=== PATIENT | male | born 1970 | race Caucasian/White ===

== ENCOUNTER 2020-10-19 06:56 | Outpatient (REF) | payer OTHER, SELFPAY ==
[2020-10-19 07:38] LABS: MANUAL DIFF FLAG NO
[2020-10-19 07:44] LABS: Basophils Percent Auto 0.4 % (0-2); Eosinophils Absolute Auto 0.3 X10*3/uL (0.0-0.4); Eosinophils Percent Auto 2.7 % (0-4); Hematocrit 51.4 % (42-52); Imm Gran Abs Auto 0.03 X10*3/uL (0.00-0.03); Imm Gran Pct Auto 0.3 % (0.0-0.4); Lymphocytes Absolute Auto 2.1 X10*3/uL (1.2-4.9); Lymphocytes Percent Auto 19.3 % (20-40); Mean Corpuscular HGB Conc 33.1 g/dl (31.0-36.0); Mean Corpuscular Hemoglobin 30.8 pg (27.0-33.0); Mean Corpuscular Volume 93.1 fL (80-98); Mean Platelet Volume 9.4 fL (9.4-12.4); Monocytes Absolute Auto 0.5 X10*3/uL (0.1-1.2); Monocytes Percent Auto 4.9 % (2-11); Neutrophils Absolute Auto 7.9 X10*3/uL (2.0-8.3); Neutrophils Percent Auto 72.4 % (45-73); Platelet Count 233 X10*3/uL (160-400); Red Blood Count 5.52 X10*6/uL (4.60-5.80); Red Cell Distribution Width 12.5 % (11.0-16.0); White Blood Count 10.9 X10*3/uL (4.8-10.8)
[2020-10-19 08:04] LABS: Alanine Aminotransferase 18 U/L (0-40); Alkaline Phosphatase 67 U/L (39-117); Anion Gap 10 (12-20); Aspartate Amino Transferase 15 U/L (5-37); Bilirubin Total 0.3 mg/dL (0.0-1.0); Blood Urea Nitrogen 18 mg/dL (9-16); Calcium 9.4 mg/dL (8.4-10.2); Carbon Dioxide 28 mmol/L (22-29); Chloride 109 mmol/L (96-108); Cholesterol 243 mg/dL; Estimated Glomerular Filt Rate > 60; Glucose Random 101 mg/dL (60-115); HDL Cholesterol 40 mg/dL; LDL Cholesterol Calculated 189 mg/dl; Potassium 4.6 mmol/L (3.3-5.1); Sodium 142 mmol/L (135-145); Total Protein 6.5 g/dL (6.5-8.0); Triglycerides 70 mg/dL
[2020-10-19 09:10] LABS: Prostate Specific Antigen 0.83 ng/mL (<0.05-4.0)
== END 2020-10-19 06:57 | disposition home or self-care (01) ==
LOC: HO.LAB 06:56
PROVIDERS: PCP Internal Medicine Medical Oncology; Visit Provider Internal Medicine Medical Oncology
DX: L40.9 Psoriasis, unspecified (principal); E78.5 Hyperlipidemia, unspecified; J44.9 Chronic obstructive pulmonary disease, unspecified; N40.1 Benign prostatic hyperplasia with lower urinary tract symptoms; R35.1 Nocturia; F17.200 Nicotine dependence, unspecified, uncomplicated; Z12.5 Encounter for screening for malignant neoplasm of prostate
CPT/HCPCS: 36415; 80053; 80061; 84153; 85025

== ENCOUNTER 2022-01-08 08:16 | Outpatient (REF) | payer OTHER, SELFPAY ==
--- NOTE | ~2022-01-08 | XR_ITS ---
EXAMINATION: XR LUMBAR SPINE XR SACRUM AND COCCYX XR SACROILIAC JOINT CLINICAL INFORMATION: Pain COMPARISON: None TECHNIQUE: 5 views of the lumbar spine, 3 views of the sacrum and coccyx and 3 views of the sacroiliac joints FINDINGS: LUMBAR SPINE: Bone alignment is normal. No fracture or dislocation is seen. There is mild disc space narrowing at L5-S1. Disc spaces are otherwise normal. Facet joints are normal. No pars defect is seen. SACRUM AND COCCYX: No fracture or dislocation is seen. There is a small sclerotic lesion in the left iliac bone near the sacroiliac joint. This probably represents a bone island. SACROILIAC JOINTS: The sacroiliac joints are normal. No evidence of proliferative or erosive arthritis is seen. 1.0 cm sclerotic lesion in the left iliac bone probably representing a bone island. XR/XR lumbar spine 4V min IMPRESSION: Mild disc space narrowing at L5-S1. Otherwise unremarkable exam.
--- NOTE | ~2022-01-08 | XR_ITS ---
EXAMINATION: XR LUMBAR SPINE XR SACRUM AND COCCYX XR SACROILIAC JOINT CLINICAL INFORMATION: Pain COMPARISON: None TECHNIQUE: 5 views of the lumbar spine, 3 views of the sacrum and coccyx and 3 views of the sacroiliac joints FINDINGS: LUMBAR SPINE: Bone alignment is normal. No fracture or dislocation is seen. There is mild disc space narrowing at L5-S1. Disc spaces are otherwise normal. Facet joints are normal. No pars defect is seen. SACRUM AND COCCYX: No fracture or dislocation is seen. There is a small sclerotic lesion in the left iliac bone near the sacroiliac joint. This probably represents a bone island. SACROILIAC JOINTS: The sacroiliac joints are normal. No evidence of proliferative or erosive arthritis is seen. 1.0 cm sclerotic lesion in the left iliac bone probably representing a bone island. XR/XR sacrum coccyx min 2V IMPRESSION: Mild disc space narrowing at L5-S1. Otherwise unremarkable exam.
--- NOTE | ~2022-01-08 | XR_ITS ---
EXAMINATION: XR LUMBAR SPINE XR SACRUM AND COCCYX XR SACROILIAC JOINT CLINICAL INFORMATION: Pain COMPARISON: None TECHNIQUE: 5 views of the lumbar spine, 3 views of the sacrum and coccyx and 3 views of the sacroiliac joints FINDINGS: LUMBAR SPINE: Bone alignment is normal. No fracture or dislocation is seen. There is mild disc space narrowing at L5-S1. Disc spaces are otherwise normal. Facet joints are normal. No pars defect is seen. SACRUM AND COCCYX: No fracture or dislocation is seen. There is a small sclerotic lesion in the left iliac bone near the sacroiliac joint. This probably represents a bone island. SACROILIAC JOINTS: The sacroiliac joints are normal. No evidence of proliferative or erosive arthritis is seen. 1.0 cm sclerotic lesion in the left iliac bone probably representing a bone island. XR/XR sacroiliac joint min 3V IMPRESSION: Mild disc space narrowing at L5-S1. Otherwise unremarkable exam.
== END 2022-01-08 08:17 | disposition home or self-care (01) ==
LOC: HO.XRAY 08:16
PROVIDERS: PCP Internal Medicine Medical Oncology; Visit Provider Internal Medicine Medical Oncology
DX: M51.36 Other intervertebral disc degeneration, lumbar region (principal); M54.30 Sciatica, unspecified side
CPT/HCPCS: 72110; 72202; 72220

== ENCOUNTER 2022-01-11 10:02 | Emergency (ER) | payer OTHER, SELFPAY ==
[2022-01-11 10:04] VITALS: BP 128/86; PULSE 70; RESP 18; TEMP 36.8; O2SAT 98; BMI 28.3
--- NOTE | 2022-01-11 10:57 | ED_ITS ---
HPI - General Adult General Chief complaint: General Medical Stated complaint: sciatic nerve pain R side Source: patient Mode of arrival: ambulatory Limitations: no limitations History of Present Illness HPI narrative: 50-year-old male history of sciatica. Presents to ED for right-sided back pain. Patient stop taking his pain med since Friday. Patient denies any recent trauma. Patient denies any abdominal pain,, chills, flank pain, dysuria, hematuria, testicular pain, any urinary/incontinence. Patient denies any IV drug use or immunocompromise diseases. Related Data Allergies Allergy/AdvReac Type Severity Reaction Status Date / Time No Known Allergies Allergy Verified 01/11/22 11:17 Review of Systems Review of Systems: Right-sided sciatica back pain Yes all other systems are reviewed and are negative [facility] Social History Social History Advance Directives: No Advance Directives Information Provided: No Physical Exam ED Vital Signs: Vital Signs - 24 hr 01/11/22 10:04 Temperature 98.3 F Pulse Rate 70 Respiratory Rate 18 Blood Pressure 128/86 Pulse Oximetry 98 Oxygen Delivery Method Room Air BMI result Body Mass Index 28.3 Const General: cooperative, healthy appearing, comfortable, no acute distress, well developed, alert, awake and Physically active Orientation/consciousness: oriented to time and patient oriented x3 HENMT Head: Yes normal to inspection, Yes No palpable skull fracture present, Yes normocephalic, Yes atraumatic and No abrasion Eyes General: appearance normal, both eyes and all related structures Neck Neck: Yes normal visual inspection, Yes full ROM, Yes no lymphadenopathy, Yes no meningeal signs, Yes trachea midline, Yes supple, No anterior neck swelling and No tender Chest Chest palpation & inspection: normal inspection of the chest and normal palpation of entire chest wall Resp Effort & Inspection: normal respiratory effort and able to speak in complete sen tences Auscultation: clear to auscultation bilaterally Cardio Jugular venous distension: no JVD Heart sounds: S1 normal heart sound present and S2 normal heart sound present GI Inspection: Yes normal to inspection and No abdominal wall ecchymosis Palpation (GI): Soft to palpation, not firm, nontender, no guarding and not rigid General: No CVA tenderness and Yes no CVA tenderness Back/Spine/Pelvis Other: Right leg positive for straight leg. Back: no CVA tenderness, No CVA tenderness and back tenderness (right sciatica and lumbar tendenress.) Skin General skin exam: no rashes or lesions noted and elasticity normal Neuro Other: Negative facial droop. Negative slurred speech. Negative paralysis of extremities. Negative pronator drift. All extremities equal strength 5+. Finger to nose rapid hand movement intact. Negative Romberg. NIH score 0 General: oriented to time, patient oriented x3, gait normal, no meningeal signs and CN's II-XI intact bilaterally Cranial nerves: Yes CN's II-XII intact bilaterally Extrem General: Yes normal to inspection and Yes full ROM Psych Appearance: grossly normal, well kempt and not disheveled Course Reevaluation(s) Reevaluation #1: Patient does not want any pain medication or further evaluation. physical exam negative for neuro deficits. Patient denies any urinary/bowel incontinence. Patient walking around the ER. Patient does have Right sided lumbar spine tenderness. Not suspecting cauda equina or epidural abscess. Patient denies any urinary/bowel incontinence. Patient refused rectal exam. Straight leg test positive for right side. S patient alert oriented x3. Some labs and UA were offered but patient refused. Time: 11:35 Discharge Plan Discharge Clinical Impression: Sciatica of right side Patient Disposition: Home, Self-Care Instructions: Sciatica (ED) Additional Instructions: You do not want any workup. Please keep your physical therapy appointment with your provider this upcoming Friday. Return to the ED immediately for any urinary/bowel incontinence, abdominal pain, nausea, vomiting, flank pain, fever, chills, dysuria, hematuria, or any other concerning symptoms. Referrals: Omi Lopez MD [Primary Care Provider] - (Right-side sciatica.) Interventions: ED Discharge Assessment Last Done: 01/11/22 11:41 Discharge Date/Time: 01/11/22 11:42 Print Language: [place]
== END 2022-01-11 11:42 | disposition home or self-care (01) ==
PROVIDERS: Emergency Provider Emergency Medicine; PCP Internal Medicine Medical Oncology
DX: M54.41 Lumbago with sciatica, right side (principal)
CPT/HCPCS: 99282

== ENCOUNTER 2022-06-27 10:36 | Emergency (ER) | payer OTHER, SELFPAY ==
[2022-06-27] VITALS (7 sets, daily range): BP systolic 122–131; BP diastolic 82–95; PULSE 74–110; RESP 16–20; O2SAT 98; BMI 27.1
--- NOTE | ~2022-06-27 | CT_ITS ---
EXAMINATION: CT HEAD WITHOUT CONTRAST CLINICAL INFORMATION: Dizziness for 2 weeks. COMPARISON: None TECHNIQUE: Contiguous axial imaging was performed from the skull base to vertex without intravenous administration of contrast. Coronal and sagittal reformatted images were obtained. This CT examination was performed using dose optimization techniques as appropriate, variously including the following: *Automated exposure control *Adjustment of mA and/or kV according to patient size (this includes techniques or standardized protocols for targeted exams where dose is matched to indication/reason for exam; i.e. extremities or head) *Use of iterative reconstruction technique DLP: 716 mGy-cm FINDINGS: The cortical sulci are normal. The lateral ventricles are symmetrical. The third and fourth ventricles are in their normal midline position. The basilar and prepontine cisterns are unremarkable. Left pontine chronic appearing infarct. There is no acute intra or extracerebral abnormality. There is no mass effect or midline shift. Sections through the bony calvarium are unremarkable. The paranasal sinuses are clear. The bony orbits and orbital contents are unremarkable. Mild anterior nasal septal deviation, apex left. CT/CT head/brain wo IV con IMPRESSION: No acute intracranial pathology. Chronic appearing left pontine infarct without associated abnormality.
--- NOTE | ~2022-06-27 | XR_ITS ---
EXAMINATION: XR CHEST CLINICAL INFORMATION: Dizziness/weakness. COMPARISON: None TECHNIQUE: 2 views of the chest were obtained. FINDINGS: No significant abnormality is noted involving the heart, lungs, mediastinum, bony thorax or soft tissues. XR/XR chest 2V IMPRESSION: No acute cardiopulmonary process.
--- NOTE | 2022-06-27 10:48 | ED.ALLEREA ---
HPI - Allergic Reaction General Chief complaint: Dizziness <Tanisha Burns NP - Last Filed: 06/27/22 16:22> Stated complaint: DUPREE,DIZZY,EYE SWELLING,?ALLERGIVC RXN TO MED <Tanisha Burns NP - Last Filed: 06/27/22 16:22> Time Seen by Provider: 06/27/22 10:47 <Tanisha Burns NP - Last Filed: 06/27/22 16:22> Source: patient and EMS <Tanisha Burns NP - Last Filed: 06/27/22 16:22> Mode of arrival: EMS <Tanisha Burns NP - Last Filed: 06/27/22 16:22> Limitations: no limitations <Tanisha Burns NP - Last Filed: 06/27/22 16:22> History of Present Illness HPI narrative: this is a 52-year-old male with a history of high cholesterol, chronic back pain who presents to the emergency room with complaints of generalized weakness, dizziness, shakiness for the last 2-3 weeks. Patient reports that he has been dealing with chronic back pain for the last few months unrelieved with gabapentin and several steroid tapers. The patient reports that he was seen by his primary care doctor earlier this month and prescribed Cymbalta which he tells me he was given for mood swings. Patient reports since starting the medication he feels like his symptoms have developed. It is unclear exactly why but the patient was given Benadryl and Solu-Medrol prior to arrival by EMS with concern for allergic reaction. Patient denies any rash, vomiting, diarrhea, abdominal cramping, difficulty breathing. Patient does have some mild periorbital swelling and tells me that he was crying prior to arrival. Patient reports he is quite frustrated and depressed about how he is feeling. No suicidal thoughts. Patient reports dizziness/weakness is when he is moving around and not at rest <Tanisha Burns NP - Last Filed: 06/27/22 16:22> Related Data Home medications: Previous Rx's Medication Instructions Recorded meclizine 25 mg tablet 25 mg PO TID PRN dizziness #20 tabs 06/27/22 <Tanisha Burns NP - Last Filed: 06/27/22 16:22> Allergies/adverse reactions: Allergies Allergy/AdvReac Type Severity Reaction Status Date / Time No Known Allergies Allergy Verified 04/09/22 13:54 <Tanisha Burns SENIOR PROCUREMENT SPECIALIST - Last Filed: 06/27/22 16:22> Review of Systems Review of Systems: Yes all other systems are reviewed and are negative <Tanisha Burns NP - Last Filed: 06/27/22 16:22> Constitutional: Constitutional: Reports no additional constitutional complaints, Denies body ache(s), Denies chills, Denies fever(s), Denies headache(s) and Reports weakness <Tanisha Burns SENIOR PROCUREMENT SPECIALIST - Last Filed: 06/27/22 16:22> Eyes: Eyes: Reports no additional eye complaints and Denies change in vision <Tanisha Burns SENIOR PROCUREMENT SPECIALIST - Last Filed: 06/27/22 16:22> ENT: Reports system reviewed and no additional complaints, except as documented, Reports dizziness, Denies headache(s), Denies nasal congestion, Denies nasal discharge and Denies neck pain <Tanisha Burns SENIOR PROCUREMENT SPECIALIST - Last Filed: 06/27/22 16:22> Cardiovascular: Cardiovascular: Reports no additional cardiovascular complaints, Denies chest pain, Denies leg edema and Denies dyspnea <Tanisha Burns SENIOR PROCUREMENT SPECIALIST - Last Filed: 06/27/22 16:22> Respiratory: Respiratory: Reports no additional respiratory complaints, Denies cough and Denies dyspnea <Tanisha Burns SENIOR PROCUREMENT SPECIALIST - Last Filed: 06/27/22 16:22> Gastrointestinal: Gastrointestinal: Reports no additional gastrointestinal complaints, Denies abdominal pain, Denies diarrhea, Denies nausea and Denies vomiting <Tanisha Burns SENIOR PROCUREMENT SPECIALIST - Last Filed: 06/27/22 16:22> Genitourinary: Genitourinary: Denies urinary incontinence <Tanisha Burns SENIOR PROCUREMENT SPECIALIST - Last Filed: 06/27/22 16:22> Musculoskeletal: Musculoskeletal: Reports no additional musculoskeletal complaints, Denies back pain, Denies arthralgias, Denies joint swelling, Denies neck pain, Denies numbness and Denies tingling <Tanisha Burns SENIOR PROCUREMENT SPECIALIST - Last Filed: 06/27/22 16:22> Integumentary/Breasts: Skin/Breast: Reports system reviewed and no additional complaints, except as docu and Denies rash <Tanisha Burns NP - Last Filed: 06/27/22 16:22> Neurologic: Reports system reviewed and no additional complaints, except as documented, Denies Abnormal speech present, Reports dizziness, Denies headache(s), Denies numbness, Denies tingling and Reports weakness <Tanisha Burns NP - Last Filed: 06/27/22 16:22> [facility] Past Medical History Attestation statement: The following information was validated with the patient. <Tanisha Burns NP - Last Filed: 06/27/22 16:22> Source: old records reviewed and nursing notes reviewed <Tanisha Burns NP - Last Filed: 06/27/22 16:22> Social History Social History: Social History Patient Tobacco Use Status: Current everyday Tobacco user Tobacco use type: Cigarette Cigarette Packs Per Day: 1 Smoked in Last 30 Days: Yes Use of substances other than those prescribed or required for medical reasons: Yes Substance Use Type: Marijuana Advance Directives: No Advance Directives Information Provided: No <Tanisha Burns NP - Last Filed: 06/27/22 16:22> Physical Exam ED Vital Signs: Vital Signs - 24 hr 06/27/22 10:49 06/27/22 11:01 06/27/22 11:41 Pulse Rate 103 H 88 74 Respiratory Rate 20 16 Blood Pressure 122/95 H 131/86 Pulse Oximetry 98 98 Oxygen Delivery Method Room Air Room Air 06/27/22 11:42 06/27/22 11:44 06/27/22 12:18 Pulse Rate 88 105 H 77 Respiratory Rate 16 Blood Pressure 127/86 127/82 125/86 Pulse Oximetry Oxygen Delivery Method BMI result Body Mass Index 27.1 <Tanisha Burns NP - Last Filed: 06/27/22 16:22> Vital Signs - 24 hr 06/27/22 10:49 06/27/22 11:01 06/27/22 11:41 Pulse Rate 103 H 88 74 Respiratory Rate 20 16 Blood Pressure 122/95 H 131/86 Pulse Oximetry 98 98 Oxygen Delivery Method Room Air Room Air 06/27/22 11:42 06/27/22 11:44 06/27/22 12:18 Pulse Rate 88 105 H 77 Respiratory Rate 16 Blood Pressure 127/86 127/82 125/86 Pulse Oximetry Oxygen Delivery Method BMI result Body Mass Index 27.1 <Beck Gonzalez MD - Last Filed: 06/27/22 16:23> Const General: alert and anxious <Tanisha Burns NP - Last Filed: 06/27/22 16:22> Orientation/consciousness: patient oriented x3 <Tanisha Burns NP - Last Filed: 06/27/22 16:22> Limitations: no limitations <Tanisha Burns NP - Last Filed: 06/27/22 16:22> HENMT Head: Yes normal to inspection <Tanisha Burns SENIOR PROCUREMENT SPECIALIST - Last Filed: 06/27/22 16:22> Ears: hearing grossly normal bilaterally and TM's normal bilaterally <Tanisha Burns NP - Last Filed: 06/27/22 16:22> Throat: Yes posterior oropharynx normal, Yes tonsils normal and Yes uvula midline <Tanisha Bruns NP - Last Filed: 06/27/22 16:22> Eyes General: appearance normal, both eyes and all related structures <Tanisha Burns SENIOR PROCUREMENT SPECIALIST - Last Filed: 06/27/22 16:22> Pupils: Equal, round and reactive pupils present <Tanisha Burns NP - Last Filed: 06/27/22 16:22> Neck Neck: Yes normal visual inspection, Yes full ROM, Yes no lymphadenopathy and Yes no meningeal signs <Tanisha Burns NP - Last Filed: 06/27/22 16:22> Chest Chest palpation & inspection: normal inspection of the chest <Tanisha Bruns NP - Last Filed: 06/27/22 16:22> Resp Effort & Inspection: normal respiratory effort <aTnisha Burns NP - Last Filed: 06/27/22 16:22> Auscultation: clear to auscultation bilaterally <Tanisha Burns SENIOR PROCUREMENT SPECIALIST - Last Filed: 06/27/22 16:22> Cardio Rate: regular rate <Tanisha Burns SENIOR PROCUREMENT SPECIALIST - Last Filed: 06/27/22 16:22> Rhythm: regular rhythm <Tanisha Burns SENIOR PROCUREMENT SPECIALIST - Last Filed: 06/27/22 16:22> Peripheral pulses: Peripheral pulses 2+ throughout <Tanisha Burns SENIOR PROCUREMENT SPECIALIST - Last Filed: 06/27/22 16:22> GI Inspection: Yes normal to inspection <Tanisha Burns, SENIOR PROCUREMENT SPECIALIST - Last Filed: 06/27/22 16:22> Palpation (GI): Soft to palpation and nontender <Tanisha Burns SENIOR PROCUREMENT SPECIALIST - Last Filed: 06/27/22 16:22> General: Yes no CVA tenderness <Tanisha Burns, SENIOR PROCUREMENT SPECIALIST - Last Filed: 06/27/22 16:22> Back/Spine/Pelvis Back: no CVA tenderness <Tanisha Burns, SENIOR PROCUREMENT SPECIALIST - Last Filed: 06/27/22 16:22> Thoracic/Lumbar Spine: thoracic and lumbar spine normal to inspection <Tanisha Burns, SENIOR PROCUREMENT SPECIALIST - Last Filed: 06/27/22 16:22> Skin General skin exam: no rashes or lesions noted <Tanisha Burns, SENIOR PROCUREMENT SPECIALIST - Last Filed: 06/27/22 16:22> Neuro General: patient oriented x3, moves all extremities and no meningeal signs <Tanisha Burns SENIOR PROCUREMENT SPECIALIST - Last Filed: 06/27/22 16:22> Cranial nerves: Yes CN's II-XII intact bilaterally, Yes Equal, round and reactive pupils present, Yes Bilaterally intact EOM present, Yes Nystagmus not present, Yes Normal facial strength present and Yes Midline tongue present <Tanisha Burns SENIOR PROCUREMENT SPECIALIST - Last Filed: 06/27/22 16:22> Cognition (Neuro): normal cognition <Tanisha Burns, SENIOR PROCUREMENT SPECIALIST - Last Filed: 06/27/22 16:22> Speech: No Abnormal speech present <Tanisha Burns SENIOR PROCUREMENT SPECIALIST - Last Filed: 06/27/22 16:22> Gait exam (Neuro): Normal gait present <Tanisha Burns NP - Last Filed: 06/27/22 16:22> Motor exam (neuro): 5/5 motor strength present throughout <Tanisha Burns NP - Last Filed: 06/27/22 16:22> Sensory Exam: Normal double simultaneous stimulation for sensation <Tanisha Burns NP - Last Filed: 06/27/22 16:22> Coordination: [id number] test normal, [id number] test normal and tandem gait normal <Tanisha Burns NP - Last Filed: 06/27/22 16:22> Extrem General: Yes normal to inspection, Yes no pedal edema and Yes no calf tenderness <Tanisha Burns NP - Last Filed: 06/27/22 16:22> Course Course Course Narrative: 1200-+orthos. Will give IVF <Tanisha Burns NP - Last Filed: 06/27/22 16:22> Reevaluation(s) Reevaluation #1: Labs unremarkable. CT shows chronic left pontine infarct. Patient is aware of this. He reports he previously had a stroke requiring rehab after. Patient did receive 1 L fluid. So complaining of feeling dizzy. I did walk the patient he has a steady gait. Normal cerebellar function. Less likely CVA with symptoms greater than [address] of the head normal neurological exam. Likely vertigo. Patient will be given meclizine will reassess <Tanisha Burns NP - Last Filed: 06/27/22 16:22> Reevaluation #2: 1530-patient reports feeling improved after receiving meclizine. Patient is up and ambulating with a steady gait. Dizziness is likely multifactorial. May be secondary to recent medications started, orthostatic hypotension and vertical. Patient did meet with the care team. He was given outpatient resources to set up a therapist. Recommend follow-up outpatient with primary care. Reviewed worrisome signs symptoms of when to return to the emergency room. Comfortable discharge home. <Tanisha Burns NP - Last Filed: 06/27/22 16:22> Medications Administered Discontinued Medications Generic Name Dose Route Start Last Admin Trade Name Freq PRN Reason Stop Dose Admin Sodium Chloride 1,000 mls @ 999 mls/hr 06/27/22 12:01 06/27/22 13:36 Ns IV 06/27/22 13:01 Infused .Q1H1M STA Infusion Meclizine HCl 50 mg 06/27/22 13:32 06/27/22 13:36 Meclizine Hcl 25 Mg Tablet PO 06/27/22 13:33 50 mg ONCE ONE Administration <Tanisha Burns NP - Last Filed: 06/27/22 16:22> Medications Administered Discontinued Medications Generic Name Dose Route Start Last Admin Trade Name Cuco PRN Reason Stop Dose Admin Sodium Chloride 1,000 mls @ 999 mls/hr 06/27/22 12:01 06/27/22 13:36 Ns IV 06/27/22 13:01 Infused .Q1H1M STA Infusion Meclizine HCl 50 mg 06/27/22 13:32 06/27/22 13:36 Meclizine Hcl 25 Mg Tablet PO 06/27/22 13:33 50 mg ONCE ONE Administration <Beck Gonzalez MD - Last Filed: 06/27/22 16:23> Medical Decision Making Medical Decision Making [facility] Narrative: 52-year-old male here with complaints of generalized weakness, dizziness with movement for the last few weeks which patient contributes to recently starting Cymbalta. On arrival patient is alert oriented. Vital stable. Normal neuro exam with no focal findings. Patient quite anxious and tearful. Will obtain labs, orthostatic vital signs, CT head, EKG, chest x-ray, viral testing. <Tanisha Burns NP - Last Filed: 06/27/22 16:22> Differential Diagnosis Differential Diagnoses: The differential diagnosis associated with the presentation includes <Tanisha Burns NP - Last Filed: 06/27/22 16:22> medication side effect Less likely electrolyte abnormality, I suspect hypertension, cerebellar infarct, acs <Tanisha Burns NP - Last Filed: 06/27/22 16:22> Lab Data [facility] Lab Attestation statement: I reviewed the patient's lab results. <Tanisha Burns NP - Last Filed: 06/27/22 16:22> Result Diagrams: 06/27/22 11:54 06/27/22 11:54 <Tanisha Burns NP - Last Filed: 06/27/22 16:22> Labs: Lab Results 06/27/22 06/27/22 06/27/22 Range/Units 11:54 11:54 11:54 WBC 11.2 H (4.8-10.8) X10*3/uL RBC 5.71 (4.60-5.80) X10*6/uL Hgb 18.3 H (14.0-18.0) g/dl Hct 52.6 H (42.0-52.0) % MCV 92.1 (80.0-98.0) fL MCH 32.0 (27.0-33.0) pg MCHC 34.8 (31.0-36.0) g/dl RDW 13.2 (11.0-16.0) % Plt Count 197 (160-400) X10*3/uL MPV 8.7 L (9.4-12.4) fL Immature Gran % (Auto) 2.6 H (0.0-0.4) % Neut % (Auto) 79.6 H (45-73) % Lymph % (Auto) 13.3 L (20-40) % [place] % (Auto) 3.6 (2-11) % Eos % (Auto) 0.5 (0-4) % Baso % (Auto) 0.4 (0-2) % Lymph # (Auto) 1.5 (1.2-4.9) X10*3/uL [place] # (Auto) 0.4 (0.1-1.2) X10*3/uL Eos # (Auto) 0.1 (0.0-0.4) X10*3/uL Baso # (Auto) 0.1 (0.0-0.2) X10*3/uL Abs Immat Gran (auto) 0.29 H (0.00-0.03) X10*3/uL Absolute Neuts (auto) 9.0 H (2.0-8.3) x10*3/uL Absolute Nucleated RBC 0.000 (0.0-0.012) X10*3/uL Nucleated RBC % (auto) 0.0 (0.0-0.2) /100WBC PT (10.0-13.1) SEC INR (0.9-1.1) Sodium 142 (135-145) mmol/L Potassium 4.3 (3.3-5.1) mmol/L Chloride 107 (96-108) mmol/L Carbon Dioxide 25 (22-29) mmol/L Anion Gap 14 (12-20) BUN 13 (9-16) mg/dL Creatinine 0.89 (0.5-1.4) mg/dL Estim Creat Clear Calc 110.3 Estimated GFR > 60 Random Glucose 123 H (60-115) mg/dL Calcium 8.9 (8.4-10.2) mg/dL Magnesium 2.2 (1.6-2.6) mg/dL Total Bilirubin 1.1 H (0.0-1.0) mg/dL Direct Bilirubin 0.3 (0.0-0.5) mg/dL AST 21 (5-37) U/L ALT 78 H (0-40) U/L Alkaline Phosphatase 54 (39-117) U/L Troponin I High Sens 5.0 (<3.5-35.0) ng/L Total Protein 6.0 L (6.5-8.0) g/dL Albumin 3.7 (3.5-5.0) g/dL Ethyl Alcohol mg/dL COVID-19 (FELISHA) (Negative) COVID-19 Clin Com 06/27/22 06/27/22 06/27/22 Range/Units 11:54 11:54 11:54 WBC (4.8-10.8) X10*3/uL RBC (4.60-5.80) X10*6/uL Hgb (14.0-18.0) g/dl Hct (42.0-52.0) % MCV (80.0-98.0) fL MCH (27.0-33.0) pg MCHC (31.0-36.0) g/dl RDW (11.0-16.0) % Plt Count (160-400) X10*3/uL MPV (9.4-12.4) fL Immature Gran % (Auto) (0.0-0.4) % Neut % (Auto) (45-73) % Lymph % (Auto) (20-40) % [place] % (Auto) (2-11) % Eos % (Auto) (0-4) % Baso % (Auto) (0-2) % Lymph # (Auto) (1.2-4.9) X10*3/uL [place] # (Auto) (0.1-1.2) X10*3/uL Eos # (Auto) (0.0-0.4) X10*3/uL Baso # (Auto) (0.0-0.2) X10*3/uL Abs Immat Gran (auto) (0.00-0.03) X10*3/uL Absolute Neuts (auto) (2.0-8.3) x10*3/uL Absolute Nucleated RBC (0.0-0.012) X10*3/uL Nucleated RBC % (auto) (0.0-0.2) /100WBC PT 10.9 (10.0-13.1) SEC INR 1.0 (0.9-1.1) Sodium (135-145) mmol/L Potassium (3.3-5.1) mmol/L Chloride (96-108) mmol/L Carbon Dioxide (22-29) mmol/L Anion Gap (12-20) BUN (9-16) mg/dL Creatinine (0.5-1.4) mg/dL Estim Creat Clear Calc Estimated GFR Random Glucose (60-115) mg/dL Calcium (8.4-10.2) mg/dL Magnesium (1.6-2.6) mg/dL Total Bilirubin (0.0-1.0) mg/dL Direct Bilirubin (0.0-0.5) mg/dL AST (5-37) U/L ALT (0-40) U/L Alkaline Phosphatase (39-117) U/L Troponin I High Sens (<3.5-35.0) ng/L Total Protein (6.5-8.0) g/dL Albumin (3.5-5.0) g/dL Ethyl Alcohol < 10 mg/dL COVID-19 (FELISHA) Negative (Negative) COVID-19 Clin Com See Note <Tanisha Burns, SENIOR PROCUREMENT SPECIALIST - Last Filed: 06/27/22 16:22> Lab Results 06/27/22 06/27/22 06/27/22 Range/Units 11:54 11:54 11:54 WBC 11.2 H (4.8-10.8) X10*3/uL RBC 5.71 (4.60-5.80) X10*6/uL Hgb 18.3 H (14.0-18.0) g/dl Hct 52.6 H (42.0-52.0) % MCV 92.1 (80.0-98.0) fL MCH 32.0 (27.0-33.0) pg MCHC 34.8 (31.0-36.0) g/dl RDW 13.2 (11.0-16.0) % Plt Count 197 (160-400) X10*3/uL MPV 8.7 L (9.4-12.4) fL Immature Gran % (Auto) 2.6 H (0.0-0.4) % Neut % (Auto) 79.6 H (45-73) % Lymph % (Auto) 13.3 L (20-40) % [place] % (Auto) 3.6 (2-11) % Eos % (Auto) 0.5 (0-4) % Baso % (Auto) 0.4 (0-2) % Lymph # (Auto) 1.5 (1.2-4.9) X10*3/uL [place] # (Auto) 0.4 (0.1-1.2) X10*3/uL Eos # (Auto) 0.1 (0.0-0.4) X10*3/uL Baso # (Auto) 0.1 (0.0-0.2) X10*3/uL Abs Immat Gran (auto) 0.29 H (0.00-0.03) X10*3/uL Absolute Neuts (auto) 9.0 H (2.0-8.3) x10*3/uL Absolute Nucleated RBC 0.000 (0.0-0.012) X10*3/uL Nucleated RBC % (auto) 0.0 (0.0-0.2) /100WBC PT (10.0-13.1) SEC INR (0.9-1.1) Sodium 142 (135-145) mmol/L Potassium 4.3 (3.3-5.1) mmol/L Chloride 107 (96-108) mmol/L Carbon Dioxide 25 (22-29) mmol/L Anion Gap 14 (12-20) BUN 13 (9-16) mg/dL Creatinine 0.89 (0.5-1.4) mg/dL Estim Creat Clear Calc 110.3 Estimated GFR > 60 Random Glucose 123 H (60-115) mg/dL Calcium 8.9 (8.4-10.2) mg/dL Magnesium 2.2 (1.6-2.6) mg/dL Total Bilirubin 1.1 H (0.0-1.0) mg/dL Direct Bilirubin 0.3 (0.0-0.5) mg/dL AST 21 (5-37) U/L ALT 78 H (0-40) U/L Alkaline Phosphatase 54 (39-117) U/L Troponin I High Sens 5.0 (<3.5-35.0) ng/L Total Protein 6.0 L (6.5-8.0) g/dL Albumin 3.7 (3.5-5.0) g/dL Ethyl Alcohol mg/dL COVID-19 (FELISHA) (Negative) COVID-19 Clin Com 06/27/22 06/27/22 06/27/22 Range/Units 11:54 11:54 11:54 WBC (4.8-10.8) X10*3/uL RBC (4.60-5.80) X10*6/uL Hgb (14.0-18.0) g/dl Hct (42.0-52.0) % MCV (80.0-98.0) fL MCH (27.0-33.0) pg MCHC (31.0-36.0) g/dl RDW (11.0-16.0) % Plt Count (160-400) X10*3/uL MPV (9.4-12.4) fL Immature Gran % (Auto) (0.0-0.4) % Neut % (Auto) (45-73) % Lymph % (Auto) (20-40) % [place] % (Auto) (2-11) % Eos % (Auto) (0-4) % Baso % (Auto) (0-2) % Lymph # (Auto) (1.2-4.9) X10*3/uL [place] # (Auto) (0.1-1.2) X10*3/uL Eos # (Auto) (0.0-0.4) X10*3/uL Baso # (Auto) (0.0-0.2) X10*3/uL Abs Immat Gran (auto) (0.00-0.03) X10*3/uL Absolute Neuts (auto) (2.0-8.3) x10*3/uL Absolute Nucleated RBC (0.0-0.012) X10*3/uL Nucleated RBC % (auto) (0.0-0.2) /100WBC PT 10.9 (10.0-13.1) SEC INR 1.0 (0.9-1.1) Sodium (135-145) mmol/L Potassium (3.3-5.1) mmol/L Chloride (96-108) mmol/L Carbon Dioxide (22-29) mmol/L Anion Gap (12-20) BUN (9-16) mg/dL Creatinine (0.5-1.4) mg/dL Estim Creat Clear Calc Estimated GFR Random Glucose (60-115) mg/dL Calcium (8.4-10.2) mg/dL Magnesium (1.6-2.6) mg/dL Total Bilirubin (0.0-1.0) mg/dL Direct Bilirubin (0.0-0.5) mg/dL AST (5-37) U/L ALT (0-40) U/L Alkaline Phosphatase (39-117) U/L Troponin I High Sens (<3.5-35.0) ng/L Total Protein (6.5-8.0) g/dL Albumin (3.5-5.0) g/dL Ethyl Alcohol < 10 mg/dL COVID-19 (FELISHA) Negative (Negative) COVID-19 Clin Com See Note <Beck Gonzalez MD - Last Filed: 06/27/22 16:23> Independent Interpretation I performed an independent interpretation of an: EKG, Plain X-Ray and CT Scan <Tanisha Burns NP - Last Filed: 06/27/22 16:22> Interpretation: I indepedentely reviewed the chest x-ray and agree with radiologist's report I independently reviewed the CT of the head and agree with the radiologist's report I independently reviewed the EKG which shows normal sinus rhythm with a rate of 78, normal TN, normal QRS, normal QT <Tanisha Burns NP - Last Filed: 06/27/22 16:22> Radiology Impression Discussion of test interpretation with radiology: I have reviewed the radiologist's reading. <Tanisha Burns NP - Last Filed: 06/27/22 16:22> Radiologist Impression: [address] [id number] XRay Report Signed Patient: Fredrick Gudino MR#: [id number] : 1970 Acct:[id number] Age/Sex: 52 / M ADM Date: 06/27/22 Loc: .ED Attending Dr: Ordering Physician: Tanisha Licea NP Date of Service: 06/27/22 Procedure(s): XR chest 2V Accession Number(s): [id number] cc: Tanisha Lieca NP~ EXAMINATION: XR CHEST CLINICAL INFORMATION: Dizziness/weakness. COMPARISON: None TECHNIQUE: 2 views of the chest were obtained. FINDINGS: No significant abnormality is noted involving the heart, lungs, mediastinum, bony thorax or soft tissues. XR/XR chest 2V IMPRESSION: No acute cardiopulmonary process. FINDINGS: The cortical sulci are normal. The lateral ventricles are symmetrical. The third and fourth ventricles are in their normal midline position. The basilar and prepontine cisterns are unremarkable. Left pontine chronic appearing infarct. There is no acute intra or extracerebral abnormality. There is no mass effect or midline shift. Sections through the bony calvarium are unremarkable. The paranasal sinuses are clear. The bony orbits and orbital contents are unremarkable. Mild anterior nasal septal deviation, apex left. CT/CT head/brain wo IV con IMPRESSION: No acute intracranial pathology. ? Chronic appearing left pontine infarct without associated abnormality. <Tanisha Burns NP - Last Filed: 06/27/22 16:22> Independent Historian Clinical information obtained from an independent historian. History obtained from or confirmed by: EMS <Tanisha Burns NP - Last Filed: 06/27/22 16:22> Attestation Attending Attestation: I reviewed HYDROTREATER OPERATOR/PA/Resident note, assessment and plan. I agree with the documentation, assessment and plan unless otherwise stated. <Beck Gonzalez MD - Last Filed: 06/27/22 16:23> Discharge Plan Discharge Clinical Impression: Vertigo <Tanisha Burns NP - Last Filed: 06/27/22 16:22> Patient Disposition: Home, Self-Care <Tanisha Burns NP - Last Filed: 06/27/22 16:22> Instructions: Vertigo (ED) <Tanisha Burns NP - Last Filed: 06/27/22 16:22> Additional Instructions: Your symptoms may be from multiple things. It may be from starting her new medication. You are also mildly dehydrated. You also have an inner ear imbalance. We are giving you medication to help with this. Work on establishing a new therapist. Follow up with her primary care doctor. Return for worsening symptoms <Tanisha Burns NP - Last Filed: 06/27/22 16:22> Prescriptions: New meclizine 25 mg tablet 25 mg PO TID PRN (Reason: dizziness) Qty: 20 0RF <Tanisha Burns NP - Last Filed: 06/27/22 16:22> Referrals: Omi Lopez MD [Primary Care Provider] - 1 week <Tanisha Burns NP - Last Filed: 06/27/22 16:22> Interventions: ED Discharge Assessment Last Done: 06/27/22 15:45 <Tanisha Burns NP - Last Filed: 06/27/22 16:22> Discharge Date/Time: 06/27/22 15:46 <Tanisha Burns NP - Last Filed: 06/27/22 16:22>
--- NOTE | 2022-06-27 11:00 | ECG_ITS ---
Test Reason : DIZZINESS Blood Pressure : / mmHG Vent. Rate : 078 BPM Atrial Rate : 078 BPM P-R Int : 146 ms QRS Dur : 074 ms QT Int : 380 ms P-R-T Axes : 048 054 049 degrees QTc Int : 433 ms Normal sinus rhythm Normal ECG No previous ECGs available Referred By: Tanisha Burns Electronically Signed By:Elia Enriquez
--- NOTE | 2022-06-27 11:04 | PC.NURSE ---
Neuros are intact. Pt aware of plan for workup. No diff breathing or angioedema. Pt reports dizziness and weakness however no allergic rx sx at this time. Facial swelling however pt reports crying, no SI or HI.
[2022-06-27 11:58] LABS: MANUAL DIFF FLAG NO
[2022-06-27 12:05] LABS: Basophils Absolute Auto 0.1 X10*3/uL (0.0-0.2); Basophils Percent Auto 0.4 % (0-2); Eosinophils Absolute Auto 0.1 X10*3/uL (0.0-0.4); Eosinophils Percent Auto 0.5 % (0-4); Hematocrit 52.6 % (42.0-52.0); Hemoglobin 18.3 g/dl (14.0-18.0); Imm Gran Abs Auto 0.29 X10*3/uL (0.00-0.03); Imm Gran Pct Auto 2.6 % (0.0-0.4); Lymphocytes Absolute Auto 1.5 X10*3/uL (1.2-4.9); Lymphocytes Percent Auto 13.3 % (20-40); Mean Corpuscular HGB Conc 34.8 g/dl (31.0-36.0); Mean Corpuscular Volume 92.1 fL (80.0-98.0); Mean Platelet Volume 8.7 fL (9.4-12.4); Monocytes Absolute Auto 0.4 X10*3/uL (0.1-1.2); Monocytes Percent Auto 3.6 % (2-11); Neutrophils Percent Auto 79.6 % (45-73); Platelet Count 197 X10*3/uL (160-400); Red Blood Count 5.71 X10*6/uL (4.60-5.80); Red Cell Distribution Width 13.2 % (11.0-16.0); White Blood Count 11.2 X10*3/uL (4.8-10.8)
[2022-06-27 12:09] LABS: Prothrombin Time 10.9 SEC (10.0-13.1)
[2022-06-27] MEDS: 0.9 % Sodium Chloride 1,000 ML 999 ML IV (12:17)
[2022-06-27 12:20] LABS: Alanine Aminotransferase 78 U/L (0-40); Albumin Level 3.7 g/dL (3.5-5.0); Alkaline Phosphatase 54 U/L (39-117); Anion Gap 14 (12-20); Aspartate Amino Transferase 21 U/L (5-37); Bilirubin Direct 0.3 mg/dL (0.0-0.5); Bilirubin Total 1.1 mg/dL (0.0-1.0); Blood Urea Nitrogen 13 mg/dL (9-16); Calcium 8.9 mg/dL (8.4-10.2); Carbon Dioxide 25 mmol/L (22-29); Chloride 107 mmol/L (96-108); Creatinine Clr Calc Pharmacy 110.3; Estimated Glomerular Filt Rate > 60; Glucose Random 123 mg/dL (60-115); Magnesium 2.2 mg/dL (1.6-2.6); Potassium 4.3 mmol/L (3.3-5.1); Sodium 142 mmol/L (135-145)
[2022-06-27 12:22] LABS: Ethanol < 10 mg/dL
[2022-06-27 12:24] LABS: COVID-19 Test Negative (Negative); IDNOW Serial# BCCEAD1C
[2022-06-27] MEDS: Meclizine HCl 25 MG TABLET 50 MG PO (13:36)
--- NOTE | 2022-06-27 15:28 | MHC.CARE ---
CARE Team recieved called from ED provider Katy requesting care team met with Pt to provider psychiatry resources. CARE Team provided resources. ED provider notified
== END 2022-06-27 15:46 | disposition home or self-care (01) ==
PROVIDERS: Nurse Practitioner Family; Emergency Provider Emergency Medicine; PCP Internal Medicine Medical Oncology
DX: R42 Dizziness and giddiness (principal); R53.1 Weakness; R51.9 Headache, unspecified; Z20.822 Contact with and (suspected) exposure to COVID-19; Z20.828 Contact with and (suspected) exposure to other viral communicable diseases; Z79.899 Other long term (current) drug therapy
CPT/HCPCS: 36415; 70450; 71046; 80048; 80076; 82077; 83735; 84484; 85025; 85610; 87635; 93005; 96360; 99284; 99285

== ENCOUNTER 2022-09-23 10:31 | Outpatient (REF) | payer OTHER, SELFPAY ==
[2022-09-23 10:43] LABS: MANUAL DIFF FLAG NO
[2022-09-23 11:04] LABS: Basophils Absolute Auto 0.1 X10*3/uL (0.0-0.2); Basophils Percent Auto 0.8 % (0-2); Eosinophils Absolute Auto 0.1 X10*3/uL (0.0-0.4); Eosinophils Percent Auto 1.1 % (0-4); Hematocrit 51.6 % (42.0-52.0); Hemoglobin 17.7 g/dl (14.0-18.0); Imm Gran Abs Auto 0.05 X10*3/uL (0.00-0.03); Imm Gran Pct Auto 0.4 % (0.0-0.4); Lymphocytes Absolute Auto 2.3 X10*3/uL (1.2-4.9); Lymphocytes Percent Auto 19.9 % (20-40); Mean Corpuscular HGB Conc 34.3 g/dl (31.0-36.0); Mean Corpuscular Hemoglobin 32.5 pg (27.0-33.0); Mean Corpuscular Volume 94.9 fL (80.0-98.0); Mean Platelet Volume 9.2 fL (9.4-12.4); Monocytes Absolute Auto 0.9 X10*3/uL (0.1-1.2); Monocytes Percent Auto 7.4 % (2-11); Neutrophils Absolute Auto 8.3 x10*3/uL (2.0-8.3); Neutrophils Percent Auto 70.4 % (45-73); Platelet Count 288 X10*3/uL (160-400); Red Blood Count 5.44 X10*6/uL (4.60-5.80); White Blood Count 11.7 X10*3/uL (4.8-10.8)
[2022-09-23 11:45] LABS: Alanine Aminotransferase 28 U/L (0-40); Albumin Level 4.4 g/dL (3.5-5.0); Alkaline Phosphatase 63 U/L (39-117); Anion Gap 11 (12-20); Aspartate Amino Transferase 15 U/L (5-37); Bilirubin Total 0.6 mg/dL (0.0-1.0); Blood Urea Nitrogen 12 mg/dL (9-16); Carbon Dioxide 28 mmol/L (22-29); Chloride 108 mmol/L (96-108); Cholesterol 319 mg/dL; Estimated Glomerular Filt Rate > 60; Glucose Random 101 mg/dL (60-115); HDL Cholesterol 40 mg/dL; LDL Cholesterol Calculated 251 mg/dl; Potassium 4.4 mmol/L (3.3-5.1); Sodium 143 mmol/L (135-145); Total Protein 6.7 g/dL (6.5-8.0); Triglycerides 142 mg/dL
[2022-09-23 11:59] LABS: Prostate Specific Antigen 1.84 ng/mL (<0.05-4.0)
== END 2022-09-23 10:32 | disposition home or self-care (01) ==
LOC: HO.LAB 10:31
PROVIDERS: PCP Internal Medicine Medical Oncology; Visit Provider Internal Medicine Medical Oncology
DX: Z12.5 Encounter for screening for malignant neoplasm of prostate (principal); I63.59 Cerebral infarction due to unspecified occlusion or stenosis of other cerebral artery; E78.2 Mixed hyperlipidemia; E66.3 Overweight; N40.0 Benign prostatic hyperplasia without lower urinary tract symptoms
CPT/HCPCS: 36415; 80053; 80061; 84153; 85025

== ENCOUNTER 2023-10-07 12:17 | Outpatient (REF) | payer OTHER, SELFPAY ==
[2023-10-08 08:23] LABS: Lyme Abs Screen <0.90 index
== END 2023-10-07 12:18 | disposition home or self-care (01) ==
LOC: HO.LAB 12:17
PROVIDERS: PCP Internal Medicine Medical Oncology; Visit Provider Internal Medicine Medical Oncology
DX: T14.8XXA Other injury of unspecified body region, initial encounter (principal); W57.XXXA Bitten or stung by nonvenomous insect and other nonvenomous arthropods, initial encounter
CPT/HCPCS: 36415; 86617; 86618

== ENCOUNTER 2023-11-17 09:05 | Outpatient (REF) | payer OTHER, SELFPAY ==
[2023-11-17 09:33] LABS: MANUAL DIFF FLAG NO
[2023-11-17 10:28] LABS: Basophils Absolute Auto 0.1 X10*3/uL (0.0-0.2); Basophils Percent Auto 0.7 % (0-2); Eosinophils Absolute Auto 0.1 X10*3/uL (0.0-0.4); Eosinophils Percent Auto 0.9 % (0-4); Hematocrit 51.8 % (42.0-52.0); Hemoglobin 17.8 g/dl (14.0-18.0); Imm Gran Abs Auto 0.05 X10*3/uL (0.00-0.03); Imm Gran Pct Auto 0.5 % (0.0-0.4); Lymphocytes Absolute Auto 1.7 X10*3/uL (1.2-4.9); Lymphocytes Percent Auto 15.9 % (20-40); Mean Corpuscular HGB Conc 34.4 g/dl (31.0-36.0); Mean Corpuscular Hemoglobin 31.2 pg (27.0-33.0); Mean Corpuscular Volume 90.7 fL (80.0-98.0); Mean Platelet Volume 9.7 fL (9.4-12.4); Monocytes Absolute Auto 0.6 X10*3/uL (0.1-1.2); Monocytes Percent Auto 5.4 % (2-11); Neutrophils Absolute Auto 8.2 x10*3/uL (2.0-8.3); Neutrophils Percent Auto 76.6 % (45-73); Platelet Count 274 X10*3/uL (160-400); Red Blood Count 5.71 X10*6/uL (4.60-5.80); Red Cell Distribution Width 12.9 % (11.0-16.0); White Blood Count 10.8 X10*3/uL (4.8-10.8)
[2023-11-17 10:51] LABS: Alanine Aminotransferase 25 U/L (0-40); Albumin Level 4.2 g/dL (3.5-5.0); Alkaline Phosphatase 74 U/L (39-117); Anion Gap 13 (12-20); Aspartate Amino Transferase 16 U/L (5-37); Bilirubin Total 0.6 mg/dL (0.0-1.0); Blood Urea Nitrogen 13 mg/dL (9-16); Calcium 9.7 mg/dL (8.4-10.2); Carbon Dioxide 25 mmol/L (22-29); Chloride 106 mmol/L (96-108); Cholesterol 287 mg/dL (<200); Estimated Glomerular Filt Rate > 60; Glucose Fasting 98 mg/dL (60-99); HDL Cholesterol 35 mg/dL (>40); LDL Cholesterol Calculated 215 mg/dL (<100); Potassium 4.4 mmol/L (3.3-5.1); Sodium 140 mmol/L (135-145); Triglycerides 188 mg/dL (<150)
== END 2023-11-17 09:06 | disposition home or self-care (01) ==
LOC: HO.LAB 09:05
PROVIDERS: PCP Internal Medicine Medical Oncology; Visit Provider Internal Medicine Medical Oncology
DX: E66.3 Overweight (principal)
CPT/HCPCS: 36415; 80053; 80061; 85025

== ENCOUNTER 2023-12-08 10:11 | Outpatient (REF) | payer OTHER, SELFPAY ==
--- NOTE | ~2023-12-08 | XR_ITS ---
EXAMINATION: XR HAND/WRIST, LEFT CLINICAL INFORMATION: Psoriasis COMPARISON: None TECHNIQUE: PA, lateral, and oblique views of the left hand and wrist. FINDINGS: The bones and soft tissues are normal. No fracture. Alignment is anatomic. Joint spaces are maintained. No erosions or soft tissue calcifications. XR/XR hand wrist LT IMPRESSION: Normal radiographs of the hand and wrist.
--- NOTE | ~2023-12-08 | XR_ITS ---
EXAMINATION: XR HAND/WRIST, RIGHT CLINICAL INFORMATION: Psoriasis COMPARISON: None TECHNIQUE: PA, lateral, and oblique views of the right hand and wrist. FINDINGS: The bones and soft tissues are normal. No fracture. Alignment is anatomic. Joint spaces are maintained. No erosions or soft tissue calcifications. XR/XR hand wrist RT IMPRESSION: Normal radiographs of the hand and wrist.
== END 2023-12-08 10:12 | disposition home or self-care (01) ==
LOC: HO.XRAY 10:11
PROVIDERS: PCP Internal Medicine Medical Oncology; Visit Provider Internal Medicine Medical Oncology
DX: L40.9 Psoriasis, unspecified (principal); M19.032 Primary osteoarthritis, left wrist; M19.031 Primary osteoarthritis, right wrist; M79.641 Pain in right hand; M79.642 Pain in left hand
CPT/HCPCS: 73110; 73130

== ENCOUNTER 2024-01-09 09:13 | Outpatient (AMB) | payer OTHER, SELFPAY ==
--- NOTE | 2024-01-09 09:22 | A.OFFVIS_ITS ---
Vital Signs 01/09/24 09:38 Height 6 ft 1 in Weight 212 lb 6 oz BMI 28.0 BP 139/99 H Blood Pressure Location Rt brachial Position Sitting Pulse 69 Pulse Source Pulse Oximeter Pulse Oximetry (%) 98 Oxygen Delivery Method Room Air Intake Visit Reasons: Chronic Back Pain Intake Note: Pain today 06/21 Nail Kegger Required: No Accompanied by: Self / Same As Patient Allergies No Known Allergies Allergy (Verified 01/09/24 09:41) HPI HPI Chronic Back Pain: Details: Patient is a 53-year-old male with history of lumbar spine discectomy by Dr. Franco in 2010, right fourth finger crush injury repaired, psoriatic arthritis, depression, tobacco dependence (10-20 cigarettes daily), sleep apnea, left CVA 2021, presents today for initial evaluation of chronic low back pain with right sided radiculopathy and multiple joint pain. Reports remote history of stroke 2 years ago and has fully recovered except occasionally has difficulty finding words. Patient is currently seeing [facility] providers for the past 2-3 years and has undergone epidural steroidal injections for right-sided sciatica. He reports he has another injection coming up in February. He has completed physical therapy, acupuncture and chiropractic adjustments in the past and continues home exercise program regularly. Patient reports progressively worsening widespread body pain with multiple joint pain and developed psoriatic arthritis since he received 2 COVID shots 2 years ago. 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 Pain increases with daily activities and functioning, bending, lifting, twisting, pulling, prolonged standing and walking. Reports difficulty sleeping and enjoying recreational activities due to pain. Location: Lower back radiates down right leg, multiple joint pain Duration: Chronic pain, worsening for the past 2 years Characteristics of symptom or complaint: Aching, sharp, shooting, numbness, tingling, tightness, radiating Aggravating or associated factors: Movements, prolonged walking and standing, bending, lifting, pulling, twist Relieving factors: Prednisone taper, NSAIDs, rest, heat/cold therapies Treatment: PT, acupuncture, chiropractor, lumbar spine [facility] Medical History (Updated 01/09/24 @ 10:11 by YANET Box) Sleep apnea History of stroke Hyperlipidemia Tobacco dependence Depression Lumbar radiculopathy Social History Patient Tobacco Use Status: Current everyday Tobacco user Tobacco use type: Cigarette Cigarette Packs Per Day: 1 Substance Use Type: Marijuana Review of Systems Const All systems reviewed & are unremarkable except as noted in HPI and below Physical Exam Vital Signs: Last Vital Signs Pulse 69 01/09/24 09:38 BP 139/99 H 01/09/24 09:38 Pulse Ox 98 01/09/24 09:38 Oxygen Delivery Method Room Air 01/09/24 09:38 BMI result Body Mass Index 28.0 General: Appears afebrile. No acute distress. Alert and oriented. Mood and affect appropriate. Follows and participates in conversation appropriately. Respiratory effort is unlabored. No cough. Able to transition from sit to stand unassisted. Ambulates with bilaterally normal heel strike and toe off, except on RLE due to pain. General: Yes no CVA tenderness Back/Spine/Pelvis Other: Patient is able to walk and stand on heels and tip toes with mild difficulty on the right otherwise demonstrating good motor tone. No limping. Can flex forward to 75-80 degrees and extend to 5-10 degrees before experiencing lumbar pain. Demonstrates 5/5 left and 4/5 right strength of quadriceps bilaterally as well as flexion/dorsiflexion of bilateral feet against resistance. 2+ pedal pulses bilaterally. Seated straight leg rise with dorsiflexion positive on the right. +1 patellar and achilles reflexes bilaterally. Facet loading test positive bilaterally. Gary sign positive bilaterally, You?s, pelvic compression and Stinchfield tests are negative bilaterally. No groin pain with I/E hip rotations. Valsalva maneuver negative. Back: no CVA tenderness Cervical Spine: cervical ROM normal and No Cervical spine tenderness Thoracic/Lumbar Spine: thoracic and lumbar spine normal to inspection, Thoracic/lumbar spine scar(s), Lasegue's sign positive on the right and localized, pain with thoraco-lumbar ROM, paraspinal muscle tenderness, thoraco- lumbar ROM limited, No thoracic spinal tenderness and lumbar spinal tenderness at L4 and at L5 Pelvis: no buttock tenderness Sacroiliac joints: bilaterally tender to palpation Extrem General: Yes capillary refill normal, Yes no clubbing, cyanosis or edema and Yes no calf tenderness Results Reviewed Results Reviewed: XR LUMBAR SPINE XR SACRUM AND COCCYX XR SACROILIAC JOINT 12/31/21 FINDINGS: LUMBAR SPINE: Bone alignment is normal. No fracture or dislocation is seen. There is mild disc space narrowing at L5-S1. Disc spaces are otherwise normal. Facet joints are normal. No pars defect is seen. SACRUM AND COCCYX: No fracture or dislocation is seen. There is a small sclerotic lesion in the left iliac bone near the sacroiliac joint. This probably represents a bone island. SACROILIAC JOINTS: The sacroiliac joints are normal. No evidence of proliferative or erosive arthritis is seen. 1.0 cm sclerotic lesion in the left iliac bone probably representing a bone island. IMPRESSION: Mild disc space narrowing at L5-S1. Otherwise unremarkable exam. Assessment & Plan Assessment & Plan (1) Polyarthralgia: Code(s): M25.50 - Pain in unspecified joint Category: Medical (2) Psoriasis: Code(s): L40.9 - Psoriasis, unspecified Category: Medical (3) Lumbar radiculopathy: Code(s): M54.16 - Radiculopathy, lumbar region Category: Medical (4) Lumbar degenerative disc disease: Code(s): M51.36 - Other intervertebral disc degeneration, lumbar region Category: Medical (5) Low back pain: Code(s): M54.50 - Low back pain, unspecified Category: Medical (6) Muscle spasm of back: Code(s): M62.830 - Muscle spasm of back Category: Medical (7) Bilateral knee pain: Code(s): M25.561 - Pain in right knee; M25.562 - Pain in left knee Category: Medical Plan Discussed interventional treatments for his axial and radicular low back pain. Patient reports he will continue to follow with [facility] providers and has upcoming ELOY injection in February. We have reviewed peripheral nerve stimulation, RFA procedures, neuromodulation and BVN ablation treatments for a longer term pain management. Patient reports he is more interested today to evaluate widespread body pain and multiple joint pain. He has psoriatic arthritis and takes Otezla twice daily. Patient is interested in Rheumatology referral which I will submit today. Patient is interested to restart formal physical therapy for low back pain with right-sided radiculopathy to improve strength and flexibility and neuromuscular re-education for posture and balance. Script provided today, patient prefers [place] location. Scripts provided for tizanidine lidocaine and diclofenac topical gel. Side effects and precautions were discussed this patient. Patient called our office after medications were sent to his [facility] pharmacy and requested medications to be sent to [facility] pharmacy. All questions and concerns have been answered and patient agreed with the plan. Follow-up for medication review and sooner as needed. Orders: Orders PT Evaluation and Treatment Today M51.36 - Other intervertebral disc degeneration, lumbar region, M54.16 - Radiculopathy, lumbar region, M54.50 - Low back pain, unspecified Referrals Rheumatology Referral L40.9 - Psoriasis, unspecified, M25.50 - Pain in unspecified joint Medications: New lidocaine 5% 1 patch topical DAILY 30 days 30 ea 0RF pain M51.36 - Other intervertebral disc degeneration, lumbar region, M54.16 - Radiculopathy, lumbar region, M54.50 - Low back pain, unspecified tizanidine 2 mg PO TID 30 days PRN 90 tabs 0RF muscle spasticity M51.36 - Other intervertebral disc degeneration, lumbar region, M54.16 - Radiculopathy, lumbar region, M62.830 - Muscle spasm of back diclofenac sodium 1% (Arthritis Pain (diclofenac)) apply to single knee, ankle, foot; for foot includes sole/toes/top of foot 4 grams topical QID 30 days 100 grams 0RF pain M25.561 - Pain in right knee, M25.562 - Pain in left knee tizanidine 2 mg PO TID PRN 90 tabs 0RF muscle spasticity 30 days M51.36 - Other intervertebral disc degeneration, lumbar region, M54.16 - Radiculopathy, lumbar region, M62.830 - Muscle spasm of back diclofenac sodium 1% (Arthritis Pain (diclofenac)) apply to single knee, ankle, foot; for foot includes sole/toes/top of foot 4 grams topical QID 100 grams 0RF pain 30 days M25.561 - Pain in right knee, M25.562 - Pain in left knee lidocaine 5% 1 patch topical DAILY 30 ea 0RF pain 30 days M51.36 - Other intervertebral disc degeneration, lumbar region, M54.16 - Radiculopathy, lumbar region, M54.50 - Low back pain, unspecified Coding Level of Care Code New Pt Level 4 (78067) Diagnoses Polyarthralgia M25.50 Psoriasis L40.9 Lumbar radiculopathy M54.16 Lumbar degenerative disc disease M51.36 Low back pain M54.50 Muscle spasm of back M62.830 Bilateral knee pain M25.561; M25.562
[2024-01-09 09:38] VITALS: BP 139/99; PULSE 69; O2SAT 98; BMI 28.0
== END 2024-01-09 10:17 | disposition home or self-care (01) ==
PROVIDERS: PCP Internal Medicine Medical Oncology; Visit Provider Nurse Practitioner Family
DX: M25.50 Pain in unspecified joint (principal); L40.9 Psoriasis, unspecified; M54.16 Radiculopathy, lumbar region; M51.36 Other intervertebral disc degeneration, lumbar region; M54.50 Low back pain, unspecified; M62.830 Muscle spasm of back; M25.561 Pain in right knee; M25.562 Pain in left knee
CPT/HCPCS: 99204

== ENCOUNTER → 2024-01-09 09:13 | Outpatient (BNVA) | payer OTHER, SELFPAY | PROVIDERS: PCP Internal Medicine Medical Oncology; Visit Provider Nurse Practitioner Family ==

== ENCOUNTER 2024-02-16 13:47 | Outpatient (AMB) | payer OTHER, SELFPAY ==
[2024-02-16 14:03] VITALS: BP 112/74; PULSE 100; O2SAT 97; BMI 28.2
--- NOTE | 2024-02-16 14:03 | MHC.OFFVIS ---
Vital Signs 02/16/24 14:03 Height 6 ft 1 in Weight 213 lb 13.574 oz BMI 28.2 BP 112/74 Blood Pressure Location Lt brachial Position Sitting Pulse 100 Pulse Source Pulse Oximeter Pulse Oximetry (%) 97 Oxygen Delivery Method Room Air Intake Visit Reasons: Obstructive sleep apnea Intake Note: pt is here as a new patient for work up of SHIVA, feels tired throughout the day, easily falls asleep at work, brain fog, snoring Baler Operator Required: No Allergies No Known Allergies Allergy (Verified 02/16/24 14:47) Medication List - Last Reconciled 02/16/24 by Diane Silverio MD apremilast (Otezla) 30 mg PO BID atorvastatin 10 mg PO DAILY diclofenac sodium 1% (Arthritis Pain (diclofenac)) 4 grams topical QID 30 days lidocaine 5% 1 patch topical DAILY 30 days tizanidine 2 mg PO TID PRN Do you need a note to return to daycare/school/sports/work: No HPI HPI Obstructive sleep apnea: Details: 53 YEARS OLD GENTLEMAN IS BEING SEEN FOR THE 1ST TIME, REFERRED BY HIS PRIMARY CARE PHYSICIAN WITH HIGH SUSPICION OF SLEEP APNEA. THIS GENTLEMAN IS ONLY SLIGHTLY OVERWEIGHT WITH BMI OF 28 . HE IS TELLS ME THAT RECENTLY HE HAS LOST ABOUT 20 LB OF WEIGHT. HE HAS BEEN TOLD BY A LADY FRIEND THAT HE SNORES HEAVY AT NIGHT. HE IS NOT AWARE OF SYMPTOMS OF SLEEP APNEA. HE CLAIMS THAT HE SLEEPS ABOUT 6 HOURS DURING THE NIGHT WITHOUT WAKING UP FREQUENTLY. HOWEVER IN THE MORNING HE STILL HAS SOME BRAIN FOG, FEELING TIRED AND SLEEPY. HISTORY GOES BACK TO BOUT 2 YEARS AGO WHEN HE HAD NONSPECIFIC NEUROLOGIC SYMPTOMS, OF WEAKNESS OF THE LOWER EXTREMITIES AND LOSS OF BALANCE WITH THE FEELING OF BRAIN FOG. HE WAS INITIALLY TREATED AT [facility] EMERGENCY ROOM AND THEN REFERRED TO [facility] WHERE HE WAS TREATED INPATIENT FOR 1 WEEK AND THEN SENT TO REHAB CENTER. HE THINKS THAT HIS ONSET OF SYMPTOMS WAS RELATED TO COVID VACCINE. ANYWAY WITH REHAB PROGRAM HE GOT SOMEWHAT BETTER BUT HIS THE FEELING OF LIGHTHEADEDNESS,, SOME DEGREE OF BRAIN FOG,. AND BALANCE NEVER CAME BACK TO NORMAL. 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 DURING THE COVID EPIDEMIC ( 2019 ) AT [email or web address] HE DID WORK OVER THERE AT THAT FACILITY. LUCKILY HE DID NOT HAVE ACTIVE COVID DISEASE. HE DID RECEIVE HIS INITIAL VACCINATION, AND 6 MONTHS LATER HAD COVID BOOSTER SHOT. THEN IN 2021 HE DEVELOPED THE NEW NEUROLOGIC SYMPTOMS WHICH LED TO THE DIAGNOSIS OF STROKE , DESCRIBED ABOVE. AFTER HE RECOVERED FROM QUESTIONABLE STROKE, HE DID NOT GO BACK TO WORK AT [employer]. 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 HE HAS HAD NO ACCIDENT, HOWEVER IT IS HARD FOR HIM TO CLIMB UP AND DOWN THE STAIRS, DUE TO THIS ONGOING BRAIN FOG AND SINCE OF LOSING BALANCE. HE DOES SNORE AT NIGHT. HE DOES FEEL TIRED AND SLEEPY ON WAKING UP IN THE MORNING. IF HE WAS NOT WORKING ACTIVELY HE DOES HAVE TENDENCY TO DOZE OFF DURING THE DAYTIME. I CHECKED EPWORTH SLEEPINESS SCALE AND IT DOES COME TO 04/04 . * HE SMOKES 1 PACK OF CIGARETTES A DAY, . DENIES DRINKING ALCOHOL HE HAS SMOKED FOR ABOUT 40 YEARS, DENIES COUGH OR WHEEZING. HE TELLS ME THAT HE ENJOYS SMOKING AND IS NOT READY ARE MOTIVATED TO QUIT. [facility] Medical History (Updated 02/16/24 @ 15:33 by Diane Silverio MD) Smoker SHIVA (obstructive sleep apnea) Retrognathia Somnolence, daytime Sleep apnea History of stroke Hyperlipidemia Tobacco dependence Depression Lumbar radiculopathy Surgical History H/O lumbar discectomy Family History Father CAD (coronary artery disease) Myocardial infarction Alcoholism Hypertension CVD (cardiovascular disease) Social History Patient Tobacco Use Status: Current everyday Tobacco user Tobacco use type: Cigarette Cigarette Packs Per Day: 1 Substance Use Type: Marijuana Review of Systems Const All systems reviewed & are unremarkable except as noted in HPI and below Reports snoring Eyes Reports no additional complaints ENT Reports no additional complaints and Reports vertigo (MILD TO MODERATE ON CHANGING POSITIONS) Card Denies chest pain, Denies syncope, Denies irregular heart rhythm, Denies leg edema and Denies dyspnea on exertion Resp Denies cough, Denies dyspnea on exertion, Reports snoring and Denies wheezing GI Reports no additional complaints Reports no additional complaints Musc Reports myalgias (NONSPECIFIC) and Reports arthralgias Skin/Breast Reports system reviewed and no additional complaints, except as documented Neuro Reports vertigo (MILD TO MODERATE ON CHANGING POSITIONS) and Denies syncope Psych Reports no additional complaints Endo Reports no additional complaints Chon/Lymph Reports no additional complaints Aller/Immun Reports no additional complaints and Denies wheezing Physical Exam Vital Signs: Last Vital Signs Pulse 100 02/16/24 14:03 BP 112/74 02/16/24 14:03 Pulse Ox 97 02/16/24 14:03 Oxygen Delivery Method Room Air 02/16/24 14:03 BMI result Body Mass Index 28.2 Const General: healthy appearing, comfortable, no acute distress, alert and awake Orientation/consciousness: patient oriented x3 HEENT Head: Yes normal to inspection General nose exam: Normal nares present Teeth and gingiva: other (RETROGANTHIA OF THE LOWER JAW ) Eyes General: appearance normal, both eyes and all related structures Neck Neck: Yes normal visual inspection, Yes no lymphadenopathy, Yes trachea midline and Yes no JVD Thyroid: Thyroid normal Chest Chest palpation & inspection: normal inspection of the chest, normal palpation of entire chest wall and no tenderness Resp Effort & Inspection: normal respiratory effort Auscultation: clear to auscultation bilaterally, no crackles and no wheezes Cardio Palpation: normal PMI Rate: regular rate Rhythm: regular rhythm Heart sounds: no gallops and no murmurs Peripheral pulses: Peripheral pulses 2+ throughout GI Palpation (GI): Soft to palpation, nontender, No hepatosplenomegaly present and no masses Auscultation: normal bowel sounds Back/Spine/Pelvis Thoracic/Lumbar Spine: thoracic and lumbar spine normal to inspection Skin General skin exam: no rashes or lesions noted Neuro General: patient oriented x3 and no focal motor deficits Cranial nerves: Yes CN's II-XII intact bilaterally Extrem General: Yes normal to inspection, Yes no clubbing, cyanosis or edema and Yes no calf tenderness Psych Appearance: grossly normal and well kempt Speech and movement: Normal speech and movement present Assessment & Plan Assessment & Plan (1) Somnolence, daytime: Comment: HE CLAIMS THAT HE SLEEPS AT LEAST FOR 6 HOURS EVERY NIGHT. HOWEVER HE DOES TENDENCY ARE AN URGE TO FALL ASLEEP DURING THE DAYTIME IF HE WAS JUST SITTING IN ACTIVE. THE SYMPTOMS ARE WORSE IN THE AFTERNOON. HE IS NOT SURE IF THESE SYMPTOMS ARE DUE TO HIS REGIONAL BRAIN FOG RELATED TO STROKE OR IF IT IS DUE TO INSUFFICIENT SLEEP AT NIGHT. EPSWORTH SLEEPINESS SCALE = 11 Code(s): R40.0 - Somnolence Category: Medical Plan: I THINK HE NEEDS TO BE CHECKED WITH SLEEP STUDY (2) Retrognathia: Comment: HE HAS PROMINENT RETROGANTHIA OF THE LOWER JAW, AND IT IS DEFINITELY A STRONG CAUSE OF SLEEP APNEA. Code(s): M26.19 - Other specified anomalies of jaw-cranial base relationship Category: Medical Plan: EXPLAINED TO THE PATIENT ABOUT THE RETROGANTHIA AND MECHANISM BY WHICH IT PER MODES THE SLEEP APNEA. (3) SHIVA (obstructive sleep apnea): Comment: THERE IS A HIGH CHANCE OF OBSTRUCTIVE SLEEP APNEA, CAUSING INSUFFICIENT SLEEP, AND CONTRIBUTING TO HIS DAYTIME SLEEPINESS OR BRAIN FOG LIKE FEELING. Code(s): G47.33 - Obstructive sleep apnea (adult) (pediatric) Category: Medical Plan: AFTER FULL DISCUSSION WITH HIM A HOME-BASED SLEEP STUDY IS ORDERED. (4) Smoker: Comment: SMOKER FOR MORE THAN 40 YEARS, 1 PACK OF CIGARETTES A DAY. DOES NOT HAVE ANY SIGNIFICANT COUGH WHEEZING OR SHORTNESS OF BREATH, DOES NOT SEEM TO BE MOTIVATED TO QUIT. Code(s): F17.200 - Nicotine dependence, unspecified, uncomplicated Category: Social Hx Plan: HAD A GOOD DISCUSSION AND I TOLD HIM THE RISK OF CONTINUED SMOKING. I DISCUSSED ABOUT ANNUAL LUNG SCREENING PROGRAM AND HE IS WILLING TO JOIN THE PROGRAM. Orders: Orders RT home sleep study Today G47.33 - Obstructive sleep apnea (adult) (pediatric), M26.19 - Other specified anomalies of jaw-cranial base relationship, R40.0 - Somnolence Referrals Lung Cancer Screening Referral F17.200 - Nicotine dependence, unspecified, uncomplicated Coding Level of Care Code New Pt Level 4 (93534) Diagnoses Somnolence, daytime R40.0 Retrognathia M26.19 SHIVA (obstructive sleep apnea) G47.33 Smoker F17.200
== END 2024-02-16 14:54 | disposition home or self-care (01) ==
PROVIDERS: PCP Internal Medicine Medical Oncology; Visit Provider Internal Medicine
DX: R40.0 Somnolence (principal); M26.19 Other specified anomalies of jaw-cranial base relationship; G47.33 Obstructive sleep apnea (adult) (pediatric); F17.200 Nicotine dependence, unspecified, uncomplicated
CPT/HCPCS: 99204

== ENCOUNTER → 2024-02-16 13:47 | Outpatient (BNVA) | payer OTHER, SELFPAY | PROVIDERS: PCP Internal Medicine Medical Oncology; Visit Provider Internal Medicine ==

== ENCOUNTER 2024-02-19 15:32 | Outpatient (AMB) | payer OTHER, SELFPAY ==
--- NOTE | 2024-02-19 15:33 | MHC.OFFVIS ---
Vital Signs 02/19/24 15:41 Height 6 ft 1 in Weight 216 lb 4.375 oz BMI 28.5 BP 120/70 Blood Pressure Location Lt brachial Position Sitting Pulse 86 Pulse Source Pulse Oximeter Pulse Oximetry (%) 97 Oxygen Delivery Method Room Air Intake Visit Reasons: Psoriasis, joint pain/HNE PENDING Intake Note: Patient presents for Psoriasis and joint pain. I feel pain on both elbows, hands, knees and both heels. I been feeling this pain for a year now. No medication works. Allergies No Known Allergies Allergy (Verified 02/19/24 15:39) Medication List - Last Reconciled 02/19/24 by Violeta Zurita MD apremilast (Otezla) 30 mg PO BID atorvastatin 10 mg PO DAILY tizanidine 2 mg PO TID PRN HPI Comments Details: Patient is a 53-year-old male with history of stroke and hyperlipidemia who presents for evaluation of psoriatic arthritis. Patient states that about 2 years ago after he got a COVID shot he started to notice a rash on his bilateral lower extremities. This rash continued to worsen. He finally went to a surveillance manager and was told he had psoriasis. Used topicals on and off. On recently started Otezla. With improvement of his psoriasis. However about 1 year ago he started to notice pain in his PIP joints DIPs joints his heel and his lateral elbows. This was associated with swelling of the hands and prolonged morning stiffness up to an hour. Denies any history of eye inflammation. Denies any history of inflammatory bowel disease type symptoms. No family history of psoriasis. 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 Psoriatic arthritis Smoker SHIVA (obstructive sleep apnea) Retrognathia Somnolence, daytime Sleep apnea History of stroke Hyperlipidemia Tobacco dependence Depression Lumbar radiculopathy Surgical History H/O lumbar discectomy Family History Father CAD (coronary artery disease) Myocardial infarction Alcoholism Hypertension CVD (cardiovascular disease) Social History (Updated 02/19/24 @ 15:41 by CYNDY Thurman) Household Members: None Housing: House Alcohol intake: former Patient Tobacco Use Status: Current everyday Tobacco user Tobacco use type: Cigarette Cigarette Packs Per Day: 1 Substance Use Type: Marijuana Review of Systems Const Details: Review of Systems Constitutional: Denies fever, chills, weight loss ENT: Denies vision changes, eye pain or eye redness, dental caries, dry mouth GI: Denies nausea, vomiting, diarrhea, abdominal pain, change in BM Pulm: Denies SOB, RAMIREZ, hemoptysis, wheezing Cards: Denies chest pain, palpitations Skin: Denies Raynaud's, rash, nail changes, photosensitivity, CLERK OF WORKS: Denies headaches, weakness, paresthesias, recurrent falls MSK: as per HPI All other systems reviewed and are unremarkable except noted above Physical Exam Vital Signs: Last Vital Signs Pulse 86 02/19/24 15:41 BP 120/70 02/19/24 15:41 Pulse Ox 97 02/19/24 15:41 Oxygen Delivery Method Room Air 02/19/24 15:41 BMI result Body Mass Index 28.5 Const Other: Physical Examination Patient well appearing and in no apparent painful distress Able to rise from chair without support. ?Gait normal. Constitutional Mucous membranes pink and moist patient alert and cooperative HEENT Conjunctiva and sclera clear. ?Pupils equal round and reactive to light. ?No lymphadenopathy. ?Normal dentition. Respiratory System Normal respiratory effort and able to speak in complete sentences. ?Clear to auscultation bilaterally. ?No crackles, rales, rhonchi, wheezes heard. Cardiac System Regular rate and rhythm. ?S1 and S2 heard no murmurs. ?Radial pulses intact bilaterally MSK A fusiform swelling noted to the right and left 2nd 3rd and 4th digits. Tenderness to palpation of the PIPs and DIPs throughout. No nail changes noted. Tenderness to palpation of the Achilles tendon bilaterally. Lateral elbow entheses site tenderness to palpation bilaterally. Results Reviewed Results Reviewed: Laboratory Tests 11/17/23 09:32 WBC 10.8 RBC 5.71 Hgb 17.8 Hct 51.8 Plt Count 274 Sodium 140 Potassium 4.4 Chloride 106 Carbon Dioxide 25 BUN 13 Creatinine 1.03 Hand and wrist x-ray 12/08/2023. Fourth PIP joint of the right hand with destruction secondary to likely to an old injury. Otherwise there is no evidence of erosions or periarticular osteopenia of the PIP or PIP joints. No carpal crowding. (my read) Assessment & Plan Assessment & Plan (1) Psoriatic arthritis: Code(s): L40.50 - Arthropathic psoriasis, unspecified Category: Medical Plan: #Psoriatic Arthritis Patient with history of psoriasis who now presents with prolonged morning stiffness, PIP and DIPs involvement, enthesitis. Findings consistent with psoriatic arthritis. We will start methotrexate therapy. We will also give course of naproxen to cover him while he waits for the methotrexate to kick in. Labs today. (2) Psoriasis: Code(s): L40.9 - Psoriasis, unspecified Category: Medical Plan: #Psoriasis Patient can continue with the Otezla at this time. Follow up with Dermatology. 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 Limit alcohol and avoid Bactrim ? Monitoring: ?CBC, BMP, LFTs, hepatitis serologies as needed Plan I spent 45 minutes reviewing the record and labs, seeing the patient, discussing the treatment plan and documenting in the medical record Orders: Orders Hepatitis A,B,C Profile Today L40.50 - Arthropathic psoriasis, unspecified Complete Blood Count Auto Diff 3 Months L40.50 - Arthropathic psoriasis, unspecified Erythrocyte Sedimentation Rate Today L40.50 - Arthropathic psoriasis, unspecified Complete Blood Count Auto Diff Today L40.50 - Arthropathic psoriasis, unspecified Comprehensive Met. Panel Today L40.50 - Arthropathic psoriasis, unspecified C Reactive Protein Today L40.50 - Arthropathic psoriasis, unspecified HLA B27 Today L40.50 - Arthropathic psoriasis, unspecified Erythrocyte Sedimentation Rate 3 Months L40.50 - Arthropathic psoriasis, unspecified Comprehensive Met. Panel 3 Months L40.50 - Arthropathic psoriasis, unspecified C Reactive Protein 3 Months L40.50 - Arthropathic psoriasis, unspecified Medications: New methotrexate sodium Take 3 pills every week for 2 weeks then 6 pills every week for 90 days. 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
[2024-02-19 15:41] VITALS: BP 120/70; PULSE 86; O2SAT 97; BMI 28.5
== END 2024-02-19 16:18 | disposition home or self-care (01) ==
PROVIDERS: PCP Internal Medicine Medical Oncology; Visit Provider Student in an Organized Health Care Education/Training Program
DX: L40.50 Arthropathic psoriasis, unspecified (principal); L40.9 Psoriasis, unspecified; Z79.631 Long term (current) use of antimetabolite agent
CPT/HCPCS: 99204

== ENCOUNTER → 2024-02-19 15:32 | Outpatient (BNVA) | payer OTHER, SELFPAY | PROVIDERS: PCP Internal Medicine Medical Oncology; Visit Provider Student in an Organized Health Care Education/Training Program ==

== ENCOUNTER 2024-03-29 16:09 | Outpatient (REF) | payer OTHER, SELFPAY ==
[2024-03-29 16:32] LABS: MANUAL DIFF FLAG NO
[2024-03-29 17:00] LABS: Basophils Absolute Auto 0.1 X10*3/uL (0.0-0.2); Basophils Percent Auto 0.6 % (0-2); Eosinophils Absolute Auto 0.2 X10*3/uL (0.0-0.4); Hematocrit 50.7 % (42.0-52.0); Hemoglobin 17.1 g/dl (14.0-18.0); Imm Gran Abs Auto 0.04 X10*3/uL (0.00-0.03); Imm Gran Pct Auto 0.4 % (0.0-0.4); Lymphocytes Absolute Auto 2.4 X10*3/uL (1.2-4.9); Lymphocytes Percent Auto 24.9 % (20-40); Mean Corpuscular HGB Conc 33.7 g/dl (31.0-36.0); Mean Corpuscular Hemoglobin 31.5 pg (27.0-33.0); Mean Corpuscular Volume 93.5 fL (80.0-98.0); Mean Platelet Volume 9.3 fL (9.4-12.4); Monocytes Absolute Auto 0.6 X10*3/uL (0.1-1.2); Monocytes Percent Auto 6.3 % (2-11); Neutrophils Absolute Auto 6.4 x10*3/uL (2.0-8.3); Neutrophils Percent Auto 65.8 % (45-73); Platelet Count 263 X10*3/uL (160-400); Red Blood Count 5.42 X10*6/uL (4.60-5.80); Red Cell Distribution Width 13.6 % (11.0-16.0); White Blood Count 9.8 X10*3/uL (4.8-10.8)
[2024-03-29 17:01] LABS: Basophils Absolute Auto 0.1 X10*3/uL (0.0-0.2); Basophils Percent Auto 0.5 % (0-2); Eosinophils Absolute Auto 0.2 X10*3/uL (0.0-0.4); Eosinophils Percent Auto 1.9 % (0-4); Imm Gran Abs Auto 0.03 X10*3/uL (0.00-0.03); Imm Gran Pct Auto 0.3 % (0.0-0.4); Lymphocytes Absolute Auto 2.5 X10*3/uL (1.2-4.9); Lymphocytes Percent Auto 25.3 % (20-40); Mean Corpuscular HGB Conc 33.3 g/dl (31.0-36.0); Mean Corpuscular Hemoglobin 31.1 pg (27.0-33.0); Mean Corpuscular Volume 93.4 fL (80.0-98.0); Mean Platelet Volume 9.3 fL (9.4-12.4); Monocytes Absolute Auto 0.7 X10*3/uL (0.1-1.2); Monocytes Percent Auto 7.3 % (2-11); Neutrophils Absolute Auto 6.3 x10*3/uL (2.0-8.3); Neutrophils Percent Auto 64.7 % (45-73); Platelet Count 269 X10*3/uL (160-400); Red Blood Count 5.46 X10*6/uL (4.60-5.80); Red Cell Distribution Width 13.7 % (11.0-16.0); White Blood Count 9.8 X10*3/uL (4.8-10.8)
[2024-03-29 17:25] LABS: Alanine Aminotransferase 64 U/L (0-40); Albumin Level 4.2 g/dL (3.5-5.0); Alkaline Phosphatase 77 U/L (39-117); Anion Gap 10 (12-20); Aspartate Amino Transferase 27 U/L (5-37); Bilirubin Total 0.5 mg/dL (0.0-1.0); Blood Urea Nitrogen 18 mg/dL (9-16); Calcium 9.5 mg/dL (8.4-10.2); Carbon Dioxide 29 mmol/L (22-29); Chloride 108 mmol/L (96-108); Cholesterol 227 mg/dL (<200); Estimated Glomerular Filt Rate > 60; Glucose Random 80 mg/dL (60-115); HDL Cholesterol 38 mg/dL (>40); LDL Cholesterol Calculated 139 mg/dL (<100); Potassium 4.2 mmol/L (3.3-5.1); Sodium 143 mmol/L (135-145); Total Protein 6.9 g/dL (6.5-8.0); Triglycerides 252 mg/dL (<150)
[2024-03-29 17:26] LABS: Alanine Aminotransferase 67 U/L (0-40); Albumin Level 4.2 g/dL (3.5-5.0); Alkaline Phosphatase 77 U/L (39-117); Anion Gap 10 (12-20); Aspartate Amino Transferase 29 U/L (5-37); Bilirubin Total 0.5 mg/dL (0.0-1.0); Blood Urea Nitrogen 18 mg/dL (9-16); C Reactive Protein 0.34 mg/dL (< or = 0.50); Calcium 9.1 mg/dL (8.4-10.2); Carbon Dioxide 29 mmol/L (22-29); Chloride 108 mmol/L (96-108); Estimated Glomerular Filt Rate > 60; Glucose Random 80 mg/dL (60-115); Potassium 4.2 mmol/L (3.3-5.1); Sodium 143 mmol/L (135-145); Total Protein 6.9 g/dL (6.5-8.0)
[2024-03-29 17:49] LABS: Erythrocyte Sedimentation Rate 4 MM/HR (0-15)
[2024-03-30 04:08] LABS: HBS Num1 7.95 mIU/mL (0-7.99); HBc Num1 0.07 S/CO (0.00-0.79); Hepatitis A Antibody IgM 0.14 Index (0-0.79); Hepatitis B Core Antibody Nonreactive (Nonreactive); Hepatitis B Surface Antigen Negative (Negative); ~HepC Num1 0.05 S/CO (0.00-0.79); ~Hepatitis A Antibody IgM Nonreactive (Nonreactive); ~Hepatitis B Surface Antibody NONREACTIVE (Nonreactive); ~Hepatitis C Antibody Nonreactive (Nonreactive)
[2024-04-01 21:58] LABS: HLA B27 Negative (Negative)
== END 2024-03-29 16:10 | disposition home or self-care (01) ==
LOC: HO.LAB 16:09
PROVIDERS: Absent Provider Student in an Organized Health Care Education/Training Program; PCP Internal Medicine Medical Oncology; Visit Provider Internal Medicine Medical Oncology
DX: L40.50 Arthropathic psoriasis, unspecified (principal); E78.2 Mixed hyperlipidemia; E66.3 Overweight
CPT/HCPCS: 36415; 80053; 80061; 85025; 85652; 86140; 86704; 86706; 86709; 86803; 86812; 87340

== ENCOUNTER 2024-04-06 11:29 | Day surgery (SDC) | payer OTHER, SELFPAY ==
[2024-04-06 11:42] VITALS: BMI 27.7
[2024-04-06] MEDS: Sodium Phosphate,Mono-Dibasic 133 ML ENEMA PR (12:11)
[2024-04-06 12:18] VITALS: BP 122/86; PULSE 82; RESP 16; TEMP 36.3; O2SAT 97
[2024-04-06] MEDS: Lactated Ringers 1,000 ML 100 ML IVCONT (12:30)
--- NOTE | 2024-04-06 13:04 | MHC.SHP ---
Pre-Procedural Eval Section A - 24 Hr Update-Section A only Date of Service: 04/06/24 The patient is an INPATIENT: No Changes since office visit: No Cold of Flu in the past 2 weeks, No New Medical Problems, No Changes in Medication and No Patient answered all questions The patient has been examined within 24 hours of the surgical procedure. The History & Physical has been completed within 30 days and I have reviewed it.: No Section B - Complete if H&P > 30 days Chief Complaint: Encounter for screening for malignant neoplasm of Allergies: Allergies Allergy/AdvReac Type Severity Reaction Status Date / Time No Known Allergies Allergy Verified 02/19/24 15:39 Plan I have reviewed the history and physical and performed a pertinent physical examination on my patient. No changes have occurred unless specified. Time Spent With Patient Time: Total time managing care of this patient today ____ minutes.
--- NOTE | 2024-04-06 13:11 | P.CONAN_ITS ---
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 (Acute) Psoriatic arthritis (Acute) SHIVA (obstructive sleep apnea) (Acute) Retrognathia (Acute) Somnolence, daytime (Acute) Bilateral knee pain (Acute) Muscle spasm of back (Acute) Lumbar radiculopathy (Acute) Low back pain (Acute) Lumbar degenerative disc disease (Acute) Psoriasis (Acute) Polyarthralgia (Acute) Past Medical History Medical History Nicotine dependence, cigarettes, uncomplicated 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, nursing home, current use Psoriatic arthritis SHIVA (obstructive sleep apnea) Retrognathia Somnolence, daytime Sleep apnea History of stroke Hyperlipidemia Depression Lumbar radiculopathy Family History Family History Father CAD (coronary artery disease) Myocardial infarction Alcoholism Hypertension CVD (cardiovascular disease) Family history of problems with anesthesia: No Surgical History Surgical History H/O lumbar discectomy History of Problems with Anesthesia: No Social History Social History Household Members: None Household Members Other:: lives alone Housing: House Are you a primary pet care attendant to a significant other at home: No Do you presently have visiting nurse or other home services: No Alcohol intake: former Patient Tobacco Use Status: Current everyday Tobacco user Tobacco use type: Cigarette Cigarette Packs Per Day: 20 Cigarettes Per Day: 400.0 Use of substances other than those prescribed or required for medical reasons: Yes Substance Use Type: Marijuana Substance Use Frequency: Daily Are you DNR?: No Advance Directives: No Advance Directives Information Provided: Yes Recently lost weight without trying: No Nutrition Risks: No Nutritional Risk Meds Allergies Allergy/AdvReac Type Severity Reaction Status Date / Time No Known Allergies Allergy Verified 02/19/24 15:39 Active Medications: Current Medications Lactated Ringer's (Lr) 1,000 mls @ 100 mls/hr IVCONT .Q10H KANG Last Admin: 04/06/24 12:30 Dose: 100 mls/hr Sodium Biphosphate/Sodium Phosphate (Sodium Phosphate,[place]-Dibasic 133 Ml Enema) 133 ml [place] ONCE PRN PRN Reason: Constipation Last Admin: 04/06/24 12:11 Dose: 133 ml Home Medications ?Medication ?Instructions ?Recorded ?Confirmed ?Last Taken ?Type apremilast 30 mg tablet (Otezla) 30 mg PO BID 01/09/24 02/19/24 Unknown History atorvastatin 10 mg tablet 10 mg PO DAILY 01/09/24 02/19/24 Unknown History Exam Height,Weight and Vital Signs: Height 6 ft 1 in Weight 95.311 kg Last Vital Signs Temp 97.4 F 04/06/24 12:18 Pulse 82 04/06/24 12:18 Resp 16 04/06/24 12:18 BP 122/86 04/06/24 12:18 Pulse Ox 97 04/06/24 12:18 O2 Del Method Room Air 04/06/24 12:18 Airway Mallampati Class: II TM Dist: >3cm Neck ROM: Full Heart: rrr Lungs: cta Assessment and Plan Assessment Anesthesia Assessment: Anesthesia Plan Discussed and Smoking Cess. Discussed (one pack cigarettes and marihuana) Final Anesthetic Review Family History of Problems with Anesthesia: No History of Problems with Anesthesia: No NPO: Yes ASA Class: III Final Preanesthetic Review: No Changes in Pt Med Stat, Meds/Allgs Chart Re viewed, Consent Obtained/Reviewed and Anes Risks/Benef Reviewed Patient Risk: Intermediate Procedure Risk: Low Anesthetic Plan Anesthetic Plan: MAC: Disposition: Standard PACU
--- NOTE | 2024-04-06 13:13 | P.CONAN_ITS ---
[facility] Active Problems Active Problems: All Active Problems (Updated 03/09/24 @ 14:25 by Diane Archer PA-C) Nicotine dependence, cigarettes, uncomplicated (Acute) 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, shelter, current use (Acute) Psoriatic arthritis (Acute) SHIVA (obstructive sleep apnea) (Acute) Retrognathia (Acute) Somnolence, daytime (Acute) Bilateral knee pain (Acute) Muscle spasm of back (Acute) Lumbar radiculopathy (Acute) Low back pain (Acute) Lumbar degenerative disc disease (Acute) Psoriasis (Acute) Polyarthralgia (Acute) Past Medical History Medical History Nicotine dependence, cigarettes, uncomplicated 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, 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, 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 Psoriatic arthritis SHIVA (obstructive sleep apnea) Retrognathia Somnolence, daytime Sleep apnea History of stroke Hyperlipidemia Depression Lumbar radiculopathy Family History Family History Father CAD (coronary artery disease) Myocardial infarction Alcoholism Hypertension CVD (cardiovascular disease) Family history of problems with anesthesia: No Surgical History Surgical History H/O lumbar discectomy History of Problems with Anesthesia: No Social History Social History Household Members: None Household Members Other:: lives alone Housing: House Are you a primary patient centered care specialist to a significant other at home: No Do you presently have visiting nurse or other home services: No Alcohol intake: former Patient Tobacco Use Status: Current everyday Tobacco user Tobacco use type: Cigarette Cigarette Packs Per Day: 20 Cigarettes Per Day: 400.0 Use of substances other than those prescribed or required for medical reasons: Yes Substance Use Type: Marijuana Substance Use Frequency: Daily Are you DNR?: No Advance Directives: No Advance Directives Information Provided: Yes Recently lost weight without trying: No Nutrition Risks: No Nutritional Risk Meds Allergies Allergy/AdvReac Type Severity Reaction Status Date / Time No Known Allergies Allergy Verified 02/19/24 15:39 Active Medications: Current Medications Lactated Ringer's (Lr) 1,000 mls @ 100 mls/hr IVCONT .Q10H KANG Last Admin: 04/06/24 12:30 Dose: 100 mls/hr Sodium Biphosphate/Sodium Phosphate (Sodium Phosphate,[place]-Dibasic 133 Ml Enema) 133 ml [place] ONCE PRN PRN Reason: Constipation Last Admin: 04/06/24 12:11 Dose: 133 ml Home Medications ?Medication ?Instructions ?Recorded ?Confirmed ?Last Taken ?Type apremilast 30 mg tablet (Otezla) 30 mg PO BID 01/09/24 02/19/24 Unknown History atorvastatin 10 mg tablet 10 mg PO DAILY 01/09/24 02/19/24 Unknown History Exam Height,Weight and Vital Signs: Height 6 ft 1 in Weight 95.311 kg Last Vital Signs Temp 97.4 F 04/06/24 12:18 Pulse 82 04/06/24 12:18 Resp 16 04/06/24 12:18 BP 122/86 04/06/24 12:18 Pulse Ox 97 04/06/24 12:18 O2 Del Method Room Air 04/06/24 12:18 Airway Mallampati Class: II TM Dist: >3cm Neck ROM: Full Heart: rrr Lungs: cta Assessment and Plan Assessment Anesthesia Assessment: Anesthesia Plan Discussed and Smoking Cess. Discussed (one pack /day smoker and marihuana) Final Anesthetic Review Family History of Problems with Anesthesia: No History of Problems with Anesthesia: No NPO: Yes ASA Class: III Final Preanesthetic Review: No Changes in Pt Med Stat, Meds/Allgs Chart Reviewed, Consent Obtained/Reviewed and Anes Risks/Benef Reviewed Patient Risk: Intermediate Procedure Risk: Low Anesthetic Plan Anesthetic Plan: MAC: Disposition: Standard PACU
[2024-04-06 13:32] VITALS: BP 86/54; PULSE 75; RESP 16; TEMP 36.9; O2SAT 97
[2024-04-06 13:47] VITALS: BP 103/68; PULSE 69; RESP 16; O2SAT 98
--- NOTE | 2024-04-06 14:00 | OP_ITS ---
DATE OF SERVICE: 04/06/2024 SURGEON: Richard Hughes MD INDICATIONS: Colon cancer screening. PREOPERATIVE DIAGNOSIS: POSTOPERATIVE DIAGNOSIS: PROCEDURE PERFORMED: Colonoscopy to the terminal ileum. ESTIMATED BLOOD LOSS: COMPLICATIONS: ANESTHESIA: Monitored anesthesia care. ASSISTANTS: SPECIMENS: DESCRIPTION OF PROCEDURE: A history and physical was performed. The risks and benefits of the procedure were explained to the patient and informed consent was obtained. The patient was placed in the left lateral decubitus position. A digital rectal exam was performed and was found to be normal. The Olympus pediatric video colonoscope was introduced into the rectum and advanced to the cecum. The cecum was identified by transillumination, palpation, and identification of ileocecal valve. Examination was performed and the scope was removed. He tolerated the procedure well and was returned to recovery area in stable condition. FINDINGS: The terminal ileum was examined and appeared normal. The visualized colonic mucosa was within normal limits without evidence of masses or ulcers. No polyps were identified. There was [id number] sigmoid diverticulosis. Retroflexed examination showed moderate-sized internal hemorrhoids. IMPRESSION: Normal colonoscopy. RECOMMENDATIONS: 1. Follow up as needed. 2. Repeat colonoscopy is recommended in 10 years for average-risk individuals. MD JORGE Ruiz/PABLO / [id number]
[2024-04-06 14:02] VITALS: BP 110/73; PULSE 71; RESP 16; O2SAT 99
== END 2024-04-06 14:58 | disposition home or self-care (01) ==
PROVIDERS: PCP Internal Medicine Medical Oncology; Visit Provider Internal Medicine Gastroenterology
PROC: 0DJD8ZZ Inspection of Lower Intestinal Tract, Via Natural or Artificial Opening Endoscopic (ICD-10-PCS; CPT 45378; principal; 2024-04-06 13:00)
DX: Z12.11 Encounter for screening for malignant neoplasm of colon (principal); K57.30 Diverticulosis of large intestine without perforation or abscess without bleeding; K64.8 Other hemorrhoids; E78.5 Hyperlipidemia, unspecified; G47.33 Obstructive sleep apnea (adult) (pediatric); F17.210 Nicotine dependence, cigarettes, uncomplicated
CPT/HCPCS: G0121; J2003; J2704

== ENCOUNTER → 2024-04-12 09:36 | Outpatient (BNVA) | payer OTHER, SELFPAY | PROVIDERS: PCP Internal Medicine Medical Oncology; Visit Provider Internal Medicine ==

== ENCOUNTER 2024-04-16 10:57 | Outpatient (AMB) | payer OTHER, SELFPAY ==
--- NOTE | 2024-04-16 07:55 | MHC.OFFVIS ---
Intake Visit Reasons: Current Smoker Allergies No Known Allergies Allergy (Verified 02/19/24 15:39) HPI HPI Current Smoker: Details: Initial visit for this 54yo smoker with a 35PYH. Patient started smoking at age 15 for 39 years at 1ppd. . Reports daily marijuana use. Denies second hand smoke exposure. Denies exposure to chemicals or substances like asbestos. . Denies known family history of lung cancer. Denies personal history of cancers. Denies chest CT in last year. . Denies recent travel outside the [place]. Denies recent respiratory illness or recent hospitalization for respiratory issues. Denies testing positive for COVID. Admits receiving COVID Vaccine. . Complains of chronic bone pain since receiving covid vaccine 3 years ago. Denies fever, chills, new/worsening cough, hemoptysis, hoarseness or dysphagia. Denies significant chest pain, significant dyspnea or unintentional weight loss. Patient Lung Cancer Screening Questionnaire reviewed with patient by provider. . Shared Decision Making Completed. Patient meets criteria. Discussed in detail with patient, the risk vs benefit of LDCT screening. Patient consents to proceed with scan. Discussed smoking cessation. 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 Psoriatic arthritis SHIVA (obstructive sleep apnea) Retrognathia Somnolence, daytime Sleep apnea History of stroke Hyperlipidemia Depression Lumbar radiculopathy Surgical History H/O lumbar discectomy Family History Father CAD (coronary artery disease) Myocardial infarction Alcoholism Hypertension CVD (cardiovascular disease) Social History (Updated 04/16/24 @ 11:19 by Diane Archer PA-C) Household Members: None Household Members Other:: lives alone Housing: House Are you a primary care management coordinator to a significant other at home: No Do you presently have visiting nurse or other home services: No Alcohol intake: former Patient Tobacco Use Status: Current everyday Tobacco user Tobacco use type: Cigarette Years Smoked: (onset 15yo, 1ppd x 39yrs, 35pyh) Substance Use Type: Marijuana Assessment & Plan Assessment & Plan (1) Nicotine dependence, cigarettes, uncomplicated: Comment: (onset 15yo, 1ppd x 39yrs, 35pyh) Code(s): F17.210 - Nicotine dependence, cigarettes, uncomplicated Category: Medical Plan: - SDM visit completed today in office. - Patient meets criteria for LDCT for lung cancer screening purposes and is asymptomatic. - Smoking cessation counseling offered. Patients can always call [phone]. - Will arrange for a LDCT scan of the chest for screening purposes at [facility]. - Risks, benefits, and alternatives were discussed in detail and the patient agrees to proceed. - Risks discussed include but are not limited to: radiation exposure, anxiety during testing and while awaiting results, false negatives, false positives and possibility of additional intervention such as further imaging or surgical procedures for benign disease. - Benefits are obviously detection of lung cancer at an early stage which can lead to improved outcomes. - Discussed the importance of screening program compliance with adherence to yearly LDCT scan as scheduled - or sooner interval scans for personalized screening regimen. - Discussed follow up plan. Our office will send a letter discussing results and if needed set up phone call and office visit based on CT findings. - Patient educated on results categorization and the management decisions for suspicious findings potentially found on the screening LDCT scan. Any patient with a Lung RADS score of 3 or 4 will be reviewed by a multidisciplinary team at [facility] to form a plan of action in regards to scan findings. - If further work up is warranted for a suspicious lung finding this will be followed by the Lung Cancer Screening program in conjunction with the Thoracic Surgery Department at [facility]. - A copy of the office note and LDCT will be sent to the patient's PCP - as well as documentation on any associated further plans of care. - Incidental findings on LDCT are the PCP's responsibility. These findings are indicated with an S finding on the LDCT Assessment. A note discussing the findings will be sent to the PCP who is then responsible for further management. - All questions answered.? Coding Level of Care Code Lung Cancer Screening G0296 Diagnoses Nicotine dependence, cigarettes, uncomplicated F17.210
== END 2024-04-16 13:29 | disposition home or self-care (01) ==
PROVIDERS: PCP Internal Medicine Medical Oncology; Visit Provider Physician Assistant Medical
DX: F17.210 Nicotine dependence, cigarettes, uncomplicated (principal)
CPT/HCPCS: G0296

== ENCOUNTER 2024-04-16 11:31 | Outpatient (REF) | payer OTHER, SELFPAY ==
--- NOTE | ~2024-04-16 | CT_ITS ---
EXAMINATION: CT LOW-DOSE SCREENING CHEST WITHOUT CONTRAST CLINICAL INFORMATION: Nicotine dependence, cigarettes, uncomplicated. The patient is a current smoker with a 39 pack-year history of smoking. COMPARISON: X-ray chest 06/27/2022. TECHNIQUE: Multidetector volumetric CT imaging of the chest is performed on a Siemens SOMATOM Definition scanner without contrast using low dose technique. Additional 2D coronal and sagittal reformatted images and axial 3D maximum intensity projection (MIP) images are generated on the CT workstation. This CT examination was performed using dose optimization techniques as appropriate, variously including the following: *Automated exposure control *Adjustment of mA and/or kV according to patient size (this includes techniques or standardized protocols for targeted exams where dose is matched to indication/reason for exam; i.e. extremities or head) *Use of iterative reconstruction technique TOTAL EXAM DLP: 60 mGy-cm. CTDIvol: 1.62 mGy. FINDINGS: PULMONARY NODULES: Within the anterior segment of the left upper lobe, there is a grouping of several tiny tree-in-bud nodules, the largest measuring 2 to 3 mm. These are best seen on the MIP projection (9:61-9). LUNGS: Lungs bilaterally symmetrically expanded. No effusion or pneumothorax. Central airways patent. MEDIASTINUM: No mediastinal, hilar or axillary adenopathy or free fluid collection. CORONARY ARTERY CALCIFICATION: None visualized on this study. THYROID GLAND: Unremarkable to the extent seen. CARDIOVASCULAR STRUCTURES: Aortic and heart size normal. There is mild atherosclerotic calcification of the thoracic aortic arch and great vessel origins. No pericardial effusion. CHEST WALL/AXILLA: Unremarkable. UPPER ABDOMEN: Included portions of the solid organs in the upper abdomen unremarkable on noncontrast imaging. OSSEOUS STRUCTURES: No suspicious focal findings. CT/CT lung screening IMPRESSION: A grouping of several tiny tree-in-bud nodules seen focally within the anterior segment of the left upper lobe, the largest of these measuring 2 to 3 mm. These are likely infectious or inflammatory in etiology. Recommend clinical correlation. ASSESSMENT: 1. Lung-RADS Category 2: Benign appearance or behavior of nodules. N/A 2. Lung-RADS Category S: Negative. There are no clinically significant or potentially clinically significant findings not related to the lungs requiring urgent additional evaluation. RECOMMENDATION: Continued routine annual low-dose CT lung screening in 1 year is recommended. An order for CT CHEST LOW DOSE CANCER SCREENING ([id number]) can be placed. Electronically signed by: Abner Chong MD 06/09/2024 05:32 PM [email or web address]
== END 2024-04-16 11:32 | disposition home or self-care (01) ==
LOC: HO.CT 11:31
PROVIDERS: PCP Internal Medicine Medical Oncology; Visit Provider Physician Assistant Medical
DX: Z12.2 Encounter for screening for malignant neoplasm of respiratory organs (principal); F17.210 Nicotine dependence, cigarettes, uncomplicated
CPT/HCPCS: 71271; G0296

== ENCOUNTER → 2024-05-11 10:34 | Outpatient (REF) | payer OTHER, SELFPAY | LOC: HO.SL 10:34 | PROVIDERS: PCP Internal Medicine Medical Oncology; Visit Provider Internal Medicine | DX: M26.19 Other specified anomalies of jaw-cranial base relationship (principal); R40.0 Somnolence; G47.33 Obstructive sleep apnea (adult) (pediatric) | CPT/HCPCS: 95806 ==

== ENCOUNTER → 2024-05-12 10:53 | Outpatient (BNV) | payer OTHER, SELFPAY | PROVIDERS: PCP Internal Medicine Medical Oncology; Visit Provider Internal Medicine | DX: R06.83 Snoring (principal) | CPT/HCPCS: 95806 ==

== ENCOUNTER 2024-05-18 15:53 | Outpatient (AMB) | payer OTHER, SELFPAY ==
--- NOTE | 2024-05-18 15:55 | MHC.OFFVIS ---
Vital Signs 05/18/24 15:59 Height 6 ft 1 in Weight 221 lb 5.506 oz BMI 29.2 BP 120/80 Blood Pressure Location Lt brachial Position Sitting Pulse 78 Pulse Source Pulse Oximeter Pulse Oximetry (%) 98 Oxygen Delivery Method Room Air Intake Visit Reasons: Psoriasis, joint pain/HNE PENDING Intake Note: Patient presents for Psoriasis and joint pain. Allergies No Known Allergies Allergy (Verified 05/18/24 15:58) Medication List - Last Reconciled 05/18/24 by Violeta Zurita MD apremilast (Otezla) 30 mg PO BID atorvastatin 10 mg PO DAILY folic acid 1 mg PO DAILY 90 days methotrexate sodium 15 mg (6 x 2.5 mg) PO QWEEK 90 days naproxen 500 mg PO BID tizanidine 2 mg PO TID PRN HPI Comments Details: Patient is a 53-year-old male with history of stroke and hyperlipidemia who presents for follow up of psoriatic arthritis. Interval History: Patient last seen 02/19/2024. At that time he was establishing care for polyarthralgias in the setting of psoriasis. Exam was consistent with psoriatic arthritis and he was started on methotrexate. Today, Patient states that I think you got the diagnosis wrong doc Reports having pain to his bilateral knees, his left medial elbow and the bottom of his foot. The bottom of his foot was exacerbated by doing a 3-5 hour hike with a friend but the pain got so unbearable that he could not proceed His knees are not new, have been affecting him a long time. Pain is on and off. At last visit he thought it was improving that is why he did not mention it With respect to his hands he feels they are overall better. Decreased AM stiffness and no further swelling. Rheumatologic History: Patient states that about 2 years ago after he got a COVID shot he started to notice a rash on his bilateral lower extremities. This rash continued to worsen. He finally went to a director on air and was told he had psoriasis. Used topicals on and off. On recently started Otezla. With improvement of his psoriasis. However about 1 year ago he started to notice pain in his PIP joints DIPs joints his heel and his lateral elbows. This was associated with swelling of the hands and prolonged morning stiffness up to an hour. Denies any history of eye inflammation. Denies any history of inflammatory bowel disease type symptoms. No family history of psoriasis. 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 Psoriatic arthritis SHIVA (obstructive sleep apnea) Retrognathia Somnolence, daytime Sleep apnea History of stroke Hyperlipidemia Depression Lumbar radiculopathy Surgical History H/O lumbar discectomy Family History Father CAD (coronary artery disease) Myocardial infarction Alcoholism Hypertension CVD (cardiovascular disease) Social History Household Members: None Household Members Other:: lives alone Housing: House Are you a primary property caretaker to a significant other at home: No Do you presently have visiting nurse or other home services: No Alcohol intake: former Patient Tobacco Use Status: Current everyday Tobacco user Tobacco use type: Cigarette Cigarettes Per Day: 400.0 Years Smoked: (onset 15yo, 1ppd x 39yrs, 35pyh) Substance Use Type: Marijuana Review of Systems Const Details: Review of Systems Constitutional: Denies fever, chills, weight loss ENT: Denies vision changes, eye pain or eye redness, dental caries, dry mouth GI: Denies nausea, vomiting, diarrhea, abdominal pain, change in BM Pulm: Denies SOB, RAMIREZ, hemoptysis, wheezing Cards: Denies chest pain, palpitations Skin: Denies Raynaud's, rash, nail changes, photosensitivity, BLUEPRINTING AND PHOTOCOPY SUPERVISOR: Denies headaches, weakness, paresthesias, recurrent falls MSK: as per HPI All other systems reviewed and are unremarkable except noted above Physical Exam Vital Signs: Last Vital Signs Pulse 78 05/18/24 15:59 BP 120/80 05/18/24 15:59 Pulse Ox 98 05/18/24 15:59 Oxygen Delivery Method Room Air 05/18/24 15:59 BMI result Body Mass Index 29.2 Physical Examination CONSTITUITIONAL Patient alert and cooperative. Well appearing and in no apparent painful distress HEENT Conjunctiva and sclera clear. ?Pupils equal round and reactive to light. ?No lymphadenopathy. ? CHEST/RESPIRATORY SYSTEM Normal respiratory effort and able to speak in complete sentences. ?Clear to auscultation bilaterally. ?No crackles, rales, rhonchi, wheezes heard. CARDIAC SYSTEM Regular rate and rhythm. ?S1 and S2 heard no murmurs. ?Radial pulses intact bilaterally MSK Hands: ?Good medical certification specialist strength bilaterally. No deformities noted. ?No synovitis noted to the MCPs, PIPs or DIPs. ?No tenderness to palpation of these joints. Wrists: ?Full range of motion at the wrists without pain. ?No tenderness to palpation or synovitis noted to the wrists. Elbows: Full range of motion without pain. No tenderness, weakness, swelling, increased warmth or erythema. TTP of the left medial elbow Shoulders: Full range of motion without pain. No tenderness, weakness, swelling, increased warmth or erythema. Hips: Full range of motion without pain. Hip bursa: No tenderness to palpation Knees: ?Full range of motion. ?No swelling, increased warmth or erythema.?No effusion or crepitations. Some TTP of the bilateral knees Ankles: Full range of motion. ?No tenderness, swelling, increased warmth or erythema.? Feet: ?Negative squeeze test. ?No tenderness to palpation or swelling of the MTPs. Tender points:?No tenderness to palpation of the bilateral trapezius, supraspinatus, greater trochanters, anterior costochondral junctions, bilateral gluteal areas, bilateral suboccipital muscle insertions SKIN Skin intact without rashes. MSK (Previous exam 02/2024) A fusiform swelling noted to the right and left 2nd 3rd and 4th digits. Tenderness to palpation of the PIPs and DIPs throughout. No nail changes noted. Tenderness to palpation of the Achilles tendon bilaterally. Lateral elbow entheses site tenderness to palpation bilaterally. Results Reviewed Results Reviewed: Laboratory Tests 03/29/24 16:30 WBC 9.8 RBC 5.46 Hgb 17.0 Hct 51.0 Plt Count 269 ESR 4 Sodium 143 Potassium 4.2 Chloride 108 Carbon Dioxide 29 BUN 18 H Creatinine 1.05 AST 27 ALT 64 H Alkaline Phosphatase 77 C-Reactive Protein 0.34 HLA-B27 Negative XR Hand/Wrist 12/08/23 FINDINGS: (right) The bones and soft tissues are normal. No fracture. Alignment is anatomic. Joint spaces are maintained. No erosions or soft tissue calcifications. FINDINGS: (left) The bones and soft tissues are normal. No fracture. Alignment is anatomic. Joint spaces are maintained. No erosions or soft tissue calcifications. Assessment & Plan Assessment & Plan (1) Psoriatic arthritis: Code(s): L40.50 - Arthropathic psoriasis, unspecified Category: Medical Plan: #Psoriatic Arthritis Patient does not feel that his symptoms have improved but he no longer has dactylitis on exam and over his joint and enthesis is doing well Since there has been some improvement but not sufficient based on the patient I think it is reasonable to increase the methotrexate to 20mg weekly Plan - 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 20mg weekly (8 pills) - Folic Acid 1 mg - CBC, CMP, ESR, CRP - RTC 3 months (2) Bilateral primary osteoarthritis of knee: Code(s): M17.0 - Bilateral primary osteoarthritis of knee Category: Medical Plan: #Bilateral Knee Pain Patient presenting with chronic bilateral knee pain today It sounds to be related to early OA Will check XRs Gave celebrex 200mg bid to see if this will aid pain management Plan - XR bilateral knees - Celebrex 200mg bid (3) Psoriasis: Code(s): L40.9 - Psoriasis, unspecified Category: Medical Plan: #Psoriasis Patient can continue with the Otezla at this time. Follow up with Dermatology. 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 Limit alcohol and avoid Bactrim ? Monitoring: ?CBC, BMP, LFTs, hepatitis serologies as needed Plan I spent 30 minutes reviewing the record and labs, seeing the patient, discussing the treatment plan and documenting in the medical record Orders: Orders XR knee RT 3V 05/18/24 M17.0 - Bilateral primary osteoarthritis of knee XR knee LT 3V 05/18/24 M17.0 - Bilateral primary osteoarthritis of knee XR knee standing BI 05/18/24 M17.0 - Bilateral primary osteoarthritis of knee XR foot LT min 3V 05/18/24 L40.50 - Arthropathic psoriasis, unspecified XR foot RT min 3V 05/18/24 L40.50 - Arthropathic psoriasis, unspecified XR ankle RT min 3V 05/18/24 L40.50 - Arthropathic psoriasis, unspecified XR ankle LT min 3V 05/18/24 L40.50 - Arthropathic psoriasis, unspecified Medications: New celecoxib (Celebrex) 200 mg PO BID 90 days 180 caps 1RF M17.0 - Bilateral primary osteoarthritis of knee Changed From methotrexate sodium Take 3 pills every week for 2 weeks then 6 pills every week for 90 days. 15 mg (6 x 2.5 mg) PO QWEEK 90 days 78 tabs 1RF L40.50 - Arthropathic psoriasis, unspecified To methotrexate sodium 15 mg (6 x 2.5 mg) PO QWEEK 90 days 78 tabs 1RF L40.50 - Arthropathic psoriasis, unspecified Refilled folic acid 1 mg PO DAILY 90 days 90 tabs 1RF L40.50 - Arthropathic psoriasis, unspecified Discontinued naproxen Discontinued Reason: Doctor's Order 500 mg PO BID 60 tabs 0RF L40.50 - Arthropathic psoriasis, unspecified Coding Level of Care Code Est Pt Level 4 (73302) Complex EM visit Add On G2211 Diagnoses Psoriatic arthritis L40.50 Bilateral primary osteoarthritis of knee M17.0 Psoriasis L40.9 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
[2024-05-18 15:59] VITALS: BP 120/80; PULSE 78; O2SAT 98; BMI 29.2
== END 2024-05-18 16:31 | disposition home or self-care (01) ==
PROVIDERS: PCP Internal Medicine Medical Oncology; Visit Provider Student in an Organized Health Care Education/Training Program
DX: L40.50 Arthropathic psoriasis, unspecified (principal); M17.0 Bilateral primary osteoarthritis of knee; L40.9 Psoriasis, unspecified; Z79.631 Long term (current) use of antimetabolite agent
CPT/HCPCS: 99214

== ENCOUNTER 2024-06-07 13:32 | Outpatient (AMB) | payer OTHER, SELFPAY ==
[2024-06-07 13:46] VITALS: BP 124/80; PULSE 85; O2SAT 98; BMI 29.0
--- NOTE | 2024-06-07 13:46 | A.OFFVIS_ITS ---
Vital Signs 06/07/24 13:46 Height 6 ft 1 in Weight 220 lb BMI 29.0 BP 124/80 Blood Pressure Location Lt brachial Position Sitting Pulse 85 Pulse Source Pulse Oximeter Pulse Oximetry (%) 98 Oxygen Delivery Method Room Air Intake Visit Reasons: SHIVA/Sleep Study follow up Intake Note: pt is here for follow up of sleep study, and feels okay. Hazardous Waste Material Technician Required: No Allergies No Known Allergies Allergy (Verified 06/07/24 14:18) Medication List - Last Reconciled 06/07/24 by Diane Silverio MD apremilast (Otezla) 30 mg PO BID atorvastatin 10 mg PO DAILY celecoxib (Celebrex) 200 mg PO BID 90 days folic acid 1 mg PO DAILY 90 days methotrexate sodium 20 mg (8 x 2.5 mg) PO QWEEK 90 days tizanidine 2 mg PO TID PRN Do you need a note to return to daycare/school/sports/work: No HPI HPI SHIVA/Sleep Study follow up: Details: THIS 54 YEARS OLD GENTLEMAN IS OTHERWISE HEALTHY BUT MODERATELY OVERWEIGHT, HE HAS SYMPTOMS OF SNORING FREQUENT AWAKENING AND SOME DAYTIME FATIGUE WITH MENTAL FOG. SLEEP STUDY IS POSITIVE FOR SLEEP APNEA ACTUALLY MODERATELY SEVERE AND VERY SEVERE DURING SUPINE POSITION SLEEP. IN ADDITION HE ALSO HAS NOCTURNAL HYPOXEMIA. PATIENT HAD LOT OF QUESTIONS ABOUT. SLEEP APNEA AND USE OF CPAP WHICH WERE ALL ANSWERED . [facility] Medical History (Updated 06/07/24 @ 14:25 by Diane Silverio MD) Nocturnal hypoxemia Bilateral primary osteoarthritis of knee Nicotine dependence, cigarettes, uncomplicated 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, ferry terminal agent, current use Psoriatic arthritis SHIVA (obstructive sleep apnea) Retrognathia Somnolence, daytime Sleep apnea History of stroke Hyperlipidemia Depression Lumbar radiculopathy Surgical History H/O lumbar discectomy Family History Father CAD (coronary artery disease) Myocardial infarction Alcoholism Hypertension CVD (cardiovascular disease) Social History Household Members: None Household Members Other:: lives alone Housing: House Are you a primary cardiac care nurse to a significant other at home: No Do you presently have visiting nurse or other home services: No Alcohol intake: former Patient Tobacco Use Status: Current everyday Tobacco user Tobacco use type: Cigarette Cigarette Packs Per Day: 0.75 Cigarettes Per Day: 15 Years Smoked: (onset 15yo, 1ppd x 39yrs, 35pyh) Substance Use Type: Marijuana Review of Systems Const All systems reviewed & are unremarkable except as noted in HPI and below Reports snoring Eyes Reports no additional complaints ENT Reports no additional complaints and Reports vertigo (MILD TO MODERATE ON CHANGING POSITIONS) Card Denies chest pain, Denies syncope, Denies irregular heart rhythm, Denies leg edema and Denies dyspnea on exertion Resp Denies cough, Denies dyspnea on exertion, Reports snoring and Denies wheezing GI Reports no additional complaints Reports no additional complaints Musc Reports myalgias (NONSPECIFIC) and Reports arthralgias Skin/Breast Reports system reviewed and no additional complaints, except as documented Neuro Reports vertigo (MILD TO MODERATE ON CHANGING POSITIONS) and Denies syncope Psych Reports no additional complaints Endo Reports no additional complaints Chon/Lymph Reports no additional complaints Aller/Immun Reports no additional complaints and Denies wheezing Physical Exam Vital Signs: Last Vital Signs Pulse 85 06/07/24 13:46 BP 124/80 06/07/24 13:46 Pulse Ox 98 06/07/24 13:46 Oxygen Delivery Method Room Air 06/07/24 13:46 BMI result Body Mass Index 29.0 Const General: healthy appearing, comfortable, no acute distress, alert and awake Orientation/consciousness: patient oriented x3 HEENT Head: Yes normal to inspection General nose exam: Normal nares present Teeth and gingiva: other (RETROGANTHIA OF THE LOWER JAW ) Eyes General: appearance normal, both eyes and all related structures Neck Neck: Yes normal visual inspection, Yes no lymphadenopathy, Yes trachea midline and Yes no JVD Thyroid: Thyroid normal Chest Chest palpation & inspection: normal inspection of the chest, normal palpation of entire chest wall and no tenderness Resp Effort & Inspection: normal respiratory effort Auscultation: clear to auscultation bilaterally, no crackles and no wheezes Cardio Palpation: normal PMI Rate: regular rate Rhythm: regular rhythm Heart sounds: no gallops and no murmurs Peripheral pulses: Peripheral pulses 2+ throughout GI Palpation (GI): Soft to palpation, nontender, No hepatosplenomegaly present and no masses Auscultation: normal bowel sounds Back/Spine/Pelvis Thoracic/Lumbar Spine: thoracic and lumbar spine normal to inspection Skin General skin exam: no rashes or lesions noted Neuro General: patient oriented x3 and no focal motor deficits Cranial nerves: Yes CN's II-XII intact bilaterally Extrem General: Yes normal to inspection, Yes no clubbing, cyanosis or edema and Yes no calf tenderness Psych Appearance: grossly normal and well kempt Speech and movement: Normal speech and movement present Results Reviewed Results Reviewed: HOME-BASED SLEEP STUDY SHOWS MODERATELY SEVERE OBSTRUCTIVE SLEEP APNEA WITH TOTAL SLEEP TIME AHI 26.7 THE MAXIMUM SLEEP APNEA WAS IN SUPINE POSITION WITH SUPINE AHI 73 AND LATERAL POSITION AHI 12. THERE WAS ALSO NOCTURNAL HYPOXEMIA WITH AVERAGE O2 SAT OF 91% AND O2 SAT BELOW 88% FOR 16 MINUTES Assessment & Plan Assessment & Plan (1) SHIVA (obstructive sleep apnea): Comment: SHIVA , MODERATELY SEVERE, CAUSING INSUFFICIENT SLEEP, AND CONTRIBUTING TO HIS DAYTIME SLEEPINESS OR BRAIN FOG LIKE FEELING. Code(s): G47.33 - Obstructive sleep apnea (adult) (pediatric) Category: Medical Plan: EXPLAINED TO THE PATIENT. DISCUSSED ABOUT THE REPORT FINDINGS. DISCUSSED TREATMENT OPTIONS. AT THIS TIME THE BEST OPTION WOULD BE TO TREAT WITH CPAP. PATIENT IS AGREEABLE. SO CPAP THERAPY WITH AUTO PAP MODE PRESSURE SETTING 6-20 CM USING A FULLFACE MASK, IS STARTED. EXPLAINED ABOUT THE COMPLIANCE , . AND NEED TO MONITOR CLOSELY (2) Nocturnal hypoxemia: Comment: NOCTURNAL HYPOXEMIA IS RELATED TO OBSTRUCTIVE SLEEP APNEA AND CAUSING SLEEP- RELATED HYPOVENTILATION. IT IS EXPECTED TO IMPROVE WITH THE USE OF CPAP. Code(s): G47.34 - Idiopathic sleep related nonobstructive alveolar hypoventilation Category: Medical Plan: PATIENT WOULD BE MONITOR CLOSELY AND ONCE THE HE STARTS USING THE CPAP AT NIGHT AN OVERNIGHT OXIMETRY RECORDING WILL BE DONE TO ENSURE THAT THE NOCTURNAL HYPOXEMIA HAS RESOLVED Coding Level of Care Code Est Pt Level 3 (99469) Diagnoses SHIVA (obstructive sleep apnea) G47.33 Nocturnal hypoxemia G47.34
--- OUTSIDE RECORDS SUMMARY | 2024-06-07 18:16 | XMS_ITS ---
Author Organization [facility] Address [address] [place] [address] Care Team Providers Care On Site Soil Evaluator Name Role Phone Jessica JAMES, Omi Primary Care Provider Richard Pina Jr Unavailable ALLERGIES No Known Allergies REASON FOR VISIT Patient presents today for a screening colonoscopy MEDICATIONS Medication SIG (Take, Route, Frequency, Duration) Notes Start Date End Date Status Atorvastatin Calcium 10 MG TAKE 1 TABLET BY MOUTH EVERY DAY FOR 30 DAYS Oral for 90 Active Otezla 30 MG Oral for 30 Activ e Folic Acid 1 MG Oral for 90 Ac tive MiraLax (colon prep) 17 GM/SCOOP mixed with Gatorade or Crystal Light Orally begin at 5:00 p.m. the day before the procedure for 1 day 03/24/2024 Active Naproxen 500 MG Oral for 30 Ac tive tiZANidine HCl 2 MG Oral for 30 Active 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 Sodium 2.5 MG TAKE 3 TABLET S BY MOUTH ONCE EVERY WEEK FOR 2 WEEKS, THEN 6 TABLETS ONCE EVERY WEEK Oral for 90 Active Diclofenac Sodium 1 % External for 30 Active IMMUNIZATIONS Vaccine Route Administration Date Status Comme nts Influenza Unknown 03/24/2024 Refused SOCIAL HISTORY Tobacco Use: Social History Observation Description Date Details (start date - stop date) Current Smoker NA - NA Sex Assigned At : Social History Observation Description Sex Assigned At Unknown Tobacco Use/Smoking Question Answer Notes Patient is a current smoker Alcohol Screen Question Answer Notes Did you have a drink containing alcohol in the p ast year? No Points 0 Interpretation Negative PROBLEMS Problem Type ICD Code Onset Dates Problem Status W/U Status Risk SNOMED Code Notes Problem Colon cancer screening (Z12.11) Active confirmed 829535931 Problem Encounter for long-term (current) use of NSAIDs (Z79.1) Active confirmed 244762341183200 Problem Encounter for other preprocedural examination (Z01.818) Active confirmed 637424918 VITAL SIGNS BMI 27.52 kg/m2 03/24/2024 Blood pressure systolic 000 mm Hg 03/24/20 24 Blood pressure diastolic 00 mm Hg 024 Height 6 ft 2 in in 03/24/2024 Temperature 98.4 degrees Fahrenheit 03/24/20 24 Weight 214 lb 6 oz lbs 03/24/2024 Encounters Encounter Location Date Provider Diagnosis [facility] [address] [place] [address] 03/24/2024 Richard Hughes Jr Colon cancer screening Z12.11 ; Encounter for other preprocedural examination Z01.818 and Encounter for long-term (current) use of NSAIDs Z79.1 ASSESSMENTS Encounter Date Diagnosis Assessment Notes Treatment Notes Treatment Clinical Notes 03/24/2024 Colon cancer screening (ICD-10 - Z12.11) Colonoscopy material was printed 03/24/2024 Encounter for other preprocedural examination (ICD-10 - Z01.818) 03/24/2024 Encounter for long-term (current) use of NSAIDs (ICD-10 - Z79.1) PLAN OF TREATMENT Medication Medication Name Sig Start Date Stop Date Notes MiraLax (colon prep) 17 GM/SCOOP mixed with Gatorade or Crystal Light Orally begin at 5:00 p.m. the day before the procedure for 1 day 03/24/2024 Treatment Notes Assessment Notes Colon cancer screening Colonoscopy mater ial was printed Future Test Test Name Order Date COLONOSCOPY 03/24/2024 Next Appt Details Follow Up: 6 Months, Reason: Progress Notes * Examination Category Sub-Category Detail Notes General Examination GENERAL APPEARANCE: in no ac solomon distress HEAD: normocephalic EYES: sclera non-icteric NECK/THYROID: no lymphadenopathy HEART: S1, S2 normal, no mu rmurs CHEST: normal shape and exp ansion LUNGS: clear to auscultatio n bilaterally ABDOMEN: soft, nontender, non distended, bowel sounds present, no organomegaly SKIN: anicteric EXTREMITIES: no clubbing, cyanosi s, or edema PSYCH: cognitive function i ntact ORAL CAVITY: mucosa moist
--- OUTSIDE RECORDS SUMMARY | 2024-06-07 18:17 | XMS_ITS ---
Author Organization Omi Lopez III, MD Address [address] [place] [address] [place] [address] Care Team Providers Care Visual Effects Artist Name Role Phone Omi Lopez Primary Care Provider REASON FOR VISIT follow up Social History Sex Assigned At : Social History Observation Description Sex Assigned At Male Encounters Encounter Location Date Provider Diagnosis Omi Lopez III, MD [address] [place] [address] [place] [address] 03/08/2024 Omi Lopez Plan Of Treatment Next Appt Details Provider Name:Omi Lopez, 07/19/2024 11:00:00 AM, [address] [place] [address] [place], [address], Provider Name:Omi Lopez, 12/08/2024 10:00:00 AM, [address] [place] [address] [place], [address], Progress Notes * Fredrick GUDINO EDOB:[birth year] (54 yo M)Acc No.[id number]:03/08/2024 Progress Notes Patient:?Fredrick GUDINO Provider:?Omi Lopez MD :1970???Age:54 Y???Sex:Male Dick e:03/08/2024 Address:[facility] [address] [id number] Subjective: * Chief Complaints: * ???1. Follow up. * Medical History:? Objective: * Vitals:? Assessment: Plan: * Treatment: * Images: * The named appointment provid er may or may not be the originator of this progress note, and it is not deemed complete until electronically signed by the appointment provider. Sign off status: Pending * Provider:?Omi Lopez MD Date:?02/10 Generated for Molina sanchez/Heather/Sybil on:?06/07/2024 06:17 PM EST
--- OUTSIDE RECORDS SUMMARY | 2024-06-07 18:17 | XMS_ITS ---
Author Organization [facility] Address [address] [place] [address] Care Team Providers Care Extractor Operator Name Role Phone Omi Lopez MD Primary Care Provider Unavailab Richard Whitney Jr Unavailable [phone] REASON FOR VISIT screening Encounters Encounter Location Date Provider Diagnosis [facility] Outpatient [address] [place], [place] [id number] 04/06/2024 Richard Hughes Jr Colon cancer screening Z12.11 ASSESSMENTS Encounter Date Diagnosis Assessment Notes Treatment Notes Treatment Clinical Notes 04/06/2024 Colon cancer screening (ICD-10 - Z12.11) PLAN OF TREATMENT No Information
--- OUTSIDE RECORDS SUMMARY | 2024-06-07 18:17 | XMS_ITS ---
Author Organization Omi Lopez III, MD Address [address] [place] [address] [address] [place] [address] Care Team Providers Care Military Aircraft Designer Name Role Phone Omi Lopez Primary Care Provider Allergies Allergen (clinical drug ingredient) Drug/Non Drug Allergy documented on EMR Reaction Allergy Type Onset Date Status No Known Drug Allergy Unknown Drug Allergy Active Results Component Value Reference Range Notes Lipid Panel Reviewed date:05/06/2024 10:24:23 AM Interpretation: Performing Lab:[facility], [address] [place] [id number] Notes/Report: Triglycerides 252 <150 mg/dL Desirable Triglyceride: [...] Date Provider Diagnosis Omi Lopez III, MD [address] [place] [address] [address], [place] [address] 03/29/2024 Omi Lopez Lumbar radiculopathy M54.16 ; [...] and wrist and referred him to a pound attendant.He was given methotrexate. He continues on methotrexate [...] Follow-up on chronic pain management Provider Name:Omi Lopez, 07/19/2024 11:00:00 AM, [address] [facility] [address], [place], [address], Provider Name:Omi Lopez, 12/08/2024 10:00:00 AM, [address] [place] [address] [address], [place], [address], Progress Notes * Fredrick AGUAYO EDOB:[birth year] (54 yo M)Acc No.[id number]:03/29/2024 Progress Notes Patient:?Fredrick AGUAYO Provider:?Omi oLpez MD :1970???Age:54 Y???Sex:Male Dick e:03/29/2024 Address:[address] [place], [place] [address] Subjective: * Chief Complaints: * ???Bilateral hand pain resol vedDisseminated skeletal and soft tissue painDepressionLumbar radiculopathy * HPI: ???COVID-19 Screening:?Questions?Have you experienced fever, chills, cough, sore throat, shortness of breath, difficulty breathing, muscle aches, loss of taste or smell??No ?Have you been exposed to the virus within the last 10 days??No ?Have you travelled internationally in the last 10 days??No ?Have you been exposed to COVID-19 in the past??Yes ???:? The patient, a 54-year-old male, has been [...] has been on medication prescribed by a pound attendant for about 6-7 weeks, but he reports [...] colonoscopy scheduled for the following week. * ROS:?General/Constitutional:?Admits?pain,?Trunk and extremities, primarily muscle and bone, stairs joints.?Chills?denies.?Fatigue?admits.?Fever?denies.?ENT:?Decreased hearing?denies.?Respiratory:?Cough?denies.?Cardiovascular:?Chest pain with exertion?denies.?Dyspnea on exertion?denies.?Shortness of breath?denies.?Gastrointestinal:?Constipation?occasional.?Decreased appetite?denies.?Diarrhea?denies.?Heartburn?denies.?Nausea?denies.?Rectal bleeding?denies.?Vomiting?denies.?Hematology:?bruising?denies.?petechiae?denies.?Swollen glands?none have been noted.?Genitourinary:?Frequent urination?once a night.?Musculoskeletal:?Muscle aches?denies.?Painful joints?denies.?Sciatica?denies.?Weakness?denies.?Skin:?Itching?denies.?Rash?denies.?Skin lesion(s)?denies.?Neurologic:?Difficulty speaking?denies.?Dizziness?denies.?Headache?denies.?Low back pain?denies.?Psychiatric:?Depressed mood?which is moderate.? * Medical History:? * Surgical History:?right four th finger crush injury repaired lumbar spine discectomy, Dr. Franco 2011Cologard test age 49 negative No history * Hospitalization/Major Diagno stic Procedure:?Stroke [facility] 2021No history * Family History:?Father: rina wray 85 yrs, Coronary artery disease, myocardial infarction, alcoholism, hypertension, quadruple bypass surgery, diagnosed with CVD, HTN, Hyperlipidemia.?Mother: alive 79 yrs, Good health.?1 brother(s) , 1 sister(s) . .? His parents are both alive. His father suffers from alcoholism, coronary artery disease. His mother is in good health. His brother has hypertension and hyperlipidemia. His sister is in good health. He is not aware of any family history of mental illness or substance use disorder or addiction. * Social History:?Tobacco Use:?Tobacco Use/Smoking?Patient is a?current smoker ?How often do you smoke cigarettes??every day ?How many cigarettes a day do you smoke??11-20 ?How soon after you wake up do you smoke your first cigarette??within 5 minutes ?Are you interested in quitting??Not ready to quit ?Additional Findings: Tobacco User?Moderate cigarette smoker (10-19 cigs/day) * Medications:?TakingMethotrex ate Sodium 2.5 MG Tablet as directed Orally [...] reviewed and reconciled with the patient * Allergies:?No Known Drug All ergyno[Allergies Verified] Objective: * Vitals:?Ht: 73, Wt: 217, BMI :28.63, BP: 118/50, HR: 97, Temp: 98.8, Wt-k.43. * Examination: ???General Examination: ?GENERAL APPEARANCE:?pleasant, well nourished, well developed, in no acute distress, calm and relaxed, overweight, man.?HEAD:?atraumatic, normocephalic.?EYES:?eomi, perrla, anicteric, conjugate.?EARS:?normal.?NOSE:?septum intact.?ORAL CAVITY:?normal, unremarkable.?NECK/THYROID:?no jugular venous distention, no carotid bruit, thyroid normal.?LYMPH NODES:?no enlarged lymph nodes,spleen normal.?SKIN:?no suspicious lesions, anicteric.?HEART:?no clicks, gallops, murmurs, or rubs, regular rhythm, S1, S2 normal, no s3, or vascular bruits.?LUNGS:?, diminished breath sounds throughout, good air movement, no wheezes, rales, rhonchi.?BREASTS:??no masses palpable bilaterally.?ABDOMEN:?bowel sounds normal, no ascites, no organomegaly, no mass, overweight.?RECTAL EXAM:?not examined.?MUSCULOSKELETAL:?extremities unremarkable, no clubbing, cyanosis or edema, No muscle spasm.?PERIPHERAL PULSES:?normal.?NEUROLOGIC:?alert and oriented, cranial nerves 2-12 grossly intact, deep tendon reflexes 2+ symmetrical, motor strength normal upper and lower extremities, sensory exam intact.?PSYCH:?alert, oriented, anxious appearing, mood depressed, speech diminished output, volume.? Assessment: * Assessment: 1.?Lumbar radiculopathy - M5 4.16 (Primary)???Notes :His back pain is significantly improved and he is working without difficulty at this time. He was encouraged to avoid heavy lifting.???2.?Tobacco dependence - F17.200???Notes :He continues to smoke 10-20 cigarettes daily. We have discussed the health consequences of smoking. We have developed several strategies for smoking cessation.???3.?History of depression - Z86.59???Notes :He continues to decline a prescription for an antidepressant R for psychotherapy. I will continue to discuss this issue with him.???4.?Cerebrovascular accident (CVA) due to occlusion of other cerebral artery - I63.59???Notes :His reflexes and muscle strength are now symmetrical, and his gait is unimpaired. His speech has returned to normal and he has no word finding. The deficits from the small stroke have resolved. He has returned to work. He will continue on antiplatelet drugs.???5.?Mixed hyperlipidemia - E78.2???Notes :The current lipid profile shows a total cholesterol of 287 He says he was fasting. He has resumed taking his atorvastatin, and a repeat value will be ordered in a few weeks.???6.?Overweight (BMI 25.0-29.9) - E66.3???Notes :He has lost 2 pounds and his body mass index is 29. We discussed his diet and nutrition today. We reviewed his weight loss strategy. We made a plan to lose weight at a rate of one half of a pound per week through a diet restricted in fact calories and sodium combined with regular physical activity.???7.?BPH (benign prostatic hyperplasia) - N40.0???Notes :He arises from sleep once a night to urinate. I told him. This was about average. We discussed lifestyle modification as a way to reduce nocturia.???8.?Sleep apnea, unspecified type - G47.30???Notes :He reports excessive snoring and daytime somnolence. He says he never feels like he got a good night sleep. I've ordered a sleep study to assess for sleep apnea.???9.?Psoriatic arthritis - L40.50???Notes :I have ordered x- rays of both hands and wrist and referred him to a pound attendant.He was given methotrexate.? He continues on methotrexate at the current dose.A CBC has been ordered.??? Plan: * Treatment: 2.?Mixed hyperlipidemia?LAB: PROFILE, RANDOM (COMPREHENSIVE METABOLIC) ?LAB: CBC WITH AUTO DIFF ?LAB: Lipid Panel (Collection Date & Time - 03/29/2024 04:30 PM) ? Value Reference Range ?Triglycerides 252 H <150 - mg /dL * ?Cholesterol 227 H <200 - mg/d L * ?LDL Cholesterol Calculated 139 H <100 - mg/dL * ?HDL Cholesterol 38 L >40 - m g/dL 3.?Overweight (BMI 25.0-29.9)?LAB: PROFILE, RANDOM (COMPREHENSIVE METABOLIC) ?LAB: CBC WITH AUTO DIFF ?LAB: Lipid Panel (Collection Date & Time - 03/29/2024 04:30 PM)* ? Value Reference Range ?Triglycerides 252 H <150 - mg /dL * ?Cholesterol 227 H <200 - mg/d L * ?LDL Cholesterol Calculated 139 H <100 - mg/dL * ?HDL Cholesterol 38 L >40 - m g/dL 4.?Others? Continue dexAMETHasone Tablet, 2 MG, 1 tablet, Orally, every 12 hrs with food.?? * Procedure Codes:? * Preventive Medicine:? ??Counseling:?Care goal follow-up plan:?Counseling for abnormal BMI given?Yes ?Above Normal BMI Follow-up?Dietary management education, guidance, and counseling, Dietary needs education, Exercise promotion: strength training, Exercise promotion: stretching, Feeding regime, Giving encouragement to exercise, Lifestyle education regarding diet, Nutrition / feeding management, Nutrition therapy, Prescribed activity/exercise education, Prescribed diet education, Prescribed dietary intake, Special diet education, Weight monitoring , Intervention, Order not done: Medical or Other reason not done ?Smoking/Tobacco Use?Patient counseled on the dangers of tobacco use and urged to quit.?03/29/2024 ?Patient Lifestyle Goals?Patient wants to quit ?Treatment Goals?Cut down by 1 cigarette a week, Set a quit date ?Barriers?Stress, Social smoker ?Self-Management Plan?Make a plan to cut down number of cigarettes over time and set a date to work towards quitting * Follow Up:?2 Months, After s (Reason: OV, Follow-up on chronic pain management) * Images: * Sign off status: Completed true * Provider:?Omi Lopez MD Date:?03/12 Generated for Molina sanchez/Heather/Myeshasmitting on:?06/07/2024 06:16 PM EST History and Physical Notes * HPI (History of Present Illness) Category Sub-Category Detail Notes COVID-19 Screening Questions Have you had any new onset fever, chills, cough, congestion, sore throat, shortness of breath, muscle aches?: No Have you been exposed to the virus withi n the last 10 days?: No Have you travelled internationally in [facility] last 10 days?: No Have you been [...]
--- OUTSIDE RECORDS SUMMARY | 2024-06-07 18:17 | XMS_ITS ---
Author Organization Omi Lopez III, MD Address [address] [place] [address] [place] [address] Care Team Providers Care Spa Consultant Name Role Phone Omi Lopez Primary Care [...] Referring Provider Speciality Internal edicine Referred Provider [facility] Grisel [place] Referred Provider Specialty Podiatry General Notes Maria Isabel Vo [facility] 05/31 01:41:59 PM > patient given contact [...] PRAMOD TAMAYO Referred Provider Specialty Pulmonary Di enid General Notes Tavo Maria Isabel [facility] 05/31 01:33:45 PM > Called Dr. Tamayo [...] Date Provider Diagnosis Omi Lopez III, MD [address] [place] [address] [place] [address] 05/31/2024 Omi Lopez Lumbar radiculopathy M54.16 ; [...] being treated at this time by the manual control auger press operator. He has been compliant with treatment. Plan [...] 05/31/2024 05/31/2024, achilles tendon and heal pain, [facility] 05/31/2024 05/31/2024, sleep ap PRAMOD ag Next Appt Details Follow Up: 6 Weeks, In six w eeks, Reason: ov no tests, To monitor the patient's joint pain and discuss the effectiveness of new treatments. Provider Name:Omi Lopez, 07/19/2024 11:00:00 AM, [address] [place] [address] [address], [place], [address], Provider Name:Omi Lopez, 12/08/2024 10:00:00 AM, [address] [place] [address] [address], [place], [address], Progress Notes * Fredrick AGUAYO EDOB:[birth year] (54 yo M)Acc No.[id number]:05/31/2024 Progress Notes Patient:?Fredrick AGUAYO Provider:?Omi Lopez MD :1970???Age:54 Y???Sex:Male Dick e:05/31/2024 Address:[address] [place], [place] [id number] Subjective: * Chief Complaints: * ???DepressionLumbar radiculo pathyTobacco dependenceChronic low back painObesityBenign prostatic hypertrophySleep apnea * HPI: ???COVID-19 Screening:?Questions?Have you had any new onset fever, chills, cough, congestion, sore throat, shortness of breath, muscle aches??No ???:? The patient, a 54-year-old male, has [...] his speech is a little off. * ROS:?General/Constitutional:?Admits?pain,?Chronic low back pain.?Chills?denies.?Fatigue?admits.?Fever?denies.?ENT:?Decreased hearing?denies.?Respiratory:?Cough?non-productive.?Cardiovascular:?Chest pain with exertion?denies.?Dyspnea on exertion?denies.?Shortness of breath?with exertion.?Gastrointestinal:?Constipation?occasional.?Decreased appetite?denies.?Diarrhea?denies.?Heartburn?denies.?Nausea?denies.?Rectal bleeding?denies.?Vomiting?denies.?Hematology:?bruising?denies.?petechiae?denies.?Swollen glands?none have been noted.?Genitourinary:?Frequent urination?once a night.?Musculoskeletal:?Muscle aches?denies.?Painful joints?denies.?Sciatica?denies.?Weakness?denies.?Skin:?Itching?denies.?Rash?denies.?Skin lesion(s)?denies.?Neurologic:?Difficulty speaking?denies.?Dizziness?denies.?Headache?denies.?Low back pain?that is chronic.?Psychiatric:?Depressed mood?which is moderate.? * Medical History:? * Surgical History:?right four th finger crush injury repaired lumbar spine discectomy, Dr. Franco 2011Cologard test age 49 negative No history * Hospitalization/Major Diagno stic Procedure:?Stroke [facility] 2021No history * Family History:?Father: rina wray 85 yrs, diagnosed with CVD, HTN, Hyperlipidemia.?Mother: alive 79 yrs.?Siblings: alive.?1 brother(s) , 1 sister(s) . .? His [...] Tobacco User?Moderate cigarette smoker (10-19 cigs/day) * Medications:?TakingMeloxicam 15 MG Tablet TAKE 1 TABLET BY [...] ergyno[Allergies Verified] Objective: * Vitals:?Ht: 73, Wt: 225, BMI :29.68, BP: 140/60, HR: 72, Temp: 98.1, Wt-k.06. * ???Past Orders: Lab:Comprehensive Met. Panel * Collection Date [...] 15 (Ref Range: 5-37 U/L) Alanine Aminotransferase 64?H (Ref Range: 0-40 U/L) 67?H (Ref Range: 0-40 U/L) 28 (Ref Range: [...] 28 (Ref Range: 22-29 mmol/L) Anion Gap 10?L (Ref Range: 12-20) 10?L (Ref Range: 12-20) 11?L (Ref Range: 12-20) Blood Urea Nitrogen 18?H (Ref Range: 9-16 mg/dL) 18?H (Ref Range: 9-16 mg/dL) 12 (Ref Range: [...] & Time - 03/29/2024 04:30 PM)?ValueReference Range?HLA [id number] - * Lab:Lipid Panel * Collection Date 03/29/2024 11/17/2023 09/23/2022 Collection Time 04:30 PM 09:32 AM 10:42 AM Order Date 03/29/2024 11/17/2023 09/23/2022 Triglycerides 252?H (Ref Range: <150 mg/dL) 188?H (Ref Range: <150 mg/dL) 142 (Ref Range: mg/dL) Cholesterol 227?H (Ref Range: <200 mg/dL) 287?H (Ref Range: <200 mg/dL) 319 (Ref Range: mg/dL) LDL Cholesterol Calculated 139?H (Ref Range: <100 mg/dL) 215?H (Ref Range: <100 mg/dL) 251 (Ref Range: mg/dl) HDL Cholesterol 38?L (Ref Range: >40 mg/dL) 35?L (Ref Range: >40 mg/dL) 40 (Ref Range: mg/dL) Clinical Info: CC: Dr Violeta Zurita , PLEASE FAX COMPLETED RESULTS TO [phone] ???Lab:Hepatitis A,B,C Profile (Order Date - 03/29/2024) [...] (Ref Range: 160-400 X10*3/uL) Mean Platelet Volume 9.3?L (Ref Range: 9.4-12.4 fL) 9.3?L (Ref Range: 9.4-12.4 fL) 9.7 (Ref Range: 9.4-12.4 fL) Neutrophils Percent Auto 65.8 (Ref Range: 45-73 %) 64.7 (Ref Range: 45-73 %) 76.6?H (Ref Range: 45-73 %) Imm Gran Pct Auto 0.4 (Ref Range: 0.0-0.4 %) 0.3 (Ref Range: 0.0-0.4 %) 0.5?H (Ref Range: 0.0-0.4 %) Lymphocytes Percent Auto 24.9 (Ref Range: 20-40 %) 25.3 (Ref Range: 20-40 %) 15.9?L (Ref Range: 20-40 %) Monocytes Percent Auto [...] Range: 2.0-8.3 x10*3/uL) Imm Gran Abs Auto 0.04?H (Ref Range: 0.00-0.03 X10*3/uL) 0.03 (Ref Range: 0.00-0.03 X10*3/uL) 0.05?H (Ref Range: 0.00-0.03 X10*3/uL) Lymphocytes Absolute Auto [...] Time - 03/29/2024 04:30 PM)?ValueReference Range?Erythrocyte Sedimentation [id number] - MM/HR * Examination: ???General Examination: ?GENERAL APPEARANCE:?pleasant, well nourished, well developed, in no acute distress, Anxious overweight man.?HEAD:?atraumatic, normocephalic.?EYES:?eomi, perrla, anicteric, conjugate.?EARS:?normal.?NOSE:?septum intact.?ORAL CAVITY:?normal, unremarkable.?NECK/THYROID:?no jugular venous distention, no carotid bruit, thyroid normal.?LYMPH NODES:?no enlarged lymph nodes,spleen normal.?SKIN:?no suspicious lesions, anicteric.?HEART:?no clicks, gallops, murmurs, or rubs, regular rhythm, S1, S2 normal, no s3, or vascular bruits.?LUNGS:?, diminished breath sounds throughout.?BREASTS:??no masses palpable bilaterally.?ABDOMEN:?bowel sounds normal, no ascites, no organomegaly, no mass, overweight.?RECTAL EXAM:?not examined.?MUSCULOSKELETAL:?extremities unremarkable, no clubbing, cyanosis or edema, Mild decreased range of motion lumbar spine.?PERIPHERAL PULSES:?normal.?NEUROLOGIC:?alert and oriented, cranial nerves 2-12 grossly intact, deep tendon reflexes 2+ symmetrical, motor strength normal upper and lower extremities, sensory exam intact.?PSYCH:?alert, oriented, anxious appearing, mood depressed.? Assessment: * Assessment: 1.?Lumbar radiculopathy - M5 [...] value will be ordered in a few weeks.???6.?Degenerative disc disease at L5-S1 level - M51.36???Notes :His pain is not improved with an adequate trial of medication. He has been referred to rehabilitation medicine and pain control for injections and physical therapy.???7.?BPH (benign prostatic hyperplasia) - N40.0???Notes :He arises from sleep once a night to urinate. I told him. This was about average. We discussed lifestyle modification as a way to reduce nocturia.???8.?Psoriasis - L40.9???Notes :He is being treated at this time by the manual control auger press operator. He has been compliant with treatment.??? Plan: * Treatment: 2.?Others? Continue dexAMETHasone Tablet, 2 MG, 1 tablet, Orally, every 12 hrs with food.? Referral To:[facility]??Podiatry ?Reason:achilles tendon and heal pain ? Referral To:PRAMOD TAMAYO??Pulmonary Diseases ?Reason:sleep apnea * Procedure Codes:? * Preventive Medicine:? ??Counseling:?Care goal follow-up plan:?Counseling for abnormal BMI given?Yes ?Above Normal BMI Follow-up?Dietary management education, guidance, and counseling, Dietary needs education, Exercise promotion: strength training ?Smoking/Tobacco Use?Patient counseled on the dangers of tobacco use and urged to quit.?05/31/2024 ?Patient Lifestyle Goals?Patient wants to quit ?Treatment Goals?Cut down by 1 cigarette a week, Set a quit date ?Barriers?Social smoker ?Self-Management Plan?Make a plan to cut down number of cigarettes over time and set a date to work towards quitting * Follow Up:?6 Weeks, In six w eeks (Reason: ov no tests, To monitor the patient's joint pain and discuss the effectiveness of new treatments.) * Images: * Sign off status: Completed true * Provider:?Omi Lopez MD Date:?05/13 Generated for Molina sanchez/Heather/eTransmitting on:?06/07/2024 06:16 PM EST History and Physical [...] Referred Provider Not es 05/31[facility]20[facility] 05/31/2024 Omi Lopez MOHAMMAD sleep apnea
--- OUTSIDE RECORDS SUMMARY | 2024-06-07 18:18 | XMS_ITS | Patient Health Record ---
Author Organization [facility] Address [address] [place] [address] Care Team Providers Care Olive Packer Name Role Phone Jessica JAMES, Omi Primary Care Provider Richard Pina Jr Unavailable [phone] ALLERGIES No Known Allergies REASON FOR REFERRAL No Information MEDICATIONS Medication SIG (Take, Route, Frequency, Duration) Notes Start Date End Date Status Atorvastatin Calcium 10 MG TAKE 1 TABLET BY MOUTH EVERY DAY FOR 30 DAYS Oral for 90 Active Otezla 30 MG Oral for 30 Activ e Folic Acid 1 MG Oral for 90 Ac tive tiZANidine HCl 2 MG Oral for 30 Active 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 Sodium 2.5 MG TAKE 3 TABLET S BY MOUTH ONCE EVERY WEEK FOR 2 WEEKS, THEN 6 TABLETS ONCE EVERY WEEK Oral for 90 Active Diclofenac Sodium 1 % External for 30 Active MiraLax (colon prep) 17 GM/SCOOP mixed with Gatorade or Crystal Light Orally begin at 5:00 p.m. the day before the procedure for 1 day 03/24/2024 Active Naproxen 500 MG Oral for 30 Ac tive IMMUNIZATIONS Vaccine Route Administration Date Status Comme [...] Problem Colon cancer screening (Z12.11) Active confirmed 946712253 Problem Encounter for long-term (current) use of NSAIDs (Z79.1) Active confirmed 230282286129932 Problem Encounter for other preprocedural examination (Z01.818) Active confirmed 361842261 VITAL SIGNS Temperature 98.4 degrees Fahrenheit 03/24/2024 Blood pressure diastolic 00 mm Hg 03/24/2024 Height 6 ft 2 in in 03/24/2024 Blood pressure systolic 000 mm Hg 03/24/2024 Weight 214 lb 6 oz lbs 03/24/2024 BMI 27.52 kg/m2 03/24/2024 Encounters Encounter Location Date Provider Diagnosis [facility] [address], [place] [id number] 04/06/2024 Richard Hughes Jr Colon cancer screening Z12.11 [facility] [address] [place] [address] 03/24/2024 Richard Hughes Jr Colon cancer screening Z12.11 ; Encounter for other preprocedural examination Z01.818 and Encounter for long-term (current) use of NSAIDs Z79.1 ASSESSMENTS Encounter Date Diagnosis Assessment Notes Treatment Notes Treatment Clinical Notes 04/06/2024 Colon cancer screening (ICD-10 - Z12.11) 03/24/2024 Colon cancer screening (ICD-10 - Z12.11) Colonoscopy material was printed 03/24/2024 Encounter for other preprocedural examination (ICD-10 - Z01.818) 03/24/2024 Encounter for long-term (current) use of NSAIDs (ICD-10 - Z79.1) PLAN OF TREATMENT Future Test Test Name Order Date COLONOSCOPY 03/24/2024 Insurance Providers Payer Name Payer Address Payer Phone Subscriber Number Group Number Insured Name Patient Relationship to Insured Coverage Start Date Coverage End Date [facility] [address] [place] [phone] [id number] SHARITA AGUAYO Self - patient is the insured MEDICAL (GENERAL) HISTORY Medical History History ICD Code 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
--- OUTSIDE RECORDS SUMMARY | 2024-06-07 18:18 | XMS_ITS | Clinical Summary ---
Author Organization [facility] it Address [address] [place] [address] Care Team Providers Care Dental Claims Processor Name Role Phone Guillermina Bazan ROZ Primary Care Provider [phone] Surgical History Surgery Date Site/Laterality Comments HAND SURGERY PROCEDURE: WI UNLISTED PROCEDURE HANDS/FINGERS; COMMENT: artificial joint Family History Medical History Relation Name Comments Heart attack Father Hypertension Father Thyroid disease Mother Relation Name Status Comments Brother Alive htn Father Alive htn Mother Alive Sister Alive Social History Tobacco Use Types Packs/Day Years Used Date Smoking Tobacco: Every Day Cigarettes Smokeless Tobacco: Never Alcohol Use Standard Drinks/Week Comments No 0 (1 standard drink = 0.6 oz pur e alcohol) Sex and Gender Information Value Date Recorded Sex Assigned at Not on file Gender Identity Not on file Sexual Orientation Not on file Obstetrics History Plan of Treatment Health Maintenance Due Date Last Done Comments Pneumococcal Vaccine: Pediat rics (0 to 5 Years) and At-Risk Patients (6 to 64 Years) (1 of 2 - PCV) 1974 DTaP,Tdap,and Td Vaccines (1 - Tdap) 1987 Hepatitis B Vaccines (1 of 3 - 19+ 3-dose series) 1987 Zoster Vaccines (1 of 2) 2018 Cholesterol Screening (Lipid Panel) 04/14/2022 Colorectal Cancer Screening: Stool Based Tests (FOBT/FIT) 04/14/2022 Depression Screening 04/14/2022 HIV Screening 04/14/2022 Hepatitis C Screening 04/14/2022 Social Influencers of Health Screening 04/14/2022 COVID-19 Vaccine ( - 2023-2 5 season) 2024 Influenza Vaccine (#1) 2024 HIB Vaccines Aged Out No longer eligi ble based on patient's age to complete this topic HPV Vaccines Aged Out No longer eligi ble based on patient's age to complete this topic Hepatitis A Vaccines Aged Out No long er eligible based on patient's age to complete this topic IPV Vaccines Aged Out No longer eligi ble based on patient's age to complete this topic MMR Vaccines Aged Out No longer eligi ble based on patient's age to complete this topic Meningococcal ACWY Vaccine Aged Out N o longer eligible based on patient's age to complete this topic RSV Immunization Patients Un hilario 20 months Aged Out No longer eligible b ased on patient's age to complete this topic Varicella Vaccines Aged Out No longer eligible based on patient's age to complete this topic Care Teams Dental Claims Processor Relationship Specialty Start Date End Date Guillermina Bazan NP [address] [place] [phone] PCP - General Internal Medicine 02/26/22
== END 2024-06-07 14:24 | disposition home or self-care (01) ==
PROVIDERS: PCP Internal Medicine Medical Oncology; Visit Provider Internal Medicine
DX: G47.33 Obstructive sleep apnea (adult) (pediatric) (principal); G47.34 Idiopathic sleep related nonobstructive alveolar hypoventilation
CPT/HCPCS: 99213

== ENCOUNTER 2024-06-10 16:00 | Outpatient (RCR) | payer OTHER, SELFPAY ==
--- NOTE | 2024-03-29 11:03 | MHC.PT.EP ---
[facility] [place] Office [place] Office [place] Office [address] Massimo Birch [address] [phone] F: [phone] F: [phone] F: [phone] F: [phone] Physical Therapy Plan of Care Date of Evaluation: 03/29/24 Date of Surgery: Diagnosis: other intervertebral disc degeneration, lumbar region LBP, unspecified radiculopathy, lumbar region Assessment: 54 y/o male referred to PT with lumbar radiculopathy and other intervertebral disc disorder. He has had back pain for > 2 years following CVA and being weak afterwards. Currently he reports pain with stretching over his foam roller, sometimes walking, and exercising. Examination shows decreased hip ER ROM, decreased lumbar flexion ROM, decreased HS/quad/ hip flexor length, decreased core/ LE strength and nerve tension. REcommend PT 2x/week for 5 weeks to address impairments, implement HEP, and optimize functional mobility. Frequency and Duration: The patient will be seen 2x/week for 5 weeks Short Term Goals: 3 weeks I with HEP Pt will demonstrate pelvic stability with LE exercises without cues Paper Tube Grader Goals: 5 weeks I with HEP and self management of sx Pt will be able walk with pain < 3/10 Pt will be able to don/doff lower body clothing with pain < 3/10 Treatment Plan: Modalities to reduce pain, spasms and effusion. Manual therapy to restore motion and function. Therapeutic exercise to improve strength and flexibility. Neuromuscular re-education for posture and balance. Therapeutic activities to return to functional activities of daily living. Electronically signed by: Darlene Ma PT Please sign and return to therapist. Thank you for your referral.
--- NOTE | 2024-07-09 07:30 | MHC.PT.DC ---
[facility] [place] Office [place] [facility] [address] Massimo Birch 140 [facility] [phone] F: [phone] F: [phone] F: [phone] F: [phone] Physical Therapy Discharge Report Diagnosis: other intervertebral disc degeneration, lumbar region LBP, unspecified radiculopathy, lumbar region Date of Surgery: Date of Evaluation: 03/29/24 Date of Discharge: 07/09/24 Treatments to Date: 13 Cancellations to Date: 0 No Shows to Date: 0 Discharge Status: Improved Function Independent with HEP Discharge Summary: Pt insurance end date has occurred and therefore did not have final two visits. However he was recently re-assessed and he demonstrated improved strength, ROM, and function. He was strongly encouraged to be more compliant with HEP as he felt that he needed to attend PT as he will not do it on his own. Electronically signed by: Darlnee Ma PT Please sign and return to therapist. Thank you for your referral.
== END 2024-07-09 07:31 | disposition home or self-care (01) ==
LOC: HO.PTCHIC 16:00
PROVIDERS: PCP Internal Medicine Medical Oncology; Visit Provider Nurse Practitioner Family
DX: M51.369 Other intervertebral disc degeneration, lumbar region without mention of lumbar back pain or lower extremity pain (principal); M54.50 Low back pain, unspecified; M54.16 Radiculopathy, lumbar region
CPT/HCPCS: 97110; 97162

== ENCOUNTER 2024-07-26 10:46 | Outpatient (AMB) | payer OTHER, SELFPAY ==
--- NOTE | 2024-07-26 10:56 | A.OFFVIS_ITS ---
Vital Signs 07/26/24 10:57 Height 6 ft 1 in Weight 231 lb 7.766 oz BMI 30.5 BP 102/64 Blood Pressure Location Lt brachial Position Sitting Pulse 98 Pulse Source Pulse Oximeter Pulse Oximetry (%) 96 Oxygen Delivery Method Room Air Intake Visit Reasons: Obstructive sleep apnea Intake Note: pt is here for follow up and states he is not liking the cpap machine but he is trying, Small Package And Bundle Sorter Clerk Required: No Allergies No Known Allergies Allergy (Verified 07/26/24 12:05) Medication List - Last Reconciled 07/26/24 by Diane Silverio MD apremilast (Otezla) 30 mg PO BID atorvastatin 10 mg PO DAILY celecoxib (Celebrex) 200 mg PO BID 90 days folic acid 1 mg PO DAILY 90 days methotrexate sodium 20 mg (8 x 2.5 mg) PO QWEEK 90 days tizanidine 2 mg PO TID PRN Do you need a note to return to daycare/school/sports/work: No HPI HPI Obstructive sleep apnea: Details: 54 YEARS OLD GENTLEMAN IS HERE FOR FOLLOW-UP AFTER STARTING ON THE CPAP DEVICE. HE GOT HIS CPAP ABOUT 3 WEEKS AGO AND SINCE THEN HE IS USING IT EVERY NIGHT. HE IS ON AUTO MODE WITH PRESSURE SETTING OF 6-20 CM, USING FULLFACE MASK. HE IS STILL NOT VERY HAPPY AND FRUSTRATED BECAUSE, WITH THE CPAP ON HE TENDS TO WAKE UP MORE FREQUENTLY FROM THE SLEEP. HE STILL HAS SOME NUMB FEELING IN THE FEET AND THINKS HE IS NOT GETTING ENOUGH BLOOD SUPPLY( THAT IS HIS OWN INTERPRETATION ) HE WAS HOPING THAT WITH THE USE OF CPAP ALL HIS SYMPTOMS ARE GOING TO GET MUCH BETTER, BUT IT HAS NOT HAPPENED. HOWEVER HE DOES ADMIT THAT HIS BREATHING PATTERN IS MUCH BETTER WHEN HE HAS THE CPAP ON. HE WANTS TO TRY A DIFFERENT STYLE OF LARGE FULLFACE MASK WHICH COVERS HIS NOSE AND MOUTH COMPLETELY, AND THINKS IT MAY BE MORE COMFORTABLE. HE HAS GAINED SOME WEIGHT. MAIN COMPLAINTS TODAY WERE AGAIN NUMB FEELING IN THE FEET AT NIGHT WHICH HE THINKS IS DUE TO POOR OXYGEN IN THE BLOOD. HE EXPRESSED HIS DESIRE TO GIVE UP ON THE CPAP. 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 HE HAS CHRONIC LOW BACK PAIN WITH LUMBAR RADICULOPATHY . IT IS ALSO TO BE NOTED THAT HE THINKS THAT ALL THESE PROBLEMS HAVE RESULTED FROM COVID VACCINE. [facility] Medical History (Updated 07/26/24 @ 12:49 by Diane Silverio MD) Nocturnal hypoxemia Bilateral primary osteoarthritis of knee Nicotine dependence, cigarettes, uncomplicated 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, press tender long goods, current use Psoriatic arthritis SHIVA (obstructive sleep apnea) Retrognathia Somnolence, daytime Sleep apnea History of stroke Hyperlipidemia Depression Lumbar radiculopathy Surgical History H/O lumbar discectomy Family History Father CAD (coronary artery disease) Myocardial infarction Alcoholism Hypertension CVD (cardiovascular disease) Social History Household Members: None Household Members Other:: lives alone Housing: House Are you a primary residential caregiver to a significant other at home: No Do you presently have visiting nurse or other home services: No Alcohol intake: former Patient Tobacco Use Status: Current everyday Tobacco user Tobacco use type: Cigarette Cigarette Packs Per Day: 0.75 Cigarettes Per Day: 15 Years Smoked: (onset 15yo, 1ppd x 39yrs, 35pyh) Substance Use Type: Marijuana Review of Systems Const All systems reviewed & are unremarkable except as noted in HPI and below Reports snoring Eyes Reports no additional complaints ENT Reports no additional complaints and Reports vertigo (MILD TO MODERATE ON CHANGING POSITIONS) Card Denies chest pain, Denies syncope, Denies irregular heart rhythm, Denies leg edema and Denies dyspnea on exertion Resp Denies cough, Denies dyspnea on exertion, Reports snoring and Denies wheezing GI Reports no additional complaints Reports no additional complaints Musc Reports myalgias (NONSPECIFIC) and Reports arthralgias Skin/Breast Reports system reviewed and no additional complaints, except as documented Neuro Reports vertigo (MILD TO MODERATE ON CHANGING POSITIONS) and Denies syncope Psych Reports no additional complaints Endo Reports no additional complaints Chon/Lymph Reports no additional complaints Aller/Immun Reports no additional complaints and Denies wheezing Physical Exam Vital Signs: Last Vital Signs Pulse 98 07/26/24 10:57 BP 102/64 07/26/24 10:57 Pulse Ox 96 07/26/24 10:57 Oxygen Delivery Method Room Air 07/26/24 10:57 BMI result Body Mass Index 30.5 Const General: healthy appearing, comfortable, no acute distress, alert and awake Orientation/consciousness: patient oriented x3 HEENT Head: Yes normal to inspection General nose exam: Normal nares present Teeth and gingiva: other (RETROGANTHIA OF THE LOWER JAW ) Eyes General: appearance normal, both eyes and all related structures Neck Neck: Yes normal visual inspection, Yes no lymphadenopathy, Yes trachea midline and Yes no JVD Thyroid: Thyroid normal Chest Chest palpation & inspection: normal inspection of the chest, normal palpation of entire chest wall and no tenderness Resp Effort & Inspection: normal respiratory effort Auscultation: clear to auscultation bilaterally, no crackles and no wheezes Cardio Palpation: normal PMI Rate: regular rate Rhythm: regular rhythm Heart sounds: no gallops and no murmurs Peripheral pulses: Peripheral pulses 2+ throughout GI Palpation (GI): Soft to palpation, nontender, No hepatosplenomegaly present and no masses Auscultation: normal bowel sounds Back/Spine/Pelvis Thoracic/Lumbar Spine: thoracic and lumbar spine normal to inspection Skin General skin exam: no rashes or lesions noted Neuro General: patient oriented x3 and no focal motor deficits Cranial nerves: Yes CN's II-XII intact bilaterally Extrem General: Yes normal to inspection, Yes no clubbing, cyanosis or edema and Yes no calf tenderness Psych Appearance: grossly normal and well kempt Speech and movement: Normal speech and movement present Results Reviewed Results Reviewed: COMPLIANCE REPORT FOR THE LAST 3 WEEKS IS REVIEWED. HE STARTED USING THE CPAP MACHINE ON JULY 03 AND SINCE THEN HAS USED EVERY NIGHT. AVERAGE USAGE PER NIGHT 6 HOURS 52 MINUTES. PRESSURE USED MOSTLY 13-15 CM THERE IS SOME AIR LEAK MAXIMUM BEING 87 THE RESIDUAL AHI IS ONLY 1.4 Assessment & Plan Assessment & Plan (1) SHIVA (obstructive sleep apnea): Comment: SHIVA , MODERATELY SEVERE, CAUSING INSUFFICIENT SLEEP, AND CONTRIBUTING TO HIS DAYTIME SLEEPINESS OR BRAIN FOG LIKE FEELING. After the CPAP titration study, he has been started on the CPAP with fullface mask and pressure setting 6-20 cm. He has started using but so far he is having issues with keeping the mask on during the night. He is frustrated as the use of CPAP is not taking care of all his symptoms. However his compliance is good. Which I have explained to him Code(s): G47.33 - Obstructive sleep apnea (adult) (pediatric) Category: Medical Plan: Had a good discussion. He is educated about the use of CPAP with regularity. He is told that with the use of CPAP there should be no residual hypoxemia. He is told that some of his symptoms are not going to be resolved with the use of CPAP. But overall the use of CPAP is going to be helpful for his sleep quality , I did tell him that he needs to continue using the CPAP. regularly every night We will order a different large size full face mask for him , which he might find more comfortable. (2) Nocturnal hypoxemia: Comment: NOCTURNAL HYPOXEMIA IS RELATED TO OBSTRUCTIVE SLEEP APNEA AND CAUSING SLEEP- RELATED HYPOVENTILATION. Explained to him that the hypoxemia is expected to resolve with the use of CPAP. At a later date we can do overnight oximetry recording to make sure. Code(s): G47.34 - Idiopathic sleep related nonobstructive alveolar hypoventilation Category: Medical Plan: as above (3) Nicotine dependence, cigarettes, uncomplicated: Comment: (onset 15yo, 1ppd x 39yrs, 35pyh) Code(s): F17.210 - Nicotine dependence, cigarettes, uncomplicated Category: Medical Plan: Again talked to him that he needs to quit smoking. (4) Retrognathia: Comment: HE HAS PROMINENT RETROGANTHIA OF THE LOWER JAW, AND IT IS DEFINITELY A STRONG CAUSE OF SLEEP APNEA. Code(s): M26.19 - Other specified anomalies of jaw-cranial base relationship Category: Medical Plan: The patient is once again educated about, Retrognathia and obesity, contributing to obstructive sleep apnea. Retrognathia can not change but he can try to lose weight, Coding Level of Care Code Est Pt Level 3 (24209) Diagnoses SHIVA (obstructive sleep apnea) G47.33 Nocturnal hypoxemia G47.34 Nicotine dependence, cigarettes, uncomplicated F17.210 Retrognathia M26.19
[2024-07-26 10:57] VITALS: BP 102/64; PULSE 98; O2SAT 96; BMI 30.5
--- OUTSIDE RECORDS SUMMARY | 2024-07-26 12:20 | XMS_ITS ---
Author Organization Omi Lopez III, MD Address [address] [place] [address] [address] [place] [address] Care Team Providers Care Reservoir Caretaker Name Role Phone Omi Lopez Primary Care Provider Allergies Allergen (clinical drug ingredient) Drug/Non Drug Allergy documented on EMR Reaction Allergy Type Onset Date Status No Known Drug Allergy Unknown Drug Allergy Active Results Component Value Reference Range Notes Lipid Panel Reviewed date:05/06/2024 10:24:23 AM Interpretation: Performing Lab:[facility], [address] [place] [id number] Notes/Report: Triglycerides 252 <150 mg/dL Desirable Triglyceride: [...] Date Provider Diagnosis Omi Lopez III, MD [address] [place] [address] [address], [place] [address] 03/29/2024 Omi Lopez Lumbar radiculopathy M54.16 ; [...] and wrist and referred him to a dishwasher preparer.He was given methotrexate. He continues on methotrexate [...] on chronic pain management Provider Name:Omi Lopez, 12/08/2024 10:00:00 AM, [address] [place] [address] DR, [address] [facility], [place], [address], Progress Notes * Fredrick AGUAYO EDOB:[birth year] (54 yo M)Acc No.[id number]:03/29/2024 Progress Notes Patient:?Fredrick AGUAYO Provider:?Omi Lopez MD :1970???Age:54 Y???Sex:Male Dick e:03/29/2024 Address:[address] [place] [address] [id number] Subjective: * Chief Complaints: * ???Bilateral hand [...] has been on medication prescribed by a dishwasher preparer for about 6-7 weeks, but he reports [...] No history * Hospitalization/Major Diagno stic Procedure:?Stroke [facility] 2021No history * Family History:?Father: rina [...] and wrist and referred him to a dishwasher preparer.He was given methotrexate.? He continues on methotrexate [...] towards quitting * Follow Up:?2 Months, After holidays (Reason: OV, Follow-up on chronic pain management) * Images: * Sign off status: Completed true * Provider:?Omi Lopez MD Date:?03/12 Generated for Printi ng/Faaleag/eTransmitting on:?07/26/2024 12:19 PM EDT History and Physical Notes * HPI (History [...]
--- OUTSIDE RECORDS SUMMARY | 2024-07-26 12:20 | XMS_ITS ---
Author Organization Omi Lopez III, MD Address [address] [place] [address] [place] [address] Care Team Providers Care Lunchroom Monitor Name Role Phone Omi Lopez Primary Care [...] Referring Provider Speciality Internal edicine Referred Provider [facility] Grisel [place] Referred Provider Specialty Podiatry General Notes Maria Isabel Vo [facility] 05/31 01:41:59 PM > patient given [...] Di enid General Notes Tavo Maria Isabel [facility] 05/31 01:33:45 PM > Called Dr. [...] Date Provider Diagnosis Omi Lopez III, MD [address] [place] [address] [place] [address] 05/31/2024 Omi Lopez Lumbar radiculopathy M54.16 ; [...] being treated at this time by the window trimmer. He has been compliant with treatment. Plan [...] 05/31/2024 05/31/2024, achilles tendon and heal pain, [facility] 05/31/2024 05/31/2024, sleep ap PRAMOD ag Next Appt Details Follow Up: 6 Weeks, In six w eeks, Reason: ov no tests, To monitor the patient's joint pain and discuss the effectiveness of new treatments. Provider Name:Omi Lopez, 12/08/2024 10:00:00 AM, [address] [place] [address] [address], [place], [address], Progress Notes * NAGIJAMALLOCOFredrick EDOB:[birth year] (54 yo M)Acc No.[id number]:05/31/2024 Progress Notes Patient:?Fredrick AGUAYO Provider:?Omi Lopez MD :1970???Age:54 Y???Sex:Male Dick e:05/31/2024 Address:[address] [place], [place] [id number] Subjective: * Chief Complaints: * ???DepressionLumbar radiculo [...] No history * Hospitalization/Major Diagno stic Procedure:?Stroke [facility] 2021No history * Family History:?Father: [...] & Time - 03/29/2024 04:30 PM)?ValueReference Range?HLA [id number] - * Lab:Lipid Panel * Collection Date [...] Zurita , PLEASE FAX COMPLETED RESULTS TO [phone] ???Lab:Hepatitis A,B,C Profile (Order Date - 03/29/2024) [...] Time - 03/29/2024 04:30 PM)?ValueReference Range?Erythrocyte Sedimentation [id number] - MM/HR * Examination: ???General Examination: ?GENERAL [...] being treated at this time by the window trimmer. He has been compliant with treatment.??? Plan: * Treatment: 2.?Others? Continue dexAMETHasone Tablet, 2 MG, 1 tablet, Orally, every 12 hrs with food.? Referral To:[facility]??Podiatry ?Reason:achilles tendon and heal pain [...] Lopez MD Date:?05/13 Generated for Molina sanchez/Heather/eTransmitting on:?07/26/2024 12:20 PM EDT History and Physical Notes * [...] Referred Provider Not es 05/31/2024 [facility], [place] achilles tendon and heal pain 05/31/2024 Omi Lopez MOHAMMAD sleep apnea
--- OUTSIDE RECORDS SUMMARY | 2024-07-26 12:20 | XMS_ITS | Clinical Summary ---
Author Organization [facility] it Address [address] [place] [address] Care Team Providers Care Farm Equipment Technician Name Role Phone BazanGuillermina perry ROZ Primary Care Provider [phone] Surgical History Surgery Date Site/Laterality Comments HAND SURGERY PROCEDURE: IN UNLISTED PROCEDURE HANDS/FINGERS; COMMENT: artificial joint Family [...] Recorded Sex Assigned at Not on file Legal Sex Male 7:50 AM EST Gender Identity Not on file Sexual Orientation Not on file Obstetrics History Plan of Treatment Health Maintenance Due Date Last Done Comments DTaP,Tdap,and Td Vaccines (1 - Tdap) 1987 Hepatitis B Vaccines (1 of 3 - 19+ 3-dose series) 1987 Pneumococcal Vaccine: 50+ Ye ars (1 of 2 - PCV) 1987 Pneumococcal Vaccine: Pediat rics (0 to 5 Years) and At-Risk Patients (6 to 64 Years) (1 of 2 - PCV) 1987 Zoster Vaccines (1 of 2) 2018 [...] patient's age to complete this topic Meningococcal B Vacine Aged Out No lo nger eligible based on patient's age to complete this topic RSV Immunization Patients Un hilario 20 months Aged Out No longer eligible b ased on patient's age to complete this topic Varicella Vaccines Aged Out No longer eligible based on patient's age to complete this topic Care Teams Farm Equipment Technician Relationship Specialty Start Date End Date Guillermina Bazan NP [address] [place] [phone] PCP - General Internal Medicine 02/26/22
--- OUTSIDE RECORDS SUMMARY | 2024-07-26 12:20 | XMS_ITS ---
Author Organization [facility] Address [address] [place] [address] Care Team Providers Care Scraper Loader Operator Name Role Phone Jessica JAMES, Omi Primary Care Provider Unavailab Richard Whitney Jr Unavailable REASON FOR VISIT screening Encounters Encounter Location Date Provider Diagnosis [facility] [address] [place], [place] [phone] 04/06/2024 Richard Hughes Jr Colon cancer screening Z12.11 Assessments Encounter Date Diagnosis (ICD Code) Assessment Notes Treatment Notes Treatment Clinical Notes Section Notes 04/06/2024 Colon cancer screening (ICD-10 - Z12.11) Plan Of Treatment No Information Progress Notes * DEDE SHARITADOB:1970 (54 yo M)Acc No.[id number]:04/06/2024 COLON WITH MAC Patient:?NAGIJAMALSHARITA ADAN Provider:?Richard Hughes MD :1970???Age:54 Y???Sex:Male Dick e:04/06/2024 Address:[address] [place], [place] [id number] Pcp:Omi Lopez MD Subjective: * Chief Complaints: * ???1. Screening. * Medical History:? Objective: * Vitals:? Assessment: * Assessment: 1.?Colon cancer screening - Z12.11 (Primary)??? Plan: * Treatment: * Procedure Codes:?59651 DIAGN OSTIC COLONOSCOPY, 0529F INTRVL 3+YRS PTS CLNSCP DOCD, 0528F RCMND FLW-UP 10 YRS DOCD * * The named appointment provid er may or may not be the originator of this progress note, and it is not deemed complete until electronically signed by the appointment provider. Sign off status: Pending * Provider:?Richard Hughes MD Date:?1 06/06/2023 Generated for Molina sanchez/Heather/Sybil on:?07/26/2024 12:20 PM EDT
--- OUTSIDE RECORDS SUMMARY | 2024-07-26 12:20 | XMS_ITS ---
Author Organization [facility] Address [address] [place] [address] Care Team Providers Care Associate Product Integrity Engineer Name Role Phone Jessica JAMES, Omi Primary Care Provider UnavailRichard Cutler Jr Unavailable Allergies No Known Allergies REASON FOR VISIT Patient presents today for a screening colonoscopy Medications Medication SIG (Take, Route, Frequency, Duration) [...] Sodium 1 % External for 30 Active Immunizations Vaccine Route Administration Date Status Comme nts Influenza Unknown 03/24/2024 Refused Social History Tobacco Use: Social History Observation Description Date Details (start date - stop date) Current Smoker NA - NA Tobacco Use/Smoking Question Answer Notes Patient is a current smoker Alcohol Screen Question Answer Notes Did you have a drink containing alcohol in the p ast year? No Points 0 Interpretation Negative Problems Problem Type SNOMED Code ICD Code Onset Dates Problem Status W/U Status Risk Notes Problem 917176612 Colon cancer screening (Z12.11) Active confirmed Problem 821323241839139 Encounter for long-term (current) use of NSAIDs (Z79.1) Active confirmed Problem 332834669 Encounter for other preprocedural examination (Z01.818) Active confirmed Vital Signs Temperature 98.4 degrees Fahrenheit 03/24/20 24 Blood pressure systolic 000 mm Hg 03/24/20 24 Blood pressure diastolic 00 mm Hg 024 Height 6 ft 2 in in 03/24/2024 Weight 214 lb 6 oz lbs 03/24/2024 BMI 27.52 kg/m2 03/24/2024 Encounters Encounter Location Date Provider Diagnosis [facility] [address] [place] [address] 03/24/2024 Richard Hughes Jr Colon cancer screening Z12.11 ; Encounter for other preprocedural examination Z01.818 and Encounter for long-term (current) use of NSAIDs Z79.1 Assessments Encounter Date Diagnosis (ICD Code) Assessment Notes Treatment Notes Treatment Clinical Notes Section Notes 03/24/2024 Colon cancer screening (ICD-10 - Z12.11) Colonoscopy material was printed We discussed colonoscopy today. We discussed risks and benefits of the procedure today. He understands these and agrees to proceed. This will be scheduled at his convenience. He is advised to stop NSAIDs one week before the procedure. 03/24/2024 Encounter for other preprocedural examination (ICD-10 - Z01.818) We discussed colonoscopy today. We discussed risks and benefits of the procedure today. He understands these and agrees to proceed. This will be scheduled at his convenience. He is advised to stop NSAIDs one week before the procedure. 03/24/2024 Encounter for long-term (current) use of NSAIDs (ICD-10 - Z79.1) We discussed colonoscopy today. We discussed risks and benefits of the procedure today. He understands these and agrees to proceed. This will be scheduled at his convenience. He is advised to stop NSAIDs one week before the procedure. Plan Of Treatment Medication Medication Name Sig [...] Up: 6 Months, Reason: Progress Notes * RADHA AGUAYO:1970 (54 yo M)Acc No.[id number]:03/24/2024 Progress Notes Patient:?SHARITA AGUAYO Provider:?Richard Hughes MD :1970???Age:54 Y???Sex:Male Dick e:03/24/2024 Address:[address] [place], [place] [phone] Pcp:Omi Lopez MD Subjective: * Chief Complaints: * ???1. Patient presents today for a screening colonoscopy. * HPI: ???New symptom(s):? The patient is a pleasant 54-year-old man seen today in consultation for his preoperative colonoscopy visit. He has no complaints of rectal bleeding or change in his bowel habits. He has not undergone previous colonoscopy. * ROS:?General/Constitutional:?Change in appetite?denies.?Fatigue?denies.?ENT:?Patient denies?difficulty swallowing.?Respiratory:?Patient denies?shortness of breath.?Cardiovascular:?Patient denies?chest pain.?Gastrointestinal:?Comments?See HPI for details.?Genitourinary:?Difficulty urinating?denies.?Incontinence?denies.?Musculoskeletal:?Patient denies?muscle aches.?Skin:?Patient denies?pruritis.?Neurologic:?Patient denies?low back pain.?Psychiatric:?Patient denies?mental or physical abuse.? 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 * Surgical History:?Disc surge ry , Hand surgery . * Hospitalization/Major Diagno stic Procedure:?CVA 2021. * Family History:?Father: rina wray, diagnosed with Heart disease.?Mother: alive.? No family history of colon cancer or liver cancer. * Social History:?Tobacco Use:?Tobacco Use/Smoking?Patient is a?current smoker.?Drugs/Alcohol:?Alcohol Screen?Did you have a drink containing alcohol in the past year??No,?Points?0,?Interpretation?Negative.?Miscellaneous:?Marital status: single. Occupation: works full-time. * Medications:?Taking Naproxen 500 MG Tablet Oral , Taking Atorvastatin Calcium 10 MG Tablet TAKE 1 TABLET BY MOUTH EVERY DAY FOR 30 DAYS Oral , Taking Otezla 30 MG Tablet Oral , Taking Folic Acid 1 MG Tablet Oral , Taking 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 Sodium 2.5 MG Tablet TAKE 3 TABLETS BY MOUTH ONCE EVERY WEEK FOR 2 WEEKS, THEN 6 TABLETS ONCE EVERY WEEK Oral , Taking Diclofenac Sodium 1 % Gel External , Taking tiZANidine HCl 2 MG Tablet Oral , Medication List reviewed and reconciled with the patient * Allergies:?N.K.D.A. Objective: * Vitals:?Wt: 214 lb 6 oz, Ht: 6 ft 2 in, BMI:27.52 Index, BP: 000/00 mm Hg, Temp: 98.4. * Examination: ???General Examination: ?GENERAL APPEARANCE:?in no acute distress.?HEAD:?normocephalic.?EYES:?sclera non-icteric.?ORAL CAVITY:?mucosa moist.?NECK/THYROID:?no lymphadenopathy.?SKIN:?anicteric.?HEART:?S1, S2 normal, no murmurs.?LUNGS:?clear to auscultation bilaterally.?CHEST:?normal shape and expansion.?ABDOMEN:?soft, nontender, nondistended, bowel sounds present, no organomegaly .?EXTREMITIES:?no clubbing, cyanosis, or edema.?PSYCH:?cognitive function intact.? Assessment: * Assessment: 1.?Encounter for other prepr ocedural examination - Z01.818 (Primary)?2.?Colon cancer screening - Z12.11?3.?Encounter for long-term (current) use of NSAIDs - Z79.1? We discussed colonoscopy tod ay. We discussed risks and benefits of the procedure today. He understands these and agrees to proceed. This will be scheduled at his convenience. He is advised to stop NSAIDs one week before the procedure. Plan: * Treatment: Notes: Colonoscopy material was printed?? * Immunizations:? Influenza (Not administered - Refused: Patient decision) * Procedure Codes:?3017F COLOR ECTAL CA SCREEN DOC REV, G9902 Pt scrn tbco and id as user, G9745 DOC RSN FOR NOT SCREEN/REC F/U HBP * Preventive Medicine:? ??Counseling:?Care goal follow-up plan:?Above Normal BMI Follow-up?Giving encouragement to exercise,?BMI management provided?Yes.? * Follow Up:?6 Months * * Sign off status: Completed true * Provider:?Richard Hughes MD Date:?1 05/24/2023 Generated for Molina sanchez/Heather/Chelsiitting on:?07/26/2024 12:19 PM EDT History and Physical Notes * HPI (History of Present Illness) Category Sub-Category Detail Notes Category Not es New symptom(s) The patient i s a pleasant 54-year-old man seen today in consultation for his preoperative colonoscopy visit. He has no complaints of rectal bleeding or change in his bowel habits. He has not undergone previous colonoscopy. Examination Category Sub-Category Detail Notes Category Not es General Examination GENERAL APPEARANCE: in no acute di stress HEAD: normocephalic EYES: sclera non-icteric NECK/THYROID: no lymphadenopathy HEART: S1, S2 normal, no mu rmurs CHEST: normal shape and exp ansion LUNGS: clear to auscultatio n bilaterally ABDOMEN: soft, nontender, non distended, bowel sounds present, no organomegaly SKIN: anicteric EXTREMITIES: no clubbing, cyanosi s, or edema PSYCH: cognitive function i ntact ORAL CAVITY: mucosa moist
--- OUTSIDE RECORDS SUMMARY | 2024-07-26 12:20 | XMS_ITS | Patient Health Record ---
Author Organization [facility] Address [address] [place] [address] Care Team Providers Care Speech And Drama Teacher Name Role Phone Jessica JAMES, Omi Primary Care Provider Richard Pina Jr Unavailable Allergies No Known Allergies Reason For Referral No Information Medications Medication SIG (Take, Route, Frequency, Duration) [...] 500 MG Oral for 30 Ac tive Immunizations Vaccine Route Administration Date Status Comme [...] Problem Status W/U Status Risk Notes Problem 978530501 Colon cancer screening (Z12.11) Active confirmed Problem 404705326 Encounter for other preprocedural examination (Z01.818) Active confirmed Problem 519351002169359 Encounter for long-term (current) use of NSAIDs (Z79.1) Active confirmed Vital Signs Temperature 98.4 degrees Fahrenheit 03/24/2024 Blood pressure diastolic 00 mm Hg 03/24/2024 Height 6 ft 2 in in 03/24/2024 Blood pressure systolic 000 mm Hg 03/24/2024 Weight 214 lb 6 oz lbs 03/24/2024 BMI 27.52 kg/m2 03/24/2024 Encounters Encounter Location Date Provider Diagnosis [facility] [address] [place], [place] [phone] 04/06/2024 Richard Hughes Jr Colon cancer screening Z12.11 [facility] [address] [place] [address] 03/24/2024 Rihcard Hughes Jr Colon cancer screening Z12.11 ; [...] week before the procedure. Plan Of Treatment Future Test Test Name Order Date COLONOSCOPY 03/24/2024 Insurance Providers Payer Name Payer Address Payer Phone Subscriber Number Group Number Insured Name Patient Relationship to Insured Coverage Start Date Coverage End Date [facility] [address] [place] [address] [phone] [id number] SHARITA AGUAYO Self - patient is the insured Medical (General) History Medical History History ICD Code 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
--- OUTSIDE RECORDS SUMMARY | 2024-07-26 12:20 | XMS_ITS ---
Author Organization Omi Lopez III, MD Address [address] [place] [address] Care Team Providers Care Qc Analyst Name Role Phone Omi Lopez Primary Care [...] 11:37:09 AM > Referral faxed with progress note Referral Priority Routine REASON FOR VISIT BPH, Lumbar radiculopathy, obesity, [...] Date Provider Diagnosis Omi Lopez III, MD [address] [place] [address] [place] [address] 07/19/2024 Omi Lopez Lumbar radiculopathy M54.16 ; [...] being treated at this time by the seat nailer. He has been compliant with treatment. 07/19/2024 [...] and wrist and referred him to a water truck driver.He was given methotrexate. He continues on methotrexate [...] 1 tablet Orally Once a day 11/10 Pending Test Test Name Order Date PROFILE, FASTING (COMPREHENSIVE METABOLI C) 07/19/2024 PSA, TOTAL 07/19/2024 CBC WITH AUTO DIFF 07/19/2024 Lipid Panel 07/19/2024 Referrals Referral Date Details 07/19/2024 07/19/2024, Evaluate and Treat left eyelid droop due to stroke, [facility] Next Appt Details Follow Up: As Scheduled, Jayne son: Annual Exam Provider Name:Omi Lopez, 12/08/2024 10:00:00 AM, [address] [place] [address] [address], [place], [address], Progress Notes * Fredrick AGUAYO EDOB:[birth year] (54 yo M)Acc No.[id number]:07/19/2024 Progress Notes Patient:?Fredrick AGUAYO Provider:?Omi Lopez MD :1970???Age:54 Y???Sex:Male Dick e:07/19/2024 Address:[phone] Subjective: * Chief Complaints: * ???BPHLumbar radiculopathyOb esityPsoriatic arthiritisSleep apneaCVATobacco dependence one pack * HPI: ???COVID-19 Screening:?He returns for followup of several medical issues.? His back pain has become much better and he is working and ambulating without difficulty.? ?The psoriatic arthritis is present but mild.? He continues to smoke a package of cigarettes daily.? We have discussed all of the smoking cessation programs available in the area.? He is going to try to cut down on his smoking, but he says he does not think he can stop.? He continues to be depressed.? He is not suicidal.? He has had no further symptoms of stroke.? He arises from sleep once a night to urinate. ?Questions?Have you had any new onset fever, chills, cough, congestion, sore throat, shortness of breath, muscle aches??No * ROS:?General/Constitutional:?pain?Intermittent mild low back pain, otherwise only normal aches and pains.?Chills?denies.?Fatigue?admits.?Fever?denies.?ENT:?Decreased hearing?denies.?Respiratory:?Cough?non-productive.?Cardiovascular:?Chest pain with exertion?denies.?Dyspnea on exertion?denies.?Shortness of breath?denies.?Gastrointestinal:?Constipation?occasional.?Decreased appetite?denies.?Diarrhea?denies.?Heartburn?denies.?Nausea?denies.?Rectal bleeding?denies.?Vomiting?denies.?Hematology:?bruising?denies.?petechiae?denies.?Swollen glands?none have been noted.?Genitourinary:?Frequent urination?once a night.?Musculoskeletal:?Muscle aches?denies.?Painful joints?denies.?Sciatica?denies.?Weakness?denies.?Skin:?Itching?denies.?Rash?denies.?Skin lesion(s)?denies.?Neurologic:?Difficulty speaking?denies.?Dizziness?denies.?Headache?denies.?Low back pain?that is chronic.?Psychiatric:?Depressed mood?which is mild.? * Medical History:? * Surgical History:?right four th finger crush injury repaired lumbar spine discectomy, Dr. Franco 2011Cologard test age 49 negative No history * Hospitalization/Major Diagno stic Procedure:?Stroke [facility] 2021No history * Family History:?Father: rina wray 85 yrs, diagnosed with HTN, Hyperlipidemia, CVD.?Mother: alive 79 yrs.?Siblings: alive.?1 brother(s) , 1 [...] Tobacco User?Moderate cigarette smoker (10-19 cigs/day) * Medications:?TakingAtorvasta tin Calcium 10 MG Tablet 1 tablet Orally [...] ergyno[Allergies Verified] Objective: * Vitals:?Ht: 73, Wt: 224, BMI :29.55, BP: 138/74, HR: 68, Temp: 97.0, Wt-k.6. * Examination: ???General Examination: ?GENERAL APPEARANCE:?pleasant, well nourished, well developed, in no acute distress, calm and relaxed, overweight, man.?HEAD:?atraumatic, normocephalic.?EYES:?eomi, perrla, anicteric, conjugate.?EARS:?normal.?NOSE:?septum intact.?ORAL CAVITY:?normal, unremarkable.?NECK/THYROID:?no jugular venous distention, no carotid bruit, thyroid normal.?LYMPH NODES:?no enlarged lymph nodes,spleen normal.?SKIN:?no suspicious lesions, anicteric.?HEART:?no clicks, gallops, murmurs, or rubs, regular rhythm, S1, S2 normal, no s3, or vascular bruits.?LUNGS:?clear to auscultation .?BREASTS:??no masses palpable bilaterally.?ABDOMEN:?bowel sounds normal, no ascites, no organomegaly, no mass, overweight.?RECTAL EXAM:?not examined.?MUSCULOSKELETAL:?extremities unremarkable, no clubbing, cyanosis or edema, Range of motion of knees normal, mild decreased range of motion lumbar spine.?PERIPHERAL PULSES:?normal.?NEUROLOGIC:?alert and oriented, cranial nerves 2-12 grossly intact, deep tendon reflexes 2+ symmetrical, motor strength normal upper and lower extremities, sensory exam intact.?PSYCH:?alert, oriented.? Assessment: * Assessment: 1.?Lumbar radiculopathy - M5 4.16 (Primary)???Notes :His back pain is significantly improved and he is working without difficulty at this time. He was encouraged to avoid heavy lifting.???2.?Mixed hyperlipidemia - E78.2???Notes :Fasting lipid profile has been ordered prior to his next visit.? He was instructed to do this fasting.???3.?Overweight (BMI 25.0-29.9) - E66.3???Notes :His weight is stable.? We discussed weight reduction strategies today.? We reviewed his diet and nutrition.? We made a plan to lose weight at a rate of one half of a pound per week.???4.?BPH (benign prostatic hyperplasia) - N40.0???Notes :He arises from sleep once a night to urinate.? We have discussed lifestyle modifications he could take to reduce nocturia.???5.?Psoriasis - L40.9???Notes :He is being treated at this time by the seat nailer. He has been compliant with treatment.???6.?Tobacco dependence - F17.200???Notes :He continues to smoke 10-20 cigarettes daily. We have discussed the health consequences of smoking. We have developed several strategies for smoking cessation.???7.?History of depression - Z86.59???Notes :He continues to decline a prescription for an antidepressant R for psychotherapy. I will continue to discuss this issue with him.???8.?Psoriatic arthritis - L40.50???Notes :I have ordered x-rays of both hands and wrist and referred him to a water truck driver.He was given methotrexate. He continues on methotrexate at the current dose.A CBC has been ordered.??? Plan: * Treatment: 2.?Mixed hyperlipidemia?LAB: PROFILE, FASTING (COMPREHENSIVE METABOLIC) ?LAB: PSA, TOTAL ?LAB: CBC WITH AUTO DIFF ?LAB: Lipid Panel 3.?Overweight (BMI 25.0-29.9 )?LAB: PROFILE, FASTING (COMPREHENSIVE METABOLIC) ?LAB: PSA, TOTAL ?LAB: CBC WITH AUTO DIFF ?LAB: Lipid Panel 4.?BPH (benign prostatic hyp erplasia)?LAB: PROFILE, FASTING (COMPREHENSIVE METABOLIC) ?LAB: PSA, TOTAL ?LAB: CBC WITH AUTO DIFF ?LAB: Lipid Panel 5.?Others? Continue dexAMETHasone Tablet, 2 MG, 1 tablet, Orally, every 12 hrs with food.? Referral To:[facility]??Ophthalmology ?Reason:Evaluate and Treat left eyelid droop due to stroke * Procedure Codes:? * Preventive Medicine:? ??Counseling:?Care goal follow-up plan:?Counseling for abnormal BMI given?Yes ?Above Normal BMI Follow-up?Dietary management education, guidance, and counseling, Dietary needs education ?Smoking/Tobacco Use?Patient counseled on the dangers of tobacco use and urged to quit.?07/19/2024 ?Patient Lifestyle Goals?Patient wants to quit ?Treatment Goals?Set a quit date, Cut down by 1 cigarette a week ?Barriers?Social smoker, Stress ?Self-Management Plan?Make a plan to cut down number of cigarettes over time and set a date to work towards quitting * Follow Up:?As Scheduled ([place] son: Annual Exam) * Images: * Sign off status: Completed true * Provider:?Omi Lopez MD Date:?07/10 Generated for Printi ng/Faxing/eTransmitting on:?07/26/2024 12:20 PM EDT History and Physical [...] Not alexander 07/19/2024 [facility] Evalu ate and Treat left eyelid droop due to stroke
--- OUTSIDE RECORDS SUMMARY | 2024-07-26 12:20 | XMS_ITS | Patient Health Record ---
Author Organization Omi Lopez III, MD Address [address] [place] [address] [place] [address] Care Team Providers Care Waiter/Waitress Captain Name Role Phone Omi Lopez Primary Care Provider Allergies Allergen (clinical drug ingredient) Drug/Non Drug Allergy documented on EMR Reaction Allergy Type Onset Date Status No Known Drug Allergy Unknown Drug Allergy Active Results Component Value Reference Range Notes URINE DIP STICK Reviewed date:12/08/2023 11:40:09 AM Interpretation: Performing Lab: Notes/Report: SG 1.030 1.005 - 1.025 pH 5.0 5.0 - 9.0 LORI Negative Negative - NIT Negative Negative - PRO 30 Negative - Trace GLU Negative Negative - KET 5 Negative - UBG 0.2 0.1 - 1.8 ZACKERY 1 0.2 - 1.3 BLD Negative Negative - Lipid Panel Reviewed date:05/06/2024 10:24:23 AM Interpretation: Performing Lab:[facility], [address] [place] [phone] Notes/Report: Triglycerides 252 <150 mg/dL Desirable Triglyceride: [...] low results in patients with liver disease. Lyme IgG/IgM w/reflex to WB Reviewed date:10/11/2023 08:31:25 AM Interpretation: Performing Lab:[address] [address] Notes/Report: Lyme Abs Screen <0.90 Index Interpretation ----- < 0.90 Negative 0.90-1.09 Equivocal > 1.09 Positive As recommended by the Food and Drug Administration (FDA), all samples with positive or equivocal results in a Borrelia burgdorferi antibody screen will be tested using a blot method. Positive or equivocal screening test results should not be interpreted as truly positive until verified as such using a supplemental assay (e.g., B. burgdorferi blot). The screening test and/or blot for B. burgdorferi antibodies may be falsely negative in early stages of Lyme disease, including the period when erythema migrans is apparent. THIS TEST WAS PERFORMED AT: [facility] [address] [place] [phone] CLARA HORTA MD Lyme Blot TNP Complete Blood Count Auto Di ff Reviewed date:11/19/2023 06:59:03 AM Interpretation: Performing Lab:[address] [address] Notes/Report: White Blood Count 10.8 4.8-10.8 X10*3/uL Red Blood Count 5.71 4.60-5.80 X10*6/uL Hemoglobin 17.8 14.0-18.0 g/dl Hematocrit 51.8 42.0-52.0 % Mean Corpuscular Volume 90.7 80.0-98.0 fL Mean Corpuscular Hemoglobin 31.2 27.0-33.0 pg Mean Corpuscular HGB Conc 34.4 31.0-36.0 g/dl Red Cell Distribution Width 12.9 11.0-16.0 % Platelet Count 274 160-400 X10*3/uL Mean Platelet Volume 9.7 9.4-12.4 fL Neutrophils Percent Auto 76.6 45-73 % Imm Gran Pct Auto 0.5 0.0-0.4 % Lymphocytes Percent Auto 15.9 20-40 % Monocytes Percent Auto 5.4 2-11 % Eosinophils Percent Auto 0.9 0-4 % Basophils Percent Auto 0.7 0-2 % NRBC Pct Auto 0.0 0.0-0.2 /100WBC Neutrophils Absolute Auto 8.2 2.0-8.3 x10*3/uL Imm Gran Abs Auto 0.05 0.00-0.03 X10*3/uL Lymphocytes Absolute Auto 1.7 1.2-4.9 X10*3/uL Monocytes Absolute Auto 0.6 0.1-1.2 X10*3/uL Eosinophils Absolute Auto 0.1 0.0-0.4 X10*3/uL Basophils Absolute Auto 0.1 0.0-0.2 X10*3/uL NRBC Abs Auto 0.000 0.0-0.012 X10*3/uL Comprehensive [place]. Panel Fa st Reviewed date:11/19/2023 06:59:03 AM Interpretation: Performing Lab:[facility], [address] [place] [phone] Notes/Report: Sodium 140 135-145 mmol/L Potassium 4.4 3.3-5.1 mmol/L Chloride 106 96-108 mmol/L Carbon Dioxide 25 22-29 mmol/L Anion Gap 13 12-20 Blood Urea Nitrogen 13 9-16 mg/dL Creatinine 1.03 0.5-1.4 mg/dL Estimated Glomerular Filt Rate > 60 NOTE: For -Citizen Of [place] individuals, multiply the result by 1.210. Chronic Kidney Disease: Estimated GFR < 60 mL/min/1.73m2 Severe Kidney Disease: Estimated GFR < 15 mL/min/1.73m2 Glucose Fasting 98 60-99 mg/dL Calcium 9.7 8.4-10.2 mg/dL Bilirubin Total 0.6 0.0-1.0 mg/dL Aspartate Amino Transferase 16 5-37 U/L Alanine Aminotransferase 25 0-40 U/L Total Protein 7.0 6.5-8.0 g/dL Albumin Level 4.2 3.5-5.0 g/dL Alkaline Phosphatase 74 39-117 U/L Lipid Panel Reviewed date:11/19/2023 06:59:03 AM Interpretation: Performing Lab:[facility], [address] [place] [phone] Notes/Report: Triglycerides 188 <150 mg/dL Desirable Triglyceride: less than 150 mg/dL Borderline High Triglyceride 150-199 mg/dL High Triglyceride: 200-499 mg/dL Very High Triglyceride: greater than or equal to 5OO mg/dL Cholesterol 287 <200 mg/dL Desirable Cholesterol: less than 200 mg/dL Borderline High Cholesterol: 200-239 mg/dL High Cholesterol: greater than 239 mg/dL LDL Cholesterol Calculated 215 <100 mg/dL Desirable LDL: less than 100 mg/dL Near Optimal/Above Optimal LDL: 110-129 mg/dL Borderline High LDL: 130-159 mg/dL High LDL: 160-189 mg/dL Very High LDL: greater than or equal to 190 mg/dL HDL Cholesterol 35 >40 mg/dL Desirable HDL: greater than 40 mg/dL Note: This HDL assay may give artificially low results in patients with liver disease. XR hand wrist LT Reviewed date:12/28/2023 08:43:29 AM Interpretation: Performing Lab: Notes/Report: [address] [address] XRay Report Signed Patient: Fredrick Gudino MR#: [id number] 164 : 1970 Acct:[id number] Age/Sex: 53 / M ADM Date: 12/08/23 Loc: HO.YONI Attending Dr: Omi Lopez MD Ordering Physician: Omi Lopez MD Date of Service: 12/08/23 Procedure(s): XR hand wrist LT Accession Number(s): [id number] cc: Omi Lopez MD EXAMINATION: XR HAND/WRIST, LEFT CLINICAL INFORMATION: Psoriasis COMPARISON: None TECHNIQUE: PA, lateral, and oblique views of the left hand and wrist. FINDINGS: The bones and soft tissues are normal. No fracture. Alignment is anatomic. Joint spaces are maintained. No erosions or soft tissue calcifications. XR/XR hand wrist LT IMPRESSION: Normal radiographs of the hand and wrist. Dictated By: Armida Hartman MD Signed By: <Electronically signed by Armida Hartman MD in OV> 12/23/232054 DD/ 1030 TD/TT: General Operations Agent: [address] [address] XRay Report Signed Patient: Gian Gudino dd MR#: [id number] 164 : 1970 Acct:[id number] Age/Sex: 53 / M ADM Date: 12/08/23 Loc: HO.XRAY Attending Dr: Omi Lopez MD Ordering Physician: Omi Lopez MD Date of Service: 12/08/23 Procedure(s): XR apgan d wrist LT Accession Number(s): [id number] cc: Omi Lopez MD EXAMINATION: XR HAND/WRIST, LEFT CLINICAL INFORMATION: Psoriasis COMPARISON: None TECHNIQUE: PA, lateral, and oblique views of the left hand and wrist. FINDINGS: The bones and soft tissues are normal. No fracture. Alignment is anatomic. Joint spac es are maintained. No erosions or soft tissue calcifications. XR/XR hand wrist LT IMPRESSION: Normal radiographs o f the hand and wrist. Dictated By: Armida Hartman MD Signed By: <Electronically signed by Armida Hartman MD in OV> 12/23/232054 DD/ 1030 TD/TT: General Operations Agent: XR hand wrist RT Reviewed date:12/28/2023 08:43:29 AM Interpretation: Performing Lab: Notes/Report: [address] [address] XRay Report Signed Patient: Fredrick Gudino MR#: [id number] 164 : 1970 Acct:[id number] Age/Sex: 53 / M ADM Date: 12/08/23 Loc: HO.XRESTRELLITA Attending Dr: Omi Lopez MD Ordering Physician: Omi Lopez MD Date of Service: 12/08/23 Procedure(s): XR hand wrist RT Accession Number(s): [id number] cc: Omi Lopez MD EXAMINATION: XR HAND/WRIST, RIGHT CLINICAL INFORMATION: Psoriasis COMPARISON: None TECHNIQUE: PA, lateral, and oblique views of the right hand and wrist. FINDINGS: The bones and soft tissues are normal. No fracture. Alignment is anatomic. Joint spaces are maintained. No erosions or soft tissue calcifications. XR/XR hand wrist RT IMPRESSION: Normal radiographs of the hand and wrist. Dictated By: Armida Hartman MD Signed By: <Electronically signed by Armida Hartman MD in OV> 12/23/232055 DD/ 1030 TD/TT: General Operations Agent: [address] [address] XRay Report Signed Patient: Gian Gudino dd E MR#: [id number] 164 : 1970 Acct:[id number] Age/Sex: 53 / M ADM Date: 12/08/23 Loc: KENDRICK Attending Dr: Omi Lopez MD Ordering Physician: Omi Lopez MD Date of Service: 12/08/23 Procedure(s): XR pagan d wrist RT Accession Number(s): [id number] cc: Omi Lopez MD EXAMINATION: XR HAND/WRIST, RIGHT CLINICAL INFORMATION: Psoriasis COMPARISON: None TECHNIQUE: PA, lateral, and oblique views of the right hand and wrist. FINDINGS: The bones and soft tissues are normal. No fracture. Alignment is anatomic. Joint spac es are maintained. No erosions or soft tissue calcifications. XR/XR hand wrist RT IMPRESSION: Normal radiographs o f the hand and wrist. Dictated By: Armida Hartman MD Signed By: <Electronically signed by Armida Hartman MD in OV> 12/23/232055 DD/ 1030 TD/TT: General Operations Agent: Complete Blood Count Auto Di ff Reviewed date:05/06/2024 10:24:23 AM Interpretation: Performing Lab:[facility], [address] [place] [phone] Notes/Report: White Blood Count 9.8 4.8-10.8 X10*3/uL Red Blood Count 5.42 4.60-5.80 X10*6/uL Hemoglobin 17.1 14.0-18.0 g/dl Hematocrit 50.7 42.0-52.0 % Mean Corpuscular Volume 93.5 80.0-98.0 fL Mean Corpuscular Hemoglobin 31.5 27.0-33.0 pg Mean Corpuscular HGB Conc 33.7 31.0-36.0 g/dl Red Cell Distribution Width 13.6 11.0-16.0 % Platelet Count 263 160-400 X10*3/uL Mean Platelet Volume 9.3 9.4-12.4 fL Neutrophils Percent Auto 65.8 45-73 % Imm Gran Pct Auto 0.4 0.0-0.4 % Lymphocytes Percent Auto 24.9 20-40 % Monocytes Percent Auto 6.3 2-11 % Eosinophils Percent Auto 2.0 0-4 % Basophils Percent Auto 0.6 0-2 % NRBC Pct Auto 0.0 0.0-0.2 /100WBC Neutrophils Absolute Auto 6.4 2.0-8.3 x10*3/uL Imm Gran Abs Auto 0.04 0.00-0.03 X10*3/uL Lymphocytes Absolute Auto 2.4 1.2-4.9 X10*3/uL Monocytes Absolute Auto 0.6 0.1-1.2 X10*3/uL Eosinophils Absolute Auto 0.2 0.0-0.4 X10*3/uL Basophils Absolute Auto 0.1 0.0-0.2 X10*3/uL NRBC Abs Auto 0.000 0.0-0.012 X10*3/uL Erythrocyte Sedimentation Ra te Reviewed date:05/06/2024 10:24:23 AM Interpretation: Performing Lab:[facility], [address] [place] [phone] Notes/Report: Erythrocyte Sedimentation Rate 4 0-15 MM/HR Patients with polycythemia and many hemoglobin abnormalities may have depressed sed rates whereas patients with anemia may have elevated sed rates. Comprehensive Met. Panel Reviewed date:05/06/2024 10:24:23 AM Interpretation: Performing Lab:[address] [address] Notes/Report: Sodium 143 135-145 mmol/L Potassium 4.2 3.3-5.1 mmol/L Chloride 108 96-108 mmol/L Carbon Dioxide 29 22-29 mmol/L Anion Gap 10 12-20 Blood Urea Nitrogen 18 9-16 mg/dL Creatinine 1.05 0.5-1.4 mg/dL Estimated Glomerular Filt Rate > 60 Chronic Kidney Disease: Estimated GFR < 60 mL/min/1.73m2 Severe Kidney Disease: Estimated GFR < 15 mL/min/1.73m2 Glucose Random 80 60-115 mg/dL Calcium 9.5 8.4-10.2 mg/dL Bilirubin Total 0.5 0.0-1.0 mg/dL Aspartate Amino Transferase 27 5-37 U/L Alanine Aminotransferase 64 0-40 U/L Total Protein 6.9 6.5-8.0 g/dL Albumin Level 4.2 3.5-5.0 g/dL Alkaline Phosphatase 77 39-117 U/L C Reactive Protein Reviewed date:05/06/2024 10:24:23 AM Interpretation: Performing Lab:[facility], [address] [place] [address] Notes/Report: C Reactive Protein 0.34 < or = 0.50 mg/dL HLA B27 Reviewed date:05/06/2024 10:24:23 AM Interpretation: Performing Lab:[facility], [address] [place] [phone] Notes/Report: HLA B27 Negative Negative THIS TEST WAS PERFORMED AT: [facility]/[address] [address] NORMAN BENTLEY MD,PHD Hepatitis A,B,C Profile Reviewed date:05/06/2024 10:24:23 AM Interpretation: Performing Lab:[facility], [address] [place] [phone] Notes/Report: Hepatitis A Antibody IgM Nonreactive Nonreactive IgM antibodies to HAV not detected; does not exclude early acute or recovered HAV infection. Hepatitis B Surface Antibody NONREACTIVE Nonreactive Nonreactive: < 8.00 mIU/mL Hepatitis B Core Antibody Nonreactive Nonreactive Hepatitis C Antibody Nonreactive Nonreactive Antibodies to HCV not detected; does not exclude early acute HCV infection. Hepatitis B Surface Antigen Negative Negative Complete Blood Count Auto Di ff Reviewed date:05/06/2024 10:24:23 AM Interpretation: Performing Lab:[facility], [address] [place] [address] Notes/Report: White Blood Count 9.8 4.8-10.8 X10*3/uL Red Blood Count 5.46 4.60-5.80 X10*6/uL Hemoglobin 17.0 14.0-18.0 g/dl Hematocrit 51.0 42.0-52.0 % Mean Corpuscular Volume 93.4 80.0-98.0 fL Mean Corpuscular Hemoglobin 31.1 27.0-33.0 pg Mean Corpuscular HGB Conc 33.3 31.0-36.0 g/dl Red Cell Distribution Width 13.7 11.0-16.0 % Platelet Count 269 160-400 X10*3/uL Mean Platelet Volume 9.3 9.4-12.4 fL Neutrophils Percent Auto 64.7 45-73 % Imm Gran Pct Auto 0.3 0.0-0.4 % Lymphocytes Percent Auto 25.3 20-40 % Monocytes Percent Auto 7.3 2-11 % Eosinophils Percent Auto 1.9 0-4 % Basophils Percent Auto 0.5 0-2 % NRBC Pct Auto 0.0 0.0-0.2 /100WBC Neutrophils Absolute Auto 6.3 2.0-8.3 x10*3/uL Imm Gran Abs Auto 0.03 0.00-0.03 X10*3/uL Lymphocytes Absolute Auto 2.5 1.2-4.9 X10*3/uL Monocytes Absolute Auto 0.7 0.1-1.2 X10*3/uL Eosinophils Absolute Auto 0.2 0.0-0.4 X10*3/uL Basophils Absolute Auto 0.1 0.0-0.2 X10*3/uL NRBC Abs Auto 0.000 0.0-0.012 X10*3/uL Comprehensive Met. Panel Reviewed date:05/06/2024 10:24:23 AM Interpretation: Performing Lab:[facility], [address] [place] [address] Notes/Report: Sodium 143 135-145 mmol/L Potassium 4.2 3.3-5.1 mmol/L Chloride 108 96-108 mmol/L Carbon Dioxide 29 22-29 mmol/L Anion Gap 10 12-20 Blood Urea Nitrogen 18 9-16 mg/dL Creatinine 1.07 0.5-1.4 mg/dL Estimated Glomerular Filt Rate > 60 Chronic Kidney Disease: Estimated GFR < 60 mL/min/1.73m2 Severe Kidney Disease: Estimated GFR < 15 mL/min/1.73m2 Glucose Random 80 60-115 mg/dL Calcium 9.1 8.4-10.2 mg/dL Bilirubin Total 0.5 0.0-1.0 mg/dL Aspartate Amino Transferase 29 5-37 U/L Alanine Aminotransferase 67 0-40 U/L Total Protein 6.9 6.5-8.0 g/dL Albumin Level 4.2 3.5-5.0 g/dL Alkaline Phosphatase 77 39-117 U/L CT lung screening Reviewed date:06/18/2024 09:31:20 AM Interpretation: Performing Lab: Notes/Report: [address] [address] [address] Scan Report Signed Patient: Fredrick Gudino MR#: [id number] 164 : 1970 Acct:[id number] Age/Sex: 54 / M ADM Date: 04/16/24 Loc: .CT Attending Dr: Diane Archer PA-C Ordering Physician: Diane Archer PA-C Date of Service: 04/16/24 Procedure(s): CT lung screening Accession Number(s): [id number] cc: Omi Lopez MD; Diane Archer PA-C Report Number: [id number]: Total DLP = 60.00 mGy-cm EXAMINATION: CT LOW-DOSE SCREENING CHEST WITHOUT CONTRAST CLINICAL INFORMATION: Nicotine dependence, cigarettes, uncomplicated. The patient is a current smoker with a 39 pack-year history of smoking. COMPARISON: X-ray chest 06/27/2022. TECHNIQUE: Multidetector volumetric CT imaging of the chest is performed on a Siemens SOMATOM Definition scanner without contrast using low dose technique. Additional 2D coronal and sagittal reformatted images and axial 3D maximum intensity projection (MIP) images are generated on the CT workstation. This CT examination was performed using dose optimization techniques as appropriate, variously including the following: *Automated exposure control *Adjustment of mA and/or kV according to patient size (this includes techniques or standardized protocols for targeted exams where dose is matched to indication/reason for exam; i.e. extremities or head) *Use of iterative reconstruction technique TOTAL EXAM DLP: 60 mGy-cm. CTDIvol: 1.62 mGy. FINDINGS: PULMONARY NODULES: Within the anterior segment of the left upper lobe, there is a grouping of several tiny tree-in-bud nodules, the largest measuring 2 to 3 mm. These are best seen on the MIP projection (9:61-9). LUNGS: Lungs bilaterally symmetrically expanded. No effusion or pneumothorax. Central airways patent. MEDIASTINUM: No mediastinal, hilar or axillary adenopathy or free fluid collection. CORONARY ARTERY CALCIFICATION: None visualized on this study. THYROID GLAND: Unremarkable to the extent seen. CARDIOVASCULAR STRUCTURES: Aortic and heart size normal. There is mild atherosclerotic calcification of the thoracic aortic arch and great vessel origins. No pericardial effusion. CHEST WALL/AXILLA: Unremarkable. UPPER ABDOMEN: Included portions of the solid organs in the upper abdomen unremarkable on noncontrast imaging. OSSEOUS STRUCTURES: No suspicious focal findings. CT/CT lung screening IMPRESSION: A grouping of several tiny tree-in-bud nodules seen focally within the anterior segment of the left upper lobe, the largest of these measuring 2 to 3 mm. These are likely infectious or inflammatory in etiology. Recommend clinical correlation. ASSESSMENT: 1. Lung-RADS Category 2: Benign appearance or behavior of nodules. N/A 2. Lung-RADS Category S: Negative. There are no clinically significant or potentially clinically significant findings not related to the lungs requiring urgent additional evaluation. RECOMMENDATION: Continued routine annual low-dose CT lung screening in 1 year is recommended. An order for CT CHEST LOW DOSE CANCER SCREENING ([id number]) can be placed. Electronically signed by: Abner Chong MD 06/09/2024 05:32 PM [facility] Dictated By: Abner Chong MD Signed By: <Electronically signed by Abner Chong MD in OV> 06/09/24 1732 DD/ 1140 TD/TT: 04/16/24 1303 General Operations Agent: [address] [address] [address] Scan Report Signed Patient: Gian Gudino dd E MR#: [id number] 164 : 1970 Acct:[id number] Age/Sex: 54 / M ADM Date: 04/16/24 Loc: HO.CT Attending Dr: Diane Archer PA-C Ordering Physician: Diane Archer PA-C Date of Service: 04/16/24 Procedure(s): CT norris g screening Accession Number(s): [id number] cc: Omi Lopez MD; Diane Archer PA-C Report Number: [id number]: Total DLP = 60.00 mGy-cm EXAMINATION: CT LOW-DOSE SCREENIN G CHEST WITHOUT CONTRAST CLINICAL INFORMATION: Nicotine dependence, cigarettes, uncomplicated. The patient is a current smoker with a 39 pack-year history of smoking. COMPARISON: X-ray chest 06/27/2022. TECHNIQUE: Multidetector volumetric CT imaging of the chest is performed on a Siemens SOMATOM Definition scanner without contrast using low dose technique. Additiona l 2D coronal and sagittal reformatted images and axial 3D maximum intensity projection (MIP) images are generated on the CT workstation. This CT examination was performed using dose optimization techniques as appropriate, various ly including the following: *Automated exposure control *Adjustment of mA and/or kV according to patient size (this includes techniques or standardized protocols for targeted exams where dose is matched to indication/reason for exam; i.e. extremities or head) *Use of iterative reconstruction technique TOTAL EXAM DLP: 60 mGy-cm. CTDIvol: 1.62 mGy. FINDINGS: PULMONARY NODULES: Within the anterior segment of the left upper lobe, there is a grouping of several tiny tree-in-bud nodules, the largest measuring 2 to 3 mm. These are best seen on the MIP projection (9:61-9). LUNGS: Lungs bilaterally symmetrically expanded. No effusion or pneumothorax. Centra l airways patent. MEDIASTINUM: No mediastinal, hilar or axillary adenopathy or free fluid collection. CORONARY ARTERY CALCIFICATION: None visualized on this study. THYROID GLAND: Unremarkable to the extent seen. CARDIOVASCULAR STRUCTURES: Aortic and heart size normal. There is mild atherosclerotic calcification of the thoracic aortic arch and great vessel origins. No pericardial effusion. CHEST WALL/AXILLA: Unremarkable. UPPER ABDOMEN: Inclu ded portions of the solid organs in the upper abdomen unremarkable on noncontrast imaging. OSSEOUS STRUCTURES: No suspicious focal findings. CT/CT lung screening IMPRESSION: A grouping of severa l tiny tree-in-bud nodules seen focally within the anterior segment of the left upper lobe, the largest of these measuring 2 to 3 mm. These are likely infectious or inflammatory in etiology. Recommend clinical correlation. ASSESSMENT: 1. Lung-RADS Categor y 2: Benign appearance or behavior of nodules. N/A 2. Lung-RADS Categor y S: Negative. There are no clinically significant or potentially clinically significant findings not related to the lungs requiring urgent additional evaluation. RECOMMENDATION: Continued routine annual low-dose CT lung screening in 1 year is recommended. An orde r for CT CHEST LOW DOSE CANCER SCREENING ([id number]) can be placed. Electronically tony d by: Abner Chong MD 06/09/2024 05:32 PM [facility] Dictated By: Sarahi Chong MD Signed By: <Electronically signed by Abner Chong MD in OV> 06/09/24 1732 DD/ 1140 TD/TT: 04/16/24 1303 General Operations Agent: GLORIA Reason For Referral Reason Consult and Treat Diagnosis 1 Allergy, initial enc ounter (T78.40XA) Referral Organization Omi Lopez III, MD Referring Provider First Name Omi Referring Provider Last Name Jessica Referring Provider Speciality Internal edicine Referred Provider [facility] Referred Provider Specialty Allergy/Immu nology General Notes Brandon Rogers ASMA 11/17/2023 09:28:47 AM >Referral faxed Referral Priority Routine Referral Appointment Date 01/19/2024 Reason sleep apnea evaluati on and treatment Diagnosis 1 Overweight (BMI 25.0 -29.9) (E66.3) Diagnosis 2 Sleep apnea, unspeci fied type (G47.30) Referral Organization Omi Lopez III, MD Referring Provider First Name Omi Referring Provider Last Name Jessica Referring Provider Speciality Internal edicine Referred Provider MIKI ARANDA Referred Provider Specialty Pulmonary Di seases General Notes Maria Isabel Castañeda CM 12/17/2023 02:03:36 PM EDT > ref/demo/progress note faxed to Dr Aranda office, Maria Isabel Castañeda CMA 12/30/2023 11:24:44 AM EDT > called [facility] they stated they did not get referral this was resent to them today Referral Priority Routine Referral Appointment Date 02/16/2024 Reason consult for screenin g colonoscopy Diagnosis 1 Encounter for screen ing for malignant neoplasm of colon (Z12.11) Referral Organization Omi Lopez III, MD Referring Provider First Name Omi Referring Provider Last Name Lopez Referring Provider Speciality Internal edicine Referred Provider Richard Hughes Referred Provider Specialty Gastroentero logy General Notes Maria Isabel Castañeda CM 12/17/2023 02:09:47 PM EDT > Called Dr Darnell office made pt appt for 03/24/2024 at 10:20am .ref/demo/progress note faxed and appt information mailed to patient Referral Priority Routine Referral Appointment Date 03/24/2024 Reason psoritatic arthritis evaluate and treatment evaluate and treatment Diagnosis 1 Psoriasis (L40.9) Referral Organization Omi Lopez III, MD Referring Provider First Name Omi Referring Provider Last Name Lopez Referring Provider Speciality Internal edicine Referred Provider [facility], Rheumatology Referred Provider Specialty Rheumatology General Notes Maria Isabel Castañeda CM 12/18/2023 02:13:56 PM EDT > [facility] they stated a new provider is coming in January so pt will be referred to them at that time , Maria Isabel Castañeda CMA 01/20/2024 02:56:15 PM EDT > ref/demo/progress note/labs/x rays faxed to [facility] they will call pt with appt Referral Priority Routine Referral Appointment Date 02/19/2024 Reason chronic back pain Diagnosis 1 Lumbar radiculopathy (M54.16) Referral Organization Omi Lopez III, MD Referring Provider First Name Omi Referring Provider Last Name Lopez Referring Provider Speciality Internal edicine Referred Provider [facility], Pain Management Referred Provider Specialty Pain Medicin e General Notes Maria Isabel Castañeda CM A 12/26/2023 02:28:23 PM EDT > Called [facility] [phone] they stated pt has been seen there before in 2021 so I was able to make patient appt for 01/09/2024 at 9:30am with Sherley DAVIS at [address] [place] [address] [address] information called and mailed to patient Referral Priority Routine Referral Appointment Date 01/09/2024 Reason achilles tendon and heal pain Diagnosis 1 Heel pain, unspecifi ed laterality (M79.673) Referral Organization Omi Lopez III, MD Referring Provider First Name Omi Referring Provider Last Name Lopez Referring Provider Speciality Internal edicine Referred Provider [facility] [place] Referred Provider Specialty Podiatry General Notes Tavo Maria Isabel [facility] 05/31 01:41:59 PM > patient given contact [...] Provider Specialty Pulmonary Di seases General Notes Tavo Maria Isabel [facility] 05/31 01:33:45 PM > Called Dr. Tamayo office spoke to [facility] aneta pt appt with Dr Tamayo for Friday06/07/2024 ta 1:45pm information called and mailed to patient Referral Priority Routine Referral Appointment Date 06/07/2024 Reason Evaluate and Treat left eyelid droop due to stroke Diagnosis 1 Ptosis of left eyeli d (H02.402) Referral Organization Omi Lopez III, MD Referring Provider First Name Omi Referring Provider Last Name Lopez Referring Provider Speciality Internal edicine Referred Provider Eye and LasikPaty Referred Provider Specialty Ophthalmolog y General Notes Collette Daly 07/26/2024 11:37:09 AM > Referral faxed with progress note Referral Priority Routine Medications Medication SIG (Take, Route, Frequency, Duration) Notes Start Date End Date Status Otezla 30 MG Oral Active Celecoxib 200 MG Oral Act armin 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 Sodium 2.5 MG as directed Orally weekly 03/29/2024 Active Folic Acid 1 MG Oral Acti ve Meloxicam 15 MG TAKE 1 TABLET BY EVERY DAY FOR 30 DAYS Active dexAMETHasone 2 MG 1 tablet Orally ever y 12 hrs with food 12/26/2023 Active Atorvastatin Calcium 10 MG 1 tablet Oral ly Once a day 12/08/2023 Active Immunizations Vaccine Route Administration Date Status Comme nts COVID PFIZER Unknown 05/30/2020 Administered COVID PFIZER Unknown 02/05/2021 Administered COVID PFIZER Unknown 05/09/2020 Administered Hepatitis B (11-19) Unknown 09/10/2017 Administered Hepatitis B (11-19) Unknown 03/18/2017 Administered Hepatitis B (11-19) Unknown 04/22/2017 Administered Influenza, quad Unknown 03/10/2020 Administered Social History Tobacco Use: Social History Observation [...] Problem Status W/U Status Risk Notes Problem 229996041 Overweight (BMI 25.0-29.9) (E66.3) Active confirmed His weight is stable. We discussed weight reduction strategies today. We reviewed his diet and nutrition. We made a plan to lose weight at a rate of one half of a pound per week. Problem [id number] Lumbar radiculopathy (M54.16) Active confirmed His back pain is significantly improved and he is working without difficulty at this time. He was encouraged to avoid heavy lifting. Problem 569263319 Mixed hyperlipidemia (E78.2) Active confirmed Fasting lipid profile has been ordered prior to his next visit. He was instructed to do this fasting. Problem Benign prostatic hyperplasia (393388987) BPH (benign prostatic hyperplasia) (N40.0) Active confirmed He arises from sleep once a night to urinate. We have discussed lifestyle modifications he could take to reduce nocturia. Problem 941237740 Obesity (BMI 30-39.9) (E66.9) Active confirmed His body ma ss index is now 30 and he has gained 5 pounds. We discussed his diet and nutrition. We made a plan to lose weight at a rate of one half of a pound per week through a diet restricted in calories. Problem Tobacco dependence (13282853) Tobacco dependence (F17.200) Active confirmed He continues to smoke 10-20 cigarettes daily. We have discussed the health consequences of smoking. We have developed several strategies for smoking cessation. Problem Psoriasis (1094528) Psoriasis (L40.9) Active confirmed He is b eing treated at this time by the darklight inspector. He has been compliant with treatment. Problem 13359714 Sleep apnea, unspecified type (G47.30) Active confirmed He reports excessive snoring and daytime somnolence. He says he never feels like he got a good night sleep. I've ordered a sleep study to assess for sleep apnea. Problem 998392895 History of depression (Z86.59) Active confirmed He continues to decline a prescription for an antidepressant R for psychotherapy. I will continue to discuss this issue with him. Problem 767685080 Psoriatic arthritis (L40.50) Active confirmed I have ordered x-rays of both hands and wrist and referred him to a home day care provider. He was given methotrexate. He continues on methotrexate at the current dose.A CBC has been ordered. Problem 170872112 Cerebrovascular accident (CVA) due to occlusion of other cerebral artery (I63.59) Active confirmed His reflexes and muscle strength are now symmetrical, and his gait is unimpaired. His speech has returned to normal and he has no word finding. The deficits from the small stroke have resolved. He has returned to work. He will continue on antiplatelet drugs. Vital Signs Heart Rate 68 /min 07/19/2024 Temperature 97.0 degrees Fahrenheit 07/19/2024 Blood pressure diastolic 74 mm Hg 07/19/2024 Height 73 in 07/19/2024 Blood pressure systolic 138 mm Hg 07/19/2024 Weight 224 lbs 07/19/2024 BMI 29.55 kg/m2 07/19/2024 Encounters Encounter Location Date Provider Diagnosis Omi Lopez III, MD [address] [place] [address] [address] [place], [place] [id number] 09/08/2023 Omi Lopez Cerebrovascular acci dent (CVA) due to occlusion of other cerebral artery I63.59 ; Psoriasis L40.9 ; Tobacco dependence F17.200 ; History of depression Z86.59 ; Mixed hyperlipidemia E78.2 ; Overweight (BMI 25.0-29.9) E66.3 ; BPH (benign prostatic hyperplasia) N40.0 and Degenerative disc disease at L5-S1 level M51.36 Omi Lopez III, MD [address] [place] [address] [place] [id number] 10/07/2023 Omi Lopez Cerebrovascular acci dent (CVA) due to occlusion of other cerebral artery I63.59 ; Tobacco dependence F17.200 ; Psoriasis L40.9 ; History of depression Z86.59 ; Mixed hyperlipidemia E78.2 ; Overweight (BMI 25.0-29.9) E66.3 ; BPH (benign prostatic hyperplasia) N40.0 and Lumbar radiculopathy M54.16 Omi Lopez III, MD [address] [place] [address] [place] [phone] 12/08/2023 Omi Lopez Cerebrovascular acci dent (CVA) due to occlusion of other cerebral artery I63.59 ; Psoriasis L40.9 ; Psoriatic arthritis L40.50 ; Tobacco dependence F17.200 ; History of depression Z86.59 ; Mixed hyperlipidemia E78.2 ; Overweight (BMI 25.0-29.9) E66.3 ; Sleep apnea, unspecified type G47.30 ; BPH (benign prostatic hyperplasia) N40.0 and Lumbar radiculopathy M54.16 Omi Lopez III, MD [address] [place] [address] [place] [phone] 12/26/2023 Omi Lopez Lumbar radiculopathy M54.16 ; Psoriatic arthritis L40.50 ; Obesity (BMI 30-39.9) E66.9 ; Tobacco dependence F17.200 ; History of depression Z86.59 ; Cerebrovascular accident (CVA) due to occlusion of other cerebral artery I63.59 and Mixed hyperlipidemia E78.2 Omi Lopez III, MD [address] [place] [address] [place] [id number] 01/19/2024 Omi Lopez Lumbar radiculopathy M54.16 ; Tobacco dependence F17.200 ; History of depression Z86.59 ; Mixed hyperlipidemia E78.2 ; Overweight (BMI 25.0-29.9) E66.3 ; Cerebrovascular accident (CVA) due to occlusion of other cerebral artery I63.59 ; BPH (benign prostatic hyperplasia) N40.0 and Psoriasis L40.9 Omi Lopez III, MD [address] [place] [address] [place] [id number] 03/29/2024 Omi Lopez Lumbar radiculopathy M54.16 ; Tobacco dependence F17.200 ; History of depression Z86.59 ; Cerebrovascular accident (CVA) due to occlusion of other cerebral artery I63.59 ; Mixed hyperlipidemia E78.2 ; Overweight (BMI 25.0-29.9) E66.3 ; BPH (benign prostatic hyperplasia) N40.0 ; Sleep apnea, unspecified type G47.30 and Psoriatic arthritis L40.50 Omi Lopez III, MD [address] [place] [address] [place] [id number] 05/31/2024 Omi Lopez Lumbar radiculopathy M54.16 ; Tobacco dependence F17.200 ; History of depression Z86.59 ; Cerebrovascular accident (CVA) due to occlusion of other cerebral artery I63.59 ; Mixed hyperlipidemia E78.2 ; Degenerative disc disease at L5-S1 level M51.36 ; BPH (benign prostatic hyperplasia) N40.0 and Psoriasis L40.9 Omi Lopez III, MD [address] [place] [address] [place] [id number] 07/19/2024 Omi Lopez Lumbar radiculopathy M54.16 ; Mixed hyperlipidemia E78.2 ; Overweight (BMI 25.0-29.9) E66.3 ; BPH (benign prostatic hyperplasia) N40.0 ; Psoriasis L40.9 ; Tobacco dependence F17.200 ; History of depression Z86.59 and Psoriatic arthritis L40.50 Omi Lopez III, MD [address] [place] [address] [place] [id number] 10/10/2023 Omi Lopez Assessments Encounter Date Diagnosis (ICD Code) Assessment Notes Treat ment Notes Treatment Clinical Notes 09/08/2023 Psoriasis (ICD-10 - L40.9) He continues on the hydrocortisone. He has an upcoming dermatology appointment. His psoriasis is very mild at this time. 09/08/2023 Cerebrovascular accident (CVA) due to occlusion of other cerebral artery (ICD-10 - I63.59) His reflexes and muscle strength are now symmetrical, and his gait is unimpaired. His speech has returned to normal and he has no word finding. The deficits from the small stroke have resolved. He has returned to work. He will continue on antiplatelet drugs. 10/07/2023 Tobacco dependence (ICD-10 - F17.200) He continues to smoke 10-20 cigarettes daily. We have discussed the health consequences of smoking. We have developed several strategies for smoking cessation. 10/07/2023 Cerebrovascular accident (CVA) due to occlusion of other cerebral artery (ICD-10 - I63.59) His reflexes and muscle strength are now symmetrical, and his gait is unimpaired. His speech has returned to normal and he has no word finding. The deficits from the small stroke have resolved. He has returned to work. He will continue on antiplatelet drugs. 12/08/2023 Psoriasis (ICD-10 - L40.9) He is being treated at this time by the darklight inspector. He has been compliant with treatment. 12/08/2023 Cerebrovascular accident (CVA) due to occlusion of other cerebral artery (ICD-10 - I63.59) His reflexes and muscle strength are now symmetrical, and his gait is unimpaired. His speech has returned to normal and he has no word finding. The deficits from the small stroke have resolved. He has returned to work. He will continue on antiplatelet drugs. 12/26/2023 Lumbar radiculopathy (ICD-10 - M54.16) He reports an exacerbation of the sciatica on the right. I have given him a prescription for dexamethasone. He has declined other suggested pharmaceutical agents. A follow-up appointment was arranged. 12/26/2023 Psoriatic arthritis (ICD-10 - L40.50) I have ordered x-rays of both hands and wrist and referred him to a home day care provider. 01/19/2024 Lumbar radiculopathy (ICD-10 - M54.16) His back pain is significantly improved and he is working without difficulty at this time. He was encouraged to avoid heavy lifting. 01/19/2024 Tobacco dependence (ICD-10 - F17.200) He continues to smoke 10-20 cigarettes daily. We have discussed the health consequences of smoking. We have developed several strategies for smoking cessation. 03/29/2024 Lumbar radiculopathy (ICD-10 - M54.16) His back pain is significantly improved and he is working without difficulty at this time. He was encouraged to avoid heavy lifting. 03/29/2024 Tobacco dependence (ICD-10 - F17.200) He continues to smoke 10-20 cigarettes daily. We have discussed the health consequences of smoking. We have developed several strategies for smoking cessation. 05/31/2024 Lumbar radiculopathy (ICD-10 - M54.16) His back pain is significantly improved and he is working without difficulty at this time. He was encouraged to avoid heavy lifting. 05/31/2024 Tobacco dependence (ICD-10 - F17.200) He continues to smoke 10-20 cigarettes daily. We have discussed the health consequences of smoking. We have developed several strategies for smoking cessation. 07/19/2024 Lumbar radiculopathy (ICD-10 - M54.16) His back pain is significantly improved and he is working without difficulty at this time. He was encouraged to avoid heavy lifting. 07/19/2024 Mixed hyperlipidemia (ICD-10 - E78.2) Fasting lipid profile has been ordered prior to his next visit. He was instructed to do this fasting. 09/08/2023 Tobacco dependence (ICD-10 - F17.200) He continues to smoke 10-20 cigarettes daily. We have discussed the health consequences of smoking. We have developed several strategies for smoking cessation. 10/07/2023 Psoriasis (ICD-10 - L40.9) He continues on the hydrocortisone. He has an upcoming dermatology appointment. His psoriasis is very mild at this time. 12/08/2023 Psoriatic arthritis (ICD-10 - L40.50) I have ordered x-rays of both hands and wrist and referred him to a home day care provider. 12/26/2023 Obesity (BMI 30-39.9 ) (ICD-10 - E66.9) His body mass index is now 30 and he has gained 5 pounds. We discussed his diet and nutrition. We made a plan to lose weight at a rate of one half of a pound per week through a diet restricted in calories. 01/19/2024 History of depressio n (ICD-10 - Z86.59) He continues to decline a prescription for an antidepressant R for psychotherapy. I will continue to discuss this issue with him. 03/29/2024 History of depressio n (ICD-10 - Z86.59) He continues to decline a prescription for an antidepressant R for psychotherapy. I will continue to discuss this issue with him. 05/31/2024 History of depressio n (ICD-10 - Z86.59) He continues to decline a prescription for an antidepressant R for psychotherapy. I will continue to discuss this issue with him. 07/19/2024 Overweight (BMI 25.0-29.9) (ICD-10 - E66.3) His weight is stable. We discussed weight reduction strategies today. We reviewed his diet and nutrition. We made a plan to lose weight at a rate of one half of a pound per week. 09/08/2023 History of depressio n (ICD-10 - Z86.59) He continues to decline a prescription for an antidepressant R for psychotherapy. I will continue to discuss this issue with him. 10/07/2023 History of depressio n (ICD-10 - Z86.59) He continues to decline a prescription for an antidepressant R for psychotherapy. I will continue to discuss this issue with him. 12/08/2023 Tobacco dependence (ICD-10 - F17.200) He continues to smoke 10-20 cigarettes daily. We have discussed the health consequences of smoking. We have developed several strategies for smoking cessation. 12/26/2023 Tobacco dependence (ICD-10 - F17.200) He continues to smoke 10-20 cigarettes daily. We have discussed the health consequences of smoking. We have developed several strategies for smoking cessation. 01/19/2024 Mixed hyperlipidemia (ICD-10 - E78.2) The current lipid profile shows a total cholesterol of 287 He says he was fasting. He has resumed taking his atorvastatin, and a repeat value will be ordered in a few weeks. 03/29/2024 Cerebrovascular accident (CVA) due to occlusion of other cerebral artery (ICD-10 - I63.59) His reflexes and muscle strength are now symmetrical, and his gait is unimpaired. His speech has returned to normal and he has no word finding. The deficits from the small stroke have resolved. He has returned to work. He will continue on antiplatelet drugs. 05/31/2024 Cerebrovascular accident (CVA) due to occlusion of other cerebral artery (ICD-10 - I63.59) His reflexes and muscle strength are now symmetrical, and his gait is unimpaired. His speech has returned to normal and he has no word finding. The deficits from the small stroke have resolved. He has returned to work. He will continue on antiplatelet drugs. 07/19/2024 BPH (benign prostati c hyperplasia) (ICD-10 - N40.0) He arises from sleep once a night to urinate. We have discussed lifestyle modifications he could take to reduce nocturia. 09/08/2023 Mixed hyperlipidemia (ICD-10 - E78.2) The current lipid profile shows a total cholesterol of 319. He says he was fasting. He has resumed taking his atorvastatin, and a repeat value will be ordered in a few weeks. 10/07/2023 Mixed hyperlipidemia (ICD-10 - E78.2) The current lipid profile shows a total cholesterol of 319. He says he was fasting. He has resumed taking his atorvastatin, and a repeat value will be ordered in a few weeks. 12/08/2023 History of depressio n (ICD-10 - Z86.59) He continues to decline a prescription for an antidepressant R for psychotherapy. I will continue to discuss this issue with him. 12/26/2023 History of depressio n (ICD-10 - Z86.59) He continues to decline a prescription for an antidepressant R for psychotherapy. I will continue to discuss this issue with him. 01/19/2024 Overweight (BMI 25.0-29.9) (ICD-10 - E66.3) [...] sodium combined with regular physical activity. 03/29/2024 Mixed hyperlipidemia (ICD-10 - E78.2) The current lipid profile shows a total cholesterol of 287 He says he was fasting. He has resumed taking his atorvastatin, and a repeat value will be ordered in a few weeks. 05/31/2024 Mixed hyperlipidemia (ICD-10 - E78.2) The current lipid profile shows a total cholesterol of 227 He was fasting. He has resumed taking his atorvastatin, and a repeat value will be ordered in a few weeks. 07/19/2024 Psoriasis (ICD-10 - L40.9) He is being treated at this time by the darklight inspector. He has been compliant with treatment. 09/08/2023 Overweight (BMI 25.0-29.9) (ICD-10 - E66.3) He has lost 3 pounds and his body mass index is 29. We discussed his diet and nutrition today. We reviewed his weight loss strategy. We made a plan to lose weight at a rate of one half of a pound per week through a diet restricted in fact calories and sodium combined with regular physical activity. 10/07/2023 Overweight (BMI 25.0-29.9) (ICD-10 - E66.3) He has lost 3 pounds and his body mass index is 29. We discussed his diet and nutrition today. We reviewed his weight loss strategy. We made a plan to lose weight at a rate of one half of a pound per week through a diet restricted in fact calories and sodium combined with regular physical activity. 12/08/2023 Mixed hyperlipidemia (ICD-10 - E78.2) The current lipid profile shows a total cholesterol of 287 He says he was fasting. He has resumed taking his atorvastatin, and a repeat value will be ordered in a few weeks. 12/26/2023 Cerebrovascular accident (CVA) due to occlusion of other cerebral artery (ICD-10 - I63.59) His reflexes and muscle strength are now symmetrical, and his gait is unimpaired. His speech has returned to normal and he has no word finding. The deficits from the small stroke have resolved. He has returned to work. He will continue on antiplatelet drugs. 01/19/2024 Cerebrovascular accident (CVA) due to occlusion of other cerebral artery (ICD-10 - I63.59) His reflexes and muscle strength are now symmetrical, and his gait is unimpaired. His speech has returned to normal and he has no word finding. The deficits from the small stroke have resolved. He has returned to work. He will continue on antiplatelet drugs. 03/29/2024 Overweight (BMI 25.0-29.9) (ICD-10 - E66.3) [...] and sodium combined with regular physical activity. 05/31/2024 Degenerative disc disease at L5-S1 level (ICD-10 - M51.36) His pain is not improved with an adequate trial of medication. He has been referred to rehabilitation medicine and pain control for injections and physical therapy. 07/19/2024 Tobacco dependence (ICD-10 - F17.200) He continues to smoke 10-20 cigarettes daily. We have discussed the health consequences of smoking. We have developed several strategies for smoking cessation. 09/08/2023 BPH (benign prostati c hyperplasia) (ICD-10 - N40.0) He arises from sleep once a night to urinate. I told him. This was about average. We discussed lifestyle modification as a way to reduce nocturia. 10/07/2023 BPH (benign prostati c hyperplasia) (ICD-10 - N40.0) He arises from sleep once a night to urinate. I told him. This was about average. We discussed lifestyle modification as a way to reduce nocturia. 12/08/2023 Overweight (BMI 25.0-29.9) (ICD-10 - E66.3) He has lost 7 pounds and his body mass index is 29. We discussed his diet and nutrition today. We reviewed his weight loss strategy. We made a plan to lose weight at a rate of one half of a pound per week through a diet restricted in fact calories and sodium combined with regular physical activity. 12/26/2023 Mixed hyperlipidemia (ICD-10 - E78.2) The current lipid profile shows a total cholesterol of 287 He says he was fasting. He has resumed taking his atorvastatin, and a repeat value will be ordered in a few weeks. 01/19/2024 BPH (benign prostati c hyperplasia) (ICD-10 - N40.0) He arises from sleep once a night to urinate. I told him. This was about average. We discussed lifestyle modification as a way to reduce nocturia. 03/29/2024 BPH (benign prostati c hyperplasia) (ICD-10 - N40.0) He arises from sleep once a night to urinate. I told him. This was about average. We discussed lifestyle modification as a way to reduce nocturia. 05/31/2024 BPH (benign prostati c hyperplasia) (ICD-10 - N40.0) He arises from sleep once a night to urinate. I told him. This was about average. We discussed lifestyle modification as a way to reduce nocturia. 07/19/2024 History of depressio n (ICD-10 - Z86.59) He continues to decline a prescription for an antidepressant R for psychotherapy. I will continue to discuss this issue with him. 09/08/2023 Degenerative disc disease at L5-S1 level (ICD-10 - M51.36) His pain is not improved with an adequate trial of medication. He has been referred to rehabilitation medicine and pain control for injections and physical therapy. 10/07/2023 Lumbar radiculopathy (ICD-10 - M54.16) His pain is gradually improving with some good days. He is able to walk short distances. He will return to work as soon as possible. The physical therapy and injections. Will continue. 12/08/2023 Sleep apnea, unspecified type (ICD-10 - G47.30) He reports excessive snoring and daytime somnolence. He says he never feels like he got a good night sleep. I've ordered a sleep study to assess for sleep apnea. 01/19/2024 Psoriasis (ICD-10 - L40.9) He is being treated at this time by the darklight inspector. He has been compliant with treatment. 03/29/2024 Sleep apnea, unspecified type (ICD-10 - G47.30) He reports excessive snoring and daytime somnolence. He says he never feels like he got a good night sleep. I've ordered a sleep study to assess for sleep apnea. 05/31/2024 Psoriasis (ICD-10 - L40.9) He is being treated at this time by the darklight inspector. He has been compliant with treatment. 07/19/2024 Psoriatic arthritis (ICD-10 - L40.50) I have ordered x-rays of both hands and wrist and referred him to a home day care provider.He was given methotrexate. He continues on methotrexate at the current dose.A CBC has been ordered. 12/08/2023 BPH (benign prostati c hyperplasia) (ICD-10 - N40.0) He arises from sleep once a night to urinate. I told him. This was about average. We discussed lifestyle modification as a way to reduce nocturia. 03/29/2024 Psoriatic arthritis (ICD-10 - L40.50) I have ordered x-rays of both hands and wrist and referred him to a home day care provider.He was given methotrexate. He continues on methotrexate at the current dose.A CBC has been ordered. 12/08/2023 Lumbar radiculopathy (ICD-10 - M54.16) His pain is gradually improving with some good days. He is able to walk short distances. He will return to work as soon as possible. The physical therapy and injections. Will continue. Plan Of Treatment Pending Test Test Name Order Date PROFILE, FASTING (COMPREHENSIVE METABOLI C) 09/17/2022 PROFILE, FASTING (COMPREHENSIVE METABOLI C) 03/09/2021 PROFILE, FASTING (COMPREHENSIVE METABOLI C) 10/16/2020 PROFILE, FASTING (COMPREHENSIVE METABOLI C) 12/03/2021 PROFILE, FASTING (COMPREHENSIVE METABOLI C) 01/08/2023 PROFILE, FASTING (COMPREHENSIVE METABOLI C) 07/19/2024 PROFILE, RANDOM (COMPREHENSIVE METABOLIC ) 03/29/2024 PROFILE, RANDOM (COMPREHENSIVE METABOLIC ) 06/04/2021 LIPID PANEL 09/17/2022 LIPID PANEL 10/16/2020 LIPID PANEL 12/03/2021 LIPID PANEL 11/03/2020 LIPID PANEL 01/08/2023 PSA, TOTAL 07/19/2024 PSA, TOTAL 09/17/2022 PSA, TOTAL 10/16/2020 PSA, TOTAL 06/04/2021 CBC w DIFF 06/04/2021 CBC w DIFF 01/08/2023 CBC w DIFF 03/09/2021 CBC w DIFF 09/17/2022 CBC w DIFF 12/03/2021 CBC w DIFF 10/16/2020 LYME DISEASE IgG/IgM WB 10/07/2023 MRI PELVIS NO CONTRAST 02/22/2022 CBC WITH AUTO DIFF 07/19/2024 CBC WITH AUTO DIFF 03/29/2024 Lipid Panel 07/19/2024 Lipid Panel 03/09/2021 Next Appt Details Provider Name:Omi Lopez, 12/08/2024 10:00:00 AM, [address] [place] [address] DEEDEE HAYDEN, DORI JOSEPH, [id number], Insurance Providers Payer Name Payer Address Payer Phone Subscriber Number Group Number Insured Name Patient Relationship to Insured Coverage Start Date Coverage End Date [facility] [address] [facility] [place] [phone] [id number] Fredrick Gudino Self - patient is the insured Medical (General) History Medical History History ICD Code skin rash low back pain radiating down right leg Lumbar discectomy crush injury right fourth finger tobacco dependence 34 pack years history of depression 2016 history of obesity Left pontine CVA 2021 Surgical History Surgery Date(Month/Year) No history Cologard test age 49 negative lumbar spine discectomy, Dr. Franco 2010 right fourth finger crush injury repaire d Hospitalization History Reason Date(Month/Year) No history Stroke [facility] 2021
== END 2024-07-26 11:42 | disposition home or self-care (01) ==
LOC: HO.HPS 10:46
PROVIDERS: PCP Internal Medicine Medical Oncology; Visit Provider Internal Medicine
DX: G47.33 Obstructive sleep apnea (adult) (pediatric) (principal); G47.34 Idiopathic sleep related nonobstructive alveolar hypoventilation; F17.210 Nicotine dependence, cigarettes, uncomplicated; M26.19 Other specified anomalies of jaw-cranial base relationship
CPT/HCPCS: 99213

== ENCOUNTER 2024-08-26 15:59 | Outpatient (AMB) | payer OTHER, SELFPAY ==
[2024-08-26 16:06] VITALS: BP 112/70; BMI 30.8
--- NOTE | 2024-08-26 16:06 | A.OFFVIS_ITS ---
Vital Signs 08/26/24 16:06 Height 6 ft 1 in Weight 233 lb 11.04 oz BMI 30.8 BP 112/70 Blood Pressure Location Lt brachial Position Sitting Intake Visit Reasons: Psoriasis, joint pain Intake Note: ?Patient presents for follow up on psoriasis and joint pain. He was last seen in the office on 05/18/[address] Zurita. Patient would like to discuss his medication, and thinks he may have nerve damage. His head always feels fuzzy, balance is off. Allergies No Known Allergies Allergy (Verified 08/26/24 16:08) Medication List - Last Reconciled 08/26/24 by Violeta Zurita MD apremilast (Otezla) 30 mg PO BID atorvastatin 10 mg PO DAILY celecoxib (Celebrex) 200 mg PO BID 90 days folic acid 1 mg PO DAILY 90 days methotrexate sodium 20 mg (8 x 2.5 mg) PO QWEEK 90 days tizanidine 2 mg PO TID PRN HPI Comments Details: Patient is a 53-year-old male with history of stroke and hyperlipidemia who presents for follow up of psoriatic arthritis. Interval History: Patient last seen 05/18/2024. That time he was following up for his diagnosis of psoriatic arthritis. He continued to have pain despite methotrexate and Otezla. Please methotrexate was increased from 6 pills every week to 8 pills Did not increase the methotrexate. Pain in my feet, sometimes they go numb Pain at the sides of the neck Pain in the inner thighs Pain in knees comes and goes Rheumatologic History: Patient states that about 2 years ago after he got a COVID shot he started to notice a rash on his bilateral lower extremities. This rash continued to worsen. He finally went to a [employer] administrator and was told he had psoriasis. Used topicals on and off. On recently started Otezla. With improvement of his psoriasis. However about 1 year ago he started to notice pain in his PIP joints DIPs joints his heel and his lateral elbows. This was associated with swelling of the hands and prolonged morning stiffness up to an hour. Denies any history of eye inflammation. Denies any history of inflammatory bowel disease type symptoms. No family history of psoriasis. Current Rheumatology Medication(s): 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 20mg weekly (currently on 15mg) Folic acid 1mg daily Otezla 30mg BID (Derm) Celebrex 200mg bid [facility] Medical History (Updated 08/28/24 @ 22:12 by Violeta Zurita MD) Nocturnal hypoxemia Bilateral primary osteoarthritis of knee Nicotine dependence, cigarettes, uncomplicated 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, assisted, current use Psoriatic arthritis SHIVA (obstructive sleep apnea) Retrognathia Somnolence, daytime Sleep apnea History of stroke Hyperlipidemia Depression Lumbar radiculopathy Surgical History H/O lumbar discectomy Family History Father CAD (coronary artery disease) Myocardial infarction Alcoholism Hypertension CVD (cardiovascular disease) Social History Household Members: None Household Members Other:: lives alone Housing: House Are you a primary home health care coordinator to a significant other at home: No Do you presently have visiting nurse or other home services: No Alcohol intake: former Patient Tobacco Use Status: Current everyday Tobacco user Tobacco use type: Cigarette Cigarette Packs Per Day: 0.75 Cigarettes Per Day: 15 Years Smoked: (onset 15yo, 1ppd x 39yrs, 35pyh) Substance Use Type: Marijuana Review of Systems Const Details: Review of Systems Constitutional: Denies fever, chills, weight loss ENT: Denies vision changes, eye pain or eye redness, dental caries, dry mouth GI: Denies nausea, vomiting, diarrhea, abdominal pain, change in BM Pulm: Denies SOB, RAMIREZ, hemoptysis, wheezing Cards: Denies chest pain, palpitations Skin: Denies Raynaud's, rash, nail changes, photosensitivity, 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 Well appearing and in no apparent painful distress HEENT Conjunctiva and sclera clear. ?Pupils equal round and reactive to light. ?No lymphadenopathy. ? CHEST/RESPIRATORY SYSTEM Normal respiratory effort and able to speak in complete sentences. ?Clear to auscultation bilaterally. ?No crackles, rales, rhonchi, wheezes heard. CARDIAC SYSTEM Regular rate and rhythm. ?S1 and S2 heard no murmurs. 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 No deformities noted. ?No synovitis noted to the MCPs, PIPs or DIPs. ?No tenderness to palpation of these joints. Wrists: ?Full range of motion at the wrists without pain. ?No tenderness to pa lpation or synovitis noted to the wrists. Elbows: Full range of motion without pain. No tenderness, weakness, swelling, increased warmth or erythema. TTP of the left medial elbow Shoulders: Full range of motion without pain. No tenderness, weakness, swelling, increased warmth or erythema. Knees: ?Full range of motion. ?No swelling, increased warmth or erythema.?No effusion. Ankles: Full range of motion. ?No tenderness, swelling, increased warmth or erythema.? Feet: ?Negative squeeze test. ?No tenderness to palpation or swelling of the MTPs. Tender points:?No tenderness to palpation of the bilateral trapezius, supraspinatus, greater trochanters, anterior costochondral junctions, bilateral gluteal areas, bilateral suboccipital muscle insertions SKIN Skin intact without rashes. MSK (Previous exam 02/2024) A fusiform swelling noted to the right and left 2nd 3rd and 4th digits. Tenderness to palpation of the PIPs and DIPs throughout. No nail changes noted. Tenderness to palpation of the Achilles tendon bilaterally. Lateral elbow entheses site tenderness to palpation bilaterally. Results Reviewed Results Reviewed: Laboratory Tests 03/29/24 16:30 WBC 9.8 RBC 5.46 Hgb 17.0 Hct 51.0 Plt Count 269 ESR 4 Sodium 143 Potassium 4.2 Chloride 108 Carbon Dioxide 29 BUN 18 H Creatinine 1.05 AST 27 ALT 64 H Alkaline Phosphatase 77 C-Reactive Protein 0.34 HLA-B27 Negative XR Hand/Wrist 12/08/23 FINDINGS: (right) The bones and soft tissues are normal. No fracture. Alignment is anatomic. Joint spaces are maintained. No erosions or soft tissue calcifications. FINDINGS: (left) The bones and soft tissues are normal. No fracture. Alignment is anatomic. Joint spaces are maintained. No erosions or soft tissue calcifications. Assessment & Plan Assessment & Plan (1) Psoriatic arthritis: Code(s): L40.50 - Arthropathic psoriasis, unspecified Category: Medical Plan: #Psoriatic Arthritis Patient is a 54-year-old male with psoriasis complicated by psoriatic arthritis here today for follow-up. Still does not feel that his symptoms have improved but he no longer has dactylitis on exam and over his joint and enthesis is doing well. Did not increase methotrexate after last visit. We will increase the Mtx to 8 pills weekly. Perhaps his elbow tendonitis might be related to enthesitis. Plan - 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 20mg weekly (8 pills) - Folic Acid 1 mg - RTC 4 months - Labs before visit: CBC, CMP, ESR, CRP (2) Lumbar degenerative disc disease: Code(s): M51.36 - Other intervertebral disc degeneration, lumbar region Category: Medical Qualifiers: Disc-related pain type: discogenic back pain only Qualified Code(s): M51.360 - Other intervertebral disc degeneration, lumbar region with discogenic back pain only Plan: #Lumbar and Cervical spine degenerative disease Patient is complaining of neck pain that is likely muscle spasm from his degenerative disc disease. Not interested in PT. Will try flexeril Plan - Cyclobenzaprine 5mg nightly (3) Bilateral primary osteoarthritis of knee: Code(s): M17.0 - Bilateral primary osteoarthritis of knee Category: Medical Plan: #Bilateral Knee Pain Bilateral knee pain improved. Plan - Celebrex 200mg bid (4) Psoriasis: Code(s): L40.9 - Psoriasis, unspecified Category: Medical Plan: #Psoriasis Patient can continue with the Otezla at this time. Follow up with Dermatology. (5) 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, long chain beamer, current use: Code(s): Z79.631 - watermelon inspector (current) use of antimetabolite agent Category: Medical Plan: #Long-term Current Use of 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 Discussed with patient the benefits and risks of methotrexate for managing their rheumatic condition Benefits include reduced pain, reduced mortality, maintenance of remission and reduction of flares Risks include oral ulcers, photosensitivity, hepatotoxicity, hematologic toxicity, pneumonitis, flu-like symptoms (especially day after administration), nodulosis, lymphomas ? Limit alcohol and avoid Bactrim ? Monitoring: CBC, BMP, LFTs every 3-4 months and hepatitis serologies as needed Plan I spent 30 minutes reviewing the record and labs, taking a history, examining the patient, discussing the treatment plan, ordering diagnostic work up and documenting in the medical record Medications: New cyclobenzaprine 5 mg PO BEDTIME 90 tabs 1RF M62.838 - Other muscle spasm Refilled methotrexate sodium 20 mg (8 x 2.5 mg) PO QWEEK 90 days 104 tabs 1RF L40.50 - Arthropathic psoriasis, unspecified folic acid 1 mg PO DAILY 90 days 90 tabs 1RF L40.50 - Arthropathic psoriasis, unspecified celecoxib (Celebrex) 200 mg PO BID 90 days 180 caps 1RF M17.0 - Bilateral primary osteoarthritis of knee Discontinued tizanidine Discontinued Reason: Doctor's Order 2 mg PO TID PRN 90 tabs 0RF for muscle spasm M51.36 - Other intervertebral disc degeneration, lumbar region, M54.16 - Radiculopathy, lumbar region, M62.830 - Muscle spasm of back Coding Level of Care Code Est Pt Level 4 (22619) Complex EM visit Add On G2211 Diagnoses Psoriatic arthritis L40.50 Degeneration of intervertebral disc of lumbar region with discogenic back pain M51.360 Disc-related pain type: discogenic back pain only Bilateral primary osteoarthritis of knee M17.0 Psoriasis L40.9 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, assisted, 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
--- OUTSIDE RECORDS SUMMARY | 2024-08-26 18:16 | XMS_ITS ---
Author Organization [facility] Address [address] [place] [address] Care Team Providers Care Senior Counsel Commercial Name Role Phone Jessica JAMES, Omi Primary [...] Problem Status W/U Status Risk Notes Problem [id number] Colon cancer screening (Z12.11) Active confirmed Problem [id number] Encounter for long-term (current) use of NSAIDs (Z79.1) Active confirmed Problem [id number] Encounter for other preprocedural examination (Z01.818) Active confirmed Vital Signs Temperature 98.4 degrees Fahrenheit 03/24/20 24 Blood pressure systolic 000 mm Hg 03/24/20 24 Blood pressure diastolic 00 mm Hg 024 Height 6 ft 2 in in 03/24/2024 Weight 214 lb 6 oz lbs 03/24/2024 BMI 27.52 kg/m2 03/24/2024 Encounters Encounter Location Date Provider Diagnosis [facility] [address] [place] [address] 03/24/2024 Richard Hughes Jr Colon cancer screening [...] Notes * RADHA AGUAYO:1970 (54 yo M)Acc No.[id number]:03/24/2024 Progress Notes Patient:?SHARITA AGUAYO Provider:?Richard Hughes MD :1970???Age:54 Y???Sex:Male Dick e:03/24/2024 Address:[address] [place], [place] [id number] Pcp:Omi Lopez MD Subjective: * Chief Complaints: [...] MD Date:?1 05/24/2023 Generated for Molina sanchez/Heather/Chelsiitting on:?08/26/2024 06:16 PM EDT History and Physical Notes * [...]
--- OUTSIDE RECORDS SUMMARY | 2024-08-26 18:16 | XMS_ITS | Patient Health Record ---
Author Organization Omi Lopez III, MD Address [address] [place] [address] [place] [address] Care Team Providers Care Quantitative Research Analyst Name Role Phone Omi Lopez Primary Care Provider [phone] Allergies Allergen (clinical drug ingredient) Drug/Non Drug [...] Panel Reviewed date:05/06/2024 10:24:23 AM Interpretation: Performing Lab:[facility], [address] [place] [phone] Notes/Report: Triglycerides 252 <150 mg/dL Desirable Triglyceride: [...] WB Reviewed date:10/11/2023 08:31:25 AM Interpretation: Performing Lab:[address] [address] Notes/Report: Lyme Abs Screen <0.90 Index Interpretation [...] is apparent. THIS TEST WAS PERFORMED AT: [facility] [address] [place] [address] CLARA HORTA MD Lyme Blot TNP Complete Blood Count Auto Di ff Reviewed date:11/19/2023 06:59:03 AM Interpretation: Performing Lab:[address] [address] Notes/Report: White Blood Count 10.8 4.8-10.8 X10*3/uL [...] NRBC Abs Auto 0.000 0.0-0.012 X10*3/uL Comprehensive [place]. Panel Fa st Reviewed date:11/19/2023 06:59:03 AM Interpretation: Performing Lab:[facility], [address] [place] [address] Notes/Report: Sodium 140 135-145 mmol/L Potassium 4.4 3.3-5.1 mmol/L Chloride 106 96-108 mmol/L Carbon Dioxide 25 22-29 mmol/L Anion Gap 13 12-20 Blood Urea Nitrogen 13 9-16 mg/dL Creatinine 1.03 0.5-1.4 mg/dL Estimated Glomerular Filt Rate > 60 NOTE: For -Burkinan individuals, multiply the result by 1.210. Chronic [...] Panel Reviewed date:11/19/2023 06:59:03 AM Interpretation: Performing Lab:[facility], [address] [place] [phone] Notes/Report: Triglycerides 188 <150 mg/dL Desirable Triglyceride: [...] date:12/28/2023 08:43:29 AM Interpretation: Performing Lab: Notes/Report: [address] [address] XRay Report Signed Patient: Fredrick Gudino MR#: [id number] 164 : 1970 Acct:[id number] Age/Sex: 53 / M ADM Date: 12/08/23 Loc: HO.YONI Attending Dr: Omi Lopez MD Ordering Physician: Omi Lopez MD Date of Service: 12/08/23 Procedure(s): XR hand wrist LT Accession Number(s): [id number] cc: Omi Lopez MD EXAMINATION: XR HAND/WRIST, [...] MD in OV> 12/23/232054 DD/ 1030 TD/TT: Railroad Repairer: [address] [address] XRay Report Signed Patient: Gian Gudino dd MR#: [id number] 164 : 1970 Acct:[id number] Age/Sex: 53 / M ADM Date: 12/08/23 Loc: HO.XRAY Attending Dr: Omi Lopez MD Ordering Physician: Omi Lopez MD Date of Service: 12/08/23 Procedure(s): XR pagan d wrist LT Accession Number(s): [id number] cc: Omi Lopez MD EXAMINATION: XR HAND/WRIST, [...] MD in OV> 12/23/232054 DD/ 1030 TD/TT: Railroad Repairer: XR hand wrist RT Reviewed date:12/28/2023 08:43:29 AM Interpretation: Performing Lab: Notes/Report: [address] [address] XRay Report Signed Patient: Fredrick Gudino MR#: [id number] 164 : 1970 Acct:[id number] Age/Sex: 53 / M ADM Date: 12/08/23 Loc: HO.XRESTRELLITA Attending Dr: Omi Lopez MD Ordering Physician: Omi Lopez MD Date of Service: 12/08/23 Procedure(s): XR hand wrist RT Accession Number(s): [id number] cc: Omi Lopez MD EXAMINATION: XR HAND/WRIST, [...] MD in OV> 12/23/232055 DD/ 1030 TD/TT: Railroad Repairer: [address] [address] XRay Report Signed Patient: Gian Gudino dd E MR#: [id number] 164 : 1970 Acct:[id number] Age/Sex: 53 / M ADM Date: 12/08/23 Loc: KENDRICK Attending Dr: Omi Lopez MD Ordering Physician: Omi Lopez MD Date of Service: 12/08/23 Procedure(s): XR pagan d wrist RT Accession Number(s): [id number] cc: Omi Lopez MD EXAMINATION: XR HAND/WRIST, [...] MD in OV> 12/23/232055 DD/ 1030 TD/TT: Railroad Repairer: Complete Blood Count Auto Di ff Reviewed date:05/06/2024 10:24:23 AM Interpretation: Performing Lab:[facility], [address] [place] [address] Notes/Report: White Blood Count 9.8 4.8-10.8 X10*3/uL [...] te Reviewed date:05/06/2024 10:24:23 AM Interpretation: Performing Lab:[facility], [address] [place] [address] Notes/Report: Erythrocyte Sedimentation Rate 4 0-15 MM/HR Patients with polycythemia and many hemoglobin abnormalities may have depressed sed rates whereas patients with anemia may have elevated sed rates. Comprehensive Met. Panel Reviewed date:05/06/2024 10:24:23 AM Interpretation: Performing Lab:[address] [address] Notes/Report: Sodium 143 135-145 mmol/L Potassium 4.2 [...] Protein Reviewed date:05/06/2024 10:24:23 AM Interpretation: Performing Lab:[facility], [address] [place] [address] Notes/Report: C Reactive Protein 0.34 < or = 0.50 mg/dL HLA B27 Reviewed date:05/06/2024 10:24:23 AM Interpretation: Performing Lab:[facility], [address] [place] [address] Notes/Report: HLA B27 Negative Negative THIS TEST WAS PERFORMED AT: Rad/[address] [address] NORMAN BENTLEY MD,PHD Hepatitis A,B,C Profile Reviewed date:05/06/2024 10:24:23 AM Interpretation: Performing Lab:[facility], [address] [place] [address] Notes/Report: Hepatitis A Antibody IgM Nonreactive Nonreactive [...] ff Reviewed date:05/06/2024 10:24:23 AM Interpretation: Performing Lab:[facility], [address] [place] [address] Notes/Report: White Blood Count 9.8 4.8-10.8 X10*3/uL [...] Panel Reviewed date:05/06/2024 10:24:23 AM Interpretation: Performing Lab:[facility], [address] [place] [address] Notes/Report: Sodium 143 135-145 mmol/L Potassium 4.2 [...] date:06/18/2024 09:31:20 AM Interpretation: Performing Lab: Notes/Report: [address] [address] [address] Scan Report Signed Patient: Fredrick Gudino MR#: [id number] 164 : 1970 Acct:[id number] Age/Sex: 54 / M ADM Date: 04/16/24 Loc: .CT Attending Dr: Diane Archer PA-C Ordering Physician: Diane Archer PA-C Date of Service: 04/16/24 Procedure(s): CT lung screening Accession Number(s): [id number] cc: Omi Lopez MD; Diane Archer PA-C Report Number: [id number]: Total DLP = 60.00 mGy-cm EXAMINATION: CT [...] for CT CHEST LOW DOSE CANCER SCREENING ([id number]) can be placed. Electronically signed by: Abner Chong MD 06/09/2024 05:32 PM [facility] Dictated By: Abner Chong MD Signed By: <Electronically signed by Abner Chong MD in OV> 06/09/24 1732 DD/ 1140 TD/TT: 04/16/24 1303 Railroad Repairer: [address] [address] [address] Scan Report Signed Patient: Gian Gudino dd E MR#: [id number] 164 : 1970 Acct:[id number] Age/Sex: 54 / M ADM Date: 04/16/24 Loc: HO.CT Attending Dr: Diane Archer PA-C Ordering Physician: Diane Archer PA-C Date of Service: 04/16/24 Procedure(s): CT norris g screening Accession Number(s): [id number] cc: Omi Lopez MD; Diane Archer PA-C Report Number: [id number]: Total DLP = 60.00 mGy-cm EXAMINATION: CT [...] for CT CHEST LOW DOSE CANCER SCREENING ([id number]) can be placed. Electronically tony d by: Abner Chong MD 06/09/2024 05:32 PM [facility] Dictated By: Sarahi Chong MD Signed By: <Electronically signed by Abner Chong MD in OV> 06/09/24 1732 DD/ 1140 TD/TT: 04/16/24 1303 Railroad Repairer: GLORIA Reason For Referral Reason Consult and [...] CMA 12/30/2023 11:24:44 AM EDT > called [facility] they stated they did not [...] Referring Provider Speciality Internal edicine Referred Provider [facility] er, Rheumatology Referred Provider Specialty Rheumatology General Notes Maria Isabel Castañeda CM 12/18/2023 02:13:56 PM EDT > [facility] a new provider is coming in January so pt will be referred to them at that time , Maria Isabel Castañeda CMA 01/20/2024 02:56:15 PM EDT > ref/demo/progress note/labs/x rays faxed to [facility] they will call pt with appt Referral Priority Routine Referral Appointment Date 02/19/2024 Reason chronic back pain Diagnosis 1 Lumbar radiculopathy (M54.16) Referral Organization Omi Lopez III, MD Referring Provider First Name Omi Referring Provider Last Name Lopez Referring Provider Speciality Internal edicine Referred Provider [facility] er, Pain Management Referred Provider Specialty Pain Medicin e General Notes Maria Isabel Castañeda CM A 12/26/2023 02:28:23 PM EDT > Called [facility] [phone] they stated pt has been seen there before in 2021 so I was able to make patient appt for 01/09/2024 at 9:30am with Sherley DAVIS at [address] [place] [address] [address] information called and mailed to patient Referral Priority Routine Referral Appointment Date 01/09/2024 Reason achilles tendon and heal pain Diagnosis 1 Heel pain, unspecifi ed laterality (M79.673) Referral Organization Omi Lopez III, MD Referring Provider First Name Omi Referring Provider Last Name Lopez Referring Provider Speciality Internal edicine Referred Provider [facility] [place] Referred Provider Specialty Podiatry General Notes Maria Isabel Vo [facility] 05/31 01:41:59 PM > patient given contact information to call the podiatry office and set up his own appointment and then call the office with the appt information Referral Priority Routine Reason sleep apnea Diagnosis 1 Sleep apnea, unspeci fied type (G47.30) Referral Organization Omi Lopez III, MD Referring Provider First Name Omi Referring Provider Last Name Jessica Referring Provider Speciality [facility] Referred Provider PRAMOD TAMAYO Referred Provider Specialty Pulmonary Di seases General Notes Tavo Maria Isabel [facility] 05/31 01:33:45 PM > Called Dr. Tamayo office spoke to [facility] pt appt with Dr Tamayo for Friday06/07/2024 ta 1:45pm information called and mailed to patient Referral Priority Routine Referral Appointment Date 06/07/2024 Reason Evaluate and Treat left eyelid droop due to stroke Diagnosis 1 Ptosis of left eyeli d (H02.402) Referral Organization Omi Lopez III, MD Referring Provider First Name Omi Referring Provider Last Name Lopez Referring Provider Speciality [facility]erred Provider [facility] Referred Provider Specialty Ophthalmolog y General Notes Collette Daly 07/26/2024 11:37:09 AM > Referral faxed with progress note, Collette Daly 07/27/2024 11:31:16 AM > Patient is scheduled for 08/23/24 @ 3pm with Dr. Avelar. Patient is made aware Referral Priority Routine Referral Appointment Date 08/23/2024 Medications Medication SIG (Take, Route, Frequency, Duration) Notes Start Date End Date Status Otezla 30 MG Oral Active Celecoxib 200 MG Oral Act armin 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 Sodium 2.5 MG as directed Orally weekly 03/29/2024 Active Folic Acid 1 MG Oral Acti ve Meloxicam 15 MG TAKE 1 TABLET BY STEPHANE TH EVERY DAY FOR 30 DAYS Active dexAMETHasone [...] Problem Status W/U Status Risk Notes Problem 014881272 Overweight (BMI 25.0-29.9) (E66.3) Active confirmed His weight is stable. We discussed weight reduction strategies today. We reviewed his diet and nutrition. We made a plan to lose weight at a rate of one half of a pound per week. Problem 997541099 Lumbar radiculopathy (M54.16) Active confirmed His back pain is significantly improved and he is working without difficulty at this time. He was encouraged to avoid heavy lifting. Problem 599617119 Mixed hyperlipidemia (E78.2) Active confirmed Fasting lipid profile has been ordered prior to his next visit. He was instructed to do this fasting. Problem Benign prostatic hyperplasia (637593412) BPH (benign prostatic hyperplasia) (N40.0) Active confirmed He arises from sleep once a night to urinate. We have discussed lifestyle modifications he could take to reduce nocturia. Problem 438632350 Obesity (BMI 30-39.9) (E66.9) Active confirmed His body ma ss index is now 30 and he has gained 5 pounds. We discussed his diet and nutrition. We made a plan to lose weight at a rate of one half of a pound per week through a diet restricted in calories. Problem Tobacco dependence (77560111) Tobacco dependence (F17.200) Active confirmed He continues to smoke 10-20 cigarettes daily. We have discussed the health consequences of smoking. We have developed several strategies for smoking cessation. Problem Psoriasis (4549043) Psoriasis (L40.9) Active confirmed He is b eing treated at this time by the manual machinist. He has been compliant with treatment. Problem 58340074 Sleep apnea, unspecified type (G47.30) Active confirmed He reports excessive snoring and daytime somnolence. He says he never feels like he got a good night sleep. I've ordered a sleep study to assess for sleep apnea. Problem 405548408 History of depression (Z86.59) Active confirmed He continues to decline a prescription for an antidepressant R for psychotherapy. I will continue to discuss this issue with him. Problem 836986486 Psoriatic arthritis (L40.50) Active confirmed I have ordered x-rays of both hands and wrist and referred him to a hot air furnace installer and repairer. He was given methotrexate. He continues on methotrexate at the current dose.A CBC has been ordered. Problem 931922279 Cerebrovascular accident (CVA) due to occlusion of [...] Date Provider Diagnosis Omi Lopez III, MD [address] [place] [address] [address] [place], [place] [address] 09/08/2023 Omi Lopez Cerebrovascular acci dent (CVA) due to occlusion of other cerebral artery I63.59 ; Psoriasis L40.9 ; Tobacco dependence F17.200 ; History of depression Z86.59 ; Mixed hyperlipidemia E78.2 ; Overweight (BMI 25.0-29.9) E66.3 ; BPH (benign prostatic hyperplasia) N40.0 and Degenerative disc disease at L5-S1 level M51.36 Omi Lopez III, MD [address] [place] [address] [place] [address] 10/07/2023 Omi Lopez Cerebrovascular acci dent (CVA) due to occlusion of other cerebral artery I63.59 ; Tobacco dependence F17.200 ; Psoriasis L40.9 ; History of depression Z86.59 ; Mixed hyperlipidemia E78.2 ; Overweight (BMI 25.0-29.9) E66.3 ; BPH (benign prostatic hyperplasia) N40.0 and Lumbar radiculopathy M54.16 Omi Lopez III, MD [address] [place] [address] [place] [address] 12/08/2023 Omi Lopez Cerebrovascular acci dent (CVA) due to occlusion of other cerebral artery I63.59 ; Psoriasis L40.9 ; Psoriatic arthritis L40.50 ; Tobacco dependence F17.200 ; History of depression Z86.59 ; Mixed hyperlipidemia E78.2 ; Overweight (BMI 25.0-29.9) E66.3 ; Sleep apnea, unspecified type G47.30 ; BPH (benign prostatic hyperplasia) N40.0 and Lumbar radiculopathy M54.16 Omi Lopez III, MD [address] [place] [address] [place] [address] 12/26/2023 Omi Lopez Lumbar radiculopathy M54.16 ; Psoriatic arthritis L40.50 ; Obesity (BMI 30-39.9) E66.9 ; Tobacco dependence F17.200 ; History of depression Z86.59 ; Cerebrovascular accident (CVA) due to occlusion of other cerebral artery I63.59 and Mixed hyperlipidemia E78.2 Omi Lopez III, MD [address] [place] [address] [place] [address] 01/19/2024 Omi Lopez Lumbar radiculopathy M54.16 ; Tobacco dependence F17.200 ; History of depression Z86.59 ; Mixed hyperlipidemia E78.2 ; Overweight (BMI 25.0-29.9) E66.3 ; Cerebrovascular accident (CVA) due to occlusion of other cerebral artery I63.59 ; BPH (benign prostatic hyperplasia) N40.0 and Psoriasis L40.9 Omi Lopez III, MD [address] [place] [address] [place] [address] 03/29/2024 Omi Lopez Lumbar radiculopathy M54.16 ; Tobacco dependence F17.200 ; History of depression Z86.59 ; Cerebrovascular accident (CVA) due to occlusion of other cerebral artery I63.59 ; Mixed hyperlipidemia E78.2 ; Overweight (BMI 25.0-29.9) E66.3 ; BPH (benign prostatic hyperplasia) N40.0 ; Sleep apnea, unspecified type G47.30 and Psoriatic arthritis L40.50 Omi Lopez III, MD [address] [place] [address] [place] [address] 05/31/2024 mOi Lopez Lumbar radiculopathy M54.16 ; Tobacco dependence F17.200 ; History of depression Z86.59 ; Cerebrovascular accident (CVA) due to occlusion of other cerebral artery I63.59 ; Mixed hyperlipidemia E78.2 ; Degenerative disc disease at L5-S1 level M51.36 ; BPH (benign prostatic hyperplasia) N40.0 and Psoriasis L40.9 Omi Lopez III, MD [address] [place] [address] [place] [address] 07/19/2024 Omi Lopez Lumbar radiculopathy M54.16 ; Mixed hyperlipidemia E78.2 ; Overweight (BMI 25.0-29.9) E66.3 ; BPH (benign prostatic hyperplasia) N40.0 ; Psoriasis L40.9 ; Tobacco dependence F17.200 ; History of depression Z86.59 and Psoriatic arthritis L40.50 Omi Lopez III, MD [address] [place] [address] [place] [address] 10/10/2023 Omi Lopez Assessments Encounter Date Diagnosis [...] treated at this time by the manual machinist. He has been compliant with treatment. 12/08/2023 [...] and wrist and referred him to a hot air furnace installer and repairer. 01/19/2024 Lumbar radiculopathy (ICD-10 - M54.16) His [...] and wrist and referred him to a hot air furnace installer and repairer. 12/26/2023 Obesity (BMI 30-39.9 ) (ICD-10 - [...] treated at this time by the manual machinist. He has been compliant with treatment. 09/08/2023 [...] treated at this time by the manual machinist. He has been compliant with treatment. 03/29/2024 Sleep apnea, unspecified type (ICD-10 - G47.30) He reports excessive snoring and daytime somnolence. He says he never feels like he got a good night sleep. I've ordered a sleep study to assess for sleep apnea. 05/31/2024 Psoriasis (ICD-10 - L40.9) He is being treated at this time by the manual machinist. He has been compliant with treatment. 07/19/2024 Psoriatic arthritis (ICD-10 - L40.50) I have ordered x-rays of both hands and wrist and referred him to a hot air furnace installer and repairer.He was given methotrexate. He continues on methotrexate [...] and wrist and referred him to a hot air furnace installer and repairer.He was given methotrexate. He continues on methotrexate [...] Panel 03/09/2021 Next Appt Details Provider Name:Omi Marroquinrne, 12/08/2024 10:00:00 AM, [address] [place] [address] [address] [place], [place], [address], Insurance Providers Payer Name Payer Address Payer Phone Subscriber Number Group Number Insured Name Patient Relationship to Insured Coverage Start Date Coverage End Date [facility] [address] [place] [address] [id number] Fredrick Gudino Self - patient is the [...] Hospitalization History Reason Date(Month/Year) No history Stroke [facility] 2021
--- OUTSIDE RECORDS SUMMARY | 2024-08-26 18:16 | XMS_ITS ---
Author Organization Omi Lopez III, MD Address [address] [place] [address] [address] [place] [address] Care Team Providers Care Fpga Design Engineer Name Role Phone Omi Lopez Primary Care Provider Allergies Allergen (clinical drug ingredient) Drug/Non Drug Allergy documented on EMR Reaction Allergy Type Onset Date Status No Known Drug Allergy Unknown Drug Allergy Active Results Component Value Reference Range Notes Lipid Panel Reviewed date:05/06/2024 10:24:23 AM Interpretation: Performing Lab:[facility], [address] [place] [phone] Notes/Report: Triglycerides 252 <150 mg/dL Desirable Triglyceride: [...] Date Provider Diagnosis Omi Lopez III, MD [address] [place] [address] [address] [place], [place] [address] 03/29/2024 Omi Lopez Lumbar radiculopathy M54.16 ; [...] and wrist and referred him to a knockout worker.He was given methotrexate. He continues on methotrexate [...] management Provider Name:Omi Lopez, 12/08/2024 10:00:00 AM, [address] [place] [address] DR, DEED[facility], [place], [address], Progress Notes * Fredrick AGUAYO EDOB:[birth year] (54 yo M)Acc No.[id number]:03/29/2024 Progress Notes Patient:?Fredrick AGUAYO Provider:?Omi Lopez MD :1970???Age:54 Y???Sex:Male Dick e:03/29/2024 Address:[address] [place] [address] [id number] Subjective: * Chief Complaints: * ???Bilateral hand [...] has been on medication prescribed by a knockout worker for about 6-7 weeks, but he reports [...] No history * Hospitalization/Major Diagno stic Procedure:?Stroke [facility] 2021No history * [...] and wrist and referred him to a knockout worker.He was given methotrexate.? He continues on methotrexate [...] Lopez MD Date:?03/12 Generated for Printi ng/Faaleag/eTransmitting on:?08/26/2024 06:16 PM EDT History and Physical [...]
--- OUTSIDE RECORDS SUMMARY | 2024-08-26 18:17 | XMS_ITS ---
Author Organization Omi Lopez III, MD Address [address] [place] [address] Care Team Providers Care Signals Collection Technician Name Role Phone Omi Lopez Primary Care Provider [phone] Allergies Allergen (clinical drug ingredient) Drug/Non Drug [...] Date Provider Diagnosis Omi Lopez III, MD [address] [place] [address] [place] [address] 07/19/2024 Omi Lopez Lumbar radiculopathy M54.16 ; [...] being treated at this time by the automatic line set up mechanic. He has been compliant with treatment. 07/19/2024 [...] and wrist and referred him to a bead forming machine operator.He was given methotrexate. He continues on methotrexate [...] Exam Provider Name:Omi Lopez, 12/08/2024 10:00:00 AM, [address] [place] [address] , [address] [place], [place], [address], Progress Notes * Fredrick AGUAYO EDOB:[birth year] (54 yo M)Acc No.[id number]:07/19/2024 Progress Notes Patient:?Fredrick AGUAYO Provider:?Omi Lopez MD :1970???Age:54 Y???Sex:Male Dick e:07/19/2024 Address:[address] [place], [place] [phone] Subjective: * Chief Complaints: * ???BPHLumbar radiculopathyOb [...] No history * Hospitalization/Major Diagno stic Procedure:?Stroke [facility] 2021No history * Family History:?Father: [...] being treated at this time by the automatic line set up mechanic. He has been compliant with treatment.???6.?Tobacco dependence [...] and wrist and referred him to a bead forming machine operator.He was given methotrexate. He continues on methotrexate [...] Orally, every 12 hrs with food.? [facility] ?Reason:Evaluate and Treat left [...] work towards quitting * Follow Up:?As Scheduled ([place] son: Annual Exam) * Images: * Sign off status: Completed true * Provider:?Omi Lopez MD Date:?07/10 Generated for [employer] laura/Heather/eTransmitting on:?08/26/2024 06:17 PM EDT History and Physical Notes * [...] Date Referring Provider Referred Provider Not es 07/19/2024 Omi [facility] Evalu ate and Treat left eyelid droop due to stroke
--- OUTSIDE RECORDS SUMMARY | 2024-08-26 18:17 | XMS_ITS ---
Author Organization [facility] Address [address] [place] [address] Care Team Providers Care Ash Worker Name Role Phone Jessica JAMES, Omi Primary Care Provider Unavailab Richard Whitney Jr Unavailable REASON FOR VISIT screening Encounters Encounter Location Date Provider Diagnosis [facility] [place] [address], [place] [phone] 04/06/2024 Richard Hughes Jr Colon cancer screening Z12.11 Assessments Encounter Date Diagnosis (ICD Code) Assessment Notes Treatment Notes Treatment Clinical Notes Section Notes 04/06/2024 Colon cancer screening (ICD-10 - Z12.11) Plan Of Treatment No Information Progress Notes * DEDE SHARITADOB:1970 (54 yo M)Acc No.[id number]:04/06/2024 COLON WITH MAC Patient:?ERICSHARITA ADAN Provider:?Richard Hughes MD :1970???Age:54 Y???Sex:Male Dick e:04/06/2024 Address:[address] [place], [place] [id number] Pcp:Omi Lopez MD Subjective: * Chief Complaints: * ???1. Screening. * Medical History:? Objective: * Vitals:? Assessment: * Assessment: 1.?Colon cancer screening - Z12.11 (Primary)??? Plan: * Treatment: * Procedure Codes:?58009 DIAGN OSTIC COLONOSCOPY, 0529F INTRVL 3+YRS PTS CLNSCP DOCD, 0528F RCMND FLW-UP 10 YRS DOCD * * The named appointment provid er may or may not be the originator of this progress note, and it is not deemed complete until electronically signed by the appointment provider. Sign off status: Pending * Provider:?Richard Hughes MD Date:?1 06/06/2023 Generated for Molina sanchez/Heather/Sybil on:?08/26/2024 06:16 PM EDT
--- OUTSIDE RECORDS SUMMARY | 2024-08-26 18:17 | XMS_ITS | Clinical Summary ---
Author Organization [facility] it Address [address] [place] [address] Care Team Providers Care Sociology Research Assistant Name Role Phone BazanGuillermina perry ROZ Primary Care Provider [phone] Surgical History Surgery Date Site/Laterality Comments HAND SURGERY PROCEDURE: SC UNLISTED PROCEDURE HANDS/FINGERS; COMMENT: artificial joint Family [...] - 2023-2 5 season) 2024 Influenza Vaccine (Season Ended) 2025 HIB Vaccines Aged Out No longer eligi [...] age to complete this topic Meningococcal B Vaccine Aged Out No l onger eligible based on patient's age to complete this topic RSV Immunization Patients Un hilario 20 months Aged Out No longer eligible b ased on patient's age to complete this topic Varicella Vaccines Aged Out No longer eligible based on patient's age to complete this topic Care Teams Sociology Research Assistant Relationship Specialty Start Date End Date Guillermina Bazan NP [address] [place] [phone] PCP - General Internal Medicine 02/26/22
--- OUTSIDE RECORDS SUMMARY | 2024-08-26 18:17 | XMS_ITS ---
Author Organization Omi Lopez III, MD Address [address] [place] [address] [place] [address] Care Team Providers Care Catheterization Laboratory Technician Name Role Phone Omi Lopez Primary [...] Referring Provider Speciality Internal edicine Referred Provider [facility] Grisel [facility] Referred Provider Specialty Podiatry General Notes Maria Isabel Vo [facility] 05/31 01:41:59 PM > patient given contact [...] Di enid General Notes Tavo Maria Isabel [facility] 05/31 01:33:45 PM > Called Dr. Tamayo [...] Date Provider Diagnosis Omi Lopez III, MD [address] [place] [address] [place] [address] 05/31/2024 Omi Lopez Lumbar radiculopathy M54.16 ; [...] being treated at this time by the complaint investigator. He has been compliant with treatment. Plan [...] 05/31/2024 05/31/2024, achilles tendon and heal pain, [facility] 05/31/2024 05/31/2024, sleep ap PRAMOD ag Next Appt Details Follow Up: 6 Weeks, In six w eeks, Reason: ov no tests, To monitor the patient's joint pain and discuss the effectiveness of new treatments. Provider Name:Omi Lopez, 12/08/2024 10:00:00 AM, [address] [place] [address] [address], [place], [address], Progress Notes * NAGIJAMALLOCOFredrick EDOB:[birth year] (54 yo M)Acc No.[id number]:05/31/2024 Progress Notes Patient:?Fredrick AGUAYO Provider:?Omi Lopez MD :1970???Age:54 Y???Sex:Male Dick e:05/31/2024 Address:[address] [place], [place] [id number] Subjective: * Chief Complaints: * ???DepressionLumbar radiculo [...] No history * Hospitalization/Major Diagno stic Procedure:?Stroke [facility] 2021No history * Family [...] & Time - 03/29/2024 04:30 PM)?ValueReference Range?HLA [id number] - * Lab:Lipid Panel * Collection Date [...] Zurita , PLEASE FAX COMPLETED RESULTS TO [phone] ???Lab:Hepatitis A,B,C Profile (Order Date - 03/29/2024) [...] Time - 03/29/2024 04:30 PM)?ValueReference Range?Erythrocyte Sedimentation [id number] - MM/HR * Examination: ???General Examination: ?GENERAL [...] being treated at this time by the complaint investigator. He has been compliant with treatment.??? Plan: * Treatment: 2.?Others? Continue dexAMETHasone Tablet, 2 MG, 1 tablet, Orally, every 12 hrs with food.? Referral To:[facility]??Podiatry ?Reason:achilles tendon and heal [...] Lopez MD Date:?05/13 Generated for Molina sanchez/Heather/eTransmitting on:?08/26/2024 06:16 PM EDT History and Physical [...] Not es 05/31/2024 [facility], [place] achilles tendon and heal pain 05/31/2024 Omi Lopez MOHAMMAD sleep apnea
--- OUTSIDE RECORDS SUMMARY | 2024-08-26 18:17 | XMS_ITS | Patient Health Record ---
Author Organization [facility] Address [address] [place] [address] Care Team Providers Care Dean Of Education Name Role Phone Jessica JAMES, Omi Primary [...] Problem Status W/U Status Risk Notes Problem [id number] Colon cancer screening (Z12.11) Active confirmed Problem [id number] Encounter for other preprocedural examination (Z01.818) Active confirmed Problem [id number] Encounter for long-term (current) use of NSAIDs (Z79.1) Active confirmed Vital Signs Temperature 98.4 degrees Fahrenheit 03/24/2024 Blood pressure diastolic 00 mm Hg 03/24/2024 Height 6 ft 2 in in 03/24/2024 Blood pressure systolic 000 mm Hg 03/24/2024 Weight 214 lb 6 oz lbs 03/24/2024 BMI 27.52 kg/m2 03/24/2024 Encounters Encounter Location Date Provider Diagnosis [facility] Out[facility] [address], [place] [phone] 04/06/2024 Richard Hughes Jr Colon cancer screening Z12.11 [facility] [address] [place] [address] 03/24/2024 Richard Hughes Jr Colon cancer screening [...] Insured Coverage Start Date Coverage End Date [facility] [address] [place] [address] [phone] [id number] SHARITA AGUAYO Self - patient is the insured Medical (General) History Medical History History ICD Code 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
== END 2024-08-26 16:42 | disposition home or self-care (01) ==
LOC: HO.RHE 15:59
PROVIDERS: PCP Internal Medicine Medical Oncology; Visit Provider Student in an Organized Health Care Education/Training Program
DX: L40.50 Arthropathic psoriasis, unspecified (principal); M51.360 Other intervertebral disc degeneration, lumbar region with discogenic back pain only; M17.0 Bilateral primary osteoarthritis of knee; L40.9 Psoriasis, unspecified; Z79.631 Long term (current) use of antimetabolite agent
CPT/HCPCS: 99214

== ENCOUNTER 2024-11-01 07:18 | Outpatient (REF) | payer OTHER, SELFPAY ==
--- NOTE | ~2024-11-01 | XR_ITS ---
CLINICAL HISTORY: L40.50 - Arthropathic psoriasis, unspecified Three-view right foot, three-view left foot. The lateral views are denoted as weight-bearing. Comparison: None provided Findings: No fractures or dislocations. No significant loss of joint space, osteophytes, or erosions. Small bilateral calcaneal spurs. No ankle effusion. No radiopaque foreign body. IMPRESSION: 1. Unremarkable bilateral foot series aside from small plantar calcaneal spurs. Joint spaces are maintained. No erosions. This document has been electronically signed by: Deepthi Caraballo MD on 11/01/2024 08:48:45
--- NOTE | ~2024-11-01 | XR_ITS ---
CLINICAL HISTORY: M17.0 - Bilateral primary osteoarthritis of knee AP and PA Bilateral standing knees, 2 views bilateral knees Comparison: None provided Findings: Small patellofemoral osteophytes bilaterally. Joint spaces are relatively well-maintained bilaterally. No joint effusion. No fracture or erosions. No aggressive lesions. IMPRESSION: 1. Mild bilateral patellofemoral joint arthropathy. No erosions or significant joint space loss. This document has been electronically signed by: Deepthi Caraballo MD on 11/01/2024 08:54:23
--- NOTE | ~2024-11-01 | XR_ITS ---
CLINICAL HISTORY: L40.50 - Arthropathic psoriasis, unspecified Three-view right ankle, three-view left ankle Comparison: None provided Findings: Bones intact. No dislocations. No significant loss of joint space, osteophytes, or erosions. No ankle effusion. No radiopaque foreign body. IMPRESSION: 1. No acute findings. This document has been electronically signed by: Deepthi Caraballo MD on 11/01/2024 08:48:56
--- OUTSIDE RECORDS SUMMARY | 2024-11-01 07:21 | XMS_ITS | Patient Health Record ---
Author Organization Omi Lopez III, MD Address [address] [place] [address] [place] [address] Care Team Providers Care Bolt Machine Operator Name Role Phone Omi Lopez Primary Care [...] Panel Reviewed date:05/06/2024 10:24:23 AM Interpretation: Performing Lab:[facility], [address] [place] [phone] Notes/Report: Triglycerides 252 <150 mg/dL Desirable Triglyceride: [...] low results in patients with liver disease. Complete Blood Count Auto Di ff Reviewed date:11/19/2023 06:59:03 AM Interpretation: Performing Lab:[facility], [address] [place] [phone] Notes/Report: White Blood Count 10.8 4.8-10.8 X10*3/uL [...] NRBC Abs Auto 0.000 0.0-0.012 X10*3/uL Comprehensive [place]. Panel [facility] Reviewed date:11/19/2023 06:59:03 AM Interpretation: Performing Lab:[facility], [address] [place] [phone] Notes/Report: Sodium 140 135-145 mmol/L Potassium 4.4 3.3-5.1 mmol/L Chloride 106 96-108 mmol/L Carbon Dioxide 25 22-29 mmol/L Anion Gap 13 12-20 Blood Urea Nitrogen 13 9-16 mg/dL Creatinine 1.03 0.5-1.4 mg/dL Estimated Glomerular Filt Rate > 60 NOTE: For -Namib[place] individuals, multiply the result by 1.210. Chronic [...] Panel Reviewed date:11/19/2023 06:59:03 AM Interpretation: Performing Lab:[facility], [address] [place] [phone] Notes/Report: Triglycerides 188 <150 mg/dL Desirable Triglyceride: [...] date:12/28/2023 08:43:29 AM Interpretation: Performing Lab: Notes/Report: [address] [address] XRay Report Signed Patient: Fredrick Gudino MR#: [id number] 164 : 1970 Acct:[id number] Age/Sex: 53 / M ADM Date: 12/08/23 Loc: [facility] Attending Dr: Omi Lopez MD Ordering Physician: Omi Lopez MD Date of Service: 12/08/23 Procedure(s): XR hand wrist LT Accession Number(s): [id number] cc: Omi Lopez MD EXAMINATION: XR HAND/WRIST, [...] MD in OV> 12/23/232054 DD/ 1030 TD/TT: Vocational Counselor: [address] [address] XRay Report Signed Patient: Gian Gudino dd MR#: [id number] 164 : 1970 Acct:[id number] Age/Sex: 53 / M ADM Date: 12/08/23 Loc: [facility] Attending Dr: Omi Lopez MD Ordering Physician: Omi Lopez MD Date of Service: 12/08/23 Procedure(s): XR pagan d wrist LT Accession Number(s): [id number] cc: Omi Lopez MD EXAMINATION: XR HAND/WRIST, [...] MD in OV> 12/23/232054 DD/ 1030 TD/TT: Vocational Counselor: XR hand wrist RT Reviewed date:12/28/2023 08:43:29 AM Interpretation: Performing Lab: Notes/Report: [address] [address] XRay Report Signed Patient: Fredrick Gudino MR#: [id number] 164 : 1970 Acct:[id number] Age/Sex: 53 / M ADM Date: 12/08/23 Loc: [facility] Attending Dr: Omi Lopez MD Ordering Physician: Omi Lopez MD Date of Service: 12/08/23 Procedure(s): XR hand wrist RT Accession Number(s): [id number] cc: Omi Lopez MD EXAMINATION: XR HAND/WRIST, [...] MD in OV> 12/23/232055 DD/ 1030 TD/TT: Vocational Counselor: [address] [address] XRay Report Signed Patient: Gian Gudino dd MR#: [id number] 164 : 1970 Acct:[id number] Age/Sex: 53 / M ADM Date: 12/08/23 Loc: [facility] Attending Dr: Omi Lopez MD Ordering Physician: Omi Lopez MD Date of Service: 12/08/23 Procedure(s): XR pagan d wrist RT Accession Number(s): [id number] cc: Omi Lopez MD EXAMINATION: XR HAND/WRIST, [...] Armida Hartman MD in OV> 12/23/232055 DD/ 103 TD/TT: Vocational Counselor: Complete Blood Count Auto Di ff Reviewed date:05/06/2024 10:24:23 AM Interpretation: Performing Lab:[facility], [address] [place] [phone] Notes/Report: White Blood Count 9.8 4.8-10.8 X10*3/uL [...] te Reviewed date:05/06/2024 10:24:23 AM Interpretation: Performing Lab:[address] [address] Notes/Report: Erythrocyte Sedimentation Rate 4 0-15 MM/HR Patients with polycythemia and many hemoglobin abnormalities may have depressed sed rates whereas patients with anemia may have elevated sed rates. Comprehensive Met. Panel Reviewed date:05/06/2024 10:24:23 AM Interpretation: Performing Lab:[address] [address] Notes/Report: Sodium 143 135-145 mmol/L Potassium 4.2 [...] Protein Reviewed date:05/06/2024 10:24:23 AM Interpretation: Performing Lab:[address] [address] Notes/Report: C Reactive Protein 0.34 < or = 0.50 mg/dL HLA B27 Reviewed date:05/06/2024 10:24:23 AM Interpretation: Performing Lab:[address] [address] Notes/Report: HLA B27 Negative Negative THIS TEST WAS PERFORMED AT: [place] [id number] [place] [phone] NORMAN BENTLEY MD,PHD Hepatitis A,B,C Profile Reviewed date:05/06/2024 10:24:23 AM Interpretation: Performing Lab:[facility], [address] [place] [phone] Notes/Report: Hepatitis A Antibody IgM Nonreactive Nonreactive [...] ff Reviewed date:05/06/2024 10:24:23 AM Interpretation: Performing Lab:[facility], [address] [place] [phone] Notes/Report: White Blood Count 9.8 4.8-10.8 X10*3/uL [...] Panel Reviewed date:05/06/2024 10:24:23 AM Interpretation: Performing Lab:[facility], [address] [place] [phone] Notes/Report: Sodium 143 135-145 mmol/L Potassium 4.2 [...] date:06/18/2024 09:31:20 AM Interpretation: Performing Lab: Notes/Report: [address] [address] [address] Scan Report Signed Patient: Fredrick Gudino MR#: [id number] 164 : 1970 Acct:[id number] Age/Sex: 54 / M ADM Date: 04/16/24 Loc: HO.CT Attending Dr: Diane Archer PA-C Ordering Physician: Diane Archer PA-C Date of Service: 04/16/24 Procedure(s): CT lung screening Accession Number(s): [id number] cc: Omi Lopez MD; Diane Archer PA-C Report Number: [id number]: Total DLP = 60.00 mGy-cm EXAMINATION: CT [...] for CT CHEST LOW DOSE CANCER SCREENING ([id number]) can be placed. Electronically signed by: Abner Chong MD 06/09/2024 05:32 PM [facility] Dictated By: Abner Chong MD Signed By: <Electronically signed by Abner Chong MD in OV> 06/09/24 1732 DD/ 1140 TD/TT: 04/16/24 1303 Vocational Counselor: [place] [address] CT Scan Report Signed Patient: Gain Gudino dd MR#: [id number] 164 : 1970 Acct:[id number] Age/Sex: 54 / M ADM Date: 04/16/24 Loc: HO.CT Attending Dr: Diane Archer PA-C Ordering Physician: Diane Archer PA-C Date of Service: 04/16/24 Procedure(s): CT norris g screening Accession Number(s): [id number] cc: Omi Lopez MD; Diane Archer PA-C Report Number: [id number]: Total DLP = 60.00 mGy-cm EXAMINATION: CT [...] for CT CHEST LOW DOSE CANCER SCREENING ([id number]) can be placed. Electronically tony d by: Abner Chong MD 06/09/2024 05:32 PM [facility] Dictated By: Sarahi Chong MD Signed By: <Electronically signed by Abner Chong MD in OV> 06/09/24 1732 DD/ 1140 TD/TT: 04/16/24 1303 Vocational Counselor: GLORIA Reason For Referral Reason Consult and Treat Diagnosis 1 Allergy, initial enc ounter (T78.40XA) Referral Organization Omi Lopez III, MD Referring Provider First Name Omi Referring Provider Last Name Lopez Referring Provider Speciality Internal edicine Referred Provider [facility] Referred Provider Specialty Allergy/Immu nology General Notes Ken Corrieluis miguel ARCEO 11/17/2023 09:28:47 AM >Referral faxed Referral Priority Routine Referral Appointment Date 01/19/2024 Reason sleep apnea evaluati on and treatment Diagnosis 1 Overweight (BMI 25.0 -29.9) (E66.3) Diagnosis 2 Sleep apnea, unspeci fied type (G47.30) Referral Organization Omi Lopez III, MD Referring Provider First Name Omi Referring Provider Last Name Lopez Referring Provider [facility] Referred Provider MIKI ARANDA Referred Provider Specialty Pulmonary Di seases General Notes Maria Isabel Castañeda CM 12/17/2023 02:03:36 PM EDT > ref/demo/progress note faxed to Dr Aranda office, Maria Isabel Castañeda CMA 12/30/2023 11:24:44 AM EDT > called [facility] they stated they did not get referral this was resent to them today Referral Priority Routine Referral Appointment Date 02/16/2024 Reason consult for screenin g colonoscopy Diagnosis 1 Encounter for screen ing for malignant neoplasm of colon (Z12.11) Referral Organization Omi Lopez III, MD Referring Provider First Name Omi Referring Provider Last Name Lopez [facility] Referred Provider Richard Hughes Referred Provider Specialty [...] Referring Provider Last Name Lopez Referring Provider [facility] Referred Provider [facility], Rheumatology Referred Provider Specialty Rheumatology General Notes Maria Isabel Castañeda CM 12/18/2023 02:13:56 PM EDT > Spoke to [facility] they stated a new provider is coming in January so pt will be referred to them at that time , Maria Isabel Castañeda [employer] 01/20/2024 02:56:15 PM EDT > ref/demo/progress note/labs/x rays faxed to [facility] they will call pt with appt Referral Priority Routine Referral Appointment Date 02/19/2024 Reason chronic back pain Diagnosis 1 Lumbar radiculopathy (M54.16) Referral Organization Omi Lopez III, MD Referring Provider First Name Omi Referring Provider Last Name Lopez Referring Provider Speciality Internal edicine Referred Provider [facility], Pain Management Referred Provider Specialty Pain Medicin e General Notes Maria Isabel Castañeda [facility] 12/26/2023 02:28:23 PM EDT > Called [facility] [phone] they stated pt has been seen there before in 2021 so I was able to make patient appt for 01/09/2024 at 9:30am with Sherley DAVIS at [address] [place] [address] [address] information called and mailed to patient Referral Priority Routine Referral Appointment Date 01/09/2024 Reason achilles tendon and heal pain Diagnosis 1 Heel pain, unspecifi ed laterality (M79.673) Referral Organization Omi Lopez III, MD Referring Provider First Name Omi Referring Provider Last Name Lopez Referring Provider Speciality Internal edicine [facility] Referred Provider Specialty Podiatry General Notes Tavo Maria Isabel [facility] 05/31 01:41:59 PM > patient given [...] Pulmonary Di seases General Notes Maria Isabel Vo [facility] 05/31 01:33:45 PM > Called Dr. Tamayo office spoke to [facility] made pt appt with Dr Tamayo for Friday06/07/2024 [...] MOUTH EVERY DAY FOR 30 DAYS Active Meloxicam 15 MG TAKE 1 TABLET BY STEPHANE TH EVERY DAY FOR 30 DAYS Active dexAMETHasone 2 MG 1 tablet Orally ever y 12 hrs with food 12/26/2023 Active 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 Sodium 2.5 MG as directed Orally weekly 03/29/2024 Active Celecoxib 200 MG Oral Act armin Immunizations Vaccine Route Administration Date Status Comme [...] Problem Status W/U Status Risk Notes Problem 781508307 Overweight (BMI 25.0-29.9) (E66.3) Active confirmed His weight is stable. We discussed weight reduction strategies today. We reviewed his diet and nutrition. We made a plan to lose weight at a rate of one half of a pound per week. Problem 213084799 Lumbar radiculopathy (M54.16) Active confirmed His back pain is significantly improved and he is working without difficulty at this time. He was encouraged to avoid heavy lifting. Problem 993725171 Mixed hyperlipidemia (E78.2) Active confirmed Fasting lipid profile has been ordered prior to his next visit. He was instructed to do this fasting. Problem Benign prostatic hyperplasia (585939674) BPH (benign prostatic hyperplasia) (N40.0) Active confirmed He arises from sleep once a night to urinate. We have discussed lifestyle modifications he could take to reduce nocturia. Problem 611278322 Obesity (BMI 30-39.9) (E66.9) Active confirmed His body ma ss index is now 30 and he has gained 5 pounds. We discussed his diet and nutrition. We made a plan to lose weight at a rate of one half of a pound per week through a diet restricted in calories. Problem Tobacco dependence (47157237) Tobacco dependence (F17.200) Active confirmed He continues to smoke 10-20 cigarettes daily. We have discussed the health consequences of smoking. We have developed several strategies for smoking cessation. Problem Psoriasis (L40.9) Active confirmed He is being treated at this time by the manufacturing plant controller. He has been compliant with treatment. Problem [id number] Labyrinthitis o f both ears (H83.03) Active confirmed His symptoms are not significant enough for meclizine. He will try an antihistamine. She will report back in 48 hours. He has had no loss of hearing. Problem 78318137 Sleep apnea, unspecified type (G47.30) Active confirmed He reports excessive snoring and daytime somnolence. He says he never feels like he got a good night sleep. I've ordered a sleep study to assess for sleep apnea. Problem 896347332 History of depression (Z86.59) Active confirmed He continues to decline a prescription for an antidepressant R for psychotherapy. I will continue to discuss this issue with him. Problem 618499845 Psoriatic arthritis (L40.50) Active confirmed I have ordered x-rays of both hands and wrist and referred him to a embroidery cutter. He was given methotrexate. He continues on methotrexate at the current dose.A CBC has been ordered. Problem 614573917 Cerebrovascular accident (CVA) due to occlusion of [...] 74 mm Hg 07/19/2024 Height 73 in 10/25/2024 Blood pressure systolic 138 mm Hg 07/19/2024 Weight 224 lbs 10/25/2024 BMI 29.55 kg/m2 10/25/2024 Encounters Encounter Location Date Provider Diagnosis Omi Lopez III, MD [address] [place] [address] [place] [address] 12/08/2023 Omi Lopez Cerebrovascular acci dent (CVA) due to occlusion of other cerebral artery I63.59 ; Psoriasis L40.9 ; Psoriatic arthritis L40.50 ; Tobacco dependence F17.200 ; History of depression Z86.59 ; Mixed hyperlipidemia E78.2 ; Overweight (BMI 25.0-29.9) E66.3 ; Sleep apnea, unspecified type G47.30 ; BPH (benign prostatic hyperplasia) N40.0 and Lumbar radiculopathy M54.16 Omi Lopez III, MD [address] [place] [address] [place] [address] 12/26/2023 Omi Lopez Lumbar radiculopathy M54.16 ; Psoriatic arthritis L40.50 ; Obesity (BMI 30-39.9) E66.9 ; Tobacco dependence F17.200 ; History of depression Z86.59 ; Cerebrovascular accident (CVA) due to occlusion of other cerebral artery I63.59 and Mixed hyperlipidemia E78.2 Omi Lopez III, MD [address] [place] [address] [place] [phone] 01/19/2024 Omi Lopez Lumbar radiculopathy M54.16 ; Tobacco dependence F17.200 ; History of depression Z86.59 ; Mixed hyperlipidemia E78.2 ; Overweight (BMI 25.0-29.9) E66.3 ; Cerebrovascular accident (CVA) due to occlusion of other cerebral artery I63.59 ; BPH (benign prostatic hyperplasia) N40.0 and Psoriasis L40.9 Omi Lopez III, MD [address] [place] [address] [place] [address] 03/29/2024 Omi Lopez Lumbar radiculopathy M54.16 ; Tobacco dependence F17.200 ; History of depression Z86.59 ; Cerebrovascular accident (CVA) due to occlusion of other cerebral artery I63.59 ; Mixed hyperlipidemia E78.2 ; Overweight (BMI 25.0-29.9) E66.3 ; BPH (benign prostatic hyperplasia) N40.0 ; Sleep apnea, unspecified type G47.30 and Psoriatic arthritis L40.50 Omi Lopez III, MD [address] [place] [address] [place] [address] 05/31/2024 Omi Lopez Lumbar radiculopathy M54.16 ; Tobacco dependence F17.200 ; History of depression Z86.59 ; Cerebrovascular accident (CVA) due to occlusion of other cerebral artery I63.59 ; Mixed hyperlipidemia E78.2 ; Degenerative disc disease at L5-S1 level M51.36 ; BPH (benign prostatic hyperplasia) N40.0 and Psoriasis L40.9 Omi Lopez III, MD [address] [place] [address] [place] [address] 07/19/2024 Omi Lopez Lumbar radiculopathy M54.16 ; Mixed hyperlipidemia E78.2 ; Overweight (BMI 25.0-29.9) E66.3 ; BPH (benign prostatic hyperplasia) N40.0 ; Psoriasis L40.9 ; Tobacco dependence F17.200 ; History of depression Z86.59 and Psoriatic arthritis L40.50 Omi Lopez III, MD [address] [place] [address] [place] [address] 10/25/2024 Omi Lopez Lumbar radiculopathy M54.16 ; [...] Notes Treat ment Notes Treatment Clinical Notes 12/08/2023 Psoriasis (ICD-10 - L40.9) He is being treated at this time by the manufacturing plant controller. He has been compliant with treatment. 12/08/2023 [...] and wrist and referred him to a embroidery cutter. 01/19/2024 Lumbar radiculopathy (ICD-10 - M54.16) His [...] was instructed to do this fasting. 10/25/2024 Lumbar radiculopathy (ICD-10 - M54.16) 10/25/2024 Labyrinthitis of bot h ears (ICD-10 - H83.03) His symptoms are not significant enough for meclizine. He will try an antihistamine. She will report back in 48 hours. He has had no loss of hearing. 12/08/2023 Psoriatic arthritis (ICD-10 - L40.50) I have ordered x-rays of both hands and wrist and referred him to a embroidery cutter. 12/26/2023 Obesity (BMI 30-39.9 ) (ICD-10 - [...] half of a pound per week. 10/25/2024 Tobacco dependence (ICD-10 - F17.200) He continues to smoke 10-20 cigarettes daily. We have discussed the health consequences of smoking. We have developed several strategies for smoking cessation. 12/08/2023 Tobacco dependence (ICD-10 - F17.200) He [...] he could take to reduce nocturia. 10/25/2024 Overweight (BMI 25.0-29.9) (ICD-10 - E66.3) His weight is stable. We discussed weight reduction strategies today. We reviewed his diet and nutrition. We made a plan to lose weight at a rate of one half of a pound per week. 12/08/2023 History of depressio n (ICD-10 - [...] being treated at this time by the manufacturing plant controller. He has been compliant with treatment. 10/25/2024 Psoriasis (ICD-10 - L40.9) He is being treated at this time by the manufacturing plant controller. He has been compliant with treatment. 12/08/2023 Mixed hyperlipidemia (ICD-10 - E78.2) The [...] developed several strategies for smoking cessation. 10/25/2024 History of depressio n (ICD-10 - Z86.59) He continues to decline a prescription for an antidepressant R for psychotherapy. I will continue to discuss this issue with him. 12/08/2023 Overweight (BMI 25.0-29.9) (ICD-10 - E66.3) [...] He was instructed to do this fasting. 12/08/2023 Sleep apnea, unspecified type (ICD-10 - G47.30) He reports excessive snoring and daytime somnolence. He says he never feels like he got a good night sleep. I've ordered a sleep study to assess for sleep apnea. 01/19/2024 Psoriasis (ICD-10 - L40.9) He is being treated at this time by the manufacturing plant controller. He has been compliant with treatment. 03/29/2024 Sleep apnea, unspecified type (ICD-10 - G47.30) He reports excessive snoring and daytime somnolence. He says he never feels like he got a good night sleep. I've ordered a sleep study to assess for sleep apnea. 05/31/2024 Psoriasis (ICD-10 - L40.9) He is being treated at this time by the manufacturing plant controller. He has been compliant with treatment. 07/19/2024 Psoriatic arthritis (ICD-10 - L40.50) I have ordered x-rays of both hands and wrist and referred him to a embroidery cutter.He was given methotrexate. He continues on methotrexate at the current dose.A CBC has been ordered. 10/25/2024 BPH (benign prostati c hyperplasia) (ICD-10 - N40.0) He arises from sleep once a night to urinate. We have discussed lifestyle modifications he could take to reduce nocturia. 12/08/2023 BPH (benign prostati c hyperplasia) (ICD-10 - N40.0) He arises from sleep once a night to urinate. I told him. This was about average. We discussed lifestyle modification as a way to reduce nocturia. 03/29/2024 Psoriatic arthritis (ICD-10 - L40.50) I have ordered x-rays of both hands and wrist and referred him to a embroidery cutter.He was given methotrexate. He continues on methotrexate at the current dose.A CBC has been ordered. 10/25/2024 Cerebrovascular accident (CVA) due to occlusion of other cerebral artery (ICD-10 - I63.59) His reflexes and muscle strength are now symmetrical, and his gait is unimpaired. His speech has returned to normal and he has no word finding. The deficits from the small stroke have resolved. He has returned to work. He will continue on antiplatelet drugs. 12/08/2023 Lumbar radiculopathy (ICD-10 - M54.16) His pain is gradually improving with some good days. He is able to walk short distances. He will return to work as soon as possible. The physical therapy and injections. Will continue. 10/25/2024 Sleep apnea, unspecified type (ICD-10 - G47.30) He reports excessive snoring and daytime somnolence. He says he never feels like he got a good night sleep. I've ordered a sleep study to assess for sleep apnea. 10/25/2024 Psoriatic arthritis (ICD-10 - L40.50) I have ordered x-rays of both hands and wrist and referred him to a embroidery cutter.He was given methotrexate. He continues on methotrexate at the current dose.A CBC has been ordered. Plan Of Treatment Pending Test Test Name Order Date PROFILE, FASTING (COMPREHENSIVE METABOLI C) 07/19/2024 PROFILE, FASTING (COMPREHENSIVE METABOLI C) 09/17/2022 PROFILE, FASTING (COMPREHENSIVE METABOLI C) 03/09/2021 PROFILE, FASTING (COMPREHENSIVE METABOLI C) 10/16/2020 PROFILE, FASTING (COMPREHENSIVE METABOLI C) 12/03/2021 PROFILE, FASTING (COMPREHENSIVE METABOLI C) 01/08/2023 PROFILE, RANDOM (COMPREHENSIVE METABOLIC ) 03/29/2024 PROFILE, RANDOM (COMPREHENSIVE METABOLIC ) 06/04/2021 LIPID PANEL 11/03/2020 LIPID PANEL 01/08/2023 LIPID PANEL 09/17/2022 LIPID PANEL 10/16/2020 LIPID PANEL 12/03/2021 PSA, TOTAL 06/04/2021 PSA, TOTAL 07/19/2024 PSA, TOTAL 09/17/2022 PSA, TOTAL 10/16/2020 CBC w DIFF 06/04/2021 CBC w DIFF 01/08/2023 CBC w DIFF 03/09/2021 CBC w DIFF 09/17/2022 CBC w DIFF 12/03/2021 CBC w DIFF 10/16/2020 LYME DISEASE IgG/IgM WB 10/07/2023 MRI PELVIS NO CONTRAST 02/22/2022 CBC WITH AUTO DIFF 07/19/2024 CBC WITH AUTO DIFF 03/29/2024 Lipid Panel 07/19/2024 Lipid Panel 03/09/2021 Next Appt Details Provider Name:Omi Marroquinrne, 12/08/2024 10:00:00 AM, [address] [place] [address] DR, [address], [place], [address], Insurance Providers Payer Name Payer Address Payer Phone Subscriber Number Group Number Insured Name Patient Relationship to Insured Coverage Start Date Coverage End Date [address] [facility] [place] [phone] [id number] Fredrick Gudino Self - patient is the [...] Hospitalization History Reason Date(Month/Year) No history Stroke [facility] 2021
[2024-11-01 07:34] LABS: MANUAL DIFF FLAG NO
[2024-11-01 07:46] LABS: Basophils Absolute Auto 0.1 X10*3/uL (0.0-0.2); Basophils Percent Auto 0.7 % (0-2); Eosinophils Absolute Auto 0.2 X10*3/uL (0.0-0.4); Eosinophils Percent Auto 2.4 % (0-4); Hemoglobin 17.6 g/dl (14.0-18.0); Imm Gran Abs Auto 0.02 X10*3/uL (0.00-0.03); Imm Gran Pct Auto 0.3 % (0.0-0.4); Lymphocytes Absolute Auto 1.8 X10*3/uL (1.2-4.9); Lymphocytes Percent Auto 25.2 % (20-40); Mean Corpuscular HGB Conc 34.5 g/dl (31.0-36.0); Mean Corpuscular Hemoglobin 32.6 pg (27.0-33.0); Mean Corpuscular Volume 94.4 fL (80.0-98.0); Monocytes Absolute Auto 0.5 X10*3/uL (0.1-1.2); Monocytes Percent Auto 6.2 % (2-11); Neutrophils Absolute Auto 4.7 x10*3/uL (2.0-8.3); Neutrophils Percent Auto 65.2 % (45-73); Platelet Count 243 X10*3/uL (160-400); Red Cell Distribution Width 13.2 % (11.0-16.0); White Blood Count 7.2 X10*3/uL (4.8-10.8)
[2024-11-01 08:09] LABS: Alanine Aminotransferase 66 U/L (0-40); Albumin Level 4.4 g/dL (3.5-5.0); Alkaline Phosphatase 65 U/L (39-117); Anion Gap 12 (12-20); Aspartate Amino Transferase 30 U/L (5-37); Bilirubin Total 0.9 mg/dL (0.0-1.0); Blood Urea Nitrogen 14 mg/dL (9-16); C Reactive Protein 0.25 mg/dL (< or = 0.50); Calcium 9.2 mg/dL (8.4-10.2); Carbon Dioxide 26 mmol/L (22-29); Chloride 108 mmol/L (96-108); Estimated Glomerular Filt Rate > 60; Glucose Random 111 mg/dL (60-115); Potassium 4.1 mmol/L (3.3-5.1); Sodium 142 mmol/L (135-145); Total Protein 6.9 g/dL (6.5-8.0)
[2024-11-01 09:33] LABS: Erythrocyte Sedimentation Rate 4 MM/HR (0-15)
== END 2024-11-01 07:19 | disposition home or self-care (01) ==
LOC: HO.XRAY 07:18
PROVIDERS: PCP Internal Medicine Medical Oncology; Visit Provider Student in an Organized Health Care Education/Training Program
DX: L40.50 Arthropathic psoriasis, unspecified (principal); M17.0 Bilateral primary osteoarthritis of knee
CPT/HCPCS: 36415; 73564; 73610; 73630; 80053; 85025; 85652; 86140

== ENCOUNTER → 2024-11-01 07:34 | Outpatient (BNV) | payer OTHER, SELFPAY | PROVIDERS: PCP Internal Medicine Medical Oncology; Visit Provider Radiology Diagnostic Radiology | DX: M17.0 Bilateral primary osteoarthritis of knee (principal); L40.50 Arthropathic psoriasis, unspecified; M77.31 Calcaneal spur, right foot; M77.32 Calcaneal spur, left foot | CPT/HCPCS: 73564; 73610; 73630 ==

== ENCOUNTER 2024-12-23 15:46 | Outpatient (AMB) | payer OTHER, SELFPAY ==
--- OUTSIDE RECORDS SUMMARY | 2024-04-06 09:00 | XMS_ITS ---
Author Organization [facility] Address [address] [place] [phone] Care Team Providers Care Timber Incisor Operator Name Role Phone Jessica JAMES, Omi Primary Care Provider Unavailab Richard [place] Jr Unavailable REASON FOR VISIT screening Encounters Encounter Location Date Provider Diagnosis [facility] [place] Out[place] [address] [place] [phone] 04/06/2024 Richard Hughes Jr Colon cancer screening Z12.11 Assessments Encounter Date Diagnosis (ICD Code) Assessment Notes Treatment Notes Treatment Clinical Notes Section Notes 04/06/2024 Colon cancer screening (ICD-10 - Z12.11) Plan Of Treatment No Information Progress Notes * NAGIJAMALADELASHARITA WAGONERDOB:1970 (54 yo M)Acc No.[id number]:04/06/2024 COLON WITH MAC Patient: SHARITA CASTANEDA Provider: Marialuisa Hughes MD :1970 A ge:54 Y S ex:Male Date:04/06/2024 Address:[address] [place], [place] [id number] Pcp:Omi Lopez MD Subjective: * Chief Complaints: * 1 . Screening. * Medical History: Objective: * Vitals: Assessment: * Assessment: 1. C olon cancer screening - Z12.11 (Primary) Plan: * Treatment: * Procedure Codes: 4 5378 DIAGNOSTIC COLONOSCOPY, 0529F INTRVL 3+YRS PTS CLNSCP DOCD, 0528F RCMND FLW-UP 10 YRS DOCD * * The named appointment provid er may or may not be the originator of this progress note, and it is not deemed complete until electronically signed by the appointment provider. Sign off status: Pending * Provider: Marialuisa Hughes MD Date: 06/06/2023 Generated for Molina sanchez/Heather/Sybil on: 0 12/23/2024 04:01 PM EDT
[2024-12-23 15:49] VITALS: BP 138/72; PULSE 94; O2SAT 97; BMI 31.7
--- NOTE | 2024-12-23 15:49 | A.OFFVIS_ITS ---
Vital Signs 12/23/24 15:49 Height 6 ft 1 in Weight 240 lb 8.389 oz BMI 31.7 BP 138/72 Blood Pressure Location Lt brachial Position Sitting Pulse 94 Pulse Source Pulse Oximeter Pulse Oximetry (%) 97 Oxygen Delivery Method Room Air Intake Visit Reasons: 3 months f/u Intake Note: Patient presents for follow up on back pain, osteoarthritis, psoriatic arthritis, and x-ray results. Accompanied by: Self / Same As Patient Allergies No Known Allergies Allergy (Verified 12/23/24 15:51) Medication List - Last Reconciled 12/23/24 by Violeta Zurita MD apremilast (Otezla) 30 mg PO BID atorvastatin 10 mg PO DAILY celecoxib (Celebrex) 200 mg PO BID 90 days cyclobenzaprine 5 mg PO BEDTIME folic acid 1 mg PO DAILY 90 days methotrexate sodium 20 mg (8 x 2.5 mg) PO QWEEK 90 days HPI Comments Details: Patient is a 54-year-old male with history of stroke and hyperlipidemia who presents for follow up of psoriatic arthritis. Interval History: Patient last seen 08/26/24 with me - On methotrexate 15mg weekly and folic acid - Did not increase mtx dose - Continued to complain of pain - Increased his methotrexate to 8 pills weekly Today - On methotrexate 20mg weekly and folic acid - Patient is not sure if the increase is helping - Right knee is improved, left knee still having - Dacytlitis improved Rheumatologic History: Patient states that about 2 years ago after he got a COVID shot he started to n otice a rash on his bilateral lower extremities. This rash continued to worsen. He finally went to a pole framer machine and was told he had psoriasis. Used topicals on and off. On recently started Otezla. With improvement of his psoriasis. However about 1 year ago he started to notice pain in his PIP joints DIPs joints his heel and his lateral elbows. This was associated with swelling of the hands and prolonged morning stiffness up to an hour. Denies any history of eye inflammation. Denies any history of inflammatory bowel disease type symptoms. No family history of psoriasis. 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 Psoriatic arthritis SHIVA (obstructive sleep apnea) Retrognathia Somnolence, daytime Sleep apnea History of stroke Hyperlipidemia Depression Lumbar radiculopathy Surgical History H/O lumbar discectomy Family History Father CAD (coronary artery disease) Myocardial infarction Alcoholism Hypertension CVD (cardiovascular disease) Social History (Reviewed 07/26/24 @ 11:02 by Vannesa Shaver [facility]) Household Members: None Household Members Other:: lives alone Housing: House Are you a primary daycare worker to a significant other at home: No Do you presently have visiting nurse or other home services: No Alcohol intake: former Patient Tobacco Use Status: Current everyday Tobacco user Tobacco use type: Cigarette Cigarette Packs Per Day: 0.75 Cigarettes Per Day: 15 Years Smoked: (onset 15yo, 1ppd x 39yrs, 35pyh) Substance Use Type: Marijuana Review of Systems Const Details: Review of Systems Constitutional: Denies fever, chills, weight loss ENT: Denies vision changes, eye pain or eye redness, dental caries, dry mouth GI: Denies nausea, vomiting, diarrhea, abdominal pain, change in BM Pulm: Denies SOB, RAMIREZ, hemoptysis, wheezing Cards: Denies chest pain, palpitations Skin: Denies Raynaud's, rash, nail changes, photosensitivity, NURSE GENERAL DUTY: Denies headaches, weakness, paresthesias, recurrent falls MSK: as per HPI All other systems reviewed and are unremarkable except noted above Physical Exam Exam Exam: Vital signs reviewed Physical Examination CONSTITUITIONAL Patient alert and cooperative. Well appearing and in no apparent painful distress MSK Hands * Right Hand: Able to make a fist. No swelling or tenderness to palpation of these joints. Flexion contracture of the ring finger * Left Hand: Able to make a fist. No swelling or tenderness to palpation of these joints. No deformities noted. Wrists * Right Wrist: Full ROM. 70 degrees of wrist flexion, 80 degrees of wrist extension. No swelling or TTP * Left Wrist: Full ROM. 70 degrees of wrist flexion, 80 degrees of wrist extension. No swelling or TTP Elbows * Right Elbow: Full ROM. No swelling or TTP. No TTP of the medial and lateral epicondyles * Left Elbow: Full ROM. No swelling or TTP. TTP of the medial epicondyle Shoulders * Right shoulder: Full ROM. No swelling noted. No TTP of the AC joint, subacromial bursa or posterior shoulder * Left shoulder: Full ROM. No swelling noted. No TTP of the AC joint, subacromial bursa or posterior shoulder Knees * Right knee: Full ROM. No swelling noted. No TTP of the knee joint lie or pes anserine bursa * Left knee: Full ROM. No swelling noted. No TTP of the knee joint lie or pes anserine bursa. * Crepitations felt bilaterally Ankles * Right ankle: Good ankle dorsiflexion and plantar flexion. No swelling. No TTP of the ankle joint * Left ankle: Good ankle dorsiflexion and plantar flexion. No swelling. No TTP of the ankle joint Feet * Right foot: Negative squeeze test * Left foot: Negative squeeze test Tender points? * No tenderness to palpation of the bilateral trapezius, supraspinatus, anterior costochondral junctions, bilateral suboccipital muscle insertions SKIN No rashes Vital Signs: Last Vital Signs Pulse 94 12/23/24 15:49 BP 138/72 12/23/24 15:49 Pulse Ox 97 12/23/24 15:49 Oxygen Delivery Method Room Air 12/23/24 15:49 BMI result Body Mass Index 31.7 Results Reviewed Results Reviewed: Laboratory Tests 11/01/24 07:32 WBC 7.2 RBC 5.40 Hgb 17.6 Hct 51.0 Plt Count 243 ESR 4 Sodium 142 Potassium 4.1 Chloride 108 Carbon Dioxide 26 BUN 14 Creatinine 1.00 AST 30 ALT 66 H C-Reactive Protein 0.25 Assessment & Plan Assessment & Plan (1) Psoriatic arthritis: Code(s): L40.50 - Arthropathic psoriasis, unspecified Category: Medical Plan: #Psoriatic Arthritis Patient is a 54-year-old male with psoriasis complicated by psoriatic arthritis here today for follow-up. Doing well with no evidence of synovitis today Plan - 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 20mg weekly (8 pills) - Folic Acid 1 mg - RTC 4 months - Labs before visit: CBC, CMP, ESR, CRP (2) Bilateral primary osteoarthritis of knee: Code(s): M17.0 - Bilateral primary osteoarthritis of knee Category: Medical Plan: #Bilateral Knee Pain Bilateral knee pain improved. Plan - Celebrex 200mg bid (3) Psoriasis: Code(s): L40.9 - Psoriasis, unspecified Category: Medical Plan: #Psoriasis Patient can continue with the Otezla at this time. Follow up with Dermatology. (4) 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, detention, current use: Code(s): Z79.631 - long term care administrator (current) use of antimetabolite agent Category: Medical Plan: #Long-term Current Use of 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 Discussed with patient the benefits and risks of methotrexate for managing their rheumatic condition Benefits include reduced pain, reduced mortality, maintenance of remission and reduction of flares Risks include oral ulcers, photosensitivity, hepatotoxicity, hematologic toxicity, pneumonitis, flu-like symptoms (especially day after administration), nodulosis, lymphomas ? Limit alcohol and avoid Bactrim ? 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
--- OUTSIDE RECORDS SUMMARY | 2024-12-23 16:01 | XMS_ITS | Patient Health Record ---
Author Organization Omi Lopez III, MD Address [address] [place] [address] [place] [address] Care Team Providers Care Tallier Name Role Phone Omi Lopez Primary Care Provider Allergies Allergen (clinical drug ingredient) Drug/Non Drug Allergy documented on EMR Reaction Allergy Type Onset Date Status No Known Drug Allergy Unknown Drug Allergy Active gabapentin Gabapentin Unknown Drug Allergy Activ e Results Component Value Reference Range Notes Lipid Panel Reviewed date:05/06/2024 10:24:23 AM Interpretation: Performing Lab:[facility], [address] [place] [phone] Notes/Report: Triglycerides 252 <150 mg/dL Desirable Triglyceride: [...] ff Reviewed date:05/06/2024 10:24:23 AM Interpretation: Performing Lab:[facility], [address] [place] [phone] Notes/Report: White Blood Count 9.8 4.8-10.8 X10*3/uL [...] te Reviewed date:05/06/2024 10:24:23 AM Interpretation: Performing Lab:[facility], [address] [place] [phone] Notes/Report: Erythrocyte Sedimentation Rate 4 0-15 MM/HR Patients with polycythemia and many hemoglobin abnormalities may have depressed sed rates whereas patients with anemia may have elevated sed rates. Comprehensive Met. Panel Reviewed date:05/06/2024 10:24:23 AM Interpretation: Performing Lab:[facility], [address] [place] [phone] Notes/Report: Sodium 143 135-145 mmol/L Potassium 4.2 [...] Protein Reviewed date:05/06/2024 10:24:23 AM Interpretation: Performing Lab:[facility], [address] [place] [phone] Notes/Report: C Reactive Protein 0.34 < or = 0.50 mg/dL HLA B27 Reviewed date:05/06/2024 10:24:23 AM Interpretation: Performing Lab:[facility], [address] [place] [phone] Notes/Report: HLA B27 Negative Negative THIS TEST WAS PERFORMED AT: ip.access/[address] [address] NORMAN BENTLEY MD,PHD Hepatitis A,B,C Profile Reviewed date:05/06/2024 10:24:23 AM Interpretation: Performing Lab:[facility], [address] [place] [phone] Notes/Report: Hepatitis A Antibody IgM Nonreactive Nonreactive [...] ff Reviewed date:05/06/2024 10:24:23 AM Interpretation: Performing Lab:[address] [address] Notes/Report: White Blood Count 9.8 4.8-10.8 X10*3/uL [...] Panel Reviewed date:05/06/2024 10:24:23 AM Interpretation: Performing Lab:[facility], [address] [place] [phone] Notes/Report: Sodium 143 135-145 mmol/L Potassium 4.2 [...] date:06/18/2024 09:31:20 AM Interpretation: Performing Lab: Notes/Report: [address] [address] [address] Scan Report Signed Patient: Fredrick Gudino MR#: [id number] 164 : 1970 Acct:[id number] Age/Sex: 54 / M ADM Date: 04/16/24 Loc: HO.CT Attending Dr: Diane Archer PA-C Ordering Physician: Diane Archer PA-C Date of Service: 04/16/24 Procedure(s): CT lung screening Accession Number(s): [id number] cc: Omi Lopez MD; Diane Archer PA-C Report Number: [id number]: Total DLP = 60.00 mGy-cm EXAMINATION: CT [...] for CT CHEST LOW DOSE CANCER SCREENING ([id number]) can be placed. Electronically signed by: Abner Chong MD 06/09/2024 05:32 PM [facility] Dictated By: Abner Chong MD Signed By: <Electronically signed by Abner Chong MD in OV> 06/09/24 1732 DD/ 1140 TD/TT: 04/16/24 1303 [employer] Panels Deburrer: [address] [address] [address] Scan Report Signed Patient: Gian Gudino dd MR#: [id number] 164 : 1970 Acct:[id number] Age/Sex: 54 / M ADM Date: 04/16/24 Loc: HO.CT Attending Dr: Diane Archer PA-C Ordering Physician: Diane Archer PA-C Date of Service: 04/16/24 Procedure(s): CT norris g screening Accession Number(s): [id number] cc: Omi Lopez MD; Diane Archer PA-C Report Number: [id number]: Total DLP = 60.00 mGy-cm EXAMINATION: CT [...] for CT CHEST LOW DOSE CANCER SCREENING ([id number]) can be placed. Electronically tony d by: Abner Chong MD 06/09/2024 05:32 PM [facility] Dictated By: Abner Chong MD Signed By: <Electronically signed by Abner Chong MD in OV> 06/09/24 1732 DD/ 1140 TD/TT: 04/16/24 1303 [employer] Pan[employer] Deburrer: GLORIA Complete Blood Count Auto Di ff Reviewed date:11/03/2024 05:43:20 AM Interpretation: Performing Lab:[facility], [address] [place] [phone] Notes/Report: White Blood Count 7.2 4.8-10.8 X10*3/uL Red Blood Count 5.40 4.60-5.80 X10*6/uL Hemoglobin 17.6 14.0-18.0 g/dl Hematocrit 51.0 42.0-52.0 % Mean Corpuscular Volume 94.4 80.0-98.0 fL Mean Corpuscular Hemoglobin 32.6 27.0-33.0 pg Mean Corpuscular HGB Conc 34.5 31.0-36.0 g/dl Red Cell Distribution Width 13.2 11.0-16.0 % Platelet Count 243 160-400 X10*3/uL Mean Platelet Volume 9.0 9.4-12.4 fL Neutrophils Percent Auto 65.2 45-73 % Imm Gran Pct Auto 0.3 0.0-0.4 % Lymphocytes Percent Auto 25.2 20-40 % Monocytes Percent Auto 6.2 2-11 % Eosinophils Percent Auto 2.4 0-4 % Basophils Percent Auto 0.7 0-2 % NRBC Pct Auto 0.0 0.0-0.2 /100WBC Neutrophils Absolute Auto 4.7 2.0-8.3 x10*3/uL Imm Gran Abs Auto 0.02 0.00-0.03 X10*3/uL Lymphocytes Absolute Auto 1.8 1.2-4.9 X10*3/uL Monocytes Absolute Auto 0.5 0.1-1.2 X10*3/uL Eosinophils Absolute Auto 0.2 0.0-0.4 X10*3/uL Basophils Absolute Auto 0.1 0.0-0.2 X10*3/uL NRBC Abs Auto 0.000 0.0-0.012 X10*3/uL Erythrocyte Sedimentation Ra te Reviewed date:11/03/2024 05:43:20 AM Interpretation: Performing Lab:[facility], [address] [place] [phone] Notes/Report: Erythrocyte Sedimentation Rate 4 0-15 MM/HR Patients with polycythemia and many hemoglobin abnormalities may have depressed sed rates whereas patients with anemia may have elevated sed rates. Comprehensive Met. Panel Reviewed date:11/03/2024 05:43:20 AM Interpretation: Performing Lab:[address] [address] Notes/Report: Sodium 142 135-145 mmol/L Potassium 4.1 3.3-5.1 mmol/L Chloride 108 96-108 mmol/L Carbon Dioxide 26 22-29 mmol/L Anion Gap 12 12-20 Blood Urea Nitrogen 14 9-16 mg/dL Creatinine 1.00 0.5-1.4 mg/dL Estimated Glomerular Filt Rate > 60 Chronic Kidney Disease: Estimated GFR < 60 mL/min/1.73m2 Severe Kidney Disease: Estimated GFR < 15 mL/min/1.73m2 Glucose Random 111 60-115 mg/dL Calcium 9.2 8.4-10.2 mg/dL Bilirubin Total 0.9 0.0-1.0 mg/dL Aspartate Amino Transferase 30 5-37 U/L Alanine Aminotransferase 66 0-40 U/L Total Protein 6.9 6.5-8.0 g/dL Albumin Level 4.4 3.5-5.0 g/dL Alkaline Phosphatase 65 39-117 U/L C Reactive Protein Reviewed date:11/03/2024 05:43:20 AM Interpretation: Performing Lab:[facility], [address] [place] [phone] Notes/Report: C Reactive Protein 0.25 < or = 0.50 mg/dL XR Knee Burke 4V Reviewed date:11/03/2024 05:43:20 AM Interpretation: Performing Lab: Notes/Report: [address] [address] XRay Report Signed Patient: Fredrick Gudino MR#: [id number] 164 : 1970 Acct:[id number] Age/Sex: 54 / M ADM Date: 11/01/24 Loc: [facility] Attending Dr: Violeta Zurita MD Ordering Physician: Violeta Zurita MD Date of Service: 11/01/24 Procedure(s): XR Knee Burke 4V Accession Number(s): [id number] cc: Violeta Zurita MD; Omi Lopez MD CLINICAL HISTORY: M17.0 - Bilateral primary osteoarthritis of knee AP and PA Bilateral standing knees, 2 views bilateral knees Comparison: None provided Findings: Small patellofemoral osteophytes bilaterally. Joint spaces are relatively well-maintained bilaterally. No joint effusion. No fracture or erosions. No aggressive lesions. IMPRESSION: 1. Mild bilateral patellofemoral joint arthropathy. No erosions or significant joint space loss. This document has been electronically signed by: Deepthi Caraballo MD on 11/01/2024 08:54:23 Dictated By: Deepthi Caraballo MD Signed By: <Electronically signed by Deepthi Caraballo MD in OV> 11/01/24 0855 DD/ TD/TT: 11/01/24853 [employer] Deburrer: [address] [address] XRay Report Signed Patient: Gian Gudino dd MR#: [id number] 164 : 1970 Acct:[id number] Age/Sex: 54 / M ADM Date: 11/01/24 Loc: [facility] Attending Dr: John Zurita MD Ordering Physician: Violeta Zurita MD Date of Service: 11/01/24 Procedure(s): XR Kne e Burke 4V Accession Number(s): [id number] cc: Violeta Zurita MD ; Omi Lopez MD CLINICAL HISTORY: M1 7.0 - Bilateral primary osteoarthritis of knee AP and PA Bilateral standing knees, 2 views bilateral knees Comparison: None provided Findings: Small patellofemoral osteophytes bilaterally. Joint spaces are relatively well-maintained bilaterally. No joint effusion. N o fracture or erosions. No aggressive lesions. IMPRESSION: 1. Mild bilateral patellofemoral joint arthropathy. No erosions or significant joint sp syed loss. This document has be en electronically signed by: Deepthi Caraballo MD on 11/01/2024 08:54:23 Dictated By: Deepthi Caraballo MD Signed By: <Electronically signed by Deepthi Caraballo MD in OV> 11/01/24 0855 DD/ 0854 TD/TT: 11/01/24 0854 [employer] Pan[employer] Deburrer: XR Foot Burke 3V Reviewed date:11/03/2024 05:43:20 AM Interpretation: Performing Lab: Notes/Report: [address] [address] XRay Report Signed Patient: Fredrick Gudino MR#: [id number] 164 : 1970 Acct:[id number] Age/Sex: 54 / M ADM Date: 11/01/24 Loc: [facility] Attending Dr: Voileta Zurita MD Ordering Physician: Violeta Zurita MD Date of Service: 11/01/24 Procedure(s): XR Foot Burke 3V Accession Number(s): [id number] cc: Violeta Zurita MD; Omi Lopez MD CLINICAL HISTORY: L40.50 - Arthropathic psoriasis, unspecified Three-view right foot, three-view left foot. The lateral views are denoted as weight-bearing. Comparison: None provided Findings: No fractures or dislocations. No significant loss of joint space, osteophytes, or erosions. Small bilateral calcaneal spurs. No ankle effusion. No radiopaque foreign body. IMPRESSION: 1. Unremarkable bilateral foot series aside from small plantar calcaneal spurs. Joint spaces are maintained. No erosions. This document has been electronically signed by: Deepthi Caraballo MD on 11/01/2024 08:48:45 Dictated By: Deepthi Caraballo MD Signed By: <Electronically signed by Deepthi Caraballo MD in OV> 11/01/24848 DD/ TD/TT: 11/01/24847 [employer] Pan[employer] Deburrer: [place] [address] XRay Report Signed Patient: Gian Gudion dd E MR#: [id number] 164 : 1970 Acct:[id number] Age/Sex: 54 / M ADM Date: 11/01/24 Loc: HO.XRAY Attending Dr: John Zurita MD Ordering Physician: Violeta Zurita MD Date of Service: 11/01/24 Procedure(s): XR Radha t Burke 3V Accession Number(s): [id number] cc: Violeta Zurita MD ; Omi Lopez MD CLINICAL HISTORY: L40.50 - Arthropathic psoriasis, unspecified Three-view right radha t, three-view left foot. The lateral views are denoted as weight-bearing. Comparison: None provided Findings: No fractures or dislocations. No significant loss of joint space, osteophytes, or erosions. Small bilateral calcaneal spurs. No ankle effusion. No radiopaque foreig n body. IMPRESSION: 1. Unremarkable bilateral foot series aside from small plantar calcaneal spurs. Joint spaces are maintained. No erosions. This document has be en electronically signed by: Deepthi Caraballo MD on 11/01/2024 08:48:45 Dictated By: Deepthi Caraballo MD Signed By: <Electronically signed by Deepthi Caraballo MD in OV> 11/01/2449 DD/ TD/TT: 11/01/24847 [employer] Pan[employer] Deburrer: XR Ankle Burke min 3V Reviewed date:11/03/2024 05:43:20 AM Interpretation: Performing Lab: Notes/Report: [address] [address] XRay Report Signed Patient: Fredrick Gudino MR#: [id number] 164 : 1970 Acct:[id number] Age/Sex: 54 / M ADM Date: 11/01/24 Loc: HO.XRAY Attending Dr: Violeta Zurita MD Ordering Physician: Violeta Zurita MD Date of Service: 11/01/24 Procedure(s): XR Ankle Burke min 3V Accession Number(s): [id number] cc: Violeta Zurita MD; Omi Lopez MD CLINICAL HISTORY: L40.50 - Arthropathic psoriasis, unspecified Three-view right ankle, three-view left ankle Comparison: None provided Findings: Bones intact. No dislocations. No significant loss of joint space, osteophytes, or erosions. No ankle effusion. No radiopaque foreign body. IMPRESSION: 1. No acute findings. This document has been electronically signed by: Deepthi Caraballo MD on 11/01/2024 08:48:56 Dictated By: Deepthi Caraballo MD Signed By: <Electronically signed by Deepthi Caraballo MD in OV> 11/01/2450 DD/ 7 TD/TT: 11/01/24847 [employer] Pan[employer] Deburrer: [address] [address] XRay Report Signed Patient: Gian Gudino dd MR#: [id number] 164 : 1970 Acct:[id number] Age/Sex: 54 / M ADM Date: 11/01/24 Loc: HO.XRAY Attending Dr: John Zurita MD Ordering Physician: Violeta Zurita MD Date of Service: 11/01/24 Procedure(s): XR Ank le Burke min 3V Accession Number(s): [id number] cc: Violeta Zurita MD ; Omi Lopez MD CLINICAL HISTORY: L40.50 - Arthropathic psoriasis, unspecified Three-view right ank le, three-view left ankle Comparison: None provided Findings: Bones intact. No dislocations. No significant loss of joint space, osteophytes, or erosions. No ankle effusion. No radiopaque foreig n body. IMPRESSION: 1. No acute findings. This document has be en electronically signed by: Deepthi Caraballo MD on 11/01/2024 08:48:56 Dictated By: Deepthi Caraballo MD Signed By: <Electronically signed by Deepthi Caraballo MD in OV> 11/01/2450 DD/ 7 TD/TT: 11/01/24847 [employer] Pan[employer] Deburrer: Reason For Referral Reason chronic back pain Diagnosis 1 Lumbar radiculopathy (M54.16) Referral Organization Omi Lopez III, MD Referring Provider First Name Omi Referring Provider Last Name Lopez Referring Provider Speciality Internal edicine Referred Provider [facility] er, Pain Management Referred Provider Specialty Pain Medicin e General Notes Maria Isabel Castañeda CM 12/26/2023 02:28:23 PM EDT > Called [place] [facility] office [phone] they stated pt has been seen there before in 2021 so I was able to make patient appt for 01/09/2024 at 9:30am with Sherley DAVIS at [address] [facility] [address] information called and mailed to patient Referral Priority Routine Referral Appointment Date 01/09/2024 Reason achilles tendon and heal pain Diagnosis 1 Heel pain, unspecifi ed laterality (M79.673) Referral Organization Omi Lopez III, MD Referring Provider First Name Omi Referring Provider Last Name Lopez Referring Provider Speciality Internal edicine Referred Provider [facility] [place] Referred Provider Specialty Podiatry General Notes Maria Isabel Vo [facility] 05/31 01:41:59 PM > patient given contact information to call the podiatry office and set up his own appointment and then call the office with the appt information Referral Priority Routine Reason sleep apnea Diagnosis 1 Sleep apnea, unspeci fied type (G47.30) Referral Organization Omi Lopez III, MD Referring Provider First Name Omi Referring Provider Last Name Lopez Referring Provider Speciality Internal M edicine Referred Provider PRAMOD TAMAYO Referred Provider Specialty Pulmonary Di seases General Notes Maria Isabel Vo CMA 05/31 01:33:45 PM > Called Dr. Tamayo [...] Referred Provider Specialty Ophthalmolog y General Notes DCollette 07/26/2024 11:37:09 AM > Referral faxed with [...] y 12 hrs with food 12/26/2023 Active Celecoxib 200 MG Oral Act armin Folic Acid 1 MG Oral Acti ve 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 Sodium 2.5 MG as directed Orally weekly 03/29/2024 Active Immunizations Vaccine Route Administration Date Status [...] Problem Status W/U Status Risk Notes Problem 594500999 Overweight (BMI 25.0-29.9) (E66.3) Active confirmed His weight is stable. We discussed weight reduction strategies today. We reviewed his diet and nutrition. We made a plan to lose weight at a rate of one half of a pound per week. Problem 735929194 Lumbar radiculopathy (M54.16) Active confirmed His back pain is significantly improved and he is working without difficulty at this time. He was encouraged to avoid heavy lifting. Problem 204818703 Mixed hyperlipidemia (E78.2) Active confirmed A current fasting lipid profile is unavailable. Current therapy was continued. A profile has been ordered before his next visit. Problem BPH (benign prostatic hyperplasia) (N40.0) Active confirmed He arises from sleep once a night to urinate. We have discussed lifestyle modifications he could take to reduce nocturia. Problem 412196281 Obesity (BMI 30-39.9) (E66.9) Active confirmed His body ma ss index is 32. He has lost 2 pounds. We discussed his diet and nutrition at length. We made a plan to lose weight at a rate of 1 pound per week. Problem Tobacco dependence (95282452) Tobacco dependence (F17.200) Active confirmed He continues to smoke 10-20 cigarettes daily. We have discussed the health consequences of smoking. We have developed several strategies for smoking cessation. Problem Psoriasis (0248216) Psoriasis (L40.9) Active confirmed He is being treated at this time by the focus puller. He has been compliant with treatment.The x-ray reports of his right knee and right ankle are available and show no significant osseous abnormality. Problem [id number] Labyrinthitis o f both ears (H83.03) Active confirmed His symptoms are not significant enough for meclizine. He will try an antihistamine. She will report back in 48 hours. He has had no loss of hearing. Problem 06592421 Sleep apnea, unspecified type (G47.30) Active confirmed He reports excessive snoring and daytime somnolence. He says he never feels like he got a good night sleep. I've ordered a sleep study to assess for sleep apnea. Problem 742845831 History of depression (Z86.59) Active confirmed He continues to decline a prescription for an antidepressant R for psychotherapy. I will continue to discuss this issue with him. Problem 603243053 Psoriatic arthritis (L40.50) Active confirmed I have ordered x-rays of both hands and wrist and referred him to a ob gyn physician assistant. He was given methotrexate. He continues on methotrexate at the current dose.A CBC has been ordered. Problem 910540803 Cerebrovascular accident (CVA) due to occlusion of other cerebral artery (I63.59) Active confirmed His reflexes and muscle strength are now symmetrical, and his gait is unimpaired. His speech has returned to normal and he has no word finding. The deficits from the small stroke have resolved. He has returned to work. He will continue on antiplatelet drugs. Vital Signs Heart Rate 75 /min 12/08/2024 Temperature 98.2 degrees Fahrenheit 12/08/2024 Blood pressure diastolic 69 mm Hg 12/08/2024 Height 73 in 12/08/2024 Blood pressure systolic 132 mm Hg 12/08/2024 Weight 238 lbs 12/08/2024 BMI 31.4 kg/m2 12/08/2024 Encounters Encounter Location Date Provider Diagnosis Omi Lopez III, MD [address] [place] [address] [place] [address] 12/26/2023 Omi Lopez Lumbar radiculopathy M54.16 ; Psoriatic arthritis L40.50 ; Obesity (BMI 30-39.9) E66.9 ; Tobacco dependence F17.200 ; History of depression Z86.59 ; Cerebrovascular accident (CVA) due to occlusion of other cerebral artery I63.59 and Mixed hyperlipidemia E78.2 Omi Lopez III, MD [address] [place] [address] [place] [address] 01/19/2024 Omi Lopez Lumbar radiculopathy M54.16 ; Tobacco dependence F17.200 ; History of depression Z86.59 ; Mixed hyperlipidemia E78.2 ; Overweight (BMI 25.0-29.9) E66.3 ; Cerebrovascular accident (CVA) due to occlusion of other cerebral artery I63.59 ; BPH (benign prostatic hyperplasia) N40.0 and Psoriasis L40.9 Omi Lopez III, MD [address] [place] [address] [place] [address] 03/29/2024 Omi Lopez Lumbar radiculopathy M54.16 ; Tobacco dependence F17.200 ; History of depression Z86.59 ; Cerebrovascular accident (CVA) due to occlusion of other cerebral artery I63.59 ; Mixed hyperlipidemia E78.2 ; Overweight (BMI 25.0-29.9) E66.3 ; BPH (benign prostatic hyperplasia) N40.0 ; Sleep apnea, unspecified type G47.30 and Psoriatic arthritis L40.50 Omi Lopez III, MD [address] [place] [address] [place] [address] 05/31/2024 Omi Lopez Lumbar radiculopathy M54.16 ; Tobacco dependence F17.200 ; History of depression Z86.59 ; Cerebrovascular accident (CVA) due to occlusion of other cerebral artery I63.59 ; Mixed hyperlipidemia E78.2 ; Degenerative disc disease at L5-S1 level M51.36 ; BPH (benign prostatic hyperplasia) N40.0 and Psoriasis L40.9 Omi Lopez III, MD [address] [place] [address] [place] [address] 07/19/2024 Omi Lopez Lumbar radiculopathy M54.16 ; Mixed hyperlipidemia E78.2 ; Overweight (BMI 25.0-29.9) E66.3 ; BPH (benign prostatic hyperplasia) N40.0 ; Psoriasis L40.9 ; Tobacco dependence F17.200 ; History of depression Z86.59 and Psoriatic arthritis L40.50 Omi Lopez III, MD [address] [place] [address] [place] [address] 10/25/2024 Omi Lopez Lumbar radiculopathy M54.16 ; [...] arthritis L40.50 Omi Lopez III, MD [address] [place] [address] [address] [place] [address] 11/04/2024 Omi Lopez Psoriatic arthritis L40.50 ; Tobacco dependence F17.200 ; History of depression Z86.59 ; Cerebrovascular accident (CVA) due to occlusion of other cerebral artery I63.59 ; Mixed hyperlipidemia E78.2 ; Lumbar radiculopathy M54.16 and BPH (benign prostatic hyperplasia) N40.0 Omi Lopez III, MD [address] [place] [address] [address] [place] [address] 12/08/2024 Omi Lopez Lumbar radiculopathy M54.16 ; Psoriasis L40.9 ; Mixed hyperlipidemia E78.2 ; Obesity (BMI 30-39.9) E66.9 ; Tobacco dependence F17.200 ; History of depression Z86.59 ; BPH (benign prostatic hyperplasia) N40.0 and Cerebrovascular accident (CVA) due to occlusion of other cerebral artery I63.59 Assessments Encounter Date Diagnosis (ICD Code) Assessment Notes Treat ment Notes Treatment Clinical Notes 12/26/2023 Lumbar radiculopathy (ICD-10 - M54.16) He reports an exacerbation of the sciatica on the right. I have given him a prescription for dexamethasone. He has declined other suggested pharmaceutical agents. A follow-up appointment was arranged. 12/26/2023 Psoriatic arthritis (ICD-10 - L40.50) I have ordered x-rays of both hands and wrist and referred him to a ob gyn physician assistant. 01/19/2024 Lumbar radiculopathy (ICD-10 - M54.16) His [...] He has had no loss of hearing. 11/04/2024 Tobacco dependence (ICD-10 - F17.200) He continues to smoke 10-20 cigarettes daily. We have discussed the health consequences of smoking. We have developed several strategies for smoking cessation. 11/04/2024 Psoriatic arthritis (ICD-10 - L40.50) I have ordered x-rays of both hands and wrist and referred him to a ob gyn physician assistant.He was given methotrexate. He continues on methotrexate at the current dose.A CBC has been ordered. 12/08/2024 Lumbar radiculopathy (ICD-10 - M54.16) His back pain is significantly improved and he is working without difficulty at this time. He was encouraged to avoid heavy lifting. 12/08/2024 Psoriasis (ICD-10 - L40.9) He is being treated at this time by the focus puller. He has been compliant with treatment.The x-ray reports of his right knee and right ankle are available and show no significant osseous abnormality. 12/26/2023 Obesity (BMI 30-39.9 ) (ICD-10 - [...] to discuss this issue with him. 12/08/2024 Mixed hyperlipidemia (ICD-10 - E78.2) A current fasting lipid profile is unavailable. Current therapy was continued. A profile has been ordered before his next visit. 12/26/2023 Tobacco dependence (ICD-10 - F17.200) He [...] one half of a pound per week. 11/04/2024 Cerebrovascular accident (CVA) due to occlusion of other cerebral artery (ICD-10 - I63.59) His reflexes and muscle strength are now symmetrical, and his gait is unimpaired. His speech has returned to normal and he has no word finding. The deficits from the small stroke have resolved. He has returned to work. He will continue on antiplatelet drugs. 12/08/2024 Obesity (BMI 30-39.9 ) (ICD-10 - E66.9) His body mass index is 32. He has lost 2 pounds. We discussed his diet and nutrition at length. We made a plan to lose weight at a rate of 1 pound per week. 12/26/2023 History of depressio n (ICD-10 - [...] being treated at this time by the focus puller. He has been compliant with treatment. 10/25/2024 Psoriasis (ICD-10 - L40.9) He is being treated at this time by the focus puller. He has been compliant with treatment. 11/04/2024 Mixed hyperlipidemia (ICD-10 - E78.2) Fasting lipid profile has been ordered prior to his next visit. He was instructed to do this fasting. 12/08/2024 Tobacco dependence (ICD-10 - F17.200) He continues to smoke 10-20 cigarettes daily. We have discussed the health consequences of smoking. We have developed several strategies for smoking cessation. 12/26/2023 Cerebrovascular accident (CVA) due to occlusion [...] to discuss this issue with him. 11/04/2024 Lumbar radiculopathy (ICD-10 - M54.16) His back pain is significantly improved and he is working without difficulty at this time. He was encouraged to avoid heavy lifting. 12/08/2024 History of depressio n (ICD-10 - Z86.59) He continues to decline a prescription for an antidepressant R for psychotherapy. I will continue to discuss this issue with him. 12/26/2023 Mixed hyperlipidemia (ICD-10 - E78.2) The [...] was instructed to do this fasting. 11/04/2024 BPH (benign prostati c hyperplasia) (ICD-10 - N40.0) He arises from sleep once a night to urinate. We have discussed lifestyle modifications he could take to reduce nocturia. 12/08/2024 BPH (benign prostati c hyperplasia) (ICD-10 - N40.0) He arises from sleep once a night to urinate. We have discussed lifestyle modifications he could take to reduce nocturia. 01/19/2024 Psoriasis (ICD-10 - L40.9) He is being treated at this time by the focus puller. He has been compliant with treatment. 03/29/2024 Sleep apnea, unspecified type (ICD-10 - G47.30) He reports excessive snoring and daytime somnolence. He says he never feels like he got a good night sleep. I've ordered a sleep study to assess for sleep apnea. 05/31/2024 Psoriasis (ICD-10 - L40.9) He is being treated at this time by the focus puller. He has been compliant with treatment. 07/19/2024 Psoriatic arthritis (ICD-10 - L40.50) I have ordered x-rays of both hands and wrist and referred him to a ob gyn physician assistant.He was given methotrexate. He continues on methotrexate [...] He will continue on antiplatelet drugs. 03/29/2024 Psoriatic arthritis (ICD-10 - L40.50) I have ordered x-rays of both hands and wrist and referred him to a ob gyn physician assistant.He was given methotrexate. He continues on methotrexate [...] and wrist and referred him to a ob gyn physician assistant.He was given methotrexate. He continues on methotrexate at the current dose.A CBC has been ordered. Plan Of Treatment Pending Test Test Name Order Date PROFILE, FASTING (COMPREHENSIVE METABOLI C) 12/08/2024 PROFILE, FASTING (COMPREHENSIVE METABOLI C) 09/17/2022 PROFILE, FASTING (COMPREHENSIVE METABOLI C) 03/09/2021 PROFILE, FASTING (COMPREHENSIVE METABOLI C) 10/16/2020 PROFILE, FASTING (COMPREHENSIVE METABOLI C) 12/03/2021 PROFILE, FASTING (COMPREHENSIVE METABOLI C) 01/08/2023 PROFILE, RANDOM (COMPREHENSIVE METABOLIC ) 03/29/2024 PROFILE, RANDOM (COMPREHENSIVE METABOLIC ) 06/04/2021 LIPID PANEL 11/03/2020 LIPID PANEL 01/08/2023 LIPID PANEL 09/17/2022 LIPID PANEL 10/16/2020 LIPID PANEL 12/03/2021 TSH (THYROID STIMULATING HORMONE) 2024 PSA, TOTAL 06/04/2021 PSA, TOTAL 09/17/2022 PSA, TOTAL 10/16/2020 CBC w DIFF 06/04/2021 CBC w DIFF 01/08/2023 CBC w DIFF 12/08/2024 CBC w DIFF 03/09/2021 CBC w DIFF 09/17/2022 CBC w DIFF 12/03/2021 CBC w DIFF 10/16/2020 LYME DISEASE IgG/IgM WB 10/07/2023 MRI PELVIS NO CONTRAST 02/22/2022 CBC WITH AUTO DIFF 03/29/2024 Lipid Panel 12/08/2024 Lipid Panel 03/09/2021 Next Appt Details Provider Name:Omi Lopez, 03/07/2025 10:30:00 AM, [address] [facility] [address], [place], [phone], Provider Name:Omi Lopez, 12/12/2025 10:00:00 AM, [address] [facility] [address], [place], [phone], Insurance Providers Payer Name Payer Address Payer Phone Subscriber Number Group Number Insured Name Patient Relationship to Insured Coverage Start Date Coverage End Date [facility] [address] [facility] [address] [employer] [facility] [place] [phone] [id number] Fredrick Gudino Self - patient is the [...] Hospitalization History Reason Date(Month/Year) No history Stroke [facility] 2021
--- OUTSIDE RECORDS SUMMARY | 2024-12-23 16:02 | XMS_ITS | Clinical Summary ---
Author Organization [facility] it[facility] Address [address] [place] [address] Care Team Providers Care Manager Of Distribution Name Role Phone Guillermina Bazan ROZ Primary Care Provider [phone] Surgical History Surgery Date Site/Laterality Comments HAND SURGERY PROCEDURE: [place] UNLISTED PROCEDURE HANDS/FINGERS; COMMENT: artificial joint Family [...] ars (1 of 2 - PCV) 1987 Zoster Vaccines (1 of 2) 2018 Cholesterol Screening (Lipid Panel) 04/14/2022 Colorectal Cancer Screening: Stool Based Tests (FOBT/FIT) 04/14/2022 HIV Screening 04/14/2022 Hepatitis C Screening 04/14/2022 Social Influencers of Health Screening 04/14/2022 COVID-19 Vaccine ( - 2023-2 5 season) 2024 Depression Screening 05/12/2024 Influenza Vaccine (#1) 2025 HIB Vaccines Aged Out No longer [...] age to complete this topic Care Teams Manager Of Distribution Relationship Specialty Start Date End Date Guillermina Bazan NP [address] [place] [phone] PCP - General Internal Medicine 02/26/22
== END 2024-12-23 16:19 | disposition home or self-care (01) ==
LOC: HO.RHES 15:46
PROVIDERS: PCP Internal Medicine Medical Oncology; Visit Provider Student in an Organized Health Care Education/Training Program
DX: L40.50 Arthropathic psoriasis, unspecified (principal); M17.0 Bilateral primary osteoarthritis of knee; L40.9 Psoriasis, unspecified; Z79.631 Long term (current) use of antimetabolite agent
CPT/HCPCS: 99214; G2211

== ENCOUNTER 2025-04-22 15:40 | Outpatient (AMB) | payer OTHER, SELFPAY ==
--- OUTSIDE RECORDS SUMMARY | 2024-01-19 09:30 | XMS_ITS ---
Author Organization Omi Lopez III, MD Address [address] [place] [address] Care Team Providers Care Last Inserter Name Role Phone Dr. Omi Lopez III Primary Care Provider [phone] Allergies Allergen (clinical drug ingredient) Drug/Non Drug Allergy documented on EMR Reaction Allergy Type Onset Date Status No Known Drug Allergy Unknown Drug Allergy Active REASON FOR VISIT Tobacco dependence, Lumbar radiculopathy, Impression, Hyperlipidemia, Benign prostatic hypertrophy,Obesity, Sleep apnea, History of stroke Medications Medication SIG (Take, Route, Frequency, Duration) Notes Start Date End Date Status Atorvastatin Calcium 10 MG 1 tablet Oral ly Once a day 12/08/2023 Active dexAMETHasone 2 MG 1 tablet Orally ever y 12 hrs with food 12/26/2023 Active Meloxicam 15 MG TAKE 1 TABLET BY STEPHANE EVERY DAY FOR 30 DAYS Active Social History Tobacco Use: Social History Observation Description Date Details (start date - stop date) Current Smoker NA - NA Sex Assigned At : Social History Observation Description Sex Assigned At Male Tobacco Use/Smoking Question Answer Notes Patient is a current smoker How often do you smoke cigarettes? every day How many cigarettes a day do you smoke? 11-20 How soon after you wake up d o you smoke your first cigarette? within 5 minutes Are you interested in quitting? Not ready to jayy t Additional Findings: Tobacco User Modera te cigarette smoker (10-19 cigs/day) Alcohol Screen Question Answer Notes Did you have a drink containing alcohol in the p ast year? No Points 0 Interpretation Negative Vital Signs Temperature 97.9 degrees Fahrenheit 01/19/20 24 Blood pressure systolic 119 mm Hg 01/19/20 24 Blood pressure diastolic 75 mm Hg 024 Heart Rate 80 /min 01/19/2024 Height 73 in 01/19/2024 Weight 213 lbs 01/19/2024 BMI 28.1 kg/m2 01/19/2024 Encounters Encounter Location Date Provider Diagnosis Omi Lopez III, MD [address] [place] [address] [address] [place], [place] [address] 01/19/2024 Omi Lopez Lumbar radiculopathy M54.16 ; Tobacco dependence F17.200 ; History of depression Z86.59 ; Mixed hyperlipidemia E78.2 ; Overweight (BMI 25.0-29.9) E66.3 ; Cerebrovascular accident (CVA) due to occlusion of other cerebral artery I63.59 ; BPH (benign prostatic hyperplasia) N40.0 and Psoriasis L40.9 Assessments Encounter Date Diagnosis (ICD Code) Assessment Notes Treat ment Notes Treatment Clinical Notes 01/19/2024 Lumbar radiculopathy (ICD-10 - M54.16) His back pain is significantly improved and he is working without difficulty at this time. He was encouraged to avoid heavy lifting. 01/19/2024 Tobacco dependence (ICD-10 - F17.200) He continues to smoke 10-20 cigarettes daily. We have discussed the health consequences of smoking. We have developed several strategies for smoking cessation. 01/19/2024 History of depressio n (ICD-10 - Z86.59) He continues to decline a prescription for an antidepressant R for psychotherapy. I will continue to discuss this issue with him. 01/19/2024 Mixed hyperlipidemia (ICD-10 - E78.2) The current lipid profile shows a total cholesterol of 287 He says he was fasting. He has resumed taking his atorvastatin, and a repeat value will be ordered in a few weeks. 01/19/2024 Overweight (BMI 25.0-29.9) (ICD-10 - E66.3) He has lost 7 pounds and his body mass index is 29. We discussed his diet and nutrition today. We reviewed his weight loss strategy. We made a plan to lose weight at a rate of one half of a pound per week through a diet restricted in fact calories and sodium combined with regular physical activity. 01/19/2024 Cerebrovascular accident (CVA) due to occlusion of other cerebral artery (ICD-10 - I63.59) His reflexes and muscle strength are now symmetrical, and his gait is unimpaired. His speech has returned to normal and he has no word finding. The deficits from the small stroke have resolved. He has returned to work. He will continue on antiplatelet drugs. 01/19/2024 BPH (benign prostati c hyperplasia) (ICD-10 - N40.0) He arises from sleep once a night to urinate. I told him. This was about average. We discussed lifestyle modification as a way to reduce nocturia. 01/19/2024 Psoriasis (ICD-10 - L40.9) He is being treated at this time by the hospitality aide. He has been compliant with treatment. Plan Of Treatment Medication Medication Name Sig Start Date Stop Date Notes Atorvastatin Calcium 10 MG 1 tablet Orally Once a day 11/10 dexAMETHasone 2 MG 1 tablet Orally ever y 12 hrs with food 12/26/2023 Meloxicam 15 MG TAKE 1 TABLET BY [facility] EVERY DAY FOR 30 DAYS Next Appt Details Follow Up: 2 Months, Reason: ov Provider Name:Omi Lopez , 05/16/2025 11:15:00 AM, [address] [place] [address] [address], [place], [phone], Provider Name:Omi Lopez , 12/12/2025 10:00:00 AM, [address] [place] [address] [address], [place], [phone], Progress Notes * Fredrick AGUAYO EDOB:[birth year] (53 yo M)Acc No.[id number]:01/19/2024 Progress Notes Patient: Fredrick Vance Provider: Brad Lopez MD :1970 A ge:53 Y S ex:Male Date:01/19/2024 Address:[address] [place] [address] [place] [id number] Subjective: * Chief Complaints: * T obacco dependenceLumbar radiculopathyImpressionHyperlipidemiaBenign prostatic hypertrophyObesitySleep apneaHistory of stroke * HPI: C OVID-19 Screening: He returns for medical management. He has been to the field training manager who did not think he needed an epinephrine pen. He continues to smoke half a package of cigarettes per day. He does not have and does not want CPAP. He has been waking up every 2 hours to urinate but declines a rectal examination today. He also declined a urology referral. He has a colonoscopy coming in 2 weeks. He has been to see Dr. Su in pain management and new injections in his neck And plan. Continues to work at a local [employer]. Questions H ave you experienced fever, chills, cough, sore throat, shortness of breath, difficulty breathing, muscle aches, loss of taste or smell? N o H ave you been exposed to the virus within the last 10 days? N o H ave you travelled internationally in the last 10 days? N o H ave you been exposed to COVID-19 in the past? Y es * ROS: G eneral/Constitutional: pain S houlders and lumbar spine, otherwise only normal aches and pains. C hills d enies. F atigue a dmits. F ever d enies. ? E NT: Decreased hearing d enies. R espiratory: Cough n on-productive. C ardiovascular: Chest pain with exertion d enies. D yspnea on exertion?denies. S hortness of breath d enies. G astrointestinal: Constipation o ccasional. D ecreased appetite d enies. D iarrhea d enies. H eartburn d enies. N ausea d enies. R ectal bleeding d enies. V omiting d enies. H ematology: bruising d enies. p etechiae d enies. S wollen glands n one have been noted. G enitourinary: Frequent urination o nce a night. M usculoskeletal: Muscle aches d enies. P ainful joints d enies. S ciatica d enies. W eakness d enies. S kin: Itching d enies. R gosia d enies. S kin lesion(s)?denies. N eurologic: Difficulty speaking d enies. D izziness d enies.?Headache d enies. L ow back pain t hat is chronic. P sychiatric: Depressed mood w hich is moderate. * Medical History: * Surgical History: r ight fourth finger crush injury repaired lumbar spine discectomy, Dr. Franco 2010Cologard test age 49 negative * Hospitalization/Major Diagno stic Procedure: Tavo reveles [facility] 2021 * Family History: F ather: alive 85 yrs, Coronary artery disease, myocardial infarction, alcoholism, hypertension, quadruple bypass surgery, diagnosed with Hyperlipidemia, HTN, CVD. M other: alive 79 yrs, Good health. 1 brother(s) , 1 sister(s) . . His parents are both alive. His father suffers from alcoholism, coronary artery disease. His mother is in good health. His brother has hypertension and hyperlipidemia. His sister is in good health. He is not aware of any family history of mental illness or substance use disorder or addiction. * Social History: T obacco Use: T obacco Use/Smoking P atient is a c urrent smoker H ow often do you smoke cigarettes? e very day H ow many cigarettes a day do you smoke? 1 1-20 H ow soon after you wake up do you smoke your first cigarette? w ithin 5 minutes A re you interested in quitting? N ot ready to quit A dditional Findings: Tobacco User M oderate cigarette smoker (10-19 cigs/day) D rugs/Alcohol: D rugs H ave you used drugs other than those for medical reasons in the past 12 months? N o Alcohol Screen D id you have a drink containing alcohol in the past year? N o P oints 0 I nterpretation N egative * Medications: T akingdexAMETHasone 2 MG Tablet 1 tablet Orally every 12 hrs with foodMeloxicam 15 MG Tablet TAKE 1 TABLET BY MOUTH EVERY DAY FOR 30 DAYS Atorvastatin Calcium 10 MG Tablet 1 tablet Orally Once a dayMedication List reviewed and reconciled with the patientTaking dexAMETHasone 2 MG Tablet 1 tablet Orally every 12 hrs with foodTaking Meloxicam 15 MG Tablet TAKE 1 TABLET BY MOUTH EVERY DAY FOR 30 DAYS Taking Atorvastatin Calcium 10 MG Tablet 1 tablet Orally Once a dayMedication List reviewed and reconciled with the patient * Allergies: N o Known Drug Allergyno[Allergies Verified] Objective: * Vitals: H t: 73, Wt: 213, BMI:28.1, BP: 119/75, HR: 80, Temp: 97.9, Wt-k.62. * P ast Orders: I maging:XR hand wrist RT (Order Date - 12/08/2023) (Collection Date - 12/08/2023) I maging:XR hand wrist LT (Order Date - 12/08/2023) (Collection Date - 12/08/2023) Lab:Lipid Panel * Order Date 11/17/2023 09/23/2022 10/19/2020 Triglycerides 188 H (Ref Range: <150 mg/dL) 142 (Ref Range: mg/dL) 70 (Ref Range: mg/dL) Cholesterol 287 H (Ref Range: <200 mg/dL) 319 (Ref Range: mg/dL) 243 (Ref Range: mg/dL) LDL Cholesterol Calculated 215 H (Ref Range: <100 mg/dL) 251 (Ref Range: mg/dl) 189 (Ref Range: mg/dl) HDL Cholesterol 35 L (Ref Range: >40 mg/dL) 40 (Ref Range: mg/dL) 40 (Ref Range: mg/dL) ???Lab:Comprehensive [place]. Panel Fast (Order Date - 11/17/2023) (Collection Date - 11/17/2023)?ValueReference Range?[id number] - mmol/L ?Bilirubin Total0.60.0-1.0 - mg/dL?Aspartate Amino Umlkvifoscn334- 37 - U/L?Alanine Hlqxquibatvawhny162-05 - U/L?Total Protein7.06.5- 8.0 - g/dL?Albumin Level4.23.5-5.0 - g/dL?Alkaline Eqrmcirymun09 39-117 - U/L?Potassium4.43.3-5.1 - mmol/L?Auevjloz06039-231 - mmol/L?Carbon Srtkqwa2464-60 - mmol/L?Anion Xdz3519-89 - ?Blood Urea Heakypaz392-75 - mg/dL?Creatinine1.030.5-1.4 - mg/dL ?Estimated Glomerular Filt Rate> 60-?Glucose Mfacekb7710-64 - mg/dL?Calcium9.78.4-10.2 - mg/dL * Lab:Complete Blood Count Aut o Diff * Order Date 11/17/2023 09/23/2022 10/19/2020 White Blood Count 10.8 (Ref Range: 4.8-10.8 X10*3/uL) 11.7 H (Ref Range: 4.8-10.8 X10*3/uL) 10.9 H (Ref Range: 4.8-10.8 X10*3/uL) Red Blood Count 5.71 (Ref Range: 4.60-5.80 X10*6/uL) 5.44 (Ref Range: 4.60-5.80 X10*6/uL) 5.52 (Ref Range: 4.60-5.80 X10*6/uL) Hemoglobin 17.8 (Ref Range: 14.0-18.0 g/dl) 17.7 (Ref Range: 14.0-18.0 g/dl) 17.0 (Ref Range: 14.0-18.0 g/dl) Hematocrit 51.8 (Ref Range: 42.0-52.0 %) 51.6 (Ref Range: 42.0-52.0 %) 51.4 (Ref Range: 42-52 %) Mean Corpuscular Volume 90.7 (Ref Range: 80.0-98.0 fL) 94.9 (Ref Range: 80.0-98.0 fL) 93.1 (Ref Range: 80-98 fL) Mean Corpuscular Hemoglobin 31.2 (Ref Range: 27.0-33.0 pg) 32.5 (Ref Range: 27.0-33.0 pg) 30.8 (Ref Range: 27.0-33.0 pg) Mean Corpuscular HGB Conc 34.4 (Ref Range: 31.0-36.0 g/dl) 34.3 (Ref Range: 31.0-36.0 g/dl) 33.1 (Ref Range: 31.0-36.0 g/dl) Red Cell Distribution Width 12.9 (Ref Range: 11.0-16.0 %) 12.0 (Ref Range: 11.0-16.0 %) 12.5 (Ref Range: 11.0-16.0 %) Platelet Count 274 (Ref Range: 160-400 X10*3/uL) 288 (Ref Range: 160-400 X10*3/uL) 233 (Ref Range: 160-400 X10*3/uL) Mean Platelet Volume 9.7 (Ref Range: 9.4-12.4 fL) 9.2 L (Ref Range: 9.4-12.4 fL) 9.4 (Ref Range: 9.4-12.4 fL) Neutrophils Percent Auto 76.6 H (Ref Range: 45-73 %) 70.4 (Ref Range: 45-73 %) 72.4 (Ref Range: 45-73 %) Imm Gran Pct Auto 0.5 H (Ref Range: 0.0-0.4 %) 0.4 (Ref Range: 0.0-0.4 %) 0.3 (Ref Range: 0.0-0.4 %) Lymphocytes Percent Auto 15.9 L (Ref Range: 20-40 %) 19.9 L (Ref Range: 20-40 %) 19.3 L (Ref Range: 20-40 %) Monocytes Percent Auto 5.4 (Ref Range: 2-11 %) 7.4 (Ref Range: 2-11 %) 4.9 (Ref Range: 2-11 %) Eosinophils Percent Auto 0.9 (Ref Range: 0-4 %) 1.1 (Ref Range: 0-4 %) 2.7 (Ref Range: 0-4 %) Basophils Percent Auto 0.7 (Ref Range: 0-2 %) 0.8 (Ref Range: 0-2 %) 0.4 (Ref Range: 0-2 %) NRBC Pct Auto 0.0 (Ref Range: 0.0-0.2 /100WBC) 0.0 (Ref Range: 0.0-0.2 /100WBC) 0.0 (Ref Range: 0.0-0.2 /100WBC) Neutrophils Absolute Auto 8.2 (Ref Range: 2.0-8.3 x10*3/uL) 8.3 (Ref Range: 2.0-8.3 x10*3/uL) 7.9 (Ref Range: 2.0-8.3 X10*3/uL) Imm Gran Abs Auto 0.05 H (Ref Range: 0.00-0.03 X10*3/uL) 0.05 H (Ref Range: 0.00-0.03 X10*3/uL) 0.03 (Ref Range: 0.00-0.03 X10*3/uL) Lymphocytes Absolute Auto 1.7 (Ref Range: 1.2-4.9 X10*3/uL) 2.3 (Ref Range: 1.2-4.9 X10*3/uL) 2.1 (Ref Range: 1.2-4.9 X10*3/uL) Monocytes Absolute Auto 0.6 (Ref Range: 0.1-1.2 X10*3/uL) 0.9 (Ref Range: 0.1-1.2 X10*3/uL) 0.5 (Ref Range: 0.1-1.2 X10*3/uL) Eosinophils Absolute Auto 0.1 (Ref Range: 0.0-0.4 X10*3/uL) 0.1 (Ref Range: 0.0-0.4 X10*3/uL) 0.3 (Ref Range: 0.0-0.4 X10*3/uL) Basophils Absolute Auto 0.1 (Ref Range: 0.0-0.2 X10*3/uL) 0.1 (Ref Range: 0.0-0.2 X10*3/uL) 0.0 (Ref Range: 0.0-0.2 X10*3/uL) NRBC Abs Auto 0.000 (Ref Range: 0.0-0.012 X10*3/uL) 0.000 (Ref Range: 0.0-0.012 X10*3/uL) 0.000 (Ref Range: 0.0-0.012 X10*3/uL) * Lab:URINE DIP STICK * Order Date 12/08/2023 07/19/2022 SG 1.030 (Ref Range: 1.005 - 1.025) 1.030 (Ref Range: 1.005 - 1.025) pH 5.0 (Ref Range: 5.0 - 9.0) 5.0 (Ref Range: 5.0 - 9.0) LORI Negative (Ref Range: Negative -) Neg (Ref Range: Negative -) NIT Negative (Ref Range: Negative -) Neg (Ref Range: Negative -) PRO 30 (Ref Range: Negative - Trace) 15 (Ref Range: Negative - Trace) GLU Negative (Ref Range: Negative -) Neg (Ref Range: Negative -) KET 5 (Ref Range: Negative -) Neg (Ref Range: Negative -) UBG 0.2 (Ref Range: 0.1 - 1.8) 0.2 (Ref Range: 0.1 - 1.8) ZACKERY 1 (Ref Range: 0.2 - 1.3) Neg (Ref Range: 0.2 - 1.3) BLD Negative (Ref Range: Negative -) Neg (Ref Range: Negative -) Menstrating NR N/A * Examination: G eneral Examination: GENERAL APPEARANCE: p leasant, well nourished, well developed, in no acute distress, calm and relaxed , overweight , man. HEAD: a traumatic, normocephalic. EYES: e [place], perrla, anicteric, conjugate. EARS: n ormal. NOSE: s eptum intact. ORAL CAVITY: n ormal, unremarkable. NECK/THYROID: n o jugular venous distention, no carotid bruit, thyroid normal. LYMPH NODES: n o enlarged lymph nodes,spleen normal. SKIN: n o suspicious lesions, anicteric, Occasional patches of psoriasis. HEART: n o clicks, gallops, murmurs, or rubs, regular rhythm, S1, S2 normal, no s3, or vascular bruits. LUNGS: diminished breath sounds throughout. BREASTS: no masses palpable bilaterally. ABDOMEN: b owel sounds normal, no ascites, no organomegaly, no mass , overweight. RECTAL EXAM: n ot examined. MUSCULOSKELETAL: e xtremities unremarkable, no clubbing, cyanosis or edema, Decreased range of motion lumbar spine. PERIPHERAL PULSES: n ormal. NEUROLOGIC: a lert and oriented, cranial nerves 2-12 grossly intact, deep tendon reflexes 2+ symmetrical, motor strength normal upper and lower extremities, sensory exam intact. PSYCH: a lert, oriented , anxious appearing , mood depressed. Assessment: * Assessment: 1. L umbar radiculopathy - M54.16, His back pain is significantly improved and he is working without difficulty at this time. He was encouraged to avoid heavy lifting. 2 . T obacco dependence - F17.200, He continues to smoke 10-20 cigarettes daily. We have discussed the health consequences of smoking. We have developed several strategies for smoking cessation. 3 . Ivy istory of depression - Z86.59, He continues to decline a prescription for an antidepressant R for psychotherapy. I will continue to discuss this issue with him. 4 . M ixed hyperlipidemia - E78.2, The current lipid profile shows a total cholesterol of 287 He says he was fasting. He has resumed taking his atorvastatin, and a repeat value will be ordered in a few weeks. 5 . O verweight (BMI 25.0-29.9) - E66.3, He has lost 7 pounds and his body mass index is 29. We discussed his diet and nutrition today. We reviewed his weight loss strategy. We made a plan to lose weight at a rate of one half of a pound per week through a diet restricted in fact calories and sodium combined with regular physical activity. 6 . C erebrovascular accident (CVA) due to occlusion of other cerebral artery - I63.59, His reflexes and muscle strength are now symmetrical, and his gait is unimpaired. His speech has returned to normal and he has no word finding. The deficits from the small stroke have resolved. He has returned to work. He will continue on antiplatelet drugs. 7 . B PH (benign prostatic hyperplasia) - N40.0, He arises from sleep once a night to urinate. I told him. This was about average. We discussed lifestyle modification as a way to reduce nocturia. 8 . P soriasis - L40.9, He is being treated at this time by the hospitality aide. He has been compliant with treatment.? Plan: * Treatment: 2. O thers Continue dexAMETHasone Tablet, 2 MG, 1 tablet, Orally, every 12 hrs with food. * Procedure Codes: * Preventive Medicine: Counseling: C are goal follow-up plan: Counseling for abnormal BMI given Y es Above Normal BMI Follow-up D ietary management education, guidance, and counseling, Dietary needs education, Exercise promotion: strength training, Exercise promotion: stretching, Feeding regime, Giving encouragement to exercise, Lifestyle education regarding diet, Nutrition / feeding management, Nutrition therapy, Prescribed activity/exercise education, Prescribed diet education, Prescribed dietary intake, Special diet education, Weight monitoring , Intervention, Order not done: Medical or Other reason not done S moking/Tobacco Use Patient counseled on the dangers of tobacco use and urged to quit. 0 01/19/2024 Patient Lifestyle Goals P atient wants to quit Treatment Goals S et a quit date, Cut down by 1 cigarette a week Barriers S tress, Social smoker Self-Management Plan M leighton a plan to cut down number of cigarettes over time and set a date to work towards quitting * Follow Up: 2 Months (Reason: ov) * Images: * Sign off status: Completed true * Provider: Brad Lopez MD Date: 0 01/19/2024 Generated for Marki ng/Heather/eTransmitting on: 1 06/23/2024 08:25 PM EST History and Physical Notes * HPI (History of Present Illness) Category Sub-Category Detail Notes COVID-19 Screening Questions Have you had any new onset fever, chills, cough, congestion, sore throat, shortness of breath, muscle aches?: No Have you been exposed to the virus withi n the last 10 days?: No Have you travelled internationally in [facility] last 10 days?: No Have you been exposed to COVID-19 in the past?: Yes Examination Category Sub-Category Detail Notes General Examination GENERAL APPEARANCE: pleasant , well nourished, well developed, in no acute distress, calm and relaxed , overweight , man HEAD: atraumatic, normocep halic EYES: eomi, perrla, anicte jhonny, conjugate EARS: normal NOSE: septum intact NECK/THYROID: no jugular venous di stention, no carotid bruit, thyroid normal HEART: no clicks, gallops, murmurs, or rubs, regular rhythm, S1, S2 normal, no s3, or vascular bruits LUNGS: diminished breath so unds throughout ABDOMEN: bowel sounds normal, no ascites, no organomegaly, no mass , overweight NEUROLOGIC: alert and oriented, cranial nerves 2-12 grossly intact, deep tendon reflexes 2+ symmetrical, motor strength normal upper and lower extremities, sensory exam intact SKIN: no suspicious lesion s, anicteric, Occasional patches of psoriasis PERIPHERAL PULSES: normal BREASTS: no masses palpable b ilaterally MUSCULOSKELETAL: extremities unremark able, no clubbing, cyanosis or edema, Decreased range of motion lumbar spine LYMPH NODES: no enlarged lymph no tirso,spleen normal RECTAL EXAM: not examined PSYCH: alert, oriented , an xious appearing , mood depressed ORAL CAVITY: normal, unremarkable
--- OUTSIDE RECORDS SUMMARY | 2024-01-26 12:00 | XMS_ITS ---
Author Organization Omi Lopez III, MD Address [address] [place] [address] [place] [address] Care Team Providers Care Medical Records Analyst Name Role Phone Dr. Omi Lopez III Primary Care Provider REASON FOR VISIT follow up Social History Sex Assigned At : Social History Observation Description Sex Assigned At Male Encounters Encounter Location Date Provider Diagnosis Omi Lopez III, MD [address] [place] [address] [place] [address] 01/26/2024 Omi Lopez Plan Of Treatment Next Appt Details Provider Name:Omi Lopez , 05/16/2025 11:15:00 AM, [address] [place] [address] [place], [phone], Provider Name:Omi Lopez , 12/12/2025 10:00:00 AM, [address] [place] [address] [place], [phone], Progress Notes * Fredrick GUDINO EDOB:[birth year] (55 yo M)Acc No.[id number]:01/26/2024 Progress Notes Patient: Tavo Fredrick ALLEN Provider: Brad Lopez MD :1970 A ge:53 Y S ex:Male Date:01/26/2024 Address:[facility] [id number] Subjective: * Chief Complaints: * 1 . Follow up. * Medical History: Objective: * Vitals: Assessment: Plan: * Treatment: * Images: * The named appointment provid er may or may not be the originator of this progress note, and it is not deemed complete until electronically signed by the appointment provider. Sign off status: Pending * Provider: Brad Lopez MD Date: 0 01/26/2024 Generated for Molina sanchez/Heather/Sybil on: 1 06/23/2024 08:25 PM EST
--- OUTSIDE RECORDS SUMMARY | 2024-03-08 12:30 | XMS_ITS ---
Author Organization Omi Lopez III, MD Address [address] [place] [address] [place] [id number] Care Team Providers Care Vault Mechanic Name Role Phone Dr. Omi Lopez III Primary Care Provider [phone] REASON FOR VISIT follow up Social History Sex Assigned At : Social History Observation Description Sex Assigned At Male Encounters Encounter Location Date Provider Diagnosis Omi Lopez III, MD [address] [place] [address] [place] [id number] 03/08/2024 Omi Lopez Plan Of Treatment Next Appt Details Provider Name:Omi Lopez , 05/16/2025 11:15:00 AM, [address] [place] [address] [place], [id number], Provider Name:Omi Lopez , 12/12/2025 10:00:00 AM, [address] [place] [address] [place], [phone], Progress Notes * Fredrick GUDINO EDOB:[birth year] (55 yo M)Acc No.[id number]:03/08/2024 Progress Notes Patient: Tavo Fredrick ALLEN Provider: Brad Lopez MD :1970 A ge:54 Y S ex:Male Date:03/08/2024 Address:[facility] [address] [id number] Subjective: * Chief Complaints: * 1 . Follow up. * Medical History: Objective: * Vitals: Assessment: Plan: * Treatment: * Images: * The named appointment provid er may or may not be the originator of this progress note, and it is not deemed complete until electronically signed by the appointment provider. Sign off status: Pending * Provider: Brad Lopez MD Date: 1 Generated for Molina sanchez/Heather/Sybil on: 06/23/2024 08:25 PM EST
--- OUTSIDE RECORDS SUMMARY | 2024-03-29 10:15 | XMS_ITS ---
Author Organization Omi Lopez III, MD Address [address] [place] [address] [address] [place] [address] Care Team Providers Care Cricket Coach Name Role Phone Dr. Omi Lopez III Primary Care Provider [phone] Allergies Allergen (clinical drug ingredient) Drug/Non Drug Allergy documented on EMR Reaction Allergy Type Onset Date Status No Known Drug Allergy Unknown Drug Allergy Active Results Component Value Reference Range Notes Lipid Panel Reviewed date:05/06/2024 10:24:23 AM Interpretation: Performing Lab:[facility], [address] [place] [id number] Notes/Report: Triglycerides 252 <150 mg/dL Desirable Triglyceride: less than 150 mg/dL Borderline High Triglyceride 150-199 mg/dL High Triglyceride: 200-499 mg/dL Very High Triglyceride: greater than or equal to 5OO mg/dL Cholesterol 227 <200 mg/dL Desirable Cholesterol: less than 200 mg/dL Borderline High Cholesterol: 200-239 mg/dL High Cholesterol: greater than 239 mg/dL LDL Cholesterol Calculated 139 <100 mg/dL Desirable LDL: less than 100 mg/dL Near Optimal/Above Optimal LDL: 110-129 mg/dL Borderline High LDL: 130-159 mg/dL High LDL: 160-189 mg/dL Very High LDL: greater than or equal to 190 mg/dL HDL Cholesterol 38 >40 mg/dL Desirable HDL: greater than 40 mg/dL Note: This HDL assay may give artificially low results in patients with liver disease. REASON FOR VISIT Bilateral hand pain resolved, disseminated skeletal and soft tissue pain, Depression, Lumbar radiculopathy Medications Medication SIG (Take, Route, Frequency, Duration) Notes Start Date End Date Status dexAMETHasone 2 MG 1 tablet Orally ever y 12 hrs with food 12/26/2023 Active Atorvastatin Calcium 10 MG 1 tablet Oral ly Once a day 12/08/2023 Active 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 Sodium 2.5 MG as directed Orally weekly 03/29/2024 Active Meloxicam 15 MG TAKE 1 TABLET BY STEPHANE TH EVERY DAY FOR 30 DAYS Active Social [...] many cigarettes a day do you smoke? - How soon after you wake up d o you smoke your first cigarette? within 5 minutes Are you interested in quitting? Not ready to jayy t Additional Findings: Tobacco User Modera te cigarette smoker (10-19 cigs/day) Vital Signs Temperature 98.8 degrees Fahrenheit 03/29/20 24 Blood pressure systolic 118 mm Hg 03/29/20 24 Blood pressure diastolic 50 mm Hg 024 Heart Rate 97 /min 03/29/2024 Height 73 in 03/29/2024 Weight 217 lbs 03/29/2024 BMI 28.63 kg/m2 03/29/2024 Encounters Encounter Location Date Provider Diagnosis Omi Lopez III, MD [address] [place] [address] [place] [address] 03/29/2024 Omi Lopez Lumbar radiculopathy M54.16 ; Tobacco dependence F17.200 ; History of depression Z86.59 ; Cerebrovascular accident (CVA) due to occlusion of other cerebral artery I63.59 ; Mixed hyperlipidemia E78.2 ; Overweight (BMI 25.0-29.9) E66.3 ; BPH (benign prostatic hyperplasia) N40.0 ; Sleep apnea, unspecified type G47.30 and Psoriatic arthritis L40.50 Assessments Encounter Date Diagnosis (ICD Code) Assessment Notes Treat ment Notes Treatment Clinical Notes 03/29/2024 Lumbar radiculopathy (ICD-10 - M54.16) His back pain is significantly improved and he is working without difficulty at this time. He was encouraged to avoid heavy lifting. 03/29/2024 Tobacco dependence (ICD-10 - F17.200) He continues to smoke 10-20 cigarettes daily. We have discussed the health consequences of smoking. We have developed several strategies for smoking cessation. 03/29/2024 History of depressio n (ICD-10 - Z86.59) He continues to decline a prescription for an antidepressant R for psychotherapy. I will continue to discuss this issue with him. 03/29/2024 Cerebrovascular accident (CVA) due to occlusion of other cerebral artery (ICD-10 - I63.59) His reflexes and muscle strength are now symmetrical, and his gait is unimpaired. His speech has returned to normal and he has no word finding. The deficits from the small stroke have resolved. He has returned to work. He will continue on antiplatelet drugs. 03/29/2024 Mixed hyperlipidemia (ICD-10 - E78.2) The current lipid profile shows a total cholesterol of 287 He says he was fasting. He has resumed taking his atorvastatin, and a repeat value will be ordered in a few weeks. 03/29/2024 Overweight (BMI 25.0-29.9) (ICD-10 - E66.3) He has lost 2 pounds and his body mass index is 29. We discussed his diet and nutrition today. We reviewed his weight loss strategy. We made a plan to lose weight at a rate of one half of a pound per week through a diet restricted in fact calories and sodium combined with regular physical activity. 03/29/2024 BPH (benign prostati c hyperplasia) (ICD-10 - N40.0) He arises from sleep once a night to urinate. I told him. This was about average. We discussed lifestyle modification as a way to reduce nocturia. 03/29/2024 Sleep apnea, unspecified type (ICD-10 - G47.30) He reports excessive snoring and daytime somnolence. He says he never feels like he got a good night sleep. I've ordered a sleep study to assess for sleep apnea. 03/29/2024 Psoriatic arthritis (ICD-10 - L40.50) I have ordered x-rays of both hands and wrist and referred him to a grants director.He was given methotrexate. He continues on methotrexate at the current dose.A CBC has been ordered. Plan Of Treatment Medication Medication Name Sig Start Date Stop Date Notes dexAMETHasone 2 MG 1 tablet Orally ever y 12 hrs with food 12/26/2023 Atorvastatin Calcium 10 MG 1 tablet Orally Once a day 11/10 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 Sodium 2.5 MG as directed Orally weekly 03/29 Meloxicam 15 MG TAKE 1 TABLET BY STEPHANE EVERY DAY FOR 30 DAYS Pending Test Test Name Order Date PROFILE, RANDOM (COMPREHENSIVE METABOLIC ) 03/29/2024 CBC WITH AUTO DIFF 03/29/2024 Next Appt Details Follow Up: 2 Months, After t he holidays, Reason: OV, Follow-up on chronic pain management Provider Name:Omi Lopez , 05/16/2025 11:15:00 AM, [address] [place] [address] [address], [place], [phone], Provider Name:Omi Lopez , 12/12/2025 10:00:00 AM, [address] [place] [address] [address], [place], [phone], Progress Notes * Fredrick AGUAYO EDOB:[birth year] (54 yo M)Acc No.[id number]:03/29/2024 Progress Notes Patient: Fredrick CASTANEDA Provider: Brad Lopez MD :1970 A ge:54 Y S ex:Male Date:03/29/2024 Address:[address] [place], [place] [id number] Subjective: * Chief Complaints: * B ilateral hand pain resolvedDisseminated skeletal and soft tissue painDepressionLumbar radiculopathy * HPI: C OVID-19 Screening: Questions H ave you experienced fever, chills, [...] COVID-19 in the past? Y es * : The patient, a 54-year-old male, has been experiencing chronic pain for the past three years. The pain is primarily located in his knees, feet, and a bone on the side of his hand. The patient describes the pain as intense and constant, significantly impacting his quality of life. He reports that the pain is not in his joints and insists that it is not arthritis. The patient has been on medication prescribed by a grants director for about 6-7 weeks, but he reports no improvement in his symptoms. He also mentions having had X-rays of his knees and hands, but no significant findings were reported. The patient also reports a history of back problems, which he believes may be muscle-related. He is currently undergoing therapy for this issue. The patient also mentions having a colonoscopy scheduled for the following week. * ROS: G eneral/Constitutional: Admits p ain, T runk and extremities, primarily muscle and bone, stairs joints. C hills d enies. F atigue a dmits. F ever d enies.? E NT: Decreased hearing d enies. R espiratory: Cough d enies. C ardiovascular: Chest pain with exertion d [...] enies.?Headache d enies. L ow back pain d enies. P sychiatric: Depressed mood w hich is moderate. * Medical History: * Surgical History: r ight fourth finger crush injury repaired lumbar spine discectomy, Dr. Franco 2010Cologard test age 49 negative No history * Hospitalization/Major Diagno stic Procedure: Tavo reveles [facility] 2021No history * Family History: F ather: alive 85 yrs, Coronary artery disease, myocardial infarction, alcoholism, hypertension, quadruple bypass surgery, diagnosed with CVD, HTN, Hyperlipidemia. M other: alive 79 yrs, Good health. [...] User M oderate cigarette smoker (10-19 cigs/day) * Medications: T aking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 Sodium 2.5 MG Tablet as directed Orally weekly Meloxicam 15 MG Tablet TAKE 1 TABLET BY MOUTH EVERY DAY FOR 30 DAYS Atorvastatin Calcium 10 MG Tablet 1 tablet Orally Once a day dexAMETHasone 2 MG Tablet 1 tablet Orally every 12 hrs with food Medication List reviewed and reconciled with the patientTaking 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 Sodium 2.5 MG Tablet as directed Orally weekly Taking Meloxicam 15 MG Tablet TAKE 1 TABLET BY MOUTH EVERY DAY FOR 30 DAYS Taking Atorvastatin Calcium 10 MG Tablet 1 tablet Orally Once a day Taking dexAMETHasone 2 MG Tablet 1 tablet Orally every 12 hrs with food Medication List reviewed and reconciled with the patient * Allergies: N o Known Drug Allergyno[Allergies Verified] Objective: * Vitals: H t: 73, Wt: 217, BMI:28.63, BP: 118/50, HR: 97, Temp: 98.8, Wt-k.43. * Examination: G eneral Examination: GENERAL APPEARANCE: p leasant, well nourished, well developed, in no acute distress, calm and relaxed, overweight, man. HEAD: a traumatic, normocephalic. EYES: e [place], perrla, anicteric, conjugate. EARS: n ormal. NOSE: s eptum intact. ORAL CAVITY: n ormal, unremarkable. NECK/THYROID: n o jugular venous distention, no carotid bruit, thyroid normal. LYMPH NODES: n o enlarged lymph nodes,spleen normal. SKIN: n o suspicious lesions, anicteric. HEART: n o clicks, gallops, murmurs, or rubs, regular rhythm, S1, S2 normal, no s3, or vascular bruits. LUNGS: , diminished breath sounds throughout, good air movement, no wheezes, rales, rhonchi. BREASTS: no masses palpable bilaterally. ABDOMEN: b owel sounds normal, no ascites, no organomegaly, no mass, overweight. RECTAL EXAM: n ot examined. MUSCULOSKELETAL: e xtremities unremarkable, no clubbing, cyanosis or edema, No muscle spasm. PERIPHERAL PULSES: n ormal. NEUROLOGIC: a lert and oriented, cranial nerves 2-12 grossly intact, deep tendon reflexes 2+ symmetrical, motor strength normal upper and lower extremities, sensory exam intact. PSYCH: a lert, oriented, anxious appearing, mood depressed, speech diminished output, volume. Assessment: * Assessment: 1. L umbar radiculopathy - M54.16 (Primary) N otes :His back pain is significantly improved and he is working without difficulty at this time. He was encouraged to avoid heavy lifting. 2 . T obacco dependence - F17.200 N otes :He continues to smoke 10-20 cigarettes daily. We have discussed the health consequences of smoking. We have developed several strategies for smoking cessation. 3 . H istory of depression - Z86.59 N otes :He continues to decline a prescription for an antidepressant R for psychotherapy. I will continue to discuss this issue with him. 4 . C erebrovascular accident (CVA) due to occlusion of other cerebral artery - I63.59 N otes :His reflexes and muscle strength are now symmetrical, and his gait is unimpaired. His speech has returned to normal and he has no word finding. The deficits from the small stroke have resolved. He has returned to work. He will continue on antiplatelet drugs. 5 . M ixed hyperlipidemia - E78.2 N otes :The current lipid profile shows a total cholesterol of 287 He says he was fasting. He has resumed taking his atorvastatin, and a repeat value will be ordered in a few weeks. 6 . O verweight (BMI 25.0-29.9) - E66.3 N otes :He has lost 2 pounds and his body mass index is 29. We discussed his diet and nutrition today. We reviewed his weight loss strategy. We made a plan to lose weight at a rate of one half of a pound per week through a diet restricted in fact calories and sodium combined with regular physical activity. 7 . B PH (benign prostatic hyperplasia) - N40.0 N otes :He arises from sleep once a night to urinate. I told him. This was about average. We discussed lifestyle modification as a way to reduce nocturia. 8 . S leep apnea, unspecified type - G47.30 N otes :He reports excessive snoring and daytime somnolence. He says he never feels like he got a good night sleep. I've ordered a sleep study to assess for sleep apnea. 9 . P soriatic arthritis - L40.50 N otes :I have ordered x-rays of both hands and wrist and referred him to a grants director.He was given methotrexate. He continues on methotrexate at the current dose.A CBC has been ordered. Plan: * Treatment: 2. M ixed hyperlipidemia L AB: PROFILE, RANDOM (COMPREHENSIVE METABOLIC) L AB: CBC WITH AUTO DIFF L AB: Lipid Panel (Collection Date & Time - 03/29/2024 04:30 PM) Value Reference Range T riglycerides 252 H <150 - mg/dL * C holesterol 227 H <200 - mg/dL * L DL Cholesterol Calculated 139 H <100 - mg/dL * H DL Cholesterol 38 L >40 - mg/dL 3.?Overweight (BMI 25.0-29.9)?LAB: PROFILE, RANDOM (COMPREHENSIVE METABOLIC) ?LAB: CBC WITH AUTO DIFF ?LAB: Lipid Panel (Collection Date & Time - 03/29/2024 04:30 PM)* Value Reference Range T riglycerides 252 H <150 - mg/dL * C holesterol 227 H <200 - mg/dL * L DL Cholesterol Calculated 139 H <100 - mg/dL * H DL Cholesterol 38 L >40 - mg/dL 4.?Others? Continue dexAMETHasone Tablet, 2 MG, 1 tablet, Orally, every 12 hrs with food.?? * Procedure Codes: * Preventive Medicine: Counseling: [...] of tobacco use and urged to quit. 05/29/2023 Patient Lifestyle Goals P atient wants to quit Treatment Goals C ut down by 1 cigarette a week, Set a quit date Barriers S tress, Social smoker Self-Management Plan M leighton a plan to cut down number of cigarettes over time and set a date to work towards quitting * Follow Up: 2 Months, After the holidays (Reason: OV, Follow-up on chronic pain management) * Images: * Sign off status: Completed true * Provider: Brad Lopez MD Date: 05/29/2023 Generated for Marki ng/Heather/eTransmitting on: 06/23/2024 08:24 PM EST History and Physical Notes * HPI (History of Present Illness) Category Sub-Category Detail Notes COVID-19 Screening Questions Have you had any new onset fever, chills, cough, congestion, sore throat, shortness of breath, muscle aches?: No Have you been exposed to the virus withi n the last 10 days?: No Have you travelled internationally in last 10 days?: No Have you been exposed to COVID-19 in the past?: Yes Examination Category Sub-Category Detail Notes General Examination GENERAL APPEARANCE: pleasant , well nourished, well developed, in no acute distress, calm and relaxed, overweight, man HEAD: atraumatic, normocep halic EYES: eomi, perrla, anicte jhonny, conjugate EARS: normal NOSE: septum intact NECK/THYROID: no jugular venous di stention, no carotid bruit, thyroid normal HEART: no clicks, gallops, murmurs, or rubs, regular rhythm, S1, S2 normal, no s3, or vascular bruits LUNGS: , diminished breath sounds throughout, good air movement, no wheezes, rales, rhonchi ABDOMEN: bowel sounds normal, no ascites, no organomegaly, no mass, overweight NEUROLOGIC: alert and oriented, cranial nerves 2-12 grossly intact, deep tendon reflexes 2+ symmetrical, motor strength normal upper and lower extremities, sensory exam intact SKIN: no suspicious lesion s, anicteric PERIPHERAL PULSES: normal BREASTS: no masses palpable b ilaterally MUSCULOSKELETAL: extremities unremark able, no clubbing, cyanosis or edema, No muscle spasm LYMPH NODES: no enlarged lymph no tirso,spleen normal RECTAL EXAM: not examined PSYCH: alert, oriented, anx ious appearing, mood depressed, speech diminished output, volume ORAL CAVITY: normal, unremarkable
--- OUTSIDE RECORDS SUMMARY | 2024-04-06 08:00 | XMS_ITS ---
Author Organization [facility] Address [address] [place] [phone] Care Team Providers Care Continuous Weld Pipe Mill Supervisor Name Role Phone Jessica JAMES, Omi Primary Care Provider UnavailRichard Cutler Jr Unavailable [phone] REASON FOR VISIT screening Encounters Encounter Location Date Provider Diagnosis [facility] [place] [address] [place] [id number] 04/06/2024 Richard Hughes Jr Colon cancer screening Z12.11 Assessments Encounter Date Diagnosis (ICD Code) Assessment Notes Treatment Notes Treatment Clinical Notes Section Notes 04/06/2024 Colon cancer screening (ICD-10 - Z12.11) Plan Of Treatment No Information Progress Notes * SAMINASHARITA WAGONERDOB:1970 (55 yo M)Acc No.[id number]:04/06/2024 COLON WITH MAC Patient: SHARITA CASTANEDA Provider: Marialuisa Hughes MD :1970 A ge:54 Y S ex:Male Date:04/06/2024 Address:[address] [place], [place] [id number] Pcp:Omi Lopez MD Subjective: * Chief Complaints: * S creening Assessment: * Assessment: 1. C olon cancer screening - Z12.11 (Primary) Plan: * Procedure Codes: 4 5378 DIAGNOSTIC [id number] INTRVL 3+YRS PTS CLNSCP [id number] RCMND FLW-UP 10 YRS DOCD Billing Information: * Procedure Codes: 00276 DIAGNOSTIC COLONOSCOPY. 0529F INTRVL 3+YRS PTS CLNSCP DOCD. 0528F RCMND FLW-UP 10 YRS DOCD. * The named appointment provid er may or may not be the originator of this progress note, and it is not deemed complete until electronically signed by the appointment provider. Sign off status: Pending * Provider: Marialuisa Hughes MD Date: 06/06/2023 Generated for Molina sanchez/Heather/Chelsiitting on: 06/23/2024 08:25 PM EST
--- OUTSIDE RECORDS SUMMARY | 2024-05-31 06:15 | XMS_ITS ---
Author Organization Omi Lopez III, MD Address [address] [place] [address] [place] [address] Care Team Providers Care Botany Technician Name Role Phone Dr. Omi Lopez III Primary Care Provider [phone] Allergies Allergen (clinical drug ingredient) Drug/Non Drug Allergy documented on EMR Reaction Allergy Type Onset Date Status No Known Drug Allergy Unknown Drug Allergy Active Reason For Referral Reason achilles tendon and heal pain Diagnosis 1 Heel pain, unspecifi ed laterality (M79.673) Referral Organization Omi Lopez III, MD Referring Provider First Name Omi Referring Provider Last Name Jessica Referring Provider Speciality Internal edicine Referred Provider [facility] Aracely kimberly Wallace Referred Provider Specialty Podiatry General Notes Maria Isabel Vo [facility] 05/31 01:41:59 PM > patient given contact information to call the podiatry office and set up his own appointment and then call the office with the appt information Referral Priority Routine Reason sleep apnea Diagnosis 1 Sleep apnea, unspeci fied type (G47.30) Referral Organization Omi Lopez III, MD Referring Provider First Name Omi Referring Provider Last Name Jessica Referring Provider Speciality Internal edicine Referred Provider PRAMOD TAMAYO Referred Provider Specialty Pulmonary Di seases General Notes Kristy VoMaria Isabel [facility] 05/31 01:33:45 PM > Called Dr. Tamayo office spoke to Haley cornell pt appt with Dr Tamayo for Friday06/07/2024 ta 1:45pm information called and mailed to patient Referral Priority Routine Referral Appointment Date 06/07/2024 REASON FOR VISIT Depression, Lumbar radiculopathy, Tobacco dependence, Chronic low back pain, Obesity, Benign prostatic hypertrophy, Sleep apnea Medications Medication SIG (Take, Route, Frequency, Duration) Notes Start Date End Date Status dexAMETHasone 2 MG 1 tablet Orally ever y 12 hrs with food 12/26/2023 Active 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 Sodium 2.5 MG as directed Orally weekly 03/29/2024 Active Celecoxib 200 MG Oral Act armin Otezla 30 MG Oral Active Folic Acid 1 MG Oral Acti ve Meloxicam 15 MG TAKE 1 TABLET BY STEPHANE TH EVERY DAY FOR 30 DAYS Active Atorvastatin Calcium 10 MG 1 tablet Oral ly Once a day 12/08/2023 Active Social History Tobacco Use: Social History [...] cigarette smoker (10-19 cigs/day) Vital Signs Temperature 98.1 degrees Fahrenheit 05/31/19 25 Blood pressure systolic 140 mm Hg 05/31/19 25 Blood pressure diastolic 60 mm Hg 025 Heart Rate 72 /min 05/31/2024 Height 73 in 05/31/2024 Weight 225 lbs 05/31/2024 BMI 29.68 kg/m2 05/31/2024 Encounters Encounter Location Date Provider Diagnosis Omi Lopez III, MD [address] [place] [address] [facility] [address] 05/31/2024 Omi Lopez Lumbar radiculopathy M54.16 ; Tobacco dependence F17.200 ; History of depression Z86.59 ; Cerebrovascular accident (CVA) due to occlusion of other cerebral artery I63.59 ; Mixed hyperlipidemia E78.2 ; Degenerative disc disease at L5-S1 level M51.36 ; BPH (benign prostatic hyperplasia) N40.0 and Psoriasis L40.9 Assessments Encounter Date Diagnosis (ICD Code) Assessment Notes Treat ment Notes Treatment Clinical Notes 05/31/2024 Lumbar radiculopathy (ICD-10 - M54.16) His back pain is significantly improved and he is working without difficulty at this time. He was encouraged to avoid heavy lifting. 05/31/2024 Tobacco dependence (ICD-10 - F17.200) He continues to smoke 10-20 cigarettes daily. We have discussed the health consequences of smoking. We have developed several strategies for smoking cessation. 05/31/2024 History of depressio n (ICD-10 - Z86.59) He continues to decline a prescription for an antidepressant R for psychotherapy. I will continue to discuss this issue with him. 05/31/2024 Cerebrovascular accident (CVA) due to occlusion of other cerebral artery (ICD-10 - I63.59) His reflexes and muscle strength are now symmetrical, and his gait is unimpaired. His speech has returned to normal and he has no word finding. The deficits from the small stroke have resolved. He has returned to work. He will continue on antiplatelet drugs. 05/31/2024 Mixed hyperlipidemia (ICD-10 - E78.2) The current lipid profile shows a total cholesterol of 227 He was fasting. He has resumed taking his atorvastatin, and a repeat value will be ordered in a few weeks. 05/31/2024 Degenerative disc disease at L5-S1 level (ICD-10 - M51.36) His pain is not improved with an adequate trial of medication. He has been referred to rehabilitation medicine and pain control for injections and physical therapy. 05/31/2024 BPH (benign prostati c hyperplasia) (ICD-10 - N40.0) He arises from sleep once a night to urinate. I told him. This was about average. We discussed lifestyle modification as a way to reduce nocturia. 05/31/2024 Psoriasis (ICD-10 - L40.9) He is being treated at this time by the robotics technician. He has been compliant with treatment. Plan Of Treatment Medication Medication Name Sig Start Date Stop Date Notes dexAMETHasone 2 MG 1 tablet Orally ever y 12 hrs with food 12/26/2023 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 Sodium 2.5 MG as directed Orally weekly 03/29 Celecoxib 200 MG Oral Otezla 30 MG Oral Folic Acid 1 MG Oral Meloxicam 15 MG TAKE 1 TABLET BY STEPHANE TH EVERY DAY FOR 30 DAYS Atorvastatin Calcium 10 MG 1 tablet Orally Once a day 11/10 Referrals Referral Date Details 05/31/2024 05/31/2024, achilles tendon and heal pain, [facility] 05/31/2024 05/31/2024, sleep ap PRAMOD ag Next Appt Details Follow Up: 6 Weeks, In six w eeks, Reason: ov no tests, To monitor the patient's joint pain and discuss the effectiveness of new treatments. Provider Name:Omi Lopez , 05/16/2025 11:15:00 AM, [address] [place] [address] [address], [place], [address], Provider Name:Omi Lopez , 12/12/2025 10:00:00 AM, [address] [place] [address] [address], [place], [address], Progress Notes * Fredrick AGUAYO EDOB:[birth year] (54 yo M)Acc No.[id number]:05/31/2024 Progress Notes Patient: Tavo AVITIAFredrick ADAN Lesley Provider: Brad Lopez MD :1970 A ge:54 Y S ex:Male Date:05/31/2024 Address:[address] [place], [place] [id number] Subjective: * Chief Complaints: * D epressionLumbar radiculopathyTobacco dependenceChronic low back painObesityBenign prostatic hypertrophySleep apnea * HPI: C OVID-19 Screening: Questions H ave you had any new onset fever, chills, cough, congestion, sore throat, shortness of breath, muscle aches? N o * : The patient, a 54-year-old male, has been experiencing persistent pain in his joints, particularly in his feet, heels, and knees. He reports that the pain feels like someone is jabbing a nail into his foot and that his feet are stiff every morning. He also experiences numbness in his feet, particularly when he is relaxing or lying down. The patient has been dealing with these symptoms for over a year. He also reports having had a stroke and being bedridden for a while. After he started moving around again, he began experiencing the joint pain. He has had X-rays of his hands and knees, and MRIs of his back, but no abnormalities were found. The patient has been taking Meloxicam for the pain, but reports that it is not working. He has also tried turmeric and acupuncture, but these have not alleviated his symptoms. The patient also reports feeling a little weird in his head and that his speech is a little off. * ROS: G eneral/Constitutional: Admits p ain, C hronic low back pain. C hills d enies. F atigue a dmits. F ever d enies. E NT: Decreased hearing d enies. R espiratory: Cough n on-productive. C ardiovascular: Chest pain with exertion d enies. D yspnea on exertion?denies. S hortness of breath w ith exertion. G astrointestinal: Constipation o ccasional. D ecreased [...] No history * Hospitalization/Major Diagno stic Procedure: [facility] 2021No history * Family History: F ather: alive 85 yrs, diagnosed with CVD, HTN, Hyperlipidemia. M other: alive 79 yrs.?Siblings: alive. 1 brother(s) , 1 sister(s) . . [...] cigarette smoker (10-19 cigs/day) * Medications: T akingMeloxicam 15 MG Tablet TAKE 1 TABLET BY MOUTH EVERY DAY FOR 30 DAYS Atorvastatin Calcium 10 MG Tablet 1 tablet Orally Once a day 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 Sodium 2.5 MG Tablet as directed Orally weekly Celecoxib 200 MG Capsule Oral Folic Acid 1 MG Tablet Oral Otezla 30 MG Tablet Oral Medication List reviewed and reconciled with the patientTaking Meloxicam 15 MG Tablet TAKE 1 TABLET BY MOUTH EVERY DAY FOR 30 DAYS Taking Atorvastatin Calcium 10 MG Tablet 1 tablet Orally Once a day Taking 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 Sodium 2.5 MG Tablet as directed Orally weekly Taking Celecoxib 200 MG Capsule Oral Taking Folic Acid 1 MG Tablet Oral Taking Otezla 30 MG Tablet Oral Medication List reviewed and reconciled with the patient * Allergies: N o Known Drug Allergyno[Allergies Verified] Objective: * Vitals: H t: 73, Wt: 225, BMI:29.68, BP: 140/60, HR: 72, Temp: 98.1, Wt-k.06. * P ast Orders: Lab:Comprehensive Met. Panel * Collection Date 03/29/2024 03/29/2024 09/23/2022 Collection Time 04:30 PM 04:30 PM 10:42 AM Order Date 03/29/2024 03/29/2024 09/23/2022 Sodium 143 (Ref Range: 135-145 mmol/L) 143 (Ref Range: 135-145 mmol/L) 143 (Ref Range: 135-145 mmol/L) Bilirubin Total 0.5 (Ref Range: 0.0-1.0 mg/dL) 0.5 (Ref Range: 0.0-1.0 mg/dL) 0.6 (Ref Range: 0.0-1.0 mg/dL) Aspartate Amino Transferase 27 (Ref Range: 5-37 U/L) 29 (Ref Range: 5-37 U/L) 15 (Ref Range: 5-37 U/L) Alanine Aminotransferase 64 H (Ref Range: 0-40 U/L) 67 H (Ref Range: 0-40 U/L) 28 (Ref Range: 0-40 U/L) Total Protein 6.9 (Ref Range: 6.5-8.0 g/dL) 6.9 (Ref Range: 6.5-8.0 g/dL) 6.7 (Ref Range: 6.5-8.0 g/dL) Albumin Level 4.2 (Ref Range: 3.5-5.0 g/dL) 4.2 (Ref Range: 3.5-5.0 g/dL) 4.4 (Ref Range: 3.5-5.0 g/dL) Alkaline Phosphatase 77 (Ref Range: 39-117 U/L) 77 (Ref Range: 39-117 U/L) 63 (Ref Range: 39-117 U/L) Potassium 4.2 (Ref Range: 3.3-5.1 mmol/L) 4.2 (Ref Range: 3.3-5.1 mmol/L) 4.4 (Ref Range: 3.3-5.1 mmol/L) Chloride 108 (Ref Range: 96-108 mmol/L) 108 (Ref Range: 96-108 mmol/L) 108 (Ref Range: 96-108 mmol/L) Carbon Dioxide 29 (Ref Range: 22-29 mmol/L) 29 (Ref Range: 22-29 mmol/L) 28 (Ref Range: 22-29 mmol/L) Anion Gap 10 L (Ref Range: 12-20) 10 L (Ref Range: 12-20) 11 L (Ref Range: 12-20) Blood Urea Nitrogen 18 H (Ref Range: 9-16 mg/dL) 18 H (Ref Range: 9-16 mg/dL) 12 (Ref Range: 9-16 mg/dL) Creatinine 1.05 (Ref Range: 0.5-1.4 mg/dL) 1.07 (Ref Range: 0.5-1.4 mg/dL) 1.00 (Ref Range: 0.5-1.4 mg/dL) Estimated Glomerular Filt Rate > 60 > 60 > 60 Glucose Random 80 (Ref Range: 60-115 mg/dL) 80 (Ref Range: 60-115 mg/dL) 101 (Ref Range: 60-115 mg/dL) Calcium 9.5 (Ref Range: 8.4-10.2 mg/dL) 9.1 (Ref Range: 8.4-10.2 mg/dL) 10.0 (Ref Range: 8.4-10.2 mg/dL) ???Lab:C Reactive Protein (Order Date - 03/29/2024) (Collection Date & Time - 03/29/2024 04:30 PM)?ValueReference Range?C Reactive Protein0.34< or = 0.50 - mg/dL ???Lab:HLA B27 (Order Date - 03/29/2024) (Collection Date & Time - 03/29/2024 04:30 PM)?ValueReference Range?HLA [id number] - * Lab:Lipid Panel * Collection Date 03/29/2024 11/17/2023 09/23/2022 Collection Time 04:30 PM 09:32 AM 10:42 AM Order Date 03/29/2024 11/17/2023 09/23/2022 Triglycerides 252 H (Ref Range: <150 mg/dL) 188 H (Ref Range: <150 mg/dL) 142 (Ref Range: mg/dL) Cholesterol 227 H (Ref Range: <200 mg/dL) 287 H (Ref Range: <200 mg/dL) 319 (Ref Range: mg/dL) LDL Cholesterol Calculated 139 H (Ref Range: <100 mg/dL) 215 H (Ref Range: <100 mg/dL) 251 (Ref Range: mg/dl) HDL Cholesterol 38 L (Ref Range: >40 mg/dL) 35 L (Ref Range: >40 mg/dL) 40 (Ref Range: mg/dL) Clinical Info: CC: Dr Violeta Zurita , PLEASE FAX COMPLETED RESULTS TO [phone] ???Lab:Hepatitis A,B,C Profile (Order Date - 03/29/2024) (Collection Date & Time - 03/29/2024 04:30 PM)?ValueReference Range?Hepatitis B Surface AntibodyNONREACTIVENonreactive -? Hepatitis A Antibody IgMNonreactive Nonreactive -?Hepatitis B Core AntibodyNonreactiveNonreactive -? Hepatitis C AntibodyNonreactiveNonreactive -?Hepatitis B Surface Antigen NegativeNegative - * Lab:Complete Blood Count Aut o Diff * Collection Date 03/29/2024 03/29/2024 11/17/2023 Collection Time 04:30 PM 04:30 PM 09:32 AM Order Date 03/29/2024 03/29/2024 11/17/2023 White Blood Count 9.8 (Ref Range: 4.8-10.8 X10*3/uL) 9.8 (Ref Range: 4.8-10.8 X10*3/uL) 10.8 (Ref Range: 4.8-10.8 X10*3/uL) Red Blood Count 5.42 (Ref Range: 4.60-5.80 X10*6/uL) 5.46 (Ref Range: 4.60-5.80 X10*6/uL) 5.71 (Ref Range: 4.60-5.80 X10*6/uL) Hemoglobin 17.1 (Ref Range: 14.0-18.0 g/dl) 17.0 (Ref Range: 14.0-18.0 g/dl) 17.8 (Ref Range: 14.0-18.0 g/dl) Hematocrit 50.7 (Ref Range: 42.0-52.0 %) 51.0 (Ref Range: 42.0-52.0 %) 51.8 (Ref Range: 42.0-52.0 %) Mean Corpuscular Volume 93.5 (Ref Range: 80.0-98.0 fL) 93.4 (Ref Range: 80.0-98.0 fL) 90.7 (Ref Range: 80.0-98.0 fL) Mean Corpuscular Hemoglobin 31.5 (Ref Range: 27.0-33.0 pg) 31.1 (Ref Range: 27.0-33.0 pg) 31.2 (Ref Range: 27.0-33.0 pg) Mean Corpuscular HGB Conc 33.7 (Ref Range: 31.0-36.0 g/dl) 33.3 (Ref Range: 31.0-36.0 g/dl) 34.4 (Ref Range: 31.0-36.0 g/dl) Red Cell Distribution Width 13.6 (Ref Range: 11.0-16.0 %) 13.7 (Ref Range: 11.0-16.0 %) 12.9 (Ref Range: 11.0-16.0 %) Platelet Count 263 (Ref Range: 160-400 X10*3/uL) 269 (Ref Range: 160-400 X10*3/uL) 274 (Ref Range: 160-400 X10*3/uL) Mean Platelet Volume 9.3 L (Ref Range: 9.4-12.4 fL) 9.3 L (Ref Range: 9.4-12.4 fL) 9.7 (Ref Range: 9.4-12.4 fL) Neutrophils Percent Auto 65.8 (Ref Range: 45-73 %) 64.7 (Ref Range: 45-73 %) 76.6 H (Ref Range: 45-73 %) Imm Gran Pct Auto 0.4 (Ref Range: 0.0-0.4 %) 0.3 (Ref Range: 0.0-0.4 %) 0.5 H (Ref Range: 0.0-0.4 %) Lymphocytes Percent Auto 24.9 (Ref Range: 20-40 %) 25.3 (Ref Range: 20-40 %) 15.9 L (Ref Range: 20-40 %) Monocytes Percent Auto 6.3 (Ref Range: 2-11 %) 7.3 (Ref Range: 2-11 %) 5.4 (Ref Range: 2-11 %) Eosinophils Percent Auto 2.0 (Ref Range: 0-4 %) 1.9 (Ref Range: 0-4 %) 0.9 (Ref Range: 0-4 %) Basophils Percent Auto 0.6 (Ref Range: 0-2 %) 0.5 (Ref Range: 0-2 %) 0.7 (Ref Range: 0-2 %) NRBC Pct Auto 0.0 (Ref Range: 0.0-0.2 /100WBC) 0.0 (Ref Range: 0.0-0.2 /100WBC) 0.0 (Ref Range: 0.0-0.2 /100WBC) Neutrophils Absolute Auto 6.4 (Ref Range: 2.0-8.3 x10*3/uL) 6.3 (Ref Range: 2.0-8.3 x10*3/uL) 8.2 (Ref Range: 2.0-8.3 x10*3/uL) Imm Gran Abs Auto 0.04 H (Ref Range: 0.00-0.03 X10*3/uL) 0.03 (Ref Range: 0.00-0.03 X10*3/uL) 0.05 H (Ref Range: 0.00-0.03 X10*3/uL) Lymphocytes Absolute Auto 2.4 (Ref Range: 1.2-4.9 X10*3/uL) 2.5 (Ref Range: 1.2-4.9 X10*3/uL) 1.7 (Ref Range: 1.2-4.9 X10*3/uL) Monocytes Absolute Auto 0.6 (Ref Range: 0.1-1.2 X10*3/uL) 0.7 (Ref Range: 0.1-1.2 X10*3/uL) 0.6 (Ref Range: 0.1-1.2 X10*3/uL) Eosinophils Absolute Auto 0.2 (Ref Range: 0.0-0.4 X10*3/uL) 0.2 (Ref Range: 0.0-0.4 X10*3/uL) 0.1 (Ref Range: 0.0-0.4 X10*3/uL) Basophils Absolute Auto 0.1 (Ref Range: 0.0-0.2 X10*3/uL) 0.1 (Ref Range: 0.0-0.2 X10*3/uL) 0.1 (Ref Range: 0.0-0.2 X10*3/uL) NRBC Abs Auto 0.000 (Ref Range: 0.0-0.012 X10*3/uL) 0.000 (Ref Range: 0.0-0.012 X10*3/uL) 0.000 (Ref Range: 0.0-0.012 X10*3/uL) ???Lab:Erythrocyte Sedimentation Rate (Order Date - 03/29/2024) (Collection Date & Time - 03/29/2024 04:30 PM)?ValueReference Range?Erythrocyte Sedimentation [id number] - MM/HR * Examination: G eneral Examination: GENERAL APPEARANCE: p leasant, well nourished, well developed, in no acute distress, Anxious overweight man. HEAD: a traumatic, normocephalic. EYES: e [...] vascular bruits. LUNGS: , diminished breath sounds throughout. BREASTS: no masses palpable bilaterally. ABDOMEN: b owel sounds normal, no ascites, no organomegaly, no mass, overweight. RECTAL EXAM: n ot examined. MUSCULOSKELETAL: e xtremities unremarkable, no clubbing, cyanosis or edema, Mild decreased range of motion lumbar spine. PERIPHERAL PULSES: n ormal. NEUROLOGIC: a lert and oriented, cranial nerves 2-12 grossly intact, deep tendon reflexes 2+ symmetrical, motor strength normal upper and lower extremities, sensory exam intact. PSYCH: a lert, oriented, anxious appearing, mood depressed.? Assessment: * Assessment: 1. L umbar radiculopathy [...] lipid profile shows a total cholesterol of 227 He was fasting. He has resumed taking his atorvastatin, and a repeat value will be ordered in a few weeks. 6 . D egenerative disc disease at L5-S1 level - M51.36 N otes :His pain is not improved with an adequate trial of medication. He has been referred to rehabilitation medicine and pain control for injections and physical therapy. 7 . B PH (benign prostatic hyperplasia) - N40.0 N otes :He arises from sleep once a night to urinate. I told him. This was about average. We discussed lifestyle modification as a way to reduce nocturia. 8 . P soriasis - L40.9 N otes :He is being treated at this time by the robotics technician. He has been compliant with treatment. Plan: * Treatment: 2. O thers Continue dexAMETHasone Tablet, 2 MG, 1 tablet, Orally, every 12 hrs with food. ? Referral To:[facility] Podiatry Reason:achilles tendon and heal pain Referral To:PRAMOD TAMAYO Pulmonary Diseases Reason:sleep apnea * Procedure Codes: * Preventive Medicine: Counseling: C are goal follow-up plan: Counseling for abnormal BMI given Y es Above Normal BMI Follow-up D ietary management education, guidance, and counseling, Dietary needs education, Exercise promotion: strength training S moking/Tobacco Use Patient counseled on the dangers of tobacco use and urged to quit. 0 05/31/2024 Patient Lifestyle Goals P atient wants to quit Treatment Goals C ut down by 1 cigarette a week, Set a quit date Barriers S ocial smoker Self-Management Plan M leighton a plan to cut down number of cigarettes over time and set a date to work towards quitting * Follow Up: 6 Weeks, In six weeks (Reason: ov no tests, To monitor the patient's joint pain and discuss the effectiveness of new treatments.) * Images: * Sign off status: Completed true * Provider: Brad Lopez MD Date: 0 05/31/2024 Generated for Molina sanchez/Heather/eTransmitting on: 1 06/23/2024 08:25 PM EST History and Physical Notes * HPI (History of Present Illness) Category Sub-Category Detail Notes COVID-19 Screening Questions Have you had any new onset fever, chills, cough, congestion, sore throat, shortness of breath, muscle aches?: No Examination Category Sub-Category Detail Notes General Examination GENERAL APPEARANCE: pleasant , well nourished, well developed, in no acute distress, Anxious overweight man HEAD: atraumatic, normocep halic EYES: eomi, perrla, anicte jhonny, conjugate EARS: normal NOSE: septum intact NECK/THYROID: no jugular venous di stention, no carotid bruit, thyroid normal HEART: no clicks, gallops, murmurs, or rubs, regular rhythm, S1, S2 normal, no s3, or vascular bruits LUNGS: , diminished breath sounds throughout ABDOMEN: bowel sounds normal, no ascites, no organomegaly, no mass, overweight NEUROLOGIC: alert and oriented, cranial nerves 2-12 grossly intact, deep tendon reflexes 2+ symmetrical, motor strength normal upper and lower extremities, sensory exam intact SKIN: no suspicious lesion s, anicteric PERIPHERAL PULSES: normal BREASTS: no masses palpable b ilaterally MUSCULOSKELETAL: extremities unremark able, no clubbing, cyanosis or edema, Mild decreased range of motion lumbar spine LYMPH NODES: no enlarged lymph no itrso,spleen normal RECTAL EXAM: not examined PSYCH: alert, oriented, anx ious appearing, mood depressed ORAL CAVITY: normal, unremarkable Consultation Request Notes Referral Date Referring Provider Referred Provider Not es 05/31/2024 Omi Lopez [facility], [place] achilles tendon and heal pain 05/31/2024 Omi Lopez [place] sleep apnea
--- OUTSIDE RECORDS SUMMARY | 2024-07-19 06:00 | XMS_ITS ---
Author Organization Omi Lopez III, MD Address [address] [place] [address] Care Team Providers Care Milk Tester Name Role Phone Dr. Omi Lopez III Primary Care Provider [phone] Allergies Allergen (clinical drug ingredient) Drug/Non Drug Allergy documented on EMR Reaction Allergy Type Onset Date Status No Known Drug Allergy Unknown Drug Allergy Active Reason For Referral Reason Evaluate and Treat left eyelid droop due to stroke Diagnosis 1 Ptosis of left eyeli d (H02.402) Referral Organization Omi Lopez III, MD Referring Provider First Name Omi Referring Provider Last Name Jessica Referring Provider Speciality Internal M edicine Referred Provider Eye and Paty Caldwell Referred Provider Specialty Ophthalmolog y General Notes Collette Daly 07/26/2024 11:37:09 AM > Referral faxed with progress note, Collette Daly 07/27/2024 11:31:16 AM > Patient is scheduled for 08/23/24 @ 3pm with Dr. Avelar. Patient is made aware Referral Priority Routine Referral Appointment Date 08/23/2024 REASON FOR VISIT BPH, Lumbar radiculopathy, obesity, psoriatic arthiritis, sleep apnea, CVA, tobacco dependence one pack Medications Medication SIG (Take, Route, Frequency, Duration) Notes Start Date End Date Status Otezla 30 MG Oral Active Celecoxib 200 MG Oral Act armin 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 Sodium 2.5 MG as directed Orally weekly 03/29/2024 Active Folic Acid 1 MG Oral Acti ve dexAMETHasone 2 MG 1 tablet Orally ever [...] cigarette smoker (10-19 cigs/day) Vital Signs Temperature 97.0 degrees Fahrenheit 07/20/19 25 Blood pressure systolic 138 mm Hg 07/20/19 25 Blood pressure diastolic 74 mm Hg 025 Heart Rate 68 /min 07/19/2024 Height 73 in 07/19/2024 Weight 224 lbs 07/19/2024 BMI 29.55 kg/m2 07/19/2024 Encounters Encounter Location Date Provider Diagnosis Omi Lopez III, MD [address] [place] [address] [place] [address] 07/19/2024 Omi Lopez Lumbar radiculopathy M54.16 ; Mixed hyperlipidemia E78.2 ; Overweight (BMI 25.0-29.9) E66.3 ; BPH (benign prostatic hyperplasia) N40.0 ; Psoriasis L40.9 ; Tobacco dependence F17.200 ; History of depression Z86.59 and Psoriatic arthritis L40.50 Assessments Encounter Date Diagnosis (ICD Code) Assessment Notes Treat ment Notes Treatment Clinical Notes 07/19/2024 Lumbar radiculopathy (ICD-10 - M54.16) His back pain is significantly improved and he is working without difficulty at this time. He was encouraged to avoid heavy lifting. 07/19/2024 Mixed hyperlipidemia (ICD-10 - E78.2) Fasting lipid profile has been ordered prior to his next visit. He was instructed to do this fasting. 07/19/2024 Overweight (BMI 25.0-29.9) (ICD-10 - E66.3) His weight is stable. We discussed weight reduction strategies today. We reviewed his diet and nutrition. We made a plan to lose weight at a rate of one half of a pound per week. 07/19/2024 BPH (benign prostatic hyperplasia) (ICD-10 - N40.0) He arises from sleep once a night to urinate. We have discussed lifestyle modifications he could take to reduce nocturia. 07/19/2024 Psoriasis (ICD-10 - L40.9) He is being treated at this time by the munitions handler supervisor. He has been compliant with treatment. 07/19/2024 Tobacco dependence (ICD-10 - F17.200) He continues to smoke 10-20 cigarettes daily. We have discussed the health consequences of smoking. We have developed several strategies for smoking cessation. 07/19/2024 History of depression (ICD-10 - Z86.59) He continues to decline a prescription for an antidepressant R for psychotherapy. I will continue to discuss this issue with him. 07/19/2024 Psoriatic arthritis (ICD-10 - L40.50) I have ordered x-rays of both hands and wrist and referred him to a forest management teacher.He was given methotrexate. He continues on methotrexate at the current dose.A CBC has been ordered. Plan Of Treatment Medication Medication Name Sig Start Date Stop Date Notes Otezla 30 MG Oral Celecoxib 200 MG Oral 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 Sodium 2.5 MG as directed Orally weekly 03/29 Folic Acid 1 MG Oral dexAMETHasone 2 MG 1 tablet Orally ever y 12 hrs with food 12/26/2023 Meloxicam 15 MG TAKE 1 TABLET BY STEPHANE TH EVERY DAY FOR 30 DAYS Atorvastatin Calcium 10 MG 1 tablet Orally Once a day 11/10 Referrals Referral Date Details 07/19/2024 07/19/2024, Evaluate and Treat left eyelid droop due to stroke, [facility] Next Appt Details Follow Up: As Scheduled, Jayne son: Annual Exam Provider Name:Omi Lopez , 05/16/2025 11:15:00 AM, [address] [place] [address] [place], [address], Provider Name:Omi Lopez , 12/12/2025 10:00:00 AM, [address] [place] [address] [place], [address], Progress Notes * Fredrick AGUAYO EDOB:[birth year] (54 yo M)Acc No.[id number]:07/19/2024 Progress Notes Patient: Fredrick CASTANEDA Provider: Brad Lopez MD :1970 A ge:54 Y S ex:Male Date:07/19/2024 Address:[address] [place], [place] [id number] Subjective: * Chief Complaints: * B PHLumbar radiculopathyObesityPsoriatic arthiritisSleep apneaCVATobacco dependence one pack * HPI: C OVID-19 Screening: Ivy wray returns for followup of several medical issues. His back pain has become much better and he is working and ambulating without difficulty. T he psoriatic arthritis is present but mild. He continues to smoke a package of cigarettes daily. We have discussed all of the smoking cessation programs available in the area. He is going to try to cut down on his smoking, but he says he does not think he can stop. He continues to be depressed. He is not suicidal. He has had no further symptoms of stroke. He arises from sleep once a night to urinate. Questions H ave you had any new onset fever, chills, cough, congestion, sore throat, shortness of breath, muscle aches? N o * ROS: G eneral/Constitutional: pain I ntermittent mild low back pain, otherwise only normal aches and pains. C [...] P sychiatric: Depressed mood w hich is mild. * Medical History: * Surgical History: r ight fourth finger crush injury repaired lumbar spine discectomy, Dr. Franco 2010Cologard test age 49 negative No history * Hospitalization/Major Diagno stic Procedure: S an[facility] 2021No history * Family History: F ather: alive 85 yrs, diagnosed with HTN, Hyperlipidemia, CVD. M other: alive 79 yrs.?Siblings: alive. 1 [...] cigarette smoker (10-19 cigs/day) * Medications: T akingAtorvastatin Calcium 10 MG Tablet 1 tablet Orally Once a day 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 Sodium 2.5 MG Tablet as directed Orally weekly Celecoxib 200 MG Capsule Oral Folic Acid 1 MG Tablet Oral Otezla 30 MG Tablet Oral Taking Atorvastatin Calcium 10 MG Tablet 1 tablet Orally Once a day Taking 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 Sodium 2.5 MG Tablet as directed Orally weekly Taking Celecoxib 200 MG Capsule Oral Taking Folic Acid 1 MG Tablet Oral Taking Otezla 30 MG Tablet Oral DiscontinuedMeloxicam 15 MG Tablet TAKE 1 TABLET BY MOUTH EVERY DAY FOR 30 DAYS dexAMETHasone 2 MG Tablet 1 tablet Orally every 12 hrs with food Medication List reviewed and reconciled with the patientDiscontinued Meloxicam 15 MG Tablet TAKE 1 TABLET BY MOUTH EVERY DAY FOR 30 DAYS Discontinued dexAMETHasone 2 MG Tablet 1 tablet Orally every 12 hrs with food Medication List reviewed and reconciled with the patient * Allergies: N o Known Drug Allergyno[Allergies Verified] Objective: * Vitals: H t: 73, Wt: 224, BMI:29.55, BP: 138/74, HR: 68, Temp: 97.0, Wt-k.6. * Examination: G eneral Examination: GENERAL APPEARANCE: [...] normal, no s3, or vascular bruits. LUNGS: c lear to auscultation . BREASTS: no masses palpable bilaterally. ABDOMEN: b owel sounds normal, no ascites, no organomegaly, no mass, overweight. RECTAL EXAM: n ot examined. MUSCULOSKELETAL: e xtremities unremarkable, no clubbing, cyanosis or edema, Range of motion of knees normal, mild decreased range of motion lumbar spine. PERIPHERAL PULSES: n ormal. NEUROLOGIC: a lert and oriented, cranial nerves 2-12 grossly intact, deep tendon reflexes 2+ symmetrical, motor strength normal upper and lower extremities, sensory exam intact. PSYCH: a lert, oriented. Assessment: * Assessment: 1. L umbar radiculopathy - M54.16 (Primary) N otes :His back pain is significantly improved and he is working without difficulty at this time. He was encouraged to avoid heavy lifting. 2 . M ixed hyperlipidemia - E78.2 N otes :Fasting lipid profile has been ordered prior to his next visit. He was instructed to do this fasting. 3 . O verweight (BMI 25.0-29.9) - E66.3 N otes :His weight is stable. We discussed weight reduction strategies today. We reviewed his diet and nutrition. We made a plan to lose weight at a rate of one half of a pound per week. 4 . B PH (benign prostatic hyperplasia) - N40.0 N otes :He arises from sleep once a night to urinate. We have discussed lifestyle modifications he could take to reduce nocturia. 5 . P soriasis - L40.9 N otes :He is being treated at this time by the munitions handler supervisor. He has been compliant with treatment. 6 . T obacco dependence - F17.200 N otes :He continues to smoke 10-20 cigarettes daily. We have discussed the health consequences of smoking. We have developed several strategies for smoking cessation. 7 . H istory of depression - Z86.59 N otes :He continues to decline a prescription for an antidepressant R for psychotherapy. I will continue to discuss this issue with him. 8 . P soriatic arthritis - L40.50 N otes :I have ordered x-rays of both hands and wrist and referred him to a forest management teacher.He was given methotrexate. He continues on methotrexate at the current dose.A CBC has been ordered. Plan: * Treatment: 2. M ixed hyperlipidemia L AB: PROFILE, FASTING (COMPREHENSIVE METABOLIC) L AB: PSA, TOTAL L AB: CBC WITH AUTO DIFF L AB: Lipid Panel 3. O verweight (BMI 25.0-29.9) L AB: PROFILE, FASTING (COMPREHENSIVE METABOLIC) L AB: PSA, TOTAL L AB: CBC WITH AUTO DIFF L AB: Lipid Panel 4. B PH (benign prostatic hyperplasia) L AB: PROFILE, FASTING (COMPREHENSIVE METABOLIC) L AB: PSA, TOTAL L AB: CBC WITH AUTO DIFF L AB: Lipid Panel 5. O thers Continue dexAMETHasone Tablet, 2 MG, 1 tablet, Orally, every 12 hrs with food. ? Referral To:[facility] Reason:Evaluate and Treat left eyelid droop due to stroke * Procedure Codes: * Preventive Medicine: Counseling: C are goal follow-up plan: Counseling for abnormal BMI given Y es Above Normal BMI Follow-up D ietary management education, guidance, and counseling, Dietary needs education S moking/Tobacco Use Patient counseled on the dangers of tobacco use and urged to quit. 0 07/19/2024 Patient Lifestyle Goals P atient wants to quit Treatment Goals S et a quit date, Cut down by 1 cigarette a week Barriers S ocial smoker, Stress Self-Management Plan M leighton a plan to cut down number of cigarettes over time and set a date to work towards quitting * Follow Up: A s Scheduled (Reason: Annual Exam) * Images: * Sign off status: Completed true * Provider: Brad Lopez MD Date: 0 07/19/2024 Generated for Printi ng/Faaleag/eTransmitting on: 1 06/23/2024 08:25 PM EST History [...] normal, no s3, or vascular bruits LUNGS: clear to auscultatio n ABDOMEN: bowel sounds normal, no ascites, no organomegaly, no mass, overweight NEUROLOGIC: alert and oriented, cranial nerves 2-12 grossly intact, deep tendon reflexes 2+ symmetrical, motor strength normal upper and lower extremities, sensory exam intact SKIN: no suspicious lesion s, anicteric PERIPHERAL PULSES: normal BREASTS: no masses palpable b ilaterally MUSCULOSKELETAL: extremities unremark able, no clubbing, cyanosis or edema, Range of motion of knees normal, mild decreased range of motion lumbar spine LYMPH NODES: no enlarged lymph no tirso,spleen normal RECTAL EXAM: not examined PSYCH: alert, oriented ORAL CAVITY: normal, unremarkable Consultation Request Notes Referral Date Referring Provider Referred Provider Not alexander [facility]19[facility]20[facility] left eyelid droop due to stroke
--- OUTSIDE RECORDS SUMMARY | 2024-10-25 11:15 | XMS_ITS ---
Author Organization Omi Lopez III, MD Address [address] [place] [address] [address] [place] [address] Care Team Providers Care Studio Designer Name Role Phone Dr. Omi Lopez III Primary Care Provider [phone] Allergies Allergen (clinical drug ingredient) Drug/Non Drug Allergy documented on EMR Reaction Allergy Type Onset Date Status No Known Drug Allergy Unknown Drug Allergy Active REASON FOR VISIT Dizziness, Vertigo, Lumbar radiculopathy, History of stroke, Depression, Benign prostatic hypertrophy, Sleep apnea Medications Medication SIG (Take, Route, Frequency, Duration) Notes Start Date End Date Status Folic Acid 1 MG Oral Acti ve Otezla 30 MG Oral Active Atorvastatin Calcium 10 MG TAKE 1 TABLET BY MOUTH EVERY DAY FOR 30 DAYS Active 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 Sodium 2.5 MG as directed Orally weekly 03/29/2024 Active Celecoxib 200 MG Oral Act armin Meloxicam 15 MG TAKE 1 TABLET BY STEPHANE TH EVERY DAY FOR 30 DAYS Active dexAMETHasone 2 MG 1 tablet Orally ever y 12 hrs with food 12/26/2023 Active Social History Tobacco Use: Social History [...] User Modera te cigarette smoker (10-19 cigs/day) Problems Problem Type SNOMED Code ICD Code Onset Dates Problem Status W/U Status Risk Notes Problem [id number] Labyrinthitis of both ears (H83.03) Active confirmed His symptoms are not significant enough for meclizine. He will try an antihistamin e. She will report back in 48 hours. He has had no loss of hearing. Vital Signs Height 73 in 10/25/2024 Weight 224 lbs 10/25/2024 BMI 29.55 kg/m2 10/25/2024 Encounters Encounter Location Date Provider Diagnosis Omi Lopez III, MD [address] [place] [address] [place] [address] 10/25/2024 Omi Lopez Lumbar radiculopathy M54.16 ; Labyrinthitis of both ears H83.03 ; Tobacco dependence F17.200 ; Overweight (BMI 25.0-29.9) E66.3 ; Psoriasis L40.9 ; History of depression Z86.59 ; Mixed hyperlipidemia E78.2 ; BPH (benign prostatic hyperplasia) N40.0 ; Cerebrovascular accident (CVA) due to occlusion of other cerebral artery I63.59 ; Sleep apnea, unspecified type G47.30 and Psoriatic arthritis L40.50 Assessments Encounter Date Diagnosis (ICD Code) Assessment Notes Treat ment Notes Treatment Clinical Notes 10/25/2024 Lumbar radiculopathy (ICD-10 - M54.16) 10/25/2024 Labyrinthitis of bot h ears (ICD-10 - H83.03) His symptoms are not significant enough for meclizine. He will try an antihistamine. She will report back in 48 hours. He has had no loss of hearing. 10/25/2024 Tobacco dependence (ICD-10 - F17.200) He continues to smoke 10-20 cigarettes daily. We have discussed the health consequences of smoking. We have developed several strategies for smoking cessation. 10/25/2024 Overweight (BMI 25.0-29.9) (ICD-10 - E66.3) His weight is stable. We discussed weight reduction strategies today. We reviewed his diet and nutrition. We made a plan to lose weight at a rate of one half of a pound per week. 10/25/2024 Psoriasis (ICD-10 - L40.9) He is being treated at this time by the edger tailer. He has been compliant with treatment. 10/25/2024 History of depressio n (ICD-10 - Z86.59) He continues to decline a prescription for an antidepressant R for psychotherapy. I will continue to discuss this issue with him. 10/25/2024 Mixed hyperlipidemia (ICD-10 - E78.2) Fasting lipid profile has been ordered prior to his next visit. He was instructed to do this fasting. 10/25/2024 BPH (benign prostati c hyperplasia) (ICD-10 - N40.0) He arises from sleep once a night to urinate. We have discussed lifestyle modifications he could take to reduce nocturia. 10/25/2024 Cerebrovascular accident (CVA) due to occlusion of other cerebral artery (ICD-10 - I63.59) His reflexes and muscle strength are now symmetrical, and his gait is unimpaired. His speech has returned to normal and he has no word finding. The deficits from the small stroke have resolved. He has returned to work. He will continue on antiplatelet drugs. 10/25/2024 Sleep apnea, unspecified type (ICD-10 - G47.30) He reports excessive snoring and daytime somnolence. He says he never feels like he got a good night sleep. I've ordered a sleep study to assess for sleep apnea. 10/25/2024 Psoriatic arthritis (ICD-10 - L40.50) I have ordered x-rays of both hands and wrist and referred him to a loop tacker.He was given methotrexate. He continues on methotrexate at the current dose.A CBC has been ordered. Plan Of Treatment Medication Medication Name Sig Start Date Stop Date Notes Folic Acid 1 MG Oral Otezla 30 MG Oral Atorvastatin Calcium 10 MG TAKE 1 TABLET BY MOUTH EVERY DAY FOR 30 DAYS 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 Sodium 2.5 MG as directed Orally weekly 03/29 Celecoxib 200 MG Oral Meloxicam 15 MG TAKE 1 TABLET BY STEPHANE TH EVERY DAY FOR 30 DAYS dexAMETHasone 2 MG 1 tablet Orally ever y 12 hrs with food 12/26/2023 Next Appt Details Follow Up: As Scheduled, Jayne son: OV Provider Name:Omi Lopez , 05/16/2025 11:15:00 AM, [address] [place] [address] , [place] [address], [place], [address], Provider Name:Omi Lopez , 12/12/2025 10:00:00 AM, [address] [place] [address] [address], [address], [place], [address], Progress Notes * Fredrick AGUAYO EDOB:[birth year] (54 yo M)Acc No.[id number]:10/25/2024 Patient: Fredrick CASTANEDA Provider: Brad Lopez MD :1970 A ge:54 Y S ex:Male Date:10/25/2024 Address:[address] [place], [place] [address] Subjective: * Chief Complaints: * D izzinessVertigoLumbar radiculopathyHistory of strokeDepressionBenign prostatic hypertrophySleep apnea * HPI: * : He called for a same day visit because of a 2 day history of dizziness upon rising from sleep. His symptoms are typical of vertigo. He feels Unbalanced in the world spins. He has had no recent upper respiratory infection. Several members of his family have vertigo off and on. He was reassured. He was told he could come to the office at any time to be examined. Is going to report by telephone in 48 hours. He will be very careful driving. Telehealth L ocation of provider rendering services: { ...} [address] [facility] [address] L ocation of patient: a ddress listed in demographics for today's visit P atient identification confirmed using: N lui, T elehealth method: T elephone only. Patient not visible to care provider. C onsent: P atient verbally consented to treatment, Patient verbally consented to billing insurance company, Patient informed of any privacy concerns related to method of visit T otal time spent with patient (mins) 1 5 * ROS: G eneral/Constitutional: pain o nly normal aches and pains. C hills d enies.?Fatigue a dmits. F ever d enies. E [...] have been noted. G enitourinary: Frequent urination d enies. M usculoskeletal: Muscle aches d enies. P ainful joints d enies. S ciatica a ffecting both lower sides of the body. W eakness d enies. S kin: Itching [...] * Hospitalization/Major Diagno stic Procedure: Tavo reveles [facility] 2021No history * Family History: [...] tablet Orally every 12 hrs with food 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 Sodium 2.5 MG Tablet as directed Orally weekly Celecoxib 200 MG Capsule Oral Folic Acid 1 MG Tablet Oral Otezla 30 MG Tablet Oral Atorvastatin Calcium 10 MG Tablet TAKE 1 TABLET BY MOUTH EVERY DAY FOR 30 DAYS Medication List reviewed and reconciled with the patientTaking Meloxicam 15 MG Tablet TAKE 1 TABLET BY MOUTH EVERY DAY FOR 30 DAYS Taking dexAMETHasone 2 MG Tablet 1 tablet Orally every 12 hrs with food Taking 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 Sodium 2.5 MG Tablet as directed Orally weekly Taking Celecoxib 200 MG Capsule Oral Taking Folic Acid 1 MG Tablet Oral Taking Otezla 30 MG Tablet Oral Taking Atorvastatin Calcium 10 MG Tablet TAKE 1 TABLET BY MOUTH EVERY DAY FOR 30 DAYS Medication List reviewed and reconciled with the patient * Allergies: N o Known Drug Allergyno[Allergies Verified] Objective: * Vitals: H t: 73, Wt: 224, BMI:29.55, Wt-k.6. Assessment: * Assessment: 1. L abyrinthitis of both ears - H83.03 (Primary) N otes :His symptoms are not significant enough for meclizine. He will try an antihistamine. She will report back in 48 hours. He has had no loss of hearing. 2 . L umbar radiculopathy - M54.16 3 . T obacco dependence - F17.200 N otes :He continues to smoke 10-20 cigarettes daily. We have discussed the health consequences of smoking. We have developed several strategies for smoking cessation. 4 . O verweight (BMI 25.0-29.9) - E66.3 N otes :His weight is stable. We discussed weight reduction strategies today. We reviewed his diet and nutrition. We made a plan to lose weight at a rate of one half of a pound per week. 5 . P soriasis - L40.9 N otes :He is being treated at this time by the edger tailer. He has been compliant with treatment. 6 . H istory of depression - Z86.59 N otes :He continues to decline a prescription for an antidepressant R for psychotherapy. I will continue to discuss this issue with him. 7 . M ixed hyperlipidemia - E78.2 N otes :Fasting lipid profile has been ordered prior to his next visit. He was instructed to do this fasting. 8 . B PH (benign prostatic hyperplasia) - N40.0 N otes :He arises from sleep once a night to urinate. We have discussed lifestyle modifications he could take to reduce nocturia. 9 . C erebrovascular accident (CVA) due to occlusion of other cerebral artery - I63.59 N otes :His reflexes and muscle strength are now symmetrical, and his gait is unimpaired. His speech has returned to normal and he has no word finding. The deficits from the small stroke have resolved. He has returned to work. He will continue on antiplatelet drugs. 1 0. S leep apnea, unspecified type - G47.30 N otes :He reports excessive snoring and daytime somnolence. He says he never feels like he got a good night sleep. I've ordered a sleep study to assess for sleep apnea. 1 1. P soriatic arthritis - L40.50 N otes :I have ordered x-rays of both hands and wrist and referred him to a loop tacker.He was given methotrexate. He continues on methotrexate at the current dose.A CBC has been ordered. Plan: * Treatment: 2. O thers Continue dexAMETHasone Tablet, 2 MG, 1 tablet, Orally, every 12 hrs with food. * Procedure Codes: 9 8012 SYNCH AUDIO-ONLY EST SF 10 * Preventive Medicine: Counseling: C are goal [...] tobacco use and urged to quit. 0 10/25/2024 Patient Lifestyle Goals P atient wants to quit Treatment Goals S et a quit date, Cut down by 1 cigarette a week Barriers S ocial smoker, Stress Self-Management Plan M leighton a plan to cut down number of cigarettes over time and set a date to work towards quitting * Follow Up: A s Scheduled (Reason: OV) * Images: * Sign off status: Completed true * Provider: Brad Lopez MD Date: 0 10/25/2024 Generated for Molina sanchez/Heather/Sybil on: 1 06/23/2024 08:24 PM EST History and Physical Notes * HPI (History of Present Illness) Category Sub-Category Detail Notes Telehealth Location of [facility] rendering services:: {...} [address] [place] [address] [place] [address] Location of patient:: address listed in demographics for today's visit Patient identification confirmed using:: Name, Telehealth method:: Telephone only. Victoria ent not visible to care provider. Consent:: Patient verbally c onsented to treatment, Patient verbally consented to billing insurance company, Patient informed of any privacy concerns related to method of visit Total time spent with patient (mins): 15
--- OUTSIDE RECORDS SUMMARY | 2024-11-04 05:45 | XMS_ITS ---
Author Organization Omi Lopez III, MD Address [address] [place] [address] Care Team Providers Care Client Services Representative Name Role Phone Dr. Omi Lopez III Primary Care Provider Allergies Allergen (clinical drug ingredient) Drug/Non Drug Allergy documented on EMR Reaction Allergy Type Onset Date Status No Known Drug Allergy Unknown Drug Allergy Active REASON FOR VISIT Psoriasis, Psoriatic arthritis, Tobacco dependence, Lumbar radiculopathy, Depression, History of stroke, Obesity, Sleep apnea, Benign prosthetic hypertrophy Medications Medication SIG (Take, Route, Frequency, Duration) Notes Start Date End Date Status 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 Sodium 2.5 MG as directed Orally weekly 03/29/2024 Active Otezla 30 MG Oral Active Atorvastatin Calcium 10 MG TAKE 1 TABLET BY MOUTH EVERY DAY FOR 30 DAYS Active Celecoxib 200 MG Oral Act armin Folic Acid 1 MG Oral Acti ve [...] cigarette smoker (10-19 cigs/day) Vital Signs Temperature 97.9 degrees Fahrenheit 11/05/19 25 Blood pressure systolic 132 mm Hg 11/05/19 25 Blood pressure diastolic 82 mm Hg 025 Heart Rate 76 /min 11/04/2024 Height 73 in 11/04/2024 Weight 236 lbs 11/04/2024 BMI 31.13 kg/m2 11/04/2024 Encounters Encounter Location Date Provider Diagnosis Omi Lopez III, MD [address] [place] [address] [place] [address] 11/04/2024 Omi Lopez Psoriatic arthritis L40.50 ; Tobacco dependence F17.200 ; History of depression Z86.59 ; Cerebrovascular accident (CVA) due to occlusion of other cerebral artery I63.59 ; Mixed hyperlipidemia E78.2 ; Lumbar radiculopathy M54.16 and BPH (benign prostatic hyperplasia) N40.0 Assessments Encounter Date Diagnosis (ICD Code) Assessment Notes Treat ment Notes Treatment Clinical Notes 11/04/2024 Psoriatic arthritis (ICD-10 - L40.50) I have ordered x-rays of both hands and wrist and referred him to a owner spa director.He was given methotrexate. He continues on methotrexate at the current dose.A CBC has been ordered. 11/04/2024 Tobacco dependence (ICD-10 - F17.200) He continues to smoke 10-20 cigarettes daily. We have discussed the health consequences of smoking. We have developed several strategies for smoking cessation. 11/04/2024 History of depressio n (ICD-10 - Z86.59) He continues to decline a prescription for an antidepressant R for psychotherapy. I will continue to discuss this issue with him. 11/04/2024 Cerebrovascular accident (CVA) due to occlusion of other cerebral artery (ICD-10 - I63.59) His reflexes and muscle strength are now symmetrical, and his gait is unimpaired. His speech has returned to normal and he has no word finding. The deficits from the small stroke have resolved. He has returned to work. He will continue on antiplatelet drugs. 11/04/2024 Mixed hyperlipidemia (ICD-10 - E78.2) Fasting lipid profile has been ordered prior to his next visit. He was instructed to do this fasting. 11/04/2024 Lumbar radiculopathy (ICD-10 - M54.16) His back pain is significantly improved and he is working without difficulty at this time. He was encouraged to avoid heavy lifting. 11/04/2024 BPH (benign prostati c hyperplasia) (ICD-10 - N40.0) He arises from sleep once a night to urinate. We have discussed lifestyle modifications he could take to reduce nocturia. Plan Of Treatment Medication Medication Name Sig Start Date Stop Date Notes 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 Sodium 2.5 MG as directed Orally weekly 03/29 Otezla 30 MG Oral Atorvastatin Calcium 10 MG TAKE 1 TABLET BY MOUTH EVERY DAY FOR 30 DAYS Celecoxib 200 MG Oral Folic Acid 1 MG Oral dexAMETHasone 2 MG 1 tablet Orally ever y 12 hrs with food 12/26/2023 Meloxicam 15 MG TAKE 1 TABLET BY STEPHANE TH EVERY DAY FOR 30 DAYS Next Appt Details Follow Up: as scheduled, Jayne son: annual exam Provider Name:Omi Lopez , 05/16/2025 11:15:00 AM, [address] [place] [address] [address], [place], [phone], Provider Name:Omi Lopez , 12/12/2025 10:00:00 AM, [address] [place] [address] [address], [place], [phone], Progress Notes * Fredrick AGUAYO EDOB:[birth year] (54 yo M)Acc No.[id number]:11/04/2024 Progress Notes Patient: Fredrick CASTANEDA Provider: Brad Lopez MD :1970 A ge:54 Y S ex:Male Date:11/04/2024 Address:[address] [place] [address] [place] [phone] Subjective: * Chief Complaints: * P soriasisPsoriatic arthritisTobacco dependenceLumbar radiculopathyDepressionHistory of strokeObesitySleep apneaBenign prosthetic hypertrophy * HPI: v : He returns for medical management and to review recent x-rays and blood work. He says he is having pain all over. He was angry and upset today that he had no good explanation for the pain which he feels all over. He is upset that he has to urinate every 2 hours. He continues to smoke 15 cigarettes per day. He is trying to lose weight. He remains under the care of rheumatology for his psoriatic arthritis. He is taking methotrexate. * ROS: G eneral/Constitutional: pain A ll over his body. C hills d enies. F atigue a [...] Muscle aches d enies. P ainful joints M ultiple joints. S ciatica d enies. W eakness d [...] * Hospitalization/Major Diagno stic Procedure: S anushka [facility] 2021No history * Family [...] Objective: * Vitals: H t: 73, Wt: 236, BMI:31.13, BP: 132/82, HR: 76, Temp: 97.9, Wt-k.05. * P ast Orders: Lab:Complete Blood Count Aut o Diff * Collection Date 11/01/2024 03/29/2024 03/29/2024 Collection Time 07:32 AM 04:30 PM 04:30 PM Order Date 11/01/2024 03/29/2024 03/29/2024 White Blood Count 7.2 (Ref Range: 4.8-10.8 X10*3/uL) 9.8 (Ref Range: 4.8-10.8 X10*3/uL) 9.8 (Ref Range: 4.8-10.8 X10*3/uL) Red Blood Count 5.40 (Ref Range: 4.60-5.80 X10*6/uL) 5.42 (Ref Range: 4.60-5.80 X10*6/uL) 5.46 (Ref Range: 4.60-5.80 X10*6/uL) Hemoglobin 17.6 (Ref Range: 14.0-18.0 g/dl) 17.1 (Ref Range: 14.0-18.0 g/dl) 17.0 (Ref Range: 14.0-18.0 g/dl) Hematocrit 51.0 (Ref Range: 42.0-52.0 %) 50.7 (Ref Range: 42.0-52.0 %) 51.0 (Ref Range: 42.0-52.0 %) Mean Corpuscular Volume 94.4 (Ref Range: 80.0-98.0 fL) 93.5 (Ref Range: 80.0-98.0 fL) 93.4 (Ref Range: 80.0-98.0 fL) Mean Corpuscular Hemoglobin 32.6 (Ref Range: 27.0-33.0 pg) 31.5 (Ref Range: 27.0-33.0 pg) 31.1 (Ref Range: 27.0-33.0 pg) Mean Corpuscular HGB Conc 34.5 (Ref Range: 31.0-36.0 g/dl) 33.7 (Ref Range: 31.0-36.0 g/dl) 33.3 (Ref Range: 31.0-36.0 g/dl) Red Cell Distribution Width 13.2 (Ref Range: 11.0-16.0 %) 13.6 (Ref Range: 11.0-16.0 %) 13.7 (Ref Range: 11.0-16.0 %) Platelet Count 243 (Ref Range: 160-400 X10*3/uL) 263 (Ref Range: 160-400 X10*3/uL) 269 (Ref Range: 160-400 X10*3/uL) Mean Platelet Volume 9.0 L (Ref Range: 9.4-12.4 fL) 9.3 L (Ref Range: 9.4-12.4 fL) 9.3 L (Ref Range: 9.4-12.4 fL) Neutrophils Percent Auto 65.2 (Ref Range: 45-73 %) 65.8 (Ref Range: 45-73 %) 64.7 (Ref Range: 45-73 %) Imm Gran Pct Auto 0.3 (Ref Range: 0.0-0.4 %) 0.4 (Ref Range: 0.0-0.4 %) 0.3 (Ref Range: 0.0-0.4 %) Lymphocytes Percent Auto 25.2 (Ref Range: 20-40 %) 24.9 (Ref Range: 20-40 %) 25.3 (Ref Range: 20-40 %) Monocytes Percent Auto 6.2 (Ref Range: 2-11 %) 6.3 (Ref Range: 2-11 %) 7.3 (Ref Range: 2-11 %) Eosinophils Percent Auto 2.4 (Ref Range: 0-4 %) 2.0 (Ref Range: 0-4 %) 1.9 (Ref Range: 0-4 %) Basophils Percent Auto 0.7 (Ref Range: 0-2 %) 0.6 (Ref Range: 0-2 %) 0.5 (Ref Range: 0-2 %) NRBC Pct Auto 0.0 (Ref Range: 0.0-0.2 /100WBC) 0.0 (Ref Range: 0.0-0.2 /100WBC) 0.0 (Ref Range: 0.0-0.2 /100WBC) Neutrophils Absolute Auto 4.7 (Ref Range: 2.0-8.3 x10*3/uL) 6.4 (Ref Range: 2.0-8.3 x10*3/uL) 6.3 (Ref Range: 2.0-8.3 x10*3/uL) Imm Gran Abs Auto 0.02 (Ref Range: 0.00-0.03 X10*3/uL) 0.04 H (Ref Range: 0.00-0.03 X10*3/uL) 0.03 (Ref Range: 0.00-0.03 X10*3/uL) Lymphocytes Absolute Auto 1.8 (Ref Range: 1.2-4.9 X10*3/uL) 2.4 (Ref Range: 1.2-4.9 X10*3/uL) 2.5 (Ref Range: 1.2-4.9 X10*3/uL) Monocytes Absolute Auto 0.5 (Ref Range: 0.1-1.2 X10*3/uL) 0.6 (Ref Range: 0.1-1.2 X10*3/uL) 0.7 (Ref Range: 0.1-1.2 X10*3/uL) Eosinophils Absolute Auto 0.2 (Ref Range: 0.0-0.4 X10*3/uL) 0.2 (Ref Range: 0.0-0.4 X10*3/uL) 0.2 (Ref Range: 0.0-0.4 X10*3/uL) Basophils Absolute Auto 0.1 (Ref Range: 0.0-0.2 X10*3/uL) 0.1 (Ref Range: 0.0-0.2 X10*3/uL) 0.1 (Ref Range: 0.0-0.2 X10*3/uL) NRBC Abs Auto 0.000 (Ref Range: 0.0-0.012 X10*3/uL) 0.000 (Ref Range: 0.0-0.012 X10*3/uL) 0.000 (Ref Range: 0.0-0.012 X10*3/uL) * Lab:Erythrocyte Sedimentatio n Rate * Collection Date 11/01/2024 03/29/2024 Collection Time 07:32 AM 04:30 PM Order Date 11/01/2024 03/29/2024 Erythrocyte Sedimentation Rate 4 (Ref Range: 0-15 MM/HR) 4 (Ref Range: 0-15 MM/HR) * Lab:Comprehensive Met. Panel * Collection Date 11/01/2024 03/29/2024 03/29/2024 Collection Time 07:32 AM 04:30 PM 04:30 PM Order Date 11/01/2024 03/29/2024 03/29/2024 Sodium 142 (Ref Range: 135-145 mmol/L) 143 (Ref Range: 135-145 mmol/L) 143 (Ref Range: 135-145 mmol/L) Bilirubin Total 0.9 (Ref Range: 0.0-1.0 mg/dL) 0.5 (Ref Range: 0.0-1.0 mg/dL) 0.5 (Ref Range: 0.0-1.0 mg/dL) Aspartate Amino Transferase 30 (Ref Range: 5-37 U/L) 27 (Ref Range: 5-37 U/L) 29 (Ref Range: 5-37 U/L) Alanine Aminotransferase 66 H (Ref Range: 0-40 U/L) 64 H (Ref Range: 0-40 U/L) 67 H (Ref Range: 0-40 U/L) Total Protein 6.9 (Ref Range: 6.5-8.0 g/dL) 6.9 (Ref Range: 6.5-8.0 g/dL) 6.9 (Ref Range: 6.5-8.0 g/dL) Albumin Level 4.4 (Ref Range: 3.5-5.0 g/dL) 4.2 (Ref Range: 3.5-5.0 g/dL) 4.2 (Ref Range: 3.5-5.0 g/dL) Alkaline Phosphatase 65 (Ref Range: 39-117 U/L) 77 (Ref Range: 39-117 U/L) 77 (Ref Range: 39-117 U/L) Potassium 4.1 (Ref Range: 3.3-5.1 mmol/L) 4.2 (Ref Range: 3.3-5.1 mmol/L) 4.2 (Ref Range: 3.3-5.1 mmol/L) Chloride 108 (Ref Range: 96-108 mmol/L) 108 (Ref Range: 96-108 mmol/L) 108 (Ref Range: 96-108 mmol/L) Carbon Dioxide 26 (Ref Range: 22-29 mmol/L) 29 (Ref Range: 22-29 mmol/L) 29 (Ref Range: 22-29 mmol/L) Anion Gap 12 (Ref Range: 12-20) 10 L (Ref Range: 12-20) 10 L (Ref Range: 12-20) Blood Urea Nitrogen 14 (Ref Range: 9-16 mg/dL) 18 H (Ref Range: 9-16 mg/dL) 18 H (Ref Range: 9-16 mg/dL) Creatinine 1.00 (Ref Range: 0.5-1.4 mg/dL) 1.05 (Ref Range: 0.5-1.4 mg/dL) 1.07 (Ref Range: 0.5-1.4 mg/dL) Estimated Glomerular Filt Rate > 60 > 60 > 60 Glucose Random 111 (Ref Range: 60-115 mg/dL) 80 (Ref Range: 60-115 mg/dL) 80 (Ref Range: 60-115 mg/dL) Calcium 9.2 (Ref Range: 8.4-10.2 mg/dL) 9.5 (Ref Range: 8.4-10.2 mg/dL) 9.1 (Ref Range: 8.4-10.2 mg/dL) * Lab:C Reactive Protein * Collection Date 11/01/2024 03/29/2024 Collection Time 07:32 AM 04:30 PM Order Date 11/01/2024 03/29/2024 C Reactive Protein 0.25 (Ref Range: < or = 0.50 mg/dL) 0.34 (Ref Range: < or = 0.50 mg/dL) ???Imaging:XR Knee Burke 4V (Order Date - 11/01/2024) (Performed Date - 11/01/2024) ???Imaging:XR Foot Burke 3V (Order Date - 11/01/2024) (Performed Date - 11/01/2024) ???Imaging:XR Ankle Burke min 3V (Order Date - 11/01/2024) (Performed Date - 11/01/2024) * Examination: G eneral Examination: GENERAL APPEARANCE: p leasant, well nourished, well developed, in no acute distress, calm and relaxed, obese, man. HEAD: a traumatic, normocephalic. EYES: e [place], perrla, anicteric, conjugate. EARS: n ormal. NOSE: s eptum intact. ORAL CAVITY: n ormal, unremarkable. NECK/THYROID: n o jugular venous distention, no carotid bruit, thyroid normal, Supple. LYMPH NODES: n o enlarged lymph nodes,spleen normal. SKIN: n o suspicious lesions, anicteric. HEART: n o clicks, gallops, murmurs, or rubs, regular rhythm, S1, S2 normal, no s3, or vascular bruits. LUNGS: , diminished breath sounds throughout, no wheezes, rales, rhonchi, good air movement. BREASTS: no masses palpable bilaterally. ABDOMEN: b owel sounds normal, no ascites, no organomegaly, no mass, centripital obesity. RECTAL EXAM: n ot examined. MUSCULOSKELETAL: e xtremities unremarkable, no clubbing, cyanosis or edemaPain to range of motion of shoulders elbows and his knees and hips but appearance is normal. PERIPHERAL PULSES: n ormal. NEUROLOGIC: a lert and oriented, cranial nerves 2-12 grossly intact, deep tendon reflexes 2+ symmetrical, motor strength normal upper and lower extremities, sensory exam intact. PSYCH: a lert, oriented, mood depressed. ? Assessment: * Assessment: 1. P soriatic arthritis - L40.50 (Primary) N otes :I have ordered x-rays of both hands and wrist and referred him to a owner spa director.He was given methotrexate. He continues on methotrexate at the current dose.A CBC has been ordered. 2 . T obacco dependence - F17.200 [...] He was instructed to do this fasting. 6 . L umbar radiculopathy - M54.16 N otes :His back pain is significantly improved and he is working without difficulty at this time. He was encouraged to avoid heavy lifting. 7 . B PH (benign prostatic hyperplasia) - N40.0 N otes :He arises from sleep once a night to urinate. We have discussed lifestyle modifications he could take to reduce nocturia. Plan: * Treatment: 2. O thers Continue [...] tobacco use and urged to quit. 0 11/04/2024 Patient Lifestyle Goals P atient wants to quit Treatment Goals S et a quit date, Cut down by 1 cigarette a week Barriers S ocial smoker, Stress Self-Management Plan M leighton a plan to cut down number of cigarettes over time and set a date to work towards quitting * Follow Up: a s scheduled (Reason: annual exam) * Images: * Sign off status: Completed true * Provider: Brad Lopez MD Date: 0 11/04/2024 Generated for Marki ng/Heather/eTransmitting on: 1 06/23/2024 08:26 PM EST History and Physical Notes * Examination Category Sub-Category Detail Notes General Examination GENERAL APPEARANCE: pleasant , well nourished, well developed, in no acute distress, calm and relaxed, obese, man HEAD: atraumatic, normocep halic EYES: eomi, perrla, anicte jhonny, conjugate EARS: normal NOSE: septum intact NECK/THYROID: no jugular venous di stention, no carotid bruit, thyroid normal, Supple HEART: no clicks, gallops, murmurs, or rubs, regular rhythm, S1, S2 normal, no s3, or vascular bruits LUNGS: , diminished breath sounds throughout, no wheezes, rales, rhonchi, good air movement ABDOMEN: bowel sounds normal, no ascites, no organomegaly, no mass, centripital obesity NEUROLOGIC: alert and oriented, cranial nerves 2-12 grossly intact, deep tendon reflexes 2+ symmetrical, motor strength normal upper and lower extremities, sensory exam intact SKIN: no suspicious lesion s, anicteric PERIPHERAL PULSES: normal BREASTS: no masses palpable b ilaterally MUSCULOSKELETAL: extremities unremark able, no clubbing, cyanosis or edemaPain to range of motion of shoulders elbows and his knees and hips but appearance is normal LYMPH NODES: no enlarged lymph no tirso,spleen normal RECTAL EXAM: not examined PSYCH: alert, oriented, moo d depressed ORAL CAVITY: normal, unremarkable
--- OUTSIDE RECORDS SUMMARY | 2024-12-08 05:00 | XMS_ITS ---
Author Organization Omi Lopez III, MD Address [address] [place] [id number] Care Team Providers Care Associate Web Developer Name Role Phone Dr. Omi Lopez III Primary Care Provider Allergies Allergen (clinical drug ingredient) Drug/Non Drug Allergy documented on EMR Reaction Allergy Type Onset Date Status No Known Drug Allergy Unknown Drug Allergy Active gabapentin Gabapentin Unknown Drug Allergy Activ e REASON FOR VISIT Annual Exam Medications Medication SIG (Take, Route, Frequency, Duration) Notes Start Date End Date Status Otezla 30 MG Oral Active Atorvastatin Calcium 10 MG TAKE 1 TABLET BY MOUTH EVERY DAY FOR 30 DAYS Active Meloxicam 15 MG TAKE 1 TABLET BY STEPHANE TH EVERY DAY FOR 30 DAYS Active dexAMETHasone 2 MG 1 tablet Orally ever y 12 hrs with food 12/26/2023 Active Folic Acid 1 MG Oral Acti ve Celecoxib 200 MG Oral Act armin 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 Sodium 2.5 MG as directed Orally weekly 03/29/2024 Active Social History Tobacco Use: Social History [...] cigarette smoker (10-19 cigs/day) Vital Signs Temperature 98.2 degrees Fahrenheit 12/09/19 25 Blood pressure systolic 132 mm Hg 12/09/19 25 Blood pressure diastolic 69 mm Hg 025 Heart Rate 75 /min 12/08/2024 Height 73 in 12/08/2024 Weight 238 lbs 12/08/2024 BMI 31.4 kg/m2 12/08/2024 Encounters Encounter Location Date Provider Diagnosis Omi Lopez III, MD [address] [place] [address] [address] [place], [place] [id number] 12/08/2024 Omi Lopez Lumbar radiculopathy M54.16 ; Psoriasis L40.9 ; Mixed hyperlipidemia E78.2 ; Obesity (BMI 30-39.9) E66.9 ; Tobacco dependence F17.200 ; History of depression Z86.59 ; BPH (benign prostatic hyperplasia) N40.0 and Cerebrovascular accident (CVA) due to occlusion of other cerebral artery I63.59 Assessments Encounter Date Diagnosis (ICD Code) Assessment Notes Treat ment Notes Treatment Clinical Notes 12/08/2024 Lumbar radiculopathy (ICD-10 - M54.16) His back pain is significantly improved and he is working without difficulty at this time. He was encouraged to avoid heavy lifting. 12/08/2024 Psoriasis (ICD-10 - L40.9) He is being treated at this time by the manager safe. He has been compliant with treatment.The x-ray reports of his right knee and right ankle are available and show no significant osseous abnormality. 12/08/2024 Mixed hyperlipidemia (ICD-10 - E78.2) A current fasting lipid profile is unavailable. Current therapy was continued. A profile has been ordered before his next visit. 12/08/2024 Obesity (BMI 30-39.9 ) (ICD-10 - E66.9) His body mass index is 32. He has lost 2 pounds. We discussed his diet and nutrition at length. We made a plan to lose weight at a rate of 1 pound per week. 12/08/2024 Tobacco dependence (ICD-10 - F17.200) He continues to smoke 10-20 cigarettes daily. We have discussed the health consequences of smoking. We have developed several strategies for smoking cessation. 12/08/2024 History of depressio n (ICD-10 - Z86.59) He continues to decline a prescription for an antidepressant R for psychotherapy. I will continue to discuss this issue with him. 12/08/2024 BPH (benign prostati c hyperplasia) (ICD-10 - N40.0) He arises from sleep once a night to urinate. We have discussed lifestyle modifications he could take to reduce nocturia. 12/08/2024 Cerebrovascular accident (CVA) due to occlusion of other cerebral artery (ICD-10 - I63.59) His reflexes and muscle strength are now symmetrical, and his gait is unimpaired. His speech has returned to normal and he has no word finding. The deficits from the small stroke have resolved. He has returned to work. He will continue on antiplatelet drugs. Plan Of Treatment Medication Medication Name Sig Start Date Stop Date Notes Otezla 30 MG Oral Atorvastatin Calcium 10 MG TAKE 1 TABLET BY MOUTH EVERY DAY FOR 30 DAYS Meloxicam 15 MG TAKE 1 TABLET BY STEPHANE TH EVERY DAY FOR 30 DAYS dexAMETHasone 2 MG 1 tablet Orally ever y 12 hrs with food 12/26/2023 Folic Acid 1 MG Oral Celecoxib 200 MG Oral 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 Sodium 2.5 MG as directed Orally weekly 03/29 Pending Test Test Name Order Date PROFILE, FASTING (COMPREHENSIVE METABOLI C) 12/08/2024 TSH (THYROID STIMULATING HORMONE) 2024 CBC w DIFF 12/08/2024 Lipid Panel 12/08/2024 Next Appt Details Follow Up: 3 Months, Reason: OV Provider Name:Omi Lopez , 05/16/2025 11:15:00 AM, [address] [place] [address] [address], [place], [address], Provider Name:Omi Lopez , 12/12/2025 10:00:00 AM, [address] [place] [address] [address], [facility], [address], Progress Notes * NAGIJAMALADELARIZWANA Fredrick EDOB:[birth year] (54 yo M)Acc No.[id number]:12/08/2024 Progress Notes Patient: Fredrick CASTANEDA Provider: Brad Lopez MD :1970 A ge:54 Y S ex:Male Date:12/08/2024 Address:[address] [place] [address] [id number] Subjective: * Chief Complaints: * A nnual Exam * HPI: D epression Screening: He returns for his annual visit. His chief complaint today was that his eyes were red.? On examination the blood vessels in his conjunctiva were dilated. He says he has been to an sample color maker who examined him and gave him a medication to put in his eyes but he does not know the name of it and it wasn't covered by his insurance so we didn't get it. He has not informed the ophthalmologists of this and was instructed to do so so he can obtain a product will help him that is covered.He has some low back pain and heaviness in his legs and has seen the presser automatic who has diagnosed psoriatic arthritis and is treating him with methotrexate and otezla. He continues to complain about the pain is experiencing. He has been referred back to rheumatology. PHQ-9 L ittle interest or pleasure in doing things?Nearly every day F eeling down, depressed, or hopeless S everal days T rouble falling or staying asleep, or sleeping too much N ot at all F eeling tired or having little energy M ore than half the days P oor appetite or overeating N ot at all F eeling bad about yourself or that you are a failure, or have let yourself or your family down N ot at all T rouble concentrating on things, such as reading the newspaper or watching television N ot at all M oving or speaking so slowly that other people could have noticed; or the opposite, being so fidgety or restless that you have been moving around a lot more than usual N ot at all T houghts that you would be better off or of hurting yourself in some way N ot at all T otal Score 6 I nterpretation M ild Depression C OVID-19 Screening: Questions H ave you had any new onset fever, chills, cough, congestion, sore throat, shortness of breath, muscle aches? N o S JG Questions: SDOH Questions I n the past year have you been worried about losing your housing? N o I n the past year have you or any family members you live with been unable to get any of the following when it was really needed? Check all that apply: N one * ROS: G eneral/Constitutional: pain H ands knees and anklesAnd lumbar spine. C hills?denies. F atigue a dmits. F ever d [...] enies. R gosia d enies. S kin lesion(s)?Mild psoriasis. N eurologic: Difficulty speaking d enies. D izziness d enies.?Headache d enies. L ow back pain t hat is chronic. P sychiatric: Depressed mood w hich is moderate. * Medical History: * Surgical History: r ight fourth finger crush injury repaired lumbar spine discectomy, Dr. Franco 2010Cologard test age 49 negative No history * Hospitalization/Major Diagno stic Procedure: [facility] 2021No history * Family History: [...] 2.5 MG Tablet as directed Orally weekly Folic Acid 1 MG Tablet Oral Otezla 30 MG Tablet Oral Atorvastatin Calcium 10 MG Tablet TAKE 1 TABLET BY MOUTH EVERY DAY FOR 30 DAYS Taking 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 Sodium 2.5 MG Tablet as directed Orally weekly Taking Folic Acid 1 MG Tablet Oral Taking Otezla 30 MG Tablet Oral Taking Atorvastatin Calcium 10 MG Tablet TAKE 1 TABLET BY MOUTH EVERY DAY FOR 30 DAYS Not-Taking/PRNCelecoxib 200 MG Capsule Oral Meloxicam 15 MG Tablet TAKE 1 TABLET BY MOUTH EVERY DAY FOR 30 DAYS dexAMETHasone 2 MG Tablet 1 tablet Orally every 12 hrs with food Medication List reviewed and reconciled with the patientNot-Taking/PRN Celecoxib 200 MG Capsule Oral Not-Taking/PRN Meloxicam 15 MG Tablet TAKE 1 TABLET BY MOUTH EVERY DAY FOR 30 DAYS Not-Taking/PRN dexAMETHasone 2 MG Tablet 1 tablet Orally every 12 hrs with food Medication List reviewed and reconciled with the patient * Allergies: N o Known Drug AllergyGabapentin: Side Effects - Criticality [place][Allergies Verified] Objective: * Vitals: H t: 73, Wt: 238, BMI:31.4, BP: 132/69, HR: 75, Temp: 98.2, Wt-k.95. * P ast Orders: I maging:XR Knee Burke 4V (Order Date - 11/01/2024) (Performed Date - 11/01/2024) I maging:XR Foot Burke 3V (Order Date - 11/01/2024) (Performed Date - 11/01/2024) I maging:XR Ankle Burke min 3V (Order Date - 11/01/2024) (Performed Date - 11/01/2024) Lab:Complete Blood Count Aut o Diff * [...] (Ref Range: < or = 0.50 mg/dL) * Examination: G eneral Examination: GENERAL APPEARANCE: p leasant, well nourished, well developed, in no acute distress, calm and relaxed: obese: man. HEAD: a traumatic, normocephalic. EYES: e [place], perrla, anicteric, conjugate. EARS: n ormal. NOSE: s eptum intact. ORAL CAVITY: n ormal, unremarkable. NECK/THYROID: n o jugular venous distention, no carotid bruit, thyroid normal. LYMPH NODES: n o enlarged lymph nodes,spleen normal. SKIN: n o suspicious lesions, anicteric, Areas of psoriasis. HEART: n o clicks, gallops, murmurs, or rubs, regular rhythm, S1, S2 normal, no s3, or vascular bruits. LUNGS: c lear to auscultation . BREASTS: no masses palpable bilaterally. ABDOMEN: b owel sounds normal, no ascites, no organomegaly, no mass: centripital obesity. RECTAL EXAM: T he patient declined to have this part of the examination.. MUSCULOSKELETAL: e xtremities unremarkable, no clubbing, cyanosis or edema, Moderate arthritic changes in hands, pain to range of motion knees and ankles. PERIPHERAL PULSES: n ormal. NEUROLOGIC: a lert and oriented, cranial nerves 2-12 grossly intact, deep tendon reflexes 2+ symmetrical, motor strength normal upper and lower extremities, sensory exam intact. PSYCH: a lert, oriented: anxious appearing: mood depressed.? Assessment: * Assessment: 1. P soriasis - L40.9 (Primary) N otes :He is being treated at this time by the manager safe. He has been compliant with treatment.The x-ray reports of his right knee and right ankle are available and show no significant osseous abnormality. 2 . L umbar radiculopathy - M54.16 N otes :His back pain is significantly improved and he is working without difficulty at this time. He was encouraged to avoid heavy lifting. 3 . M ixed hyperlipidemia - E78.2 N otes :A current fasting lipid profile is unavailable. Current therapy was continued. A profile has been ordered before his next visit. 4 . O besity (BMI 30-39.9) - E66.9 N otes :His body mass index is 32. He has lost 2 pounds. We discussed his diet and nutrition at length. We made a plan to lose weight at a rate of 1 pound per week. 5 . T obacco dependence - F17.200 N otes :He continues to smoke 10-20 cigarettes daily. We have discussed the health consequences of smoking. We have developed several strategies for smoking cessation. 6 . H istory of depression - Z86.59 N otes :He continues to decline a prescription for an antidepressant R for psychotherapy. I will continue to discuss this issue with him. 7 . B PH (benign prostatic hyperplasia) - N40.0 N otes :He arises from sleep once a night to urinate. We have discussed lifestyle modifications he could take to reduce nocturia. 8 . C erebrovascular accident (CVA) due to occlusion of other cerebral artery - I63.59 N otes :His reflexes and muscle strength are now symmetrical, and his gait is unimpaired. His speech has returned to normal and he has no word finding. The deficits from the small stroke have resolved. He has returned to work. He will continue on antiplatelet drugs. Plan: * Treatment: 2. M ixed hyperlipidemia L AB: PROFILE, FASTING (COMPREHENSIVE METABOLIC) L AB: TSH (THYROID STIMULATING HORMONE) L AB: CBC w DIFF L AB: Lipid Panel 3. O besity (BMI 30-39.9) L AB: PROFILE, FASTING (COMPREHENSIVE METABOLIC) L AB: TSH (THYROID STIMULATING HORMONE) L AB: CBC w DIFF L AB: Lipid Panel 4. O thers Continue dexAMETHasone Tablet, 2 MG, [...] tobacco use and urged to quit. 0 12/07/2024 Patient Lifestyle Goals P atient wants to quit Treatment Goals C ut down by 1 cigarette a week, Set a quit date Barriers S ocial smoker, Stress Self-Management Plan M leighton a plan to cut down number of cigarettes over time and set a date to work towards quitting * Follow Up: 3 Months (Reason: OV) * Images: * Sign off status: Completed true * Provider: Brad Lopez MD Date: 0 12/08/2024 Generated for Molina sanchez/Heather/eTransmitting on: 1 06/23/2024 08:24 PM EST History and Physical Notes * HPI (History of Present Illness) Category Sub-Category Detail Notes Depression Screening PHQ-9 Little inte rest or pleasure in doing things: Nearly every day Feeling down, depressed, or hopeless: Se veral days Trouble falling or staying asleep, or sl eeping too much: Not at all Feeling tired or having little energy: M ore than half the days Poor appetite or overeating: Not at all Feeling bad about yourself o r that you are a failure, or have let yourself or your family down: Not at all Trouble concentrating on thi ngs, such as reading the newspaper or watching television: Not at all Moving or speaking so slowly that other people could have noticed; or the opposite, being so fidgety or restless that you have been moving around a lot more than usual: Not at all Thoughts that you would be b maria esther off or of hurting yourself in some way: Not at all Total Score: 6 Interpretation: Mild Depression COVID-19 Screening Questions Have you had any new onset fever, chills, cough, congestion, sore throat, shortness of breath, muscle aches?: No SDOH Questions SDOH Questions In the past year have you been worried about losing your housing?: No In the past year have you or any family members you live with been unable to get any of the following when it was really needed? Check all that apply:: None Examination Category Sub-Category Detail Notes General Examination GENERAL APPEARANCE: pleasant , well nourished, well developed, in no acute distress, calm and relaxed: obese: man HEAD: atraumatic, normocep halic EYES: eomi, perrla, anicte jhonny, conjugate EARS: normal NOSE: septum intact NECK/THYROID: no jugular venous di stention, no carotid bruit, thyroid normal HEART: no clicks, gallops, murmurs, or rubs, regular rhythm, S1, S2 normal, no s3, or vascular bruits LUNGS: clear to auscultatio n ABDOMEN: bowel sounds normal, no ascites, no organomegaly, no mass: centripital obesity NEUROLOGIC: alert and oriented, cranial nerves 2-12 grossly intact, deep tendon reflexes 2+ symmetrical, motor strength normal upper and lower extremities, sensory exam intact SKIN: no suspicious lesion s, anicteric, Areas of psoriasis PERIPHERAL PULSES: normal BREASTS: no masses palpable b ilaterally MUSCULOSKELETAL: extremities unremark able, no clubbing, cyanosis or edema, Moderate arthritic changes in hands, pain to range of motion knees and ankles LYMPH NODES: no enlarged lymph no tirso,spleen normal RECTAL EXAM: The patient declined to have this part of the examination. PSYCH: alert, oriented: anx ious appearing: mood depressed ORAL CAVITY: normal, unremarkable
--- OUTSIDE RECORDS SUMMARY | 2025-03-07 05:30 | XMS_ITS ---
Author Organization Omi Lopez III, MD Address [address] [place] [address] Care Team Providers Care Replanter Name Role Phone Dr. Omi Lopez III Primary Care Provider Allergies Allergen (clinical drug ingredient) Drug/Non Drug Allergy documented on EMR Reaction Allergy Type Onset Date Status No Known Drug Allergy Unknown Drug Allergy Active gabapentin Gabapentin Unknown Drug Allergy Activ e Reason For Referral Reason Evaluate and Treat Months of Scratchiness in Throat Diagnosis 1 Acute pharyngitis, u nspecified (J02.9) Diagnosis 2 Tobacco dependence ( F17.200) Referral Organization Omi Lopez III, MD Referring Provider First Name Omi Referring Provider Last Name Jessica Referring Provider Speciality Internal M edicine Referred Provider [facility], [facility], [facility] Referred Provider Specialty Otolaryngolo gy General Notes D, Collette 03/14/2025 10:30:29 AM > Referral was faxed with cover sheet and progress note Referral Priority Routine REASON FOR VISIT Depression, Tobacco dependence, Lumbar radiculopathy, History of stroke, Obesity, Benign prostatic hypertrophy, Sleep apnea, Psoriatic arthritis Medications Medication SIG (Take, Route, Frequency, Duration) Notes Start Date End Date Status Meloxicam 15 MG TAKE 1 TABLET BY STEPHANE TH EVERY DAY FOR 30 DAYS Active 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 Sodium 2.5 MG as directed Orally weekly 03/29/2024 Active dexAMETHasone 2 MG 1 tablet Orally ever y 12 hrs with food 12/26/2023 Active Celecoxib 200 MG Oral Act armin Folic Acid 1 MG Oral Acti ve Atorvastatin Calcium 10 MG TAKE 1 TABLET BY MOUTH EVERY DAY FOR 30 DAYS Active Otezla 30 MG Oral Active Social History Tobacco Use: Social History [...] cigs/day) Vital Signs Temperature 98.1 degrees Fahrenheit 03/07/20 25 Blood pressure systolic 128 mm Hg 03/07/20 25 Blood pressure diastolic 78 mm Hg 025 Heart Rate 77 /min 03/07/2025 Height 73 in 03/07/2025 Weight 247 lbs 03/07/2025 BMI 32.58 kg/m2 03/07/2025 Encounters Encounter Location Date Provider Diagnosis Omi Lopez III, MD [address] [place] [address] [place] [address] 03/07/2025 Omi Lopez Lumbar radiculopathy M54.16 ; Mixed hyperlipidemia E78.2 ; BPH (benign prostatic hyperplasia) N40.0 ; Obesity (BMI 30-39.9) E66.9 ; Tobacco dependence F17.200 ; History of depression Z86.59 ; Psoriasis L40.9 ; Cerebrovascular accident (CVA) due to occlusion of other cerebral artery I63.59 ; Psoriatic arthritis L40.50 and Sleep apnea, unspecified type G47.30 Assessments Encounter Date Diagnosis (ICD Code) Assessment Notes Treat ment Notes Treatment Clinical Notes 03/07/2025 Lumbar radiculopathy (ICD-10 - M54.16) His back pain is significantly improved and he is working without difficulty at this time. He was encouraged to avoid heavy lifting. 03/07/2025 Mixed hyperlipidemia (ICD-10 - E78.2) Comprehensive blood work including a fasting lipid profile will be done in the next few days. 03/07/2025 BPH (benign prostati c hyperplasia) (ICD-10 - N40.0) He rises from sleep once or twice a night to urinate. We have discussed modifications to his lifestyle that would reduce nocturia. 03/07/2025 Obesity (BMI 30-39.9 ) (ICD-10 - E66.9) She has lost 2 pounds. We discussed his weight loss strategy in detail. We discussed his diet and nnutrition. We made a plan to lose weight at a rate of 1 pound per week. 03/07/2025 Tobacco dependence (ICD-10 - F17.200) He continues to smoke 10-20 cigarettes daily. We have discussed the health consequences of smoking. We have developed several strategies for smoking cessation. 03/07/2025 History of depressio n (ICD-10 - Z86.59) He continues to decline a prescription for an antidepressant R for psychotherapy. I will continue to discuss this issue with him. 03/07/2025 Psoriasis (ICD-10 - L40.9) He is being treated at this time by the car framer. He has been compliant with treatment.The x-ray reports of his right knee and right ankle are available and show no significant osseous abnormality. 03/07/2025 Cerebrovascular accident (CVA) due to occlusion of other cerebral artery (ICD-10 - I63.59) His reflexes and muscle strength are now symmetrical, and his gait is unimpaired. His speech has returned to normal and he has no word finding. The deficits from the small stroke have resolved. He has returned to work. He will continue on antiplatelet drugs. 03/07/2025 Psoriatic arthritis (ICD-10 - L40.50) I have ordered x-rays of both hands and wrist and referred him to a applications systems engineer.He was given methotrexate. He continues on methotrexate at the current dose.A CBC has been ordered. 03/07/2025 Sleep apnea, unspecified type (ICD-10 - G47.30) He reports excessive snoring and daytime somnolence. He says he never feels like he got a good night sleep. I've ordered a sleep study to assess for sleep apnea. Plan Of Treatment Medication Medication Name Sig Start Date Stop Date Notes Meloxicam 15 MG TAKE 1 TABLET BY STEPHANE TH EVERY DAY FOR 30 DAYS 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 Sodium 2.5 MG as directed Orally weekly 03/29 dexAMETHasone 2 MG 1 tablet Orally ever y 12 hrs with food 12/26/2023 Celecoxib 200 MG Oral Folic Acid 1 MG Oral Atorvastatin Calcium 10 MG TAKE 1 TABLET BY MOUTH EVERY DAY FOR 30 DAYS Otezla 30 MG Oral Pending Test Test Name Order Date PROFILE, FASTING (COMPREHENSIVE METABOLI C) 03/07/2025 PSA, TOTAL 03/07/2025 CBC w DIFF 03/07/2025 Lipid Panel 03/07/2025 Referrals Referral Date Details 03/07/2025 03/07/2025, Evaluate and Treat Months of Scratchiness in Throat, of [facility], [facility] Next Appt Details Follow Up: 6 Weeks, Reason: OV Provider Name:Omi Sutton Jesscia , 05/16/2025 11:15:00 AM, [address] [place] [address] [address], [place], [phone], Provider Name:Omi Lesley Lopez , 12/12/2025 10:00:00 AM, [address] [place] [address] [address], [place], [phone], Progress Notes * DEDE Fredrick EDOB:[birth year] (55 yo M)Acc No.[id number]:03/07/2025 Progress Notes Patient: Fredrick CASTANEDA Provider: Brad Lopez MD :1970 A ge:55 Y S ex:Male Date:03/07/2025 Address:[address] [place], [place] [id number] Subjective: * Chief Complaints: * D epressionTobacco dependenceLumbar radiculopathyHistory of strokeObesityBenign prostatic hypertrophySleep apneaPsoriatic arthritis * HPI: C OVID-19 Screening: He reports that his back pain is improving and his weakness is the same. He is able to work full-time without difficulty. He has much less pain in his knees and feet. His neck pain has resolved. He continues to smoke 15 cigarettes daily. He does not use or have a CPAP machine as he found it ineffective. He has been to his chrome tanning drum operator said that a blepharoplasty of his left upper eyelid would not be covered by insurance. He had a colonoscopy last year. He wants to go to ear nose and throat because his throat has been scratchy or several months. On May 02 he is scheduled for a screening CT scan of the chest. Questions H ave you had any new onset fever, chills, cough, congestion, sore throat, shortness of breath, muscle aches? N o * ROS: G eneral/Constitutional: pain I mproved pain in feet knees and low back. C hills?denies. F atigue a dmits. F [...] Muscle aches d enies. P ainful joints F eet knees and lumbar spine. S ciatica d enies. W eakness d [...] history * Hospitalization/Major Diagno stic Procedure: [facility] 2021No history * Family History: F [...] BY MOUTH EVERY DAY FOR 30 DAYS DiscontinuedMeloxicam 15 MG Tablet TAKE 1 TABLET BY MOUTH EVERY DAY FOR 30 DAYS dexAMETHasone 2 MG Tablet 1 tablet Orally every 12 hrs with food Celecoxib 200 MG Capsule Oral Medication List reviewed and reconciled with the patientDiscontinued Meloxicam 15 MG Tablet TAKE 1 TABLET BY MOUTH EVERY DAY FOR 30 DAYS Discontinued dexAMETHasone 2 MG Tablet 1 tablet Orally every 12 hrs with food Discontinued Celecoxib 200 MG Capsule Oral Medication List reviewed and reconciled with the patient * Allergies: N o Known Drug AllergyGabapentin: Side Effects - Criticality [place][Allergies Verified] Objective: * Vitals: H t: 73, Wt: 247, BMI:32.58, BP: 128/78, HR: 77, Temp: 98.1, Wt-k.04. * Examination: G eneral Examination: GENERAL APPEARANCE: [...] normal, no s3, or vascular bruits. LUNGS: : diminished breath sounds throughout: no wheezes, rales, rhonchi. BREASTS: no masses palpable bilaterally. ABDOMEN: b owel sounds normal, no ascites, no organomegaly, no mass: centripital obesity. RECTAL EXAM: n ot examined. MUSCULOSKELETAL: e xtremities unremarkable, no clubbing, cyanosis or edema, Decreased range of motion lumbar spine. PERIPHERAL PULSES: n ormal. NEUROLOGIC: a lert and oriented, cranial nerves 2-12 grossly intact, deep tendon reflexes 2+ symmetrical, motor strength normal upper and lower extremities, sensory exam intact. PSYCH: a lert, oriented: anxious appearing: mood depressed.? Assessment: * Assessment: 1. L umbar radiculopathy - M54.16 (Primary) N otes :His back pain is significantly improved and he is working without difficulty at this time. He was encouraged to avoid heavy lifting. 2 . M ixed hyperlipidemia - E78.2 N otes :Comprehensive blood work including a fasting lipid profile will be done in the next few days. 3 . B PH (benign prostatic hyperplasia) - N40.0 N otes :He rises from sleep once or twice a night to urinate. We have discussed modifications to his lifestyle that would reduce nocturia. 4 . O besity (BMI 30-39.9) - E66.9 N otes :She has lost 2 pounds. We discussed his weight loss strategy in detail. We discussed his diet and nnutrition. We made a plan to lose weight [...] discuss this issue with him. 7 . P soriasis - L40.9 N otes :He is being treated at this time by the car framer. He has been compliant with treatment.The x-ray reports of his right knee and right ankle are available and show no significant osseous abnormality. 8 . C erebrovascular accident (CVA) due to occlusion of other cerebral artery - I63.59 N otes :His reflexes and muscle strength are now symmetrical, and his gait is unimpaired. His speech has returned to normal and he has no word finding. The deficits from the small stroke have resolved. He has returned to work. He will continue on antiplatelet drugs. 9 . P soriatic arthritis - L40.50 N otes :I have ordered x-rays of both hands and wrist and referred him to a applications systems engineer.He was given methotrexate. He continues on methotrexate at the current dose.A CBC has been ordered. 1 0. S leep apnea, unspecified type - G47.30 N otes :He reports excessive snoring and daytime somnolence. He says he never feels like he got a good night sleep. I've ordered a sleep study to assess for sleep apnea. Plan: * Treatment: 2. M ixed hyperlipidemia L AB: PROFILE, FASTING (COMPREHENSIVE METABOLIC) L AB: PSA, TOTAL L AB: CBC w DIFF L AB: Lipid Panel 3. B PH (benign prostatic hyperplasia) L AB: PROFILE, FASTING (COMPREHENSIVE METABOLIC) L AB: PSA, TOTAL L AB: CBC w DIFF L AB: Lipid Panel 4. O besity (BMI 30-39.9) L AB: PROFILE, FASTING (COMPREHENSIVE METABOLIC) L AB: PSA, TOTAL L AB: CBC w DIFF L AB: Lipid Panel 5. T obacco dependence Referral To:of [facility] Reason:Evaluate and Treat Months of Scratchiness in Throat 6. O thers Continue dexAMETHasone Tablet, 2 MG, 1 tablet, Orally, every 12 hrs with food. ? Referral To:of [facility] Reason:Evaluate and Treat Months of Scratchiness in Throat * Procedure Codes: * Preventive Medicine: Counseling: [...] of tobacco use and urged to quit. 1 Patient Lifestyle Goals P atient wants to quit Treatment Goals S et a quit date, Cut down by 1 cigarette a week Barriers S tress, Social smoker Self-Management Plan M leighton a plan to cut down number of cigarettes over time and set a date to work towards quitting * Follow Up: 6 Weeks (Reason: OV) * Images: * Sign off status: Completed true * Provider: Brad Lopez MD Date: Generated for Molina sanchez/Heather/eTransmitting on: 06/23/2024 08:25 PM EST History and Physical [...] normal, no s3, or vascular bruits LUNGS: : diminished breath sounds throughout: no wheezes, rales, rhonchi ABDOMEN: bowel sounds [...] normal RECTAL EXAM: not examined PSYCH: alert, oriented: anx ious appearing: mood depressed ORAL CAVITY: normal, unremarkable Consultation Request Notes Referral Date Referring Provider Referred Provider Not es 03/07/2025 Omi Lopez [facility], [facility] Evaluate and Treat Months of Scratchiness in Throat
--- NOTE | 2025-04-22 16:22 | MHC.OFFVIS ---
Vital Signs 04/22/25 16:26 Height 6 ft 1 in Weight 246 lb 11.156 oz BMI 32.5 BP 160/115 H Blood Pressure Location Lt brachial Position Sitting Pulse 78 Pulse Source Pulse Oximeter Pulse Oximetry (%) 98 Oxygen Delivery Method Room Air Intake Visit Reasons: 3 months f/u Intake Note: Patient presents today for Psoriatic arthritis follow up. Computer Aide Required: No Information Interpreted: non-clinical & clinical Accompanied by: Self / Same As Patient Allergies No Known Allergies Allergy (Verified 04/22/25 16:25) Medication List - Last Reconciled 04/22/25 by Violeta Zurita MD apremilast (Otezla) 30 mg PO BID atorvastatin 10 mg PO DAILY celecoxib (Celebrex) 200 mg PO BID 90 days cyclobenzaprine 5 mg PO BEDTIME folic acid 1 mg PO DAILY 90 days methotrexate sodium 20 mg (8 x 2.5 mg) PO QWEEK 90 days HPI Comments Details: Patient is a 55-year-old male with history of stroke and hyperlipidemia who presents for follow up of psoriatic arthritis. Interval History: Patient last seen 12/23/24 with me - On methotrexate 20mg weekly and folic acid - Patient is not sure if the increase is helping - Right knee is improved, left knee still having - Dacytlitis improved Today - On methotrexate 20mg weekly and folic acid - presenting for a follow-up visit for psoriatic arthritis. - He reports resolution of dactylitis and pain in his hands, which occurred prior to considering medication changes. - He notes his hands still feel swollen but are not painful. - The patient reports a two-year history of foot problems, which are now improving. - Initially, his feet were numb and discolored with a blotchy red and white appearance. - As the numbness decreased, he began to feel pain in his inner thighs, elbows, feet, and knees, though the elbow pain has significantly subsided. - Currently, his feet do not go numb but feel tight, and he experiences paresthesia after lying down for an extended period. - He feels well when active but experiences stiffness upon getting up after sitting or lying down. - He continues to feel sciatic pain and believes his symptoms may stem from nerve damage rather than arthritis. - Due to his symptom improvement and belief that there may be another cause, he has decided to stop taking methotrexate and folic acid to test this theory. Rheumatologic History: Patient states that about 2 years ago after he got a COVID shot he started to notice a rash on his bilateral lower extremities. This rash continued to worsen. He finally went to a core feeder and was told he had psoriasis. Used topicals on and off. On recently started Otezla. With improvement of his psoriasis. However about 1 year ago he started to notice pain in his PIP joints DIPs joints his heel and his lateral elbows. This was associated with swelling of the hands and prolonged morning stiffness up to an hour. Denies any history of eye inflammation. Denies any history of inflammatory bowel disease type symptoms. No family history of psoriasis. Current Rheumatology Medication(s): 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 20mg weekly Folic acid 1mg daily Otezla 30mg BID (Derm) Celebrex 200mg bid [facility] Medical History (Updated 08/28/24 @ 22:12 by Violeta Zurita MD) Nocturnal hypoxemia Bilateral primary osteoarthritis of knee Nicotine dependence, cigarettes, uncomplicated 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, technician terminal and repeater, current use Psoriatic arthritis SHIVA (obstructive sleep apnea) Retrognathia Somnolence, daytime Sleep apnea History of stroke Hyperlipidemia Depression Lumbar radiculopathy Surgical History H/O lumbar discectomy Family History Father CAD (coronary artery disease) Myocardial infarction Alcoholism Hypertension CVD (cardiovascular disease) Social History Household Members: None Household Members Other:: lives alone Housing: House Are you a primary infant caregiver to a significant other at home: No Do you presently have visiting nurse or other home services: No Alcohol intake: former Patient Tobacco Use Status: Current everyday Tobacco user Tobacco use type: Cigarette Cigarette Packs Per Day: 0.75 Cigarettes Per Day: 15 Years Smoked: (onset 15yo, 1ppd x 39yrs, 35pyh) Substance Use Type: Marijuana Review of Systems Narrative Review of Systems - Musculoskeletal: Reports resolved dactylitis and hand pain. - Reports pain in inner thighs and knees. - Reports significantly decreased elbow pain. - Reports his hands feel swollen but denies pain. - Reports stiffness after periods of rest. - Reports persistent sciatic pain. - Neurological: Reports improving foot numbness over the past two years. - Reports current sensation of tightness and paresthesias in feet after prolonged rest. - Skin: Reports a history of blotchy, red and white discoloration of the feet, which has resolved. All other systems reviewed and are unremarkable except noted above Physical Exam Exam Exam: Vital signs reviewed Physical Examination CONSTITUITIONAL Patient alert and cooperative. Well appearing and in no apparent painful distress MSK Hands Right Hand: Able to make a fist. No swelling or tenderness to palpation of these joints. Flexion contracture of the ring finger Left Hand: Able to make a fist. No swelling or tenderness to palpation of these joints. No deformities noted. Wrists Right Wrist: Full ROM. 70 degrees of wrist flexion, 80 degrees of wrist extension. No swelling or TTP Left Wrist: Full ROM. 70 degrees of wrist flexion, 80 degrees of wrist extension. No swelling or TTP Elbows Right Elbow: Full ROM. No swelling or TTP. No TTP of the medial and lateral epicondyles Left Elbow: Full ROM. No swelling or TTP. TTP of the medial epicondyle Shoulders Right shoulder: Full ROM. No swelling noted. No TTP of the AC joint, subacromial bursa or posterior shoulder Left shoulder: Full ROM. No swelling noted. No TTP of the AC joint, subacromial bursa or posterior shoulder Knees Right knee: Full ROM. No swelling noted. No TTP of the knee joint lie or pes anserine bursa Left knee: Full ROM. No swelling noted. No TTP of the knee joint lie or pes anserine bursa. Crepitations felt bilaterally Ankles Right ankle: Good ankle dorsiflexion and plantar flexion. No swelling. No TTP of the ankle joint Left ankle: Good ankle dorsiflexion and plantar flexion. No swelling. No TTP of the ankle joint Feet Right foot: Negative squeeze test Left foot: Negative squeeze test Tender points? No tenderness to palpation of the bilateral trapezius, supraspinatus, anterior costochondral junctions, bilateral suboccipital muscle insertions Vital Signs: Last Vital Signs Pulse 78 04/22/25 16:26 BP 160/115 H 04/22/25 16:26 Pulse Ox 98 04/22/25 16:26 Oxygen Delivery Method Room Air 04/22/25 16:26 BMI result Body Mass Index 32.5 Results Reviewed Results Reviewed: Laboratory Tests 11/01/24 07:32 WBC 7.2 RBC 5.40 Hgb 17.6 Hct 51.0 Plt Count 243 ESR 4 Sodium 142 Potassium 4.1 Chloride 108 Carbon Dioxide 26 BUN 14 Creatinine 1.00 AST 30 ALT 66 H C-Reactive Protein 0.25 Assessment & Plan Assessment & Plan (1) Psoriatic arthritis: Code(s): L40.50 - Arthropathic psoriasis, unspecified Category: Medical Plan: #Psoriatic Arthritis Patient is a 54-year-old male with psoriasis complicated by psoriatic arthritis here today for follow-up. D The patient reports significant improvement in his psoriatic arthritis symptoms, including the resolution of dactylitis, and questions if his remaining symptoms are related to this diagnosis. He has decided to stop taking methotrexate to test his theory that his symptoms may have another cause. He was advised that he can also stop taking folic acid. It was explained that it will take approximately two to three months for the methotrexate to fully clear his system. If symptoms recur, he can restart methotrexate at his previous dose of eight pills immediately. A follow-up is scheduled for August to reassess his condition. Plan - Monitor off mtx - RTC 4 months - Labs before visit: CBC, CMP, ESR, CRP (2) Psoriasis: Code(s): L40.9 - Psoriasis, unspecified Category: Medical Plan: #Psoriasis Patient can continue with the Otezla at this time. Follow up with Dermatology. Plan I discussed the patient's desire to stop methotrexate for his psoriatic arthritis, as he reports significant symptom improvement and questions the diagnosis. I explained that it takes about two to three months for methotrexate to completely leave the system, and he can stop folic acid concurrently. We agreed that if his symptoms return, he can restart the medication at his previous dosage without titration. We confirmed his upcoming CT scan and blood work, and I assured him the results would be forwarded to my office. A follow-up visit was scheduled for August to reassess his condition. I spent 30 minutes reviewing the record and labs, taking a history, examining the patient, discussing the treatment plan, ordering diagnostic work up and documenting in the medical record Orders: Orders Aspartate Amino Transferase 4 Months Z79.899 - Other alf (current) drug therapy Erythrocyte Sedimentation Rate 4 Months Z79.899 - Other alf (current) drug therapy C Reactive Protein 04/22/25 Z79.899 - Other technician terminal and repeater (current) drug therapy Erythrocyte Sedimentation Rate 04/22/25 Z79.899 - Other alf (current) drug therapy Complete Blood Count Auto Diff 4 Months Z79.899 - Other alf (current) drug therapy Alanine Aminotransferase 4 Months Z79.899 - Other alf (current) drug therapy Creatinine 4 Months Z79.899 - Other technician terminal and repeater (current) drug therapy C Reactive Protein 4 Months Z79.899 - Other technician terminal and repeater (current) drug therapy Complete Blood Count Auto Diff 04/22/25 Z79.899 - Other technician terminal and repeater (current) drug therapy Comprehensive Met. Panel 04/22/25 Z79.89 - Other alf (current) drug therapy Medications: Discontinued methotrexate sodium Discontinued Reason: Doctor's Order 20 mg (8 x 2.5 mg) PO QWEEK 90 days 104 tabs 1RF L40.50 - Arthropathic psoriasis, unspecified folic acid Discontinued Reason: Doctor's Order 1 mg PO DAILY 90 days 90 tabs 1RF L40.50 - Arthropathic psoriasis, unspecified Coding Level of Care Code Est Pt Level 4 (27374) Add On Problem Visit Only Diagnoses Psoriatic arthritis L40.50 Psoriasis L40.9
[2025-04-22 16:26] VITALS: BP 160/115; PULSE 78; O2SAT 98; BMI 32.5
--- OUTSIDE RECORDS SUMMARY | 2025-04-22 20:24 | XMS_ITS | Patient Health Record ---
Author Organization Omi Lopez III, MD Address [address] [place] [address] [place] [address] Care Team Providers Care Pattern Drum Maker Name Role Phone Dr. Omi Lopez III Primary Care Provider Allergies Allergen (clinical drug ingredient) Drug/Non Drug Allergy documented on EMR Reaction Allergy Type Onset Date Status No Known Drug Allergy Unknown Drug Allergy Active gabapentin Gabapentin Unknown Drug Allergy Activ e Results Component Value Reference Range Notes Complete Blood Count Auto Di ff Reviewed date:11/03/2024 05:43:20 AM Interpretation: Performing Lab:[facility], [address] [place] [phone] Notes/Report: White Blood Count 7.2 4.8-10.8 X10*3/uL [...] 0.0-0.2 /100WBC Neutrophils Absolute Auto 4.7 2.0-8.3 x10*3/u L Imm Gran Abs Auto 0.02 0.00-0.03 X10*3/uL Lymphocytes Absolute Auto 1.8 1.2-4.9 X10*3/u L Monocytes Absolute Auto 0.5 0.1-1.2 X10*3/uL Eosinophils Absolute Auto 0.2 0.0-0.4 X10*3/u L Basophils Absolute Auto 0.1 0.0-0.2 X10*3/uL NRBC Abs Auto 0.000 0.0-0.012 X10*3/uL Erythrocyte Sedimentation Ra te Reviewed date:11/03/2024 05:43:20 AM Interpretation: Performing Lab:[facility], [address] [place] [phone] Notes/Report: Erythrocyte Sedimentation Rate 4 0-15 MM/HR Patients with polycythemia and many hemoglobin abnormalities may have depressed sed rates whereas patients with anemia may have elevated sed rates. Comprehensive Met. Panel Reviewed date:11/03/2024 05:43:20 AM Interpretation: Performing Lab:[address] [address] Notes/Report: Sodium 142 135-145 mmol/L Potassium 4.1 [...] Protein Reviewed date:11/03/2024 05:43:20 AM Interpretation: Performing Lab:[facility], [address] [place] [phone] Notes/Report: C Reactive Protein 0.25 < or = 0.50 mg/dL XR Knee Burke 4V Reviewed date:11/03/2024 05:43:20 AM Interpretation: Performing Lab: Notes/Report: [address] [address] XRay Report Signed Patient: Fredrick Gudino MR#: [id number] 164 : 1970 Acct:[id number] Age/Sex: 54 / M ADM Date: 11/01/24 Loc: KENDR[facility] Attending Dr: Violeta Zurita MD Ordering Physician: Violeta uZrita MD Date of Service: 11/01/24 Procedure(s): XR Knee Burke 4V Accession Number(s): [id number] cc: Violeta Zurita MD; Omi Lopez MD [...] in OV> 11/01/24 0855 DD/ TD/TT: 11/01/24853 Clearing House Clerk: [address] [address] XRay Report Signed Patient: Gian Gudino dd MR#: [id number] 164 : 1970 Acct:[id number] Age/Sex: 54 / M ADM Date: 11/01/24 Loc: HO.XRAY Attending Dr: John Zurita MD Ordering Physician: Violeta Zurita MD Date of Service: 11/01/24 Procedure(s): XR Kne e Burke 4V Accession Number(s): [id number] cc: Violeta Zurita MD ; Omi Lopez [...] 11/01/24 0855 DD/ 0854 TD/TT: 11/01/24 0854 Clearing House Clerk: XR Foot Burke 3V Reviewed date:11/03/2024 05:43:20 AM Interpretation: Performing Lab: Notes/Report: [place] [address] XRay Report Signed Patient: Fredrick uGdino MR#: [id number] 164 : 1970 Acct:[id number] Age/Sex: 54 / M ADM Date: 11/01/24 Loc: KENDRICK Attending Dr: Violeta Zurita MD Ordering Physician: Violeta Zurita MD Date of Service: 11/01/24 Procedure(s): XR Foot Burke 3V Accession Number(s): [id number] cc: Violeta Zurita MD; Omi Lopez MD [...] Deepthi Caraballo MD in OV> 11/01/24848 DD/ 7 TD/TT: 11/01/24847 Clearing House Clerk: [address] [address] XRay Report Signed Patient: Gian Gudino dd E MR#: [id number] 164 : 1970 Acct:[id number] Age/Sex: 54 / M ADM Date: 11/01/24 Loc: HO.XRAY Attending Dr: John Zurita MD Ordering Physician: Violeta Zurita MD Date of Service: 11/01/24 Procedure(s): XR Radha t Burke 3V Accession Number(s): [id number] cc: Violeta Zurita MD ; Omi Lopez [...] Deepthi Caraballo MD in OV> 11/01/24848 DD/ 7 TD/TT: 11/01/24847 Clearing House Clerk: XR Ankle Burke min 3V Reviewed date:11/03/2024 05:43:20 AM Interpretation: Performing Lab: Notes/Report: [address] [address] XRay Report Signed Patient: Fredrick Gudino MR#: [id number] 164 : 1970 Acct:[id number] Age/Sex: 54 / M ADM Date: 11/01/24 Loc: [facility]RAY Attending Dr: Violeta Zurita MD Ordering Physician: Violeta Zurita MD Date of Service: 11/01/24 Procedure(s): XR Ankle Burke min 3V Accession Number(s): [id number] cc: Violtea Zurita MD; Omi Lopez MD CLINICAL HISTORY: [...] by Deepthi Caraballo MD in OV> 11/01/24 0850 DD/ TD/TT: 11/01/2448 Clearing House Clerk: [place] [address] XRay Report Signed Patient: Gian Gudino dd MR#: [id number] 164 : 1970 Acct:[id number] Age/Sex: 54 / M ADM Date: 11/01/24 Loc: [facility] Attending Dr: John Zurita MD Ordering Physician: Violeta Zurita MD Date of Service: 11/01/24 Procedure(s): XR Ank le Burke min 3V Accession Number(s): [id number] cc: Violeta Zurita MD ; Omi Lopez [...] signed by Deepthi Caraballo MD in OV> 11/01/24849 DD/ 7 TD/TT: 11/01/24847 Clearing House Clerk: Reason For Referral Reason achilles tendon and heal pain Diagnosis 1 Heel pain, unspecifi ed laterality (M79.673) Referral Organization Omi Lopez III, MD Referring Provider First Name Omi Referring Provider Last Name Jessica Referring Provider Speciality Internal edicine Referred Provider [facility] [place] [place] Referred Provider Specialty Podiatry General Notes Tavo Maria Isabel SAMPLE DYE MIXER 05/31 01:41:59 PM > patient given contact information to call the podiatry office and set up his own appointment and then call the office with the appt information Referral Priority Routine Reason sleep apnea Diagnosis 1 Sleep apnea, unspeci fied type (G47.30) Referral Organization Omi Lopez III, MD Referring Provider First Name Omi Referring Provider Last Name Jessica Referring Provider Speciality [facility] Referred Provider PRAMOD TAMAYO Referred Provider Specialty Pulmonary Di seases General Notes Maria Isabel Vo SAMPLE DYE MIXER 05/31 01:33:45 PM > Called Dr. Tamayo office [facility]t with Dr Tamayo [...] Speciality Internal edicine Referred Provider [facility] Referred Provider Specialty Ophthalmolog y General Notes Collette Daly 07/26/2024 11:37:09 AM > Referral faxed with progress noteAddy Amber 07/27/2024 11:31:16 AM > Patient is scheduled for 08/23/24 @ 3pm with Dr. Avelar. Patient is made aware Referral Priority Routine Referral Appointment Date 08/23/2024 Reason Evaluate and Treat Months of Scratchiness in Throat Diagnosis 1 Acute pharyngitis, u nspecified (J02.9) Diagnosis 2 Tobacco dependence ( F17.200) Referral Organization Omi Lopez III, MD Referring Provider First Name Omi Referring Provider Last Name Jessica Referring Provider Speciality Internal M edicine Referred Provider [facility], [facility], [facility] Referred Provider Specialty Otolaryngolo gy General Notes D, Coleltte 03/14/2025 10:30:29 AM > Referral was faxed with cover sheet and progress note Referral Priority Routine Medications Medication [...] ve Celecoxib 200 MG Oral Act armin Atorvastatin Calcium 10 MG TAKE 1 TABLET BY MOUTH EVERY DAY FOR 30 DAYS Active Otezla 30 MG Oral Active Immunizations Vaccine Route Administration Date Status [...] Problem Status W/U Status Risk Notes Problem 975811954 Overweight (BMI 25.0-29.9) (E66.3) Active confirmed His weight is stable. We discussed weight reduction strategies today. We reviewed his diet and nutrition. We made a plan to lose weight at a rate of one half of a pound per week. Problem 422184354 Lumbar radiculopathy (M54.16) Active confirmed His back pain is significantly improved and he is working without difficulty at this time. He was encouraged to avoid heavy lifting. Problem 814514575 Mixed hyperlipidemia (E78.2) Active confirmed Comprehensive blood work including a fasting lipid profile will be done in the next few days. Problem Benign prostatic hyperplasia (151496813) BPH (benign prostatic hyperplasia) (N40.0) Active confirmed He rises from sleep once or twice a night to urinate. We have discussed modifications to his lifestyle that would reduce nocturia. Problem 711893836 Obesity (BMI 30-39.9) (E66.9) Active confirmed She has los t 2 pounds. We discussed his weight loss strategy in detail. We discussed his diet and nnutrition. We made a plan to lose weight at a rate of 1 pound per week. Problem Tobacco dependence (26068676) Tobacco dependence (F17.200) Active confirmed He continues to smoke 10-20 cigarettes daily. We have discussed the health consequences of smoking. We have developed several strategies for smoking cessation. Problem Psoriasis (5380075) Psoriasis (L40.9) Active confirmed He is being treated at this time by the maintenance and custodian supervisor. He has been compliant with treatment.The x-ray reports of his right knee and right ankle are available and show no significant osseous abnormality. Problem [id number] Labyrinthitis o f both ears (H83.03) Active confirmed His symptoms are not significant enough for meclizine. He will try an antihistamine. She will report back in 48 hours. He has had no loss of hearing. Problem 97198599 Sleep apnea, unspecified type (G47.30) Active confirmed He reports excessive snoring and daytime somnolence. He says he never feels like he got a good night sleep. I've ordered a sleep study to assess for sleep apnea. Problem 034921462 History of depression (Z86.59) Active confirmed He continues to decline a prescription for an antidepressant R for psychotherapy. I will continue to discuss this issue with him. Problem 450809388 Psoriatic arthritis (L40.50) Active confirmed I have ordered x-rays of both hands and wrist and referred him to a economic manager. He was given methotrexate. He continues on methotrexate at the current dose.A CBC has been ordered. Problem 818074374 Cerebrovascular accident (CVA) due to occlusion of other cerebral artery (I63.59) Active confirmed His reflexes and muscle strength are now symmetrical, and his gait is unimpaired. His speech has returned to normal and he has no word finding. The deficits from the small stroke have resolved. He has returned to work. He will continue on antiplatelet drugs. Vital Signs Heart Rate 77 /min 03/07/2025 Temperature 98.1 degrees Fahrenheit 03/07/2025 Blood pressure diastolic 78 mm Hg 03/07/2025 Height 73 in 03/07/2025 Blood pressure systolic 128 mm Hg 03/07/2025 Weight 247 lbs 03/07/2025 BMI 32.58 kg/m2 03/07/2025 Encounters Encounter Location Date Provider Diagnosis Omi Lopez III, MD [address] [place] [address] [place] [address] 05/31/2024 Omi Lopez Lumbar radiculopathy M54.16 ; Tobacco dependence F17.200 ; History of depression Z86.59 ; Cerebrovascular accident (CVA) due to occlusion of other cerebral artery I63.59 ; Mixed hyperlipidemia E78.2 ; Degenerative disc disease at L5-S1 level M51.36 ; BPH (benign prostatic hyperplasia) N40.0 and Psoriasis L40.9 Omi oLpez III, MD [address] [place] [address] [place] [address] 07/19/2024 Omi Lopez Lumbar radiculopathy M54.16 ; Mixed hyperlipidemia E78.2 ; Overweight (BMI 25.0-29.9) E66.3 ; BPH (benign prostatic hyperplasia) N40.0 ; Psoriasis L40.9 ; Tobacco dependence F17.200 ; History of depression Z86.59 and Psoriatic arthritis L40.50 Omi Lopez III, MD [address] [place] [address] [place] [address] 10/25/2024 Omi Lopez Lumbar radiculopathy M54.16 ; [...] Psoriatic arthritis L40.50 Omi Lopez III, MD [address] [place] [address] [place] [address] 11/04/2024 Omi Lopez Psoriatic arthritis L40.50 ; Tobacco dependence F17.200 ; History of depression Z86.59 ; Cerebrovascular accident (CVA) due to occlusion of other cerebral artery I63.59 ; Mixed hyperlipidemia E78.2 ; Lumbar radiculopathy M54.16 and BPH (benign prostatic hyperplasia) N40.0 Omi Lopez III, MD [address] [place] [address] [place] [address] 12/08/2024 Omi Lopez Lumbar radiculopathy M54.16 ; Psoriasis L40.9 ; Mixed hyperlipidemia E78.2 ; Obesity (BMI 30-39.9) E66.9 ; Tobacco dependence F17.200 ; History of depression Z86.59 ; BPH (benign prostatic hyperplasia) N40.0 and Cerebrovascular accident (CVA) due to occlusion of other cerebral artery I63.59 Omi Lopez III, MD [address] [place] [address] [place] [address] 03/07/2025 Omi Lopez Lumbar radiculopathy M54.16 ; [...] and wrist and referred him to a economic manager.He was given methotrexate. He continues on methotrexate at the current dose.A CBC has been ordered. 12/08/2024 Lumbar radiculopathy (ICD-10 - M54.16) His back pain is significantly improved and he is working without difficulty at this time. He was encouraged to avoid heavy lifting. 12/08/2024 Psoriasis (ICD-10 - L40.9) He is being treated at this time by the maintenance and custodian supervisor. He has been compliant with treatment.The x-ray reports of his right knee and right ankle are available and show no significant osseous abnormality. 03/07/2025 Lumbar radiculopathy (ICD-10 - M54.16) His back pain is significantly improved and he is working without difficulty at this time. He was encouraged to avoid heavy lifting. 03/07/2025 Mixed hyperlipidemia (ICD-10 - E78.2) Comprehensive blood work including a fasting lipid profile will be done in the next few days. 05/31/2024 History of depressio n (ICD-10 - [...] has been ordered before his next visit. 03/07/2025 BPH (benign prostati c hyperplasia) (ICD-10 - N40.0) He rises from sleep once or twice a night to urinate. We have discussed modifications to his lifestyle that would reduce nocturia. 05/31/2024 Cerebrovascular accident (CVA) due to occlusion [...] rate of 1 pound per week. 03/07/2025 Obesity (BMI 30-39.9 ) (ICD-10 - E66.9) She has lost 2 pounds. We discussed his weight loss strategy in detail. We discussed his diet and nnutrition. We made a plan to lose weight at a rate of 1 pound per week. 05/31/2024 Mixed hyperlipidemia (ICD-10 - E78.2) The current lipid profile shows a total cholesterol of 227 He was fasting. He has resumed taking his atorvastatin, and a repeat value will be ordered in a few weeks. 07/19/2024 Psoriasis (ICD-10 - L40.9) He is being treated at this time by the maintenance and custodian supervisor. He has been compliant with treatment. 10/25/2024 Psoriasis (ICD-10 - L40.9) He is being treated at this time by the maintenance and custodian supervisor. He has been compliant with treatment. 11/04/2024 Mixed hyperlipidemia (ICD-10 - E78.2) Fasting lipid profile has been ordered prior to his next visit. He was instructed to do this fasting. 12/08/2024 Tobacco dependence (ICD-10 - F17.200) He continues to smoke 10-20 cigarettes daily. We have discussed the health consequences of smoking. We have developed several strategies for smoking cessation. 03/07/2025 Tobacco dependence (ICD-10 - F17.200) He continues to smoke 10-20 cigarettes daily. We have discussed the health consequences of smoking. We have developed several strategies for smoking cessation. 05/31/2024 Degenerative disc disease at L5-S1 level [...] to discuss this issue with him. 03/07/2025 History of depressio n (ICD-10 - Z86.59) He continues to decline a prescription for an antidepressant R for psychotherapy. I will continue to discuss this issue with him. 05/31/2024 BPH (benign prostati c hyperplasia) (ICD-10 [...] modifications he could take to reduce nocturia. 03/07/2025 Psoriasis (ICD-10 - L40.9) He is being treated at this time by the maintenance and custodian supervisor. He has been compliant with treatment.The x-ray reports of his right knee and right ankle are available and show no significant osseous abnormality. 05/31/2024 Psoriasis (ICD-10 - L40.9) He is being treated at this time by the maintenance and custodian supervisor. He has been compliant with treatment. 07/19/2024 Psoriatic arthritis (ICD-10 - L40.50) I have ordered x-rays of both hands and wrist and referred him to a economic manager.He was given methotrexate. He continues on methotrexate [...] He will continue on antiplatelet drugs. 03/07/2025 Cerebrovascular accident (CVA) due to occlusion of other cerebral artery (ICD-10 - I63.59) His reflexes and muscle strength are now symmetrical, and his gait is unimpaired. His speech has returned to normal and he has no word finding. The deficits from the small stroke have resolved. He has returned to work. He will continue on antiplatelet drugs. 10/25/2024 Cerebrovascular accident (CVA) due to occlusion [...] and wrist and referred him to a economic manager.He was given methotrexate. He continues on methotrexate at the current dose.A CBC has been ordered. 10/25/2024 Sleep apnea, unspecified type (ICD-10 - G47.30) He reports excessive snoring and daytime somnolence. He says he never feels like he got a good night sleep. I've ordered a sleep study to assess for sleep apnea. 03/07/2025 Sleep apnea, unspecified type (ICD-10 - G47.30) He reports excessive snoring and daytime somnolence. He says he never feels like he got a good night sleep. I've ordered a sleep study to assess for sleep apnea. 10/25/2024 Psoriatic arthritis (ICD-10 - L40.50) I have ordered x-rays of both hands and wrist and referred him to a economic manager.He was given methotrexate. He continues on methotrexate at the current dose.A CBC has been ordered. Plan Of Treatment Pending Test Test Name Order Date PROFILE, FASTING (COMPREHENSIVE METABOLI C) 09/17/2022 PROFILE, FASTING (COMPREHENSIVE METABOLI C) 03/09/2021 PROFILE, FASTING (COMPREHENSIVE METABOLI C) 10/16/2020 PROFILE, FASTING (COMPREHENSIVE METABOLI C) 12/03/2021 PROFILE, FASTING (COMPREHENSIVE METABOLI C) 03/07/2025 PROFILE, FASTING (COMPREHENSIVE METABOLI C) 01/08/2023 PROFILE, FASTING (COMPREHENSIVE METABOLI C) 12/08/2024 PROFILE, RANDOM (COMPREHENSIVE METABOLIC ) 03/29/2024 PROFILE, RANDOM (COMPREHENSIVE METABOLIC ) 06/04/2021 LIPID PANEL 09/17/2022 LIPID PANEL 10/16/2020 LIPID PANEL 12/03/2021 LIPID PANEL 11/03/2020 LIPID PANEL 01/08/2023 TSH (THYROID STIMULATING HORMONE) 2024 PSA, TOTAL 09/17/2022 PSA, TOTAL 10/16/2020 PSA, TOTAL 03/07/2025 PSA, TOTAL 06/04/2021 CBC w DIFF 03/07/2025 CBC w DIFF 06/04/2021 CBC w DIFF 01/08/2023 CBC w DIFF 12/08/2024 CBC w DIFF 03/09/2021 CBC w DIFF 09/17/2022 CBC w DIFF 12/03/2021 CBC w DIFF 10/16/2020 LYME DISEASE IgG/IgM WB 10/07/2023 MRI PELVIS NO CONTRAST 02/22/2022 CBC WITH AUTO DIFF 03/29/2024 Lipid Panel 03/07/2025 Lipid Panel 12/08/2024 Lipid Panel 03/09/2021 Next Appt Details Provider Name:Omi Lopez , 05/16/2025 11:15:00 AM, [address] [place] [address] [address], [place], [address], Provider Name:Omi Lopez , 12/12/2025 10:00:00 AM, [address] [place] [address] [address], [place], [address], Insurance Providers Payer Name Payer Address Payer Phone Subscriber Number Group Number Insured Name Patient Relationship to Insured Coverage Start Date Coverage End Date [facility] [address] [facility] [address] [facility] [place] [id number] [id number] Fredrick Gudino Self - patient is the [...] Hospitalization History Reason Date(Month/Year) No history Stroke [facility] 2021
--- OUTSIDE RECORDS SUMMARY | 2025-04-22 20:26 | XMS_ITS | Patient Health Record ---
Author Organization [facility] Address [address] [place] [address] Care Team Providers Care Residential Insurance Inspector Name Role Phone Jessica JAMES, Omi Primary Care Provider Richard Pina Jr Unavailable [phone] Allergies No Known Allergies Reason For Referral No Information Medications Medication SIG (Take, Route, Frequency, Duration) Notes Start Date End Date Status Atorvastatin Calcium 10 MG Tablet TAKE 1 TABLET BY MOUTH EVERY DAY FOR 30 DAYS Oral; Duration: 90 Active Otezla 30 MG Tablet Oral; Duration: 30 Active Folic Acid 1 MG Tablet Oral; Duration: 90 Active tiZANidine HCl 2 MG Tablet Oral; Duration: 30 Active 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 Sodium 2.5 MG Tablet TAKE 3 TABLETS BY MOUTH ONCE EVERY WEEK FOR 2 WEEKS, THEN 6 TABLETS ONCE EVERY WEEK Oral; Duration: 90 Active Diclofenac Sodium 1 % Gel External; Duration: 30 Active MiraLax (colon prep) 17 GM/SCOOP Powder mixed with Gatorade or Crystal Light Orally begin at 5:00 p.m. the day before the procedure; Duration: 1 day 03/24/2024 Active Naproxen 500 MG Tablet Oral; Duration: 30 Active Immunizations Vaccine Route Administration Date Status Comme nts Influenza Unknown 03/24/2024 Refused Social History Tobacco Use: Social History Observation Description Date Details (start date - stop date) Current Smoker NA - NA Social History Drugs/Alcohol: Social Info Question Answer Notes Alcohol Screen Did you have a drink containing alcohol in the past year? 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-inflammat 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 drug (6991674396231 03) Encounter for long-term (current) use of NSAIDs (Z79.1) Active confirmed Plan Of Treatment Future Test Test Name Order Date COLONOSCOPY 03/24/2024 Insurance Providers Payer Name Payer Address Payer Phone Subscriber Number Group Number Insured Name Patient Relationship to Insured Coverage Start Date Coverage End Date [facility] [address] [place] [phone] [id number] SHARITA AGUAYO Self - patient is the insured Medical (General) History Medical History History ICD Code 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
--- OUTSIDE RECORDS SUMMARY | 2025-04-22 20:26 | XMS_ITS | Clinical Summary ---
Author Organization [facility] Address [address] [place] [address] Care Team Providers Care Cullet Trucker Name Role Phone Guillermina Bazan ROZ Primary Care Provider [phone] Surgical History Surgery Date Site/Laterality Comments HAND SURGERY PROCEDURE: PA UNLISTED PROCEDURE HANDS/FINGERS; COMMENT: artificial joint Family [...] on file Sexual Orientation Not on file Plan of Treatment Health Maintenance Due Date Last Done Comments DTaP,Tdap,and Td Vaccines (1 - Tdap) 1987 Hepatitis B Vaccines (1 of 3 - 19+ 3-dose series) 1987 Pneumococcal Vaccine: 50+ Ye ars (1 of 1 - PCV) 2018 Zoster Vaccines (1 of 2) 2018 Depression Screening 05/12/2024 COVID-19 Vaccine (1 - 2024-2 6 season) 2025 Influenza Vaccine (#1) 2025 RSV Immunization Adult Patie nts (1 - 1-dose 75+ series) 2043 HIB Vaccines Aged Out No longer eligi [...] age to complete this topic Care Teams Cullet Trucker Relationship Specialty Start Date End Date Guillermina Bazan NP [address] [place] [phone] PCP - General Internal Medicine 02/26/22
== END 2025-04-22 16:58 | disposition home or self-care (01) ==
LOC: HO.RHES 15:41
PROVIDERS: PCP Internal Medicine Medical Oncology; Visit Provider Student in an Organized Health Care Education/Training Program
DX: L40.50 Arthropathic psoriasis, unspecified (principal); L40.9 Psoriasis, unspecified
CPT/HCPCS: 99214; G2211